=== PATIENT | female | born 1960 | race African-American/Black ===

== ENCOUNTER 2020-04-22 21:52 | Inpatient (IN) | payer MEDICARE, OTHER, MEDICAID ==
[~2020-04-22] VITALS: Ht 170.2 cm; Wt 88.5 kg
[~2020-04-22 21:52] MED LIST: ALBUTEROL; ASCORBIC ACID500 M4 GT; ATROVENT; CRANBERRY JUICE; DILANTIN-1125 MG/5 M GT; DULCOLAX10 MG RC; FLEET ENEMA133 ML RC; LIQUITEARS15 ML OP; MIRALAX17 GM PO; MOM30 ML GT; MVI WITH MINERAL GT; PERIDEX 0.12% O15 ML ORO; POTASSIUM20 MEQ/15 GT; PRILOSEC20 MG GT; REGLAN5 MG GT; VITAMIN C500 MG/51 GT; ZINC SULFATE220 M1 GT; tylenol GT
[2020-04-22 21:55] VITALS: BP 116/52
--- NOTE | 2020-04-22 21:55 | NUR ---
ED Nurse Note: Patient brought in by ambulance rigoberto ra [facility] from [facility] c/o fever. Patient placed in isolation room 7. Patient obtunded, responds to painful stimuli, opens eyes spontaneously, unable to track movements, unable to make purposeful movements. Contracture noted on right upper extremity; flaccidity noted on other extremities. Changed gown and attached to monitor. patient sinus tach 130's; febrile 105F rectal; otherwise vitals stable. Tracheostomy noted; portex 7. RT at bedside for vent attachment. AC 18 TV450 PEEP5 FIO2 40%. GT noted; flushed and patent. Ding and bilateral ileal conduits intact and patent. Sacral wound noted; wound pictures taken and uploaded. PUI airborne precautions observed. All safety measures met; bed locked at lowest position; side rails raised.
--- NOTE | 2020-04-22 22:00 | NUR ---
ED Nurse Note: IV access present on right ankle 22g; flushed and patent. IV access established left forearm 20 g. Blood, urine, inital lactic, blood cultures, flu mrsa vre cre covid swab collected sent down to lab.
--- NOTE | 2020-04-22 22:03 | NUR ---
RESPIRATORY NOTE: Pt BIBA in ED c/o fever. Pt placed on ventilator w/ previous settings from facility. Pt on AC 18, 450VT, 40%, PEEP +5. Pt is trach-dependent w/ a cuffed, Portex 7 tube. Pt obtunded/flat effect. B/S ryne. rhonchi, sxn small to moderate amounts of thick, pale-yellow secretions. Vent plugged into red outlet, ambubag at bedside. Pt in no apparent distress at this time. RN at bedside. Will continue to monitor pt.
--- NOTE | 2020-04-22 22:12 | Emergency Room Report ---
History of Present Illness General Chief Complaint: Fever Source: Medical Record, EMS Present Illness HPI This is a 59-year-old female with detention patient. She is trach dependent and also has a feeding tube. She presents with chief complaint of fever. Onset today. Also increasing heart rate and shortness of breath. Unable to get any history from this patient because of her condition and she is nonverbal. History is from detention note and EMS. No reported productive cough. Allergies: Coded Allergies: No Known Allergies (Unverified , 02/08/13) COVID-19 Screening Contact w/high risk pt: Yes Recent Travel to affected area: No Experienced COVID-19 symptoms?: Yes COVID-19 symptoms experienced: Fever (T>100.4F or >38C) COVID-19 Testing performed COIL TAPER: No Patient History Past Medical History: see triage record, old chart reviewed Past Surgical History: other Pertinent Family History: none Social History: Denies: smoking Last Menstrual Period: na Now: No Immunizations: UTD Reviewed Nursing Documentation: PMH: Agreed; PSxH: Agreed Nursing Documentation-PMH Hx COPD: Yes - resp failure,trache vent, CHRONIC AIRWAY OBSTRUCTION Hx Gastrointestinal Problems: Yes - gerd, G-TUBE, INTESTINAL OBSTRUCTION, PARALYTIC ILEUS, OBESITY Hx Seizures: Yes Review of Systems Constitutional: Reports: weakness Respiratory: Reports: shortness of breath All Other Systems: limited - Secondary to condition Physical Exam Vital Signs Date Time Temp Pulse Resp B/P (MAP) Pulse Ox O2 Delivery O2 Flow Rate FiO2 04/22/20 21:51 100.8 120 12 116/52 (73) 100 Trach Collar 15.0 04/22/20 22:00 40 Vitals with fever. Rectal temp 105.4 Sp02 EP Interpretation: reviewed, normal General Appearance: alert, moderate distress, cachetic, Chronically Ill Head: normocephalic, atraumatic Eyes: bilateral eye PERRL, bilateral eye EOMI ENT: hearing grossly normal, dry mucus membranes Neck: full range of motion, supple, no meningismus, tracheotomy Respiratory: chest non-tender, decreased breath sounds, accessory muscle use, rhonchi Cardiovascular #1: regular rate, rhythm, no murmur Gastrointestinal: normal bowel sounds, non tender, no mass, no organomegaly, no bruit, non-distended Musculoskeletal: back normal, other - Muscle wasting; sacral decubitus. No drainage. Bilateral urostomy tubes Skin: no rash Procedures Critical Care Time Critical Care Time Critical care is mandated in this patient who presented with sepsis. Patient require my urgent intervention to attenuate the risks of metabolic collapse which may lead to cardiovascular collapse and . Critical care time is 35 minutes excluding any reportable procedure. Critical care time included evaluation, multiple reevaluation, looking at old charts, interpreting laboratory and diagnostic data, discussing case with patient and family and consultants, and charting. 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 She grew out multidrug- resistant bacteria in the past. I gave her a dose of ertapenem here. Blood pressure improved with IV fluids. Heart rate improved with IV fluids and Tylenol. Rapid COVID testing is negative. Chest x-ray no infiltrates. I discussed the case with [facility]. Case #[id number]. There is no stepdown or ICU bed at [facility] so she will be admitted here under service of Dr. Yanez. I discussed the case with him and he accepted patient for admission. EKG Diagnostic Results Rate: tachycardiac Rhythm: NSR ST Segments: other - NSST changes Rhythm Strip Diag. Results EP Interpretation: yes Rate: 105 Rhythm: NSR, no PVC's, no ectopy Chest X-Ray Diagnostic Results Chest X-Ray Diagnostic Results : Chest X-Ray Ordered: Yes # of Views/Limited/Complete: 1 View Indication: Shortness of Breath EP Interpretation: Yes Interpretation: no consolidation, no effusion, no pneumothorax, no acute cardiopulmonary disease Impression: No acute disease Electronically Signed by: Gilmar Santoyo MD Last Vital Signs Date Time Temp Pulse Resp B/P (MAP) Pulse Ox O2 Delivery O2 Flow Rate FiO2 04/22/20 22:00 127 26 40 04/22/20 21:51 100.8 116/52 (73) 100 Trach Collar 15.0 Status: improved Disposition: ADMITTED INPATIENT Condition: Serious Gilmar Santoyo MD Apr 22, 2020 22:12
[2020-04-22] MEDS ORDERED: Acetaminophen 650 MG SUPP RECTAL ONE (22:15)
--- NOTE | 2020-04-22 22:17 | NUR ---
patient's brother, Reggie TAMAYO [phone]
--- NOTE | 2020-04-22 22:50 | NUR ---
ED Nurse Note: Radiology at bedside for CXR.
[2020-04-22 23:13] LABS: BASOPHILS % (AUTO) 1.2 % (0.0-2.0); HEMATOCRIT 41.1 % (37.0-47.0); HEMOGLOBIN 12.5 G/DL (12.0-16.0); LYMPHOCYTES % (AUTO) 24.4 % (20.0-45.0); MEAN CORPUSCULAR VOLUME 102 FL (80-99); MONOCYTES % (AUTO) 7.2 % (1.0-10.0); NEUTROPHILS % (AUTO) 67.2 % (45.0-75.0); PLATELET COUNT 109 K/UL (150-450); RED BLOOD COUNT 4.02 M/UL (4.20-5.40); RED CELL DISTRIBUTION WIDTH 16.4 % (11.6-14.8)
[2020-04-22 23:20] LABS: ANION GAP 10 mmol/L (5-15); BLOOD UREA NITROGEN 46 mg/dL (7-18); CALCIUM 7.7 MG/DL (8.5-10.1); CARBON DIOXIDE 28 MMOL/L (21-32); CHLORIDE 122 MMOL/L (98-107); CREATININE 1.3 MG/DL (0.55-1.30); SODIUM 160 MMOL/L (136-145)
[2020-04-22 23:30] VITALS: BP 124/68
--- NOTE | 2020-04-22 23:30 | NUR ---
ED Nurse Note: Rapid covid resulted negative; droplet precaution retracted and placed on contact precaution. Patient remains tachycardic 122 otherwise vitals remain stable to baseline.
[2020-04-22 23:37] LABS: ALANINE AMINOTRANSFERASE 127 U/L (12-78); ALBUMIN 2.4 G/DL (3.4-5.0); ALBUMIN/GLOBULIN RATIO 0.3 (1.0-2.7); ALKALINE PHOSPHATASE 150 U/L (46-116); ASPARTATE AMINO TRANSFERASE 103 U/L (15-37); BILIRUBIN,TOTAL 0.4 MG/DL (0.2-1.0); CKMB < 0.5 NG/ML (0.0-3.6); CREATINE KINASE 165 U/L (26-308); FERRITIN 340 NG/ML (8-388)
[2020-04-23] VITALS (7 sets, daily range): BP systolic 124–144; BP diastolic 38–83
[2020-04-23] MEDS ORDERED: Ertapenem 1 GM in NS 55 ML IV ONE ×2
--- NOTE | 2020-04-23 | NUR ---
ED Nurse Note: lactic reflex, repeat urine and flu swab collected; sent down to lab.
[2020-04-23 00:56] LABS: APPEARANCE,URINE SLIGHTLY CLOUDY; BILIRUBIN, URINE NEGATIVE (NEGATIVE); COLOR,URINE PALE YELLOW; GLUCOSE, URINE (UA) 4+ (NEGATIVE); KETONES,URINE NEGATIVE (NEGATIVE); LEUKOCYTE ESTERASE ,URINE 3+ (NEGATIVE); NITRITE,URINE NEGATIVE (NEGATIVE); PH,URINE 8 (4.5-8.0); PROTEIN,URINE 4+ (NEGATIVE); UROBILINOGEN,URINE NORMAL MG/DL (0.0-1.0)
--- NOTE | 2020-04-23 01:12 | NUR ---
ED Nurse Note: Accucheck 249; ermd notified.
--- NOTE | 2020-04-23 01:14 | Emergency Room Report ---
Sepsis Event Note Evaluation Current Stage of Sepsis: Severe Sepsis Possible Source: Genitourinary Focused Exam Allergies: Coded Allergies: No Known Allergies (Unverified , 02/08/13) Date Exam Occurred: Apr 23, 2020 Time Exam Occurred: 01:14 Laboratory Studies Laboratory Tests Test 04/22/20 22:06 04/22/20 22:15 04/23/20 00:00 Sodium Level 160 MMOL/L (136-145) H Potassium Level 4.0 MMOL/L (3.5-5.1) Chloride Level 122 MMOL/L (98-107) H Carbon Dioxide Level 28 MMOL/L (21-32) Anion Gap 10 mmol/L (5-15) Blood Urea Nitrogen 46 mg/dL (7-18) H Creatinine 1.3 MG/DL (0.55-1.30) Estimat Glomerular Filtration Rate 50.4 mL/min (>60) Glucose Level 499 MG/DL (74-106) H Calcium Level 7.7 MG/DL (8.5-10.1) L Ferritin 340 NG/ML (8-388) Total Bilirubin 0.4 MG/DL (0.2-1.0) Aspartate Amino Transf (AST/SGOT) 103 U/L (15-37) H Alanine Aminotransferase (ALT/SGPT) 127 U/L (12-78) H Alkaline Phosphatase 150 U/L (46-116) H Total Creatine Kinase 165 U/L (26-308) Creatine Kinase MB < 0.5 NG/ML (0.0-3.6) Creatine Kinase MB Relative Index 0.3 Total Protein 10.2 G/DL (6.4-8.2) H Albumin 2.4 G/DL (3.4-5.0) L Globulin 7.8 g/dL Albumin/Globulin Ratio 0.3 (1.0-2.7) L White Blood Count 14.0 K/UL (4.8-10.8) H Red Blood Count 4.02 M/UL (4.20-5.40) L Hemoglobin 12.5 G/DL (12.0-16.0) Hematocrit 41.1 % (37.0-47.0) Mean Corpuscular Volume 102 FL (80-99) H Mean Corpuscular Hemoglobin 31.1 PG (27.0-31.0) H Mean Corpuscular Hemoglobin Concent 30.3 G/DL (32.0-36.0) L Red Cell Distribution Width 16.4 % (11.6-14.8) H Platelet Count 109 K/UL (150-450) L Mean Platelet Volume 12.2 FL (6.5-10.1) H Neutrophils (%) (Auto) 67.2 % (45.0-75.0) Lymphocytes (%) (Auto) 24.4 % (20.0-45.0) Monocytes (%) (Auto) 7.2 % (1.0-10.0) Eosinophils (%) (Auto) 0.0 % (0.0-3.0) Basophils (%) (Auto) 1.2 % (0.0-2.0) D-Dimer 1.68 mg/L FEU (0.00-0.49) H Lactic Acid Level 3.30 mmol/L (0.4-2.0) H Pending Troponin I 0.097 ng/mL (0.000-0.056) C-Reactive Protein, Quantitative 2.8 mg/dL (0.00-0.90) H Urine Color Pale yellow Urine Appearance Slightly cloudy Urine pH 8 (4.5-8.0) Urine Specific [place] 1.010 (1.005-1.035) Urine Protein 4+ (NEGATIVE) H Urine Glucose (UA) 4+ (NEGATIVE) H Urine Ketones Negative (NEGATIVE) Urine Blood 5+ (NEGATIVE) H Urine Nitrite Negative (NEGATIVE) Urine Bilirubin Negative (NEGATIVE) Urine Urobilinogen Normal MG/DL (0.0-1.0) Urine Leukocyte Esterase 3+ (NEGATIVE) H Urine RBC Tntc /HPF (0 - 2) H Urine WBC 20-30 /HPF (0 - 2) H Urine Squamous Epithelial Cells Few /LPF (NONE/OCC) Urine Bacteria Many /HPF (NONE) H Vital Signs Last 24 Hour Vital Signs Date Time Temp Pulse Resp B/P (MAP) Pulse Ox O2 Delivery O2 Flow Rate FiO2 04/23/20 00:30 103.0 118 18 144/60 100 Mechanical Ventilator 40 04/22/20 23:30 103.9 122 23 124/68 100 Mechanical Ventilator 40 04/22/20 23:25 121 20 40 04/22/20 22:46 103.9 6/22/20 22:00 127 26 40 04/22/20 22:00 40 04/22/20 21:55 105.0 130 12 116/52 100 Mechanical Ventilator 15.0 04/22/20 21:55 120 12 Mechanical Ventilator 15.0 04/22/20 21:51 100.8 120 12 116/52 (73) 100 Trach Collar 15.0 Respiratory Exam: Clear Cardiovascular Exam: RRR Capillary Refill: Less Than 2 Seconds Peripheral Pulse: Strong Pulse Location: Radial Skin Exam: Normal Turgor Gilmar Santoyo MD Apr 23, 2020 01:14
[2020-04-23] MEDS ORDERED: Acetaminophen 650 MG SUPP RECTAL PRN (01:15)
--- NOTE | 2020-04-23 01:20 | NUR ---
NURSE NOTES: Harry hooper RN called, gave report. awaiting pt arrival.
--- NOTE | 2020-04-23 01:25 | NUR ---
TRANSFER TO FLOOR: Patient transferred to [facility]du 239 as ordered, per monica valencia. Report given to paige pena. patient stable for transfer. patient transferred to unit via gurney with RN Fortunato and RT. Belongings and admission packet sent with patient
--- NOTE | 2020-04-23 01:29 | NUR ---
NURSE NOTES: pt received form Ela BARKER, pt remains stable. pt arrived with no belongings. pt is obtunded neuro porras, however no change in mentation. pt is on personnel monitor showing NSR, no acute abnormalities. pt is vented, sating at 99% O2 no abnormalities to resp. bed is low, locked, armed, call light within reach, bed rails up times 3. will follow plan of care.
[2020-04-23] MEDS ORDERED: GLYCOLAX225 GM GT (01:36)
[2020-04-23] MEDS ORDERED: CRANBERRY425 MG GT (01:36)
[2020-04-23] MEDS ORDERED: POTASSIUM20 MEQ/100 IV (01:36)
[2020-04-23] MEDS ORDERED: CLOPIDOGREL75 MG GT (01:36)
[2020-04-23] MEDS ORDERED: LIPITOR80 MG ORAL (01:36)
[2020-04-23] MEDS ORDERED: VITAMIN A & D454 GM TP (01:36)
[2020-04-23] MEDS ORDERED: ACETAMINOPHEN500 M5 GT (01:36)
[2020-04-23] MEDS ORDERED: ZOSYN 3.373.375 GM/1 IVPB (01:36)
[2020-04-23] MEDS ORDERED: LEVETIRACETAM500 MG GT (01:36)
[2020-04-23] MEDS ORDERED: ACETAMINOP160 MG/5 M GT (01:36)
[2020-04-23] MEDS ORDERED: SENNO8.6 MG GT (01:36)
[2020-04-23] MEDS ORDERED: SORBITOL 70%30 ML GT (01:36)
[2020-04-23] MEDS ORDERED: HUMULIN R100 UNIT/1 SUBQ (01:36)
[2020-04-23] MEDS ORDERED: DULCOLAX10 MG RC (01:36)
[2020-04-23] MEDS ORDERED: DOCUSATE SODIU100 M2 GT (01:36)
[2020-04-23] MEDS ORDERED: IPRATROPIU0.2 MG/1 M HHN (01:36)
[2020-04-23] MEDS ORDERED: Miralax 17gm pkt GT SCH (02:00)
[2020-04-23] MEDS ORDERED: Milk of Magnesia 30ml Ud GT PRN (02:00)
[2020-04-23] MEDS ORDERED: Fleet's Enema 133ml RECTAL PRN (02:00)
[2020-04-23] MEDS ORDERED: KCL IVPB SCH (02:00)
[2020-04-23] MEDS ORDERED: Sorbitol Solution UD 30ml GT SCH (02:00)
[2020-04-23] MEDS ORDERED: Ipratropium 0.02% Inh Soln 2.5ml UD HHN PRN (02:00)
[2020-04-23] MEDS: Acetaminophen 500mg (ES) tab ORAL SCH ×2 (02:00→06:00)
[2020-04-23] MEDS ORDERED: Vancomycin 1gm in D5W 275ml IVPB SCH ×2 (04:15→05:00)
[2020-04-23 05:49] LABS: ANION GAP 10 mmol/L (5-15); BLOOD UREA NITROGEN 34 mg/dL (7-18); CALCIUM 6.7 MG/DL (8.5-10.1); CARBON DIOXIDE 25 MMOL/L (21-32); CHLORIDE 130 MMOL/L (98-107); PHOSPHORUS 1.7 MG/DL (2.5-4.9); POTASSIUM 3.2 MMOL/L (3.5-5.1)
[2020-04-23 05:51] LABS: HEMATOCRIT 34.3 % (37.0-47.0); HEMOGLOBIN 10.4 G/DL (12.0-16.0); MEAN CORPUSCULAR VOLUME 104 FL (80-99); PLATELET COUNT 86 K/UL (150-450); RED CELL DISTRIBUTION WIDTH 15.5 % (11.6-14.8); WHITE BLOOD COUNT 13.4 K/UL (4.8-10.8)
[2020-04-23] MEDS ORDERED: Insulin Human Regular 100units/ml 3ml SUBQ SCH (06:30)
[2020-04-23 06:39] LABS: SODIUM 165 MMOL/L (136-145)
[2020-04-23] MEDS ORDERED: Cefepime 2gm in D5W 55ml IVPB SCH (07:00)
--- NOTE | 2020-04-23 07:10 | NUR ---
HAND-OFF: Report given to Sue BARKER pt remains stable. .
--- NOTE | 2020-04-23 07:20 | NUR ---
NURSE NOTES: Received report from LUCERO Suarez. Pt appears to be obtunded, not tracking with her eyes, not following commands. Trach to vent, Portex 7- AC 18, TV 450, PEEP 5. O2sat 99-100%. Rt foot #22g, saline locked and Lt FA #20g running 1/2 NS @ 75mL/hr. Pt noted to have BL nephrostomy tubes, draining to collection bags. Pt also has a Ding catheter draining minimal urine to urometer. Will report labs to MD and clarify a few medication orders. Bed locked and in lowest position. Seizure precautions maintained. Will continue to monitor.
--- NOTE | 2020-04-23 08:14 | NUR ---
RD ASSESSMENT & RECOMMENDATIONS SEE CARE ACTIVITY FOR COMPLETE ASSESSMENT DAILY ESTIMATED NEEDS: Needs based on Critical care, DM, sepsis 66.7kg abw 22-30 kcals/kg 5946-4126 total kcals 1.25-2 g protein/kg 83-133 g total protein 25-30 mL/kg 6696-6312 total fluid mLs NUTRITION DIAGNOSIS: Swallowing difficulty r/t resp status as evidenced by pt is trach and PEG dep. CURRENT TF: Glucerna 1.5 @60ml/hr x20 hrs ENTERAL NUTRITION RECOMMENDATIONS: Glucerna 1.2 @75ml/hr x20 hrs (on Dilantin BID) to provide 1500ml, 1800 kcal, 90g pro, 1208ml free h2o Glucerna 1.5 OOS-> Rec Glucerna 1.2 for carb control + increased free H2O - Start @low rate, 15ml/hr for 6 hrs. Advance as tolerated 10ml/hr q4-6 hrs to goal. - Flush per MD/ HOB over 30 degrees. ---- ADDITIONAL RECOMMENDATIONS: 1) Obtain an accurate Height as able: 5'7" per EMR vs 6'1" per SNF. April 01, 2020 wt per SNF: 182 lbs/82.73kg 2) F/up w/ WC eval 3) Increase water flushes as Na is trending up 4) Replete lytes-> Mg, Phos, and K all low
[2020-04-23] MEDS ORDERED: Sorbitol Solution UD 30ml GT PRN (08:15)
[2020-04-23] MEDS ORDERED: Acetaminophen 650mg/20.3ml GT SCH (08:30)
[2020-04-23] MEDS ORDERED: Acetaminophen 650mg/20.3ml GT PRN (08:45)
[2020-04-23] MEDS ORDERED: levETIRAcetam 500mg/5ml Liquid NG SCH (09:00)
[2020-04-23] MEDS ORDERED: Ascorbic Acid 500mg tab GT SCH (09:00)
[2020-04-23] MEDS ORDERED: Cefepime HCl 1 GM in D5W 55 ML IVPB SCH (09:00)
[2020-04-23] MEDS ORDERED: Phenytoin Susp 100mg/4ml GT SCH (09:00)
[2020-04-23] MEDS ORDERED: Pantoprazole Inj IVP SCH (09:00)
[2020-04-23] MEDS ORDERED: Vitamin A&D Oint Tube TOPIC SCH (09:00)
[2020-04-23] MEDS: Phenytoin Susp 100mg/4ml NG SCH ×2 (09:11→13:13)
[2020-04-23] MEDS: Cefepime 2gm in D5W 55ml IVPB SCH ×2 (09:12→20:59)
[2020-04-23] MEDS: Sennosides 8.6mg tab GT SCH (09:12)
[2020-04-23] MEDS: Zinc Sulfate 220mg GT SCH (09:15)
[2020-04-23] MEDS: Miralax 17gm pkt GT SCH (09:15)
--- NOTE | 2020-04-23 10:49 | Diagnostic Imaging Report ---
Procedure: XRAY Chest 1v Reason for study: Reason For Exam: SOB Comparison films: 01/08/2015. FINDINGS: A single one view chest is obtained. Vascularity is normal. The lung edgar are clear bilaterally. Cardiac and mediastinal silhouette are within normal limits. CP angles are sharp. The bony thorax appear unremarkable. IMPRESSION: NO ACUTE CARDIOPULMONARY DISEASE.
--- NOTE | 2020-04-23 11:45 | NUR ---
NURSE NOTES: Jackelin, wound care nurse, at bedside assessing pt's wound- sacral stage 4. 3.6 x 1.3 x 1.9. Wound cleaned, Betadine applied, therhoney applied. Triad applied to surrounding areas. Covered with optifoam. Heels and BL hip bones also covered with optifoam for protection.
[2020-04-23] MEDS: NovoLOG Insulin Flexpen SUBQ SCH ×2 (12:00→17:50)
--- NOTE | 2020-04-23 12:12 | Consultation ---
History of Present Illness General Chief Complaint: Fever Present Illness HPI 59 year old female with hx of Schizophrenia, depression with paranoia, suicide attempt in 2004 progressing to coma, requiring manager terminal ventilator support, bed bound with spastic quadriplegia, seizure disorder, tracheostomy, Gtube, bilateral nephrostomy tubes since 2018, brought in by paramedics with CC of fever and tachycardia. Allergies: Coded Allergies: No Known Allergies (Unverified , 02/08/13) Medication History Scheduled Acetaminophen (Acetaminophen), 500 MG GT Q4H, (Reported) Ascorbic Acid (Vitamin C), 500 MG GT BID, (Reported) Atorvastatin (Lipitor), 10 MG ORAL BEDTIME, (Reported) Clopidogrel* (Clopidogrel*), 75 MG GT DAILY, (Reported) Docusate Sodium (Docusate Sodium), 250 MG GT DAILY, (Reported) Levetiracetam* (Levetiracetam*), 100 MG GT TWICE A DAY, (Reported) Omeprazole (Prilosec), 20 MG GT DAILY, (Reported) Phenytoin (Dilantin-125), 125 MG GT BID, (Reported) Etmzaqwfkzqk-Qzyk-Cuqysrex,Iso (Zosyn 3.375 Gm Pre Mix-Bag), 3.375 GM IVPB EVERY 6 HOURS, (Reported) Polyethylene Glycol* (Miralax*), 17 GM PO DAILY, (Reported) Polyvinyl Alcohol (Liquitears), 15 ML OP BID, (Reported) Sennosides* (Senno*), 8.6 MG ORAL DAILY, (Reported) Zinc Sulfate (Zinc Sulfate*), 220 MG GT DAILY, (Reported) [Mvi With Mineral], 30 ML GT DAILY, (Reported) Scheduled PRN Acetaminophen 160MG/5ML* (Acetaminophen*), 20.3 ML GT THREE TIMES A DAY PRN for Fever/Headache/Mild Pain, (Reported) Ipratropium [place] 0.5MG/2.5ML (Ipratropium [place] 0.5MG/2.5ML), 0.5 MG HHN Q6H PRN for Shortness of Breath, (Reported) Magnesium Hydroxide (Milk of Magnesia), 30 ML GT DAILY PRN, (Reported) Metoclopramide Hcl* (Reglan*), 5 MG GT EVERY 6 HOURS PRN, (Reported) Na Phos,M-B/Na Phos,Di-Ba* (Fleet Enema*), 133 ML RC DAILY PRN, (Reported) [tylenol], 650 MG GT EVERY 6 HOURS PRN, (Reported) Miscellaneous Medications Bisacodyl (Dulcolax), 10 MG RC, (Reported) Bisacodyl (Dulcolax), 10 MG RC, (Reported) Chlorhexidine Gluconate (Chlorhexidine Gluconate), 15 ML CHASE, (Reported) Cranberry Extract (Cranberry), 425 MG GT, (Reported) Insulin Regular, Human (Humulin R), 0 SUBQ, (Reported) Polyethylene Glycol 3350 (Glycolax), 225 GM GT, (Reported) Potassium Chloride (Potassium Chloride), 20 MEQ IV, (Reported) Sorbitol (Sorbitol), 30 ML GT, (Reported) Vitamin A & D (Vitamin A & D Ointment), 454 GM TOP, (Reported) [Atrovent], (Reported) [Cranberry Juice], (Reported) [albuterolsulfate], (Reported) Patient History Healthcare decision maker Resuscitation status Advanced Directive on File Past Medical/Surgical History Past Medical/Surgical History: (1) Sacral decubitus ulcer (2) Diabetes mellitus (3) Feeding by G-tube (4) Chronic respiratory failure (5) Chronic seizure disorder (6) Spastic quadriplegic cerebral palsy (7) Schizophrenia Review of Systems All Other Systems: negative except mentioned in HPI Physical Exam General Appearance: thin Lines, tubes and drains: peripheral, trach, gtube, other - nephrostomy tube HEENT: normocephalic, atraumatic, status post trach Neck: non-tender, normal alignment Respiratory/Chest: rhonchi - right, stridor Cardiovascular/Chest: normal peripheral pulses, tachycardia Abdomen: normal bowel sounds, feeding tube Extremities: other - multiple contractures Last 24 Hour Vital Signs Date Time Temp Pulse Resp B/P (MAP) Pulse Ox O2 Delivery O2 Flow Rate FiO2 04/23/20 11:04 111 20 40 04/23/20 08:00 40 04/23/20 08:00 99.5 113 20 130/58 (82) 98 04/23/20 07:20 114 04/23/20 06:55 109 19 40 04/23/20 04:00 111 04/23/20 04:00 40 04/23/20 04:00 Mechanical Ventilator 04/23/20 04:00 98.2 110 20 124/81 (95) 99 04/23/20 03:21 112 19 40 04/23/20 03:19 112 19 100 Mechanical Ventilator 40 04/23/20 02:31 Mechanical Ventilator 04/23/20 02:21 112 04/23/20 02:00 98.0 78 20 130/83 (99) 99 04/23/20 01:24 103.0 118 18 144/60 100 Mechanical Ventilator 15.0 40 04/23/20 00:30 103.0 118 18 144/60 100 Mechanical Ventilator 40 04/22/20 23:30 103.9 122 23 124/68 100 Mechanical Ventilator 40 04/22/20 23:25 121 20 40 04/22/20 22:46 103.9 04/22/20 22:00 127 26 40 04/22/20 22:00 40 04/22/20 21:55 105.0 130 12 116/52 100 Mechanical Ventilator 15.0 04/22/20 21:55 120 12 Mechanical Ventilator 15.0 04/22/20 21:51 100.8 120 12 116/52 (73) 100 Trach Collar 15.0 Intake and Output 04/22/20 04/23/20 19:00 07:00 Intake Total 500.000 ml Balance 500.000 ml Intake IV Total 500.000 ml Laboratory Tests Test 04/22/20 22:06 04/22/20 22:15 04/23/20 00:00 04/23/20 04:30 Sodium Level 160 MMOL/L (136-145) H 165 MMOL/L (136-145) *H Potassium Level 4.0 MMOL/L (3.5-5.1) 3.2 MMOL/L (3.5-5.1) L Chloride Level 122 MMOL/L (98-107) H 130 MMOL/L (98-107) H Carbon Dioxide Level 28 MMOL/L (21-32) 25 MMOL/L (21-32) Anion Gap 10 mmol/L (5-15) 10 mmol/L (5-15) Blood Urea Nitrogen 46 mg/dL (7-18) H 34 mg/dL (7-18) H Creatinine 1.3 MG/DL (0.55-1.30) 1.0 MG/DL (0.55-1.30) Estimat Glomerular Filtration Rate 50.4 mL/min (>60) > 60 mL/min (>60) Glucose Level 499 MG/DL (74-106) H 251 MG/DL (74-106) #H Calcium Level 7.7 MG/DL (8.5-10.1) L 6.7 MG/DL (8.5-10.1) L Ferritin 340 NG/ML (8-388) Total Bilirubin 0.4 MG/DL (0.2-1.0) Aspartate Amino Transf (AST/SGOT) 103 U/L (15-37) H Alanine Aminotransferase (ALT/SGPT) 127 U/L (12-78) H Alkaline Phosphatase 150 U/L (46-116) H Total Creatine Kinase 165 U/L (26-308) Creatine Kinase MB < 0.5 NG/ML (0.0-3.6) Creatine Kinase MB Relative Index 0.3 Total Protein 10.2 G/DL (6.4-8.2) H Albumin 2.4 G/DL (3.4-5.0) L Globulin 7.8 g/dL Albumin/Globulin Ratio 0.3 (1.0-2.7) L White Blood Count 14.0 K/UL (4.8-10.8) H 13.4 K/UL (4.8-10.8) H Red Blood Count 4.02 M/UL (4.20-5.40) L 3.30 M/UL (4.20-5.40) L Hemoglobin 12.5 G/DL (12.0-16.0) 10.4 G/DL (12.0-16.0) L Hematocrit 41.1 % (37.0-47.0) 34.3 % (37.0-47.0) L Mean Corpuscular Volume 102 FL (80-99) H 104 FL (80-99) H Mean Corpuscular Hemoglobin 31.1 PG (27.0-31.0) H 31.4 PG (27.0-31.0) H Mean Corpuscular Hemoglobin Concent 30.3 G/DL (32.0-36.0) L 30.2 G/DL (32.0-36.0) L Red Cell Distribution Width 16.4 % (11.6-14.8) H 15.5 % (11.6-14.8) H Platelet Count 109 K/UL (150-450) L 86 K/UL (150-450) L Mean Platelet Volume 12.2 FL (6.5-10.1) H 12.5 FL (6.5-10.1) H Neutrophils (%) (Auto) 67.2 % (45.0-75.0) % (45.0-75.0) Lymphocytes (%) (Auto) 24.4 % (20.0-45.0) % (20.0-45.0) Monocytes (%) (Auto) 7.2 % (1.0-10.0) % (1.0-10.0) Eosinophils (%) (Auto) 0.0 % (0.0-3.0) % (0.0-3.0) Basophils (%) (Auto) 1.2 % (0.0-2.0) % (0.0-2.0) D-Dimer 1.68 mg/L FEU (0.00-0.49) H Lactic Acid Level 3.30 mmol/L (0.4-2.0) H 2.80 mmol/L (0.66-2.22) H Troponin I 0.097 ng/mL (0.000-0.056) C-Reactive Protein, Quantitative 2.8 mg/dL (0.00-0.90) H Urine Color Pale yellow Urine Appearance Slightly cloudy Urine pH 8 (4.5-8.0) Urine Specific [place] 1.010 (1.005-1.035) Urine Protein 4+ (NEGATIVE) H Urine Glucose (UA) 4+ (NEGATIVE) H Urine Ketones Negative (NEGATIVE) Urine Blood 5+ (NEGATIVE) H Urine Nitrite Negative (NEGATIVE) Urine Bilirubin Negative (NEGATIVE) Urine Urobilinogen Normal MG/DL (0.0-1.0) Urine Leukocyte Esterase 3+ (NEGATIVE) H Urine RBC Tntc /HPF (0 - 2) H Urine WBC 20-30 /HPF (0 - 2) H Urine Squamous Epithelial Cells Few /LPF (NONE/OCC) Urine Bacteria Many /HPF (NONE) H Phosphorus Level 1.7 MG/DL (2.5-4.9) L Magnesium Level 2.8 MG/DL (1.8-2.4) H Test 04/23/20 06:50 04/23/20 08:50 04/23/20 10:40 Arterial Blood pH 7.353 (7.350-7.450) Arterial Blood Partial Pressure CO2 44.1 mmHg (35.0-45.0) Arterial Blood Partial Pressure O2 99.5 mmHg (75.0-100.0) Arterial Blood HCO3 24.0 mmol/L (22.0-26.0) Arterial Blood Oxygen Saturation 97.3 % (95-100) Arterial Blood Base Excess -1.6 (-2-2) Adrian Test Positive Lactic Acid Level 2.90 mmol/L (0.4-2.0) H 2.40 mmol/L (0.66-2.22) H Microbiology Date/Time Source Procedure Growth Status 04/22/20 22:00 Nasopharynx SARS-CoV-2 RdRp Gene Assay - Final Complete 04/22/20 22:00 Nasal Nares - Final Complete 04/22/20 22:00 Nasal Nares - Final Complete Height (Feet): 5 Height (Inches): 7.00 Weight (Pounds): 130 Medications Current Medications Medications (Trade) Dose Ordered Sig/Emanuel Route PRN Reason Start Time Stop Time Status Last Admin Dose Admin Acetaminophen (Tylenol) 500 mg Q4H PRN GT Pain Scale (3-5) 04/23/20 08:45 05/23/20 01:59 Acetaminophen (Tylenol) 650 mg THREE TIMES A DAY PRN GT FHMP 04/23/20 02:00 05/23/20 01:59 Artificial Tears (Akwa-Tears) 1 drop BID BOTH EYES 04/23/20 09:00 05/23/20 08:59 04/23/20 09:11 Bisacodyl (Dulcolax) 10 mg DAILY PRN RECTAL Constipation 04/23/20 02:00 07/22/20 01:59 Cefepime HCl 2 gm/ Dextrose 55 ml @ 110 mls/hr Q12H IVPB 04/23/20 08:00 04/30/20 07:59 04/23/20 09:12 Clopidogrel Bisulfate (Plavix) 75 mg DAILY GT 04/23/20 09:00 05/23/20 08:59 04/23/20 09:12 Dextrose (Dextrose 50%) 25 ml Q30M PRN IV Hypoglycemia 04/23/20 08:15 07/22/20 08:14 Dextrose (Dextrose 50%) 50 ml Q30M PRN IV Hypoglycemia 04/23/20 08:15 07/22/20 08:14 Docusate Sodium (Colace) 250 mg NEEDED ORAL 04/23/20 02:00 05/23/20 01:59 UNV Insulin Aspart (NovoLOG) EVERY 6 HOURS SUBQ 04/23/20 12:00 07/22/20 11:59 Ipratropium [place] (Atrovent) 500 mcg Q6H PRN HHN Shortness of Breath 04/23/20 02:00 04/28/20 01:59 Levetiracetam (Keppra) 1,000 mg Q12HR NG 04/23/20 09:00 05/23/20 08:59 04/23/20 09:11 Metoclopramide HCl (Reglan) 5 mg Q6H PRN GT VOMITING 04/23/20 02:00 05/23/20 01:59 Pantoprazole (Protonix) 40 mg DAILY IVP 04/23/20 09:00 05/23/20 08:59 04/23/20 09:11 Phenytoin (Dilantin) 150 mg Q8HR NG 04/23/20 08:30 05/23/20 08:29 04/23/20 09:11 Polyethylene Glycol (Miralax) 17 gm DAILY GT 04/23/20 09:00 05/23/20 08:59 04/23/20 09:15 Polyethylene Glycol (Miralax) 225 gm NEEDED GT 04/23/20 02:00 05/23/20 01:59 UNV Potassium Chloride (KCl 20mEq/100ml Premix) 20 meq NEEDED IVPB 04/23/20 02:00 07/22/20 01:59 UNV Sennosides (Senokot) 8.6 mg DAILY GT 04/23/20 09:00 05/23/20 08:59 04/23/20 09:12 Sodium Phosphate (Fleet's Sodium Phosl Enema) 133 ml DAILY PRN RECTAL CONSTIPATION 04/23/20 02:00 05/23/20 01:59 Sorbitol (sorbitoL) 30 ml NEEDED PRN GT Constipation 04/23/20 08:15 05/23/20 01:59 UNV Vancomycin HCl (Vanco pharmacy to dose) 1 ea DAILY PRN MISC Per rx protocol 04/23/20 03:00 05/23/20 02:59 Vancomycin HCl 750 mg/Sodium Chloride 275 ml @ 183.333 mls/hr Q12H IVPB 04/23/20 17:00 04/28/20 16:59 Vitamin A/Vitamin D (A & D Oint) 1 applic NEEDED TOPIC 04/23/20 09:00 05/23/20 08:59 UNV Zinc Sulfate (Zinc Sulfate) 220 mg DAILY GT 04/23/20 09:00 07/22/20 08:59 04/23/20 09:15 Assessment/Plan Problem List: (1) Sepsis ICD Codes: A41.9 - Sepsis, unspecified organism SNOMED: 63897969 Qualifiers: Qualified Codes: A41.9 - Sepsis, unspecified organism (2) UTI (urinary tract infection) ICD Codes: N39.0 - Urinary tract infection, site not specified SNOMED: 03908798 Qualifiers: Qualified Codes: N30.00 - Acute cystitis without hematuria (3) Chronic respiratory failure ICD Codes: J96.10 - Chronic respiratory failure, unspecified whether with hypoxia or hypercapnia SNOMED: 11853556 (4) Acute prerenal azotemia ICD Codes: R79.89 - Other specified abnormal findings of blood chemistry SNOMED: 058168939 (5) Sacral decubitus ulcer ICD Codes: L89.159 - Pressure ulcer of sacral region, unspecified stage SNOMED: 547970799 Qualifiers: Qualified Codes: L89.159 - Pressure ulcer of sacral region, unspecified stage (6) Chronic seizure disorder (7) Schizophrenia ICD Codes: F20.9 - Schizophrenia, unspecified SNOMED: 19662002 (8) Spastic quadriplegic cerebral palsy ICD Codes: G80.0 - Spastic quadriplegic cerebral palsy SNOMED: 83680648 (9) Feeding by G-tube ICD Codes: Z93.1 - Gastrostomy status SNOMED: 185598768, 240154833, 216992774 (10) Diabetes mellitus ICD Codes: E11.9 - Type 2 diabetes mellitus without complications SNOMED: 53884728 Assessment/Plan: pereira culture IV fluids sliding scale broad spectrum abx ID consult check electrolytes insulin coverage social service consult to find family members. Luis Garcia MD Apr 23, 2020 12:11
[2020-04-23] MEDS ORDERED: Docusate 100mg/10ml Liq GT PRN (12:50)
--- NOTE | 2020-04-23 13:40 | Consultation ---
Consult Note Consult Note I am asked to evaluate the patient at her request of Dr. Yanez for renal failure and electrolyte imbalances. This is a 59-year-old female with custodial patient. She is trach dependent and also has a feeding tube. She presents with chief complaint of fever. Onset today. Also increasing heart rate and shortness of breath. Unable to get any history from this patient because of her condition and she is nonverbal. History is from custodial note and EMS. No reported productive cough. No Known Allergies (Unverified , 02/08/13) COVID-19 Screening Contact w/high risk pt: Yes Recent Travel to affected area: No Experienced COVID-19 symptoms?: Yes COVID-19 symptoms experienced: Fever (T>100.4F or >38C) Hx COPD: Yes - resp failure,trache vent, CHRONIC AIRWAY OBSTRUCTION Hx Gastrointestinal Problems: Yes - gerd, G-TUBE, INTESTINAL OBSTRUCTION, PARALYTIC ILEUS, OBESITY Hx Seizures: Yes Data reviewed Patient examined PHYSICAL EXAMINATION: VITAL SIGNS: Temperature 103.9, respirations 23, pulse 122, blood pressure 124/60. GENERAL: Patient is a thin-appearing female, who is intubated and sedated. HEENT: Eyes, pupils are equal and responsive to light and accommodation. Extraocular movements are intact. NECK: Supple without lymphadenopathy. Tracheostomy is in place. CHEST: Coarse breath sounds bilateral bases otherwise without wheezes or rales. CARDIOVASCULAR: Tachycardic, regular rhythm. S1, S2 normal without murmurs, rubs, or gallops. ABDOMEN: Soft, nontender, nondistended. Positive bowel sounds. No evidence of hepatosplenomegaly. Currently, no rebound or guarding noted. EXTREMITIES: Negative for clubbing, cyanosis, or edema. RECTAL/GENITAL: Not performed. NEUROLOGIC: Cranial nerves II through XII are grossly intact without focal deficits. LABORATORY STUDIES: WBC 14.3, hemoglobin 12.5, hematocrit 41.1, platelets 109,000. Sodium 165, potassium 3.2, chloride 130, CO2 25, BUN 34, creatinine 1.0, glucose 251. Lactic acid 2.80. Urinalysis showed 4+ protein, 4+ glucose, 5+ blood, nitrite negative with rbc's too numerous to count, and wbc's 20 to 30. A chest x-ray was reported as no acute cardiopulmonary disease. Assessment/Plan Dehydration, prerenal azotemia, free water deficit, hypernatremia Sepsis, UTI Chronic respiratory failure, status post tracheostomy Sacral decubitus ulcer Chronic seizure disorder PEG Diabetes mellitus Spastic quadriplegic cerebral palsy Plan: D5W 100 cc hour Monitor electrolytes and renal parameters Increase Protonix to every 12 hours Keep the blood sugar in check Per orders Patient is full code Caleb Reese MD Apr 23, 2020 13:40
--- NOTE | 2020-04-23 13:46 | NUR ---
NURSE NOTES:WOUND CARE NOTES:Pt presented on admission with Tracheostomy, Gastrostomy, Bilat nephrostomies, Pressure injury.Skin assessed under tracheal collar and no evidence of skin breakdown noted. L nephrostomy migrating -suture noted to be loose. No peristomal erythema or skin erosion noted. R nephrostomy is intact without evidence of peristomal skin erosion noted.Scaly dark brown plaques noted to back and both upper thighs Full thickness Pressure Injury sacrococcygeal area(L)3.6cm x (W)1.3cm x (D)1.9cm,Undermining clockwise at 6o'clock by 0.3cm,12-1 by 0.2cm.@1o'clock. Base of wound is pale pink and moist. Bone is palpable at the base of wound. Epibole along edges along with maceration to borders and periwound.Small amt serous exudate noted. No odor noted. Hyperpigmentation with historical scar noted to sacrum, R and L gluteal cheeks. R and L heels are both boggy with non-Blanching erythema. Bilat foot drop noted. Tx.Plan: Cleanse Sacral wound with Saline. Apply Therahoney. Apply Moisture Barrier paste periwound. Cover with Optifoam drsg Daily and prn Apply Cavilon Skin Barrier to malleoli and each heel. Cover each site with Optifoam drsg.Change every 7 days and PRN. Reposition at least every 2hours or as tolerated. Off-load heels with pillow. APM/ADELIA Mattress overlay.
--- NOTE | 2020-04-23 14:37 | NUR ---
CASE MANAGEMENT: REVIEW 59 YEAR OLD FEMALE BIBA FROM [facility] CC: FEVER TEMP . SPASTIC QUADRIPLEGIC CEREBRAL PALSY SI: COVID-19 R/O . INTESTINAL OBSTRUCTION T 105.0 HR 130 RR 12 BP 116/52 SAT 100% MECH VENT FIO2 40 NA 14.0 NA 160 BUN 46 GLUCOSE 499 LACTIC 3.30 TROP I 0.097 IS: TYLENOL RECTAL X1 CEFEPIME IV X1 NS IVF BOLUS X1 PATIENT ADMITTED TO STEP DOWN UNIT 04/23/2020 DCP: PATIENT IS FROM [facility]
[2020-04-23] MEDS ORDERED: Levemir Flexpen SUBQ SCH (15:00)
[2020-04-23] MEDS: Vancomycin 750mg/NS 275ml IVPB SCH ×2 (16:14)
--- NOTE | 2020-04-23 17:16 | History & Physical ---
History and Physical History & Physicial Dictated for Int Med-Dr Yanez no. [id number]. Step down unit Kalin Eubanks MD Apr 23, 2020 17:16
--- NOTE | 2020-04-23 18:12 | Consultation ---
History of Present Illness General Date patient seen: Apr 23, 2020 Reason for Hospitalization: Fever Present Illness HPI 59-year-old female multi medical committees presents [facility] for evaluation of fevers. On admission identified to have abnormal labs, imaging as below, malnutrition BMI of 20 low albumin and skin concerns requiring prevention intervention and care. Surgery called to evaluate assist with care. Patient seen, patient evaluated, chart reviewed Allergies: Coded Allergies: No Known Allergies (Unverified , 02/08/13) COVID-19 Screening Contact w/high risk pt: Yes Recent Travel to affected area: No Experienced COVID-19 symptoms?: Yes COVID-19 symptoms experienced: Fever (T>100.4F or >38C) Medication History Scheduled Acetaminophen (Acetaminophen), 500 MG GT Q4H, (Reported) Ascorbic Acid (Vitamin C), 500 MG GT BID, (Reported) Atorvastatin (Lipitor), 10 MG ORAL BEDTIME, (Reported) Clopidogrel* (Clopidogrel*), 75 MG GT DAILY, (Reported) Docusate Sodium (Docusate Sodium), 250 MG GT DAILY, (Reported) Levetiracetam* (Levetiracetam*), 100 MG GT TWICE A DAY, (Reported) Omeprazole (Prilosec), 20 MG GT DAILY, (Reported) Phenytoin (Dilantin-125), 125 MG GT BID, (Reported) Usinxeoictcu-Hetb-Amkqwqxr,Iso (Zosyn 3.375 Gm Pre Mix-Bag), 3.375 GM IVPB EVERY 6 HOURS, (Reported) Polyethylene Glycol* (Miralax*), 17 GM PO DAILY, (Reported) Polyvinyl Alcohol (Liquitears), 15 ML OP BID, (Reported) Sennosides* (Senno*), 8.6 MG ORAL DAILY, (Reported) Zinc Sulfate (Zinc Sulfate*), 220 MG GT DAILY, (Reported) [Mvi With Mineral], 30 ML GT DAILY, (Reported) Scheduled PRN Acetaminophen 160MG/5ML* (Acetaminophen*), 20.3 ML GT THREE TIMES A DAY PRN for Fever/Headache/Mild Pain, (Reported) Ipratropium Louin 0.5MG/2.5ML (Ipratropium Louin 0.5MG/2.5ML), 0.5 MG HHN Q6H PRN for Shortness of Breath, (Reported) Magnesium Hydroxide (Milk of Magnesia), 30 ML GT DAILY PRN, (Reported) Metoclopramide Hcl* (Reglan*), 5 MG GT EVERY 6 HOURS PRN, (Reported) Na Phos,M-B/Na Phos,Di-Ba* (Fleet Enema*), 133 ML RC DAILY PRN, (Reported) [tylenol], 650 MG GT EVERY 6 HOURS PRN, (Reported) Miscellaneous Medications Bisacodyl (Dulcolax), 10 MG RC, (Reported) Bisacodyl (Dulcolax), 10 MG RC, (Reported) Chlorhexidine Gluconate (Chlorhexidine Gluconate), 15 ML CHASE, (Reported) Cranberry Extract (Cranberry), 425 MG GT, (Reported) Insulin Regular, Human (Humulin R), 0 SUBQ, (Reported) Polyethylene Glycol 3350 (Glycolax), 225 GM GT, (Reported) Potassium Chloride (Potassium Chloride), 20 MEQ IV, (Reported) Sorbitol (Sorbitol), 30 ML GT, (Reported) Vitamin A & D (Vitamin A & D Ointment), 454 GM TOP, (Reported) [Atrovent], (Reported) [Cranberry Juice], (Reported) [albuterolsulfate], (Reported) Patient History Limited by: medical condition History Provided By: Medical Record, PMD Healthcare decision maker Resuscitation status Advanced Directive on File Past Medical/Surgical History Past Medical/Surgical History: (1) Dehydration (2) Sacral decubitus ulcer (3) Acute prerenal azotemia (4) Acute metabolic encephalopathy (5) Sepsis (6) UTI (urinary tract infection) (7) Diabetes mellitus (8) Feeding by G-tube (9) Chronic respiratory failure (10) Chronic seizure disorder (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 (12) Schizophrenia Review of Systems Review of Symptoms General ROS: no weight loss or fever Psychological ROS: no depression or mood changes, no memory loss Ophthalmic ROS: no visual changes or eye irritation ENT ROS: no nasal congestion, hearing loss, dizziness Allergy and Immunology ROS: no allergic symptoms or urticaria Hematological and Lymphatic ROS: no swollen glands, unusual bleeding or bruising Endocrine ROS: no polyuria, polydipsia, weight changes, temperature intolerance Respiratory ROS: no cough, shortness of breath, or wheezing Cardiovascular ROS: no chest pain or dyspnea on exertion Gastrointestinal ROS: denies abdominal pain, bright red blood in stool. Musculoskeletal ROS: no myalgias or arthralgias Neurological ROS: no TIA or stroke symptoms Dermatological ROS: no new or changing skin lesions, rashes or pruritis Unable to obtain given baseline medical condition Physical Exam Physical Exam General appearance: no distress, appears stated age Head: Normocephalic, without obvious abnormality, atraumatic Eyes: conjunctivae/corneas clear. PERRL, EOM's intact. Fundi benign Throat: Lips, mucosa, and tongue normal. Teeth and gums normal Neck: supple, symmetrical, trachea midline, no adenopathy, thyroid: not enlarged, symmetric, no tenderness/mass/nodules, no carotid bruit and no JVD Lungs: clear to auscultation bilaterally Heart: regular rate and rhythm, S1, S2 normal, no murmur, click, rub or gallop Abdomen: soft, non-tender. Bowel sounds normal. No masses, no organomegaly + PEG Extremities: extremities normal, atraumatic, no cyanosis or edema Pulses: 2+ and symmetric Skin: Skin color, texture, turgor normal. No rashes or lesions Neurologic: Grossly normal Last 24 Hour Vital Signs Date Time Temp Pulse Resp B/P (MAP) Pulse Ox O2 Delivery O2 Flow Rate FiO2 04/23/20 16:00 40 04/23/20 16:00 97.9 111 20 126/38 (67) 98 04/23/20 16:00 112 04/23/20 16:00 Mechanical Ventilator 04/23/20 15:19 108 22 40 04/23/20 12:00 Mechanical Ventilator 04/23/20 12:00 97.0 113 18 127/63 (84) 98 04/23/20 12:00 40 04/23/20 11:17 109 04/23/20 11:04 111 20 40 04/23/20 08:00 40 04/23/20 08:00 99.5 113 20 130/58 (82) 98 04/23/20 08:00 Mechanical Ventilator 04/23/20 07:20 114 04/23/20 06:55 109 19 40 04/23/20 04:00 111 04/23/20 04:00 40 04/23/20 04:00 Mechanical Ventilator 04/23/20 04:00 98.2 110 20 124/81 (95) 99 6/23/20 03:21 112 19 40 04/23/20 03:19 112 19 100 Mechanical Ventilator 40 04/23/20 02:31 Mechanical Ventilator 04/23/20 02:21 112 04/23/20 02:00 98.0 78 20 130/83 (99) 99 04/23/20 01:24 103.0 118 18 144/60 100 Mechanical Ventilator 15.0 40 04/23/20 00:30 103.0 118 18 144/60 100 Mechanical Ventilator 40 04/22/20 23:30 103.9 122 23 124/68 100 Mechanical Ventilator 40 04/22/20 23:25 121 20 40 04/22/20 22:46 103.9 04/22/20 22:00 127 26 40 04/22/20 22:00 40 04/22/20 21:55 105.0 130 12 116/52 100 Mechanical Ventilator 15.0 04/22/20 21:55 120 12 Mechanical Ventilator 15.0 04/22/20 21:51 100.8 120 12 116/52 (73) 100 Trach Collar 15.0 Intake and Output 04/22/20 04/23/20 19:00 07:00 Intake Total 500.000 ml Balance 500.000 ml IV Total 500.000 ml Laboratory Tests Test 04/22/20 22:06 04/22/20 22:15 04/23/20 00:00 04/23/20 04:30 Sodium Level 160 MMOL/L (136-145) H 165 MMOL/L (136-145) *H Potassium Level 4.0 MMOL/L (3.5-5.1) 3.2 MMOL/L (3.5-5.1) L Chloride Level 122 MMOL/L (98-107) H 130 MMOL/L (98-107) H Carbon Dioxide Level 28 MMOL/L (21-32) 25 MMOL/L (21-32) Anion Gap 10 mmol/L (5-15) 10 mmol/L (5-15) Blood Urea Nitrogen 46 mg/dL (7-18) H 34 mg/dL (7-18) H Creatinine 1.3 MG/DL (0.55-1.30) 1.0 MG/DL (0.55-1.30) Estimat Glomerular Filtration Rate 50.4 mL/min (>60) > 60 mL/min (>60) Glucose Level 499 MG/DL (74-106) H 251 MG/DL (74-106) #H Calcium Level 7.7 MG/DL (8.5-10.1) L 6.7 MG/DL (8.5-10.1) L Ferritin 340 NG/ML (8-388) Total Bilirubin 0.4 MG/DL (0.2-1.0) Aspartate Amino Transf (AST/SGOT) 103 U/L (15-37) H Alanine Aminotransferase (ALT/SGPT) 127 U/L (12-78) H Alkaline Phosphatase 150 U/L (46-116) H Total Creatine Kinase 165 U/L (26-308) Creatine Kinase MB < 0.5 NG/ML (0.0-3.6) Creatine Kinase MB Relative Index 0.3 Total Protein 10.2 G/DL (6.4-8.2) H Albumin 2.4 G/DL (3.4-5.0) L Globulin 7.8 g/dL Albumin/Globulin Ratio 0.3 (1.0-2.7) L White Blood Count 14.0 K/UL (4.8-10.8) H 13.4 K/UL (4.8-10.8) H Red Blood Count 4.02 M/UL (4.20-5.40) L 3.30 M/UL (4.20-5.40) L Hemoglobin 12.5 G/DL (12.0-16.0) 10.4 G/DL (12.0-16.0) L Hematocrit 41.1 % (37.0-47.0) 34.3 % (37.0-47.0) L Mean Corpuscular Volume 102 FL (80-99) H 104 FL (80-99) H Mean Corpuscular Hemoglobin 31.1 PG (27.0-31.0) H 31.4 PG (27.0-31.0) H Mean Corpuscular Hemoglobin Concent 30.3 G/DL (32.0-36.0) L 30.2 G/DL (32.0-36.0) L Red Cell Distribution Width 16.4 % (11.6-14.8) H 15.5 % (11.6-14.8) H Platelet Count 109 K/UL (150-450) L 86 K/UL (150-450) L Mean Platelet Volume 12.2 FL (6.5-10.1) H 12.5 FL (6.5-10.1) H Neutrophils (%) (Auto) 67.2 % (45.0-75.0) % (45.0-75.0) Lymphocytes (%) (Auto) 24.4 % (20.0-45.0) % (20.0-45.0) Monocytes (%) (Auto) 7.2 % (1.0-10.0) % (1.0-10.0) Eosinophils (%) (Auto) 0.0 % (0.0-3.0) % (0.0-3.0) Basophils (%) (Auto) 1.2 % (0.0-2.0) % (0.0-2.0) D-Dimer 1.68 mg/L FEU (0.00-0.49) H Lactic Acid Level 3.30 mmol/L (0.4-2.0) H 2.80 mmol/L (0.66-2.22) H Troponin I 0.097 ng/mL (0.000-0.056) C-Reactive Protein, Quantitative 2.8 mg/dL (0.00-0.90) H Urine Color Pale yellow Urine Appearance Slightly cloudy Urine pH 8 (4.5-8.0) Urine Specific [place] 1.010 (1.005-1.035) Urine Protein 4+ (NEGATIVE) H Urine Glucose (UA) 4+ (NEGATIVE) H Urine Ketones Negative (NEGATIVE) Urine Blood 5+ (NEGATIVE) H Urine Nitrite Negative (NEGATIVE) Urine Bilirubin Negative (NEGATIVE) Urine Urobilinogen Normal MG/DL (0.0-1.0) Urine Leukocyte Esterase 3+ (NEGATIVE) H Urine RBC Tntc /HPF (0 - 2) H Urine WBC 20-30 /HPF (0 - 2) H Urine Squamous Epithelial Cells Few /LPF (NONE/OCC) Urine Bacteria Many /HPF (NONE) H Phosphorus Level 1.7 MG/DL (2.5-4.9) L Magnesium Level 2.8 MG/DL (1.8-2.4) H Test 04/23/20 06:50 04/23/20 08:50 04/23/20 10:40 04/23/20 16:45 Arterial Blood pH 7.353 (7.350-7.450) Arterial Blood Partial Pressure CO2 44.1 mmHg (35.0-45.0) Arterial Blood Partial Pressure O2 99.5 mmHg (75.0-100.0) Arterial Blood HCO3 24.0 mmol/L (22.0-26.0) Arterial Blood Oxygen Saturation 97.3 % (95-100) Arterial Blood Base Excess -1.6 (-2-2) Adrian Test Positive Lactic Acid Level 2.90 mmol/L (0.4-2.0) H 2.40 mmol/L (0.66-2.22) H 2.10 mmol/L (0.4-2.0) H Microbiology Date/Time Source Procedure Growth Status 04/22/20 22:00 Nasopharynx SARS-CoV-2 RdRp Gene Assay - Final Complete 04/22/20 22:00 Nasal Nares - Final Complete 04/22/20 22:00 Nasal Nares - Final Complete Height (Feet): 5 Height (Inches): 7.00 Weight (Pounds): 130 Medications Current Medications Medications (Trade) Dose Ordered Sig/Emanuel Route PRN Reason Start Time Stop Time Status Last Admin Dose Admin Acetaminophen (Tylenol) 500 mg Q4H PRN GT Pain Scale (3-5) 04/23/20 08:45 05/23/20 01:59 Acetaminophen (Tylenol) 650 mg THREE TIMES A DAY PRN GT FHMP 04/23/20 02:00 05/23/20 01:59 Artificial Tears (Akwa-Tears) 1 drop BID BOTH EYES 04/23/20 09:00 05/23/20 08:59 04/23/20 17:44 Bisacodyl (Dulcolax) 10 mg DAILY PRN RECTAL Constipation 04/23/20 02:00 07/22/20 01:59 Cefepime HCl 2 gm/ Dextrose 55 ml @ 110 mls/hr Q12H IVPB 04/23/20 08:00 04/30/20 07:59 04/23/20 09:12 Clopidogrel Bisulfate (Plavix) 75 mg DAILY GT 04/23/20 09:00 05/23/20 08:59 04/23/20 09:12 Dextrose 1,000 ml @ 100 mls/hr Q10H IV 04/23/20 13:45 05/23/20 13:44 04/23/20 15:00 Dextrose (Dextrose 50%) 25 ml Q30M PRN IV Hypoglycemia 04/23/20 08:15 07/22/20 08:14 Dextrose (Dextrose 50%) 50 ml Q30M PRN IV Hypoglycemia 04/23/20 08:15 07/22/20 08:14 Docusate Sodium (Colace) 250 mg DAILYPRN PRN GT CONSTIPATION 04/23/20 12:50 05/23/20 12:49 Insulin Aspart (NovoLOG) EVERY 6 HOURS SUBQ 04/23/20 12:00 07/22/20 11:59 04/23/20 17:50 Ipratropium Louin (Atrovent) 500 mcg Q6H PRN HHN Shortness of Breath 04/23/20 02:00 04/28/20 01:59 Levetiracetam (Keppra) 1,000 mg Q12HR GT 04/23/20 21:00 05/23/20 08:59 Metoclopramide HCl (Reglan) 5 mg Q6HR GT 04/23/20 13:53 05/23/20 13:52 04/23/20 17:44 Pantoprazole (Protonix) 40 mg Q12HR IVP 04/23/20 21:00 05/23/20 08:59 Phenytoin (Dilantin) 150 mg Q8HR GT 04/23/20 22:00 05/23/20 08:29 Polyethylene Glycol (Miralax) 17 gm DAILY GT 04/23/20 09:00 05/23/20 08:59 04/23/20 09:15 Potassium Chloride 100 ml @ 100 mls/hr Q1H IVPB 04/23/20 18:00 04/23/20 19:59 04/23/20 17:47 Potassium Chloride 100 ml @ 100 mls/hr Q1H IVPB 04/23/20 22:00 04/23/20 23:59 Sennosides (Senokot) 8.6 mg DAILY GT 04/23/20 09:00 05/23/20 08:59 04/23/20 09:12 Sodium Phosphate (Fleet's Sodium Phosl Enema) 133 ml DAILY PRN RECTAL CONSTIPATION 04/23/20 02:00 05/23/20 01:59 Sorbitol (sorbitoL) 30 ml DAILYPRN PRN GT constipation 04/23/20 08:15 05/23/20 08:14 Vancomycin HCl (Vanco pharmacy to dose) 1 ea DAILY PRN MISC Per rx protocol 04/23/20 03:00 05/23/20 02:59 Vancomycin HCl 750 mg/Sodium Chloride 275 ml @ 183.333 mls/hr Q12H IVPB 04/23/20 17:00 04/28/20 16:59 04/23/20 16:14 Zinc Sulfate (Zinc Sulfate) 220 mg DAILY GT 04/23/20 09:00 07/22/20 08:59 04/23/20 09:15 Assessment/Plan Problem List: (1) Feeding by G-tube Assessment & Plan: DAILY ESTIMATED NEEDS: Needs based on Critical care, DM, sepsis 66.7kg abw 22-30 kcals/kg 9182-2813 total kcals 1.25-2 g protein/kg 83-133 g total protein 25-30 mL/kg 5623-4375 total fluid mLs NUTRITION DIAGNOSIS: Swallowing difficulty r/t resp status as evidenced by pt is trach and PEG dep. CURRENT TF: Glucerna 1.5 @60ml/hr x20 hrs ENTERAL NUTRITION RECOMMENDATIONS: Glucerna 1.2 @75ml/hr x20 hrs (on Dilantin BID) to provide 1500ml, 1800 kcal, 90g pro, 1208ml free h2o Glucerna 1.5 OOS-> Rec Glucerna 1.2 for carb control + increased free H2O - Start @low rate, 15ml/hr for 6 hrs. Advance as tolerated 10ml/hr q4-6 hrs to goal. - Flush per MD/ HOB over 30 degrees. ---- ADDITIONAL RECOMMENDATIONS: 1) Obtain an accurate Height as able: 5'7" per EMR vs 6'1" per SNF. April 01, 2020 wt per SNF: 182 lbs/82.73kg 2) F/up w/ WC eval 3) Increase water flushes as Na is trending up 4) Replete lytes-> Mg, Phos, and K all low ICD Codes: Z93.1 - Gastrostomy status SNOMED: 177304643, 388829880, [id number] (2) Sepsis Assessment & Plan: Patient with leukocytosis, anemia, lactic acidosis. COVID rapid exam negative Urine noted On antibiotics Care plan as below We will follow with recommendations Nutritional optimization Thank you for let me participate in patient's care ICD Codes: A41.9 - Sepsis, unspecified organism SNOMED: 91972780 Qualifiers: Qualified Codes: A41.9 - Sepsis, unspecified organism (3) Sacral decubitus ulcer Assessment & Plan: Pt presented on admission with Tracheostomy, Gastrostomy, Bilat nephrostomies, Pressure injury.Skin assessed under tracheal collar and no evidence of skin breakdown noted. L nephrostomy migrating -suture noted to be loose. No peristomal erythema or skin erosion noted. R nephrostomy is intact without evidence of peristomal skin erosion noted.Scaly dark brown plaques noted to back and both upper thighs Full thickness Pressure Injury sacrococcygeal area(L)3.6cm x (W)1.3cm x (D)1.9cm ,Undermining clockwise at 6o'clock by 0.3cm,12-1 by 0.2cm.@1o'clock. Base of wound is pale pink and moist. Bone is palpable at the base of wound. Epibole along edges along with maceration to borders and periwound.Small amt serous exudate noted. No odor noted. Hyperpigmentation with historical scar noted to sacrum, R and L gluteal cheeks. R and L heels are both boggy with non-Blanching erythema. Bilat foot drop noted. Tx.Plan: Cleanse Sacral wound with Saline. Apply Therahoney. Apply Moisture Barrier paste periwound. Cover with Optifoam drsg Daily and prn Apply Cavilon Skin Barrier to malleoli and each heel. Cover each site with Optifoam drsg.Change every 7 days and PRN. Reposition at least every 2hours or as tolerated. Off-load heels with pillow. APM/ADELIA Mattress overlay. ICD Codes: L89.159 - Pressure ulcer of sacral region, unspecified stage SNOMED: 505526522 Qualifiers: Qualified Codes: L89.159 - Pressure ulcer of sacral region, unspecified stage Delon Murray Apr 23, 2020 18:12
--- NOTE | 2020-04-23 19:27 | NUR ---
RESPIRATORY NOTE: Received pt on AC 18, 450VT, 40%, PEEP +5. Pt is trach-dependent w/ a cuffed, Portex 7 tube. Pt obtunded/flat effect. B/S ryne. rhonchi, sxn small to moderate amounts of thick/thin, pale-yellow secretions. Vent plugged into red outlet, ambubag at bedside. Pt in no apparent distress at this time. Will continue plan of care.
--- NOTE | 2020-04-23 19:29 | History and Physical Report ---
DATE OF ADMISSION: 04/23/2020 CHIEF COMPLAINT: Patient is a 59-year-old female female who presents with a chief complaint of fever. HISTORY OF PRESENT ILLNESS: Patient is a resident of [facility]. Patient is chronic vent dependent. Much of the history and physical is obtained from the patient's chart. Patient presented to [place] emergency room with a one-day history of fever. Patient also had tachycardia. Patient also was noted to have shortness of breath. Patient presented to the emergency room with temperature of 103.9 degrees Fahrenheit. Patient was admitted with fever to rule out pneumonia versus sepsis. REVIEW OF SYSTEMS: Unable to assess secondary to patient's mental status. PAST MEDICAL HISTORY: Significant for: 1. Chronic respiratory failure. 2. Chronic vent dependence. 3. Chronic obstructive pulmonary disease. 4. Seizure disorder. 5. Diabetes type 2. 6. Quadriplegia. 7. Dysphagia. 8. History of gastrointestinal hemorrhage. 9. Erosive gastritis. 10. Schizophrenia, not otherwise specified. 11. Gastroesophageal reflux disease. 12. Neurogenic bladder. 13. History of stage IV sacral decubitus ulcer. PAST SURGICAL HISTORY: Significant for: 1. G-tube placement. 2. Tracheostomy. CURRENT MEDICATIONS: 1. Tylenol 650 mg per G-tube q.4h. p.r.n. 2. Albuterol 2.5 mg nebulized q.4h. p.r.n. 3. Ascorbic acid 500 mg per G-tube daily. 4. Clopidogrel 75 mg per G-tube daily. 5. Cranberry 425 mg per G-tube daily. 6. Regular insulin sliding scale. 7. Atrovent 0.5 mg nebulized q.6h. p.r.n. 8. Keppra 1000 mg per G-tube twice daily. 9. Lipitor 10 mg per G-tube daily. 10. Dilantin 200 mg per G-tube q.8h. 11. Potassium chloride 20 mEq per G-tube daily. ALLERGIES: No known drug allergies. SOCIAL HISTORY: Patient is single and is a resident of [facility]. Patient denies tobacco or alcohol use. PHYSICAL EXAMINATION: VITAL SIGNS: Temperature 103.9, respirations 23, pulse 122, blood pressure 124/60. GENERAL: Patient is a thin-appearing female, who is intubated and sedated. HEENT: Eyes, pupils are equal and responsive to light and accommodation. Extraocular movements are intact. NECK: Supple without lymphadenopathy. Tracheostomy is in place. CHEST: Coarse breath sounds bilateral bases otherwise without wheezes or rales. CARDIOVASCULAR: Tachycardic, regular rhythm. S1, S2 normal without murmurs, rubs, or gallops. ABDOMEN: Soft, nontender, nondistended. Positive bowel sounds. No evidence of hepatosplenomegaly. Currently, no rebound or guarding noted. EXTREMITIES: Negative for clubbing, cyanosis, or edema. RECTAL/GENITAL: Not performed. NEUROLOGIC: Cranial nerves II through XII are grossly intact without focal deficits. LABORATORY STUDIES: WBC 14.3, hemoglobin 12.5, hematocrit 41.1, platelets 109,000. Sodium 165, potassium 3.2, chloride 130, CO2 25, BUN 34, creatinine 1.0, glucose 251. Lactic acid 2.80. Urinalysis showed 4+ protein, 4+ glucose, 5+ blood, nitrite negative with rbc's too numerous to count, and wbc's 20 to 30. A chest x-ray was reported as no acute cardiopulmonary disease. ASSESSMENT: This is a 59-year-old female. 1. Fever. 2. Probable sepsis. 3. Chronic respiratory failure. 4. Chronic obstructive pulmonary disease. 5. Quadriplegia. 6. History of dysphagia. 7. Diabetes type 2. 8. Seizure disorder. 9. History of gastrointestinal hemorrhage. 10. Erosive gastritis. 11. Schizophrenia. 12. Gastroesophageal reflux disease. 13. Neurogenic bladder. 14. Stage IV sacral decubitus ulcer. 15. History of deep venous thrombosis. TREATMENT: 1. Fever/sepsis. A Pulmonary Critical Care consultation has been obtained with Dr. Luis Garcia. Urine, blood, and sputum cultures are pending. Patient has been started empirically on vancomycin and cefepime. We will follow recommendations of Pulmonary. 2. Chronic vent dependence/chronic respiratory failure. As above, a Pulmonary consultation has been obtained with Dr. Luis Garcia. We will follow recommendations of Pulmonary. 3. Seizure disorder. Continue Keppra and Dilantin as above. 4. Diabetes type 2. NovoLog sliding scale has been instituted. 5. Chronic obstructive pulmonary disease. As above, a Pulmonary consultation has been obtained with Dr. Luis Garcia. We will follow recommendations of Pulmonary. 6. History of gastrointestinal hemorrhage/erosive gastritis. Patient has been placed on Protonix. 7. Schizophrenia, not otherwise specified. 8. Gastroesophageal reflux disease. 9. Neurogenic bladder. 10. Stage IV sacral decubitus ulcer. 11. History of deep venous thrombosis. Kalin Eubanks M.D. DR: ROBERT JOB#: [id number] CC:
--- NOTE | 2020-04-23 19:30 | NUR ---
NURSE NOTES: Received report from LUCERO Lund. Pt. obtunded, not tracking with her eyes, not following commands. Trach to vent, Portex 7- AC 18, TV 450, PEEP 5. O2sat 99-100%. Rt foot #22g, saline locked and Lt FA #20g running D5W @ 100mL/hr. Pt noted to have BL nephrostomy tubes, draining to collection bags. Pt also has a Ding catheter draining minimal urine to urometer. Will continue to monitor.
--- NOTE | 2020-04-23 19:58 | NUR ---
HAND-OFF: Report given to LUCERO Blair.
[2020-04-23] MEDS: Pantoprazole Inj IVP SCH (21:00)
[2020-04-23] MEDS: levETIRAcetam 500mg/5ml Liquid GT SCH (21:00)
[2020-04-23] MEDS: Acetaminophen 650mg/20.3ml GT PRN (21:00)
[2020-04-23] MEDS: Phenytoin Susp 100mg/4ml GT SCH (22:30)
[2020-04-24] VITALS: BP 128/66
[2020-04-24] MEDS: NovoLOG Insulin Flexpen SUBQ SCH ×5 (00:38→23:04)
[2020-04-24 04:00] VITALS: BP 116/64
[2020-04-24 04:44] LABS: HEMATOCRIT 30.2 % (37.0-47.0); HEMOGLOBIN 9.4 G/DL (12.0-16.0); MEAN CORPUSCULAR VOLUME 102 FL (80-99); PLATELET COUNT 57 K/UL (150-450); RED BLOOD COUNT 2.95 M/UL (4.20-5.40); RED CELL DISTRIBUTION WIDTH 15.2 % (11.6-14.8); WHITE BLOOD COUNT 10.9 K/UL (4.8-10.8)
[2020-04-24] MEDS: Vancomycin 750mg/NS 275ml IVPB SCH ×2 (05:21)
[2020-04-24] MEDS: Phenytoin Susp 100mg/4ml GT SCH ×2 (05:21→20:16)
[2020-04-24 05:25] LABS: ALANINE AMINOTRANSFERASE 84 U/L (12-78); ALBUMIN/GLOBULIN RATIO 0.3 (1.0-2.7); ALKALINE PHOSPHATASE 96 U/L (46-116); ANION GAP 8 mmol/L (5-15); ASPARTATE AMINO TRANSFERASE 68 U/L (15-37); BILIRUBIN,TOTAL 0.5 MG/DL (0.2-1.0); BLOOD UREA NITROGEN 24 mg/dL (7-18); CALCIUM 7.5 MG/DL (8.5-10.1); CARBON DIOXIDE 25 MMOL/L (21-32); CHLORIDE 125 MMOL/L (98-107); CREATININE 0.8 MG/DL (0.55-1.30); POTASSIUM 3.9 MMOL/L (3.5-5.1); SODIUM 158 MMOL/L (136-145)
[2020-04-24 05:37] LABS: % IRON SATURATION 40 % (15-50); IRON 74 ug/dL (50-175); TOTAL IRON BINDING CAPACITY 186 ug/dL (250-450)
[2020-04-24 05:49] LABS: CHOLESTEROL 154 MG/DL (< 200); FERRITIN 432 NG/ML (8-388); HDL CHOLESTEROL 17 MG/DL (40-60); PHOSPHORUS 1.4 MG/DL (2.5-4.9); TRIGLYCERIDES 448 MG/DL (30-150)
[2020-04-24 06:23] LABS: CREATINE KINASE 317 U/L (26-308); GAMMA GLUTAMYL TRANSPEPTIDASE 379 U/L (5-85); LACTATE DEHYDROGENASE 265 U/L (81-234)
--- NOTE | 2020-04-24 07:31 | NUR ---
HAND-OFF: Report given to LUCERO Llanos. Patient stable at Hand-off.
--- NOTE | 2020-04-24 07:35 | NUR ---
NURSE NOTES: Report received from Rossy Okeefe RN.Pt resting in bed asleep noted no resp distress,with trach tube to vent,ordered vent settings tolerated,no signs of pain or discomfort S-Tach on the monitor,Ding cath draining yellow urine,pt with Nephrostomy tube x2 draining yellow urine also,GTF Glucerna 1.2 hold,running is Tap Water at 50 ml/hr x 24 hrs,skin warm and dry with PIV to LFA , RT wrist and LT foot, x3 intact,IVF D5 w at 100 ml/hr infusing to Rt wrist, SR up x2 HOB elevated,bedlock in lowest position,will continue with plans of care.
[2020-04-24 08:00] VITALS: BP 116/61
--- NOTE | 2020-04-24 09:16 | NUR ---
*-* INSURANCE *-* ALL CLINICALS AND REVIEWS HAVE BEEN FAXED TO: [facility] [phone] Work [phone] FAX [phone] FAX Addendum: 04/24/20 at 1221 by JAKE GONG CM [facility] [phone] [facility]# [id number] Fax clinicals: [phone]
[2020-04-24] MEDS: Miralax 17gm pkt GT SCH (09:30)
[2020-04-24] MEDS: Cefepime 2gm in D5W 55ml IVPB SCH ×2 (09:30→20:15)
[2020-04-24] MEDS: levETIRAcetam 500mg/5ml Liquid GT SCH ×2 (09:31→20:18)
[2020-04-24] MEDS: Pantoprazole Inj IVP SCH ×2 (09:33→20:15)
[2020-04-24] MEDS: Sennosides 8.6mg tab GT SCH (09:33)
[2020-04-24] MEDS: Zinc Sulfate 220mg GT SCH (09:33)
[2020-04-24] MEDS: Potassium Phosphate 15mm/250ml 250 ML IVPB SCH ×2 (10:48→15:20)
--- NOTE | 2020-04-24 10:56 | Nephrology Progress Note ---
Assessment/Plan Problem List: (1) Dehydration Assessment: Hypernatremia (2) Diabetes mellitus (3) Spastic quadriplegic cerebral palsy (4) Chronic respiratory failure (5) Sepsis Assessment: UTI (6) Sacral decubitus ulcer (7) Seizure disorder Assessment Dehydration, prerenal azotemia, free water deficit, hypernatremia Sepsis, UTI Chronic respiratory failure, status post tracheostomy Sacral decubitus ulcer Chronic seizure disorder PEG Diabetes mellitus Spastic quadriplegic cerebral palsy Plan D5W 100 cc hour Monitor Dilantin level, adjust the dose corrected for low albumin Monitor electrolytes and renal parameters Increase Protonix to every 12 hours Keep the blood sugar in check Per orders Patient is full code Subjective ROS Limited/Unobtainable: Yes Objective Objective Last 24 Hour Vital Signs Date Time Temp Pulse Resp B/P (MAP) Pulse Ox O2 Delivery O2 Flow Rate FiO2 04/24/20 08:00 95 04/24/20 08:00 98.4 99 21 116/61 (79) 100 04/24/20 07:05 101 24 40 04/24/20 04:00 99 04/24/20 04:00 40 04/24/20 04:00 Mechanical Ventilator 04/24/20 04:00 101.2 101 24 116/64 (81) 100 04/24/20 03:09 99 18 40 04/24/20 00:00 40 04/24/20 00:00 101.6 101 19 128/66 (86) 99 04/24/20 00:00 103 04/24/20 00:00 Mechanical Ventilator 04/23/20 23:06 105 22 40 04/23/20 22:00 100.0 04/23/20 20:00 Mechanical Ventilator 04/23/20 20:00 40 04/23/20 20:00 105 04/23/20 20:00 102.0 111 25 132/68 (89) 100 04/23/20 19:24 111 22 40 04/23/20 16:00 40 04/23/20 16:00 97.9 111 20 126/38 (67) 98 04/23/20 16:00 112 04/23/20 16:00 Mechanical Ventilator 04/23/20 15:19 108 22 40 04/23/20 12:00 Mechanical Ventilator 04/23/20 12:00 97.0 113 18 127/63 (84) 98 04/23/20 12:00 40 04/23/20 11:17 109 04/23/20 11:04 111 20 40 Intake and Output 04/23/20 04/24/20 19:00 07:00 Intake Total 1555 ml 1851 ml Output Total 400 ml 550 ml Balance 1155 ml 1301 ml Intake Free Water 350 ml 550 ml IV Total 1205 ml 1301 ml Tube Feeding 0 ml 0 ml Output Urine Total 400 ml 50 ml Other 500 ml Laboratory Tests 04/23/20 16:45: Lactic Acid Level 2.10H 04/23/20 23:15: Lactic Acid Level 2.00 04/24/20 03:00: Phenytoin (Dilantin) Level 12.5 04/24/20 03:50: Lactic Acid Level 1.60, Sodium Level 158H, Potassium Level 3.9, Chloride Level 125H, Carbon Dioxide Level 25, Anion Gap 8, Blood Urea Nitrogen 24H, Creatinine 0.8, Estimat Glomerular Filtration Rate > 60, Glucose Level 162H, Hemoglobin A1c 6.2H, Uric Acid 5.6, Calcium Level 7.5L, Phosphorus Level 1.4L, Magnesium Level 2.9H, Iron Level 74, Total Iron Binding Capacity 186L, Percent Iron Saturation 40, Unsaturated Iron Binding 112, Ferritin 432H, Total Bilirubin 0.5 , Gamma Glutamyl Transpeptidase 379H, Aspartate Amino Transf (AST/SGOT) 68H, Alanine Aminotransferase (ALT/SGPT) 84H, Alkaline Phosphatase 96, Lactate Dehydrogenase 265H, Total Creatine Kinase 317H, Troponin I 0.050, C-Reactive Protein, Quantitative 4.7H, Pro-B-Type Natriuretic Peptide 39, Total Protein 8.2 , Albumin 2.0L, Globulin 6.2, Albumin/Globulin Ratio 0.3L, Triglycerides Level 448H, Cholesterol Level 154, LDL Cholesterol 65, HDL Cholesterol 17L, Cholesterol/HDL Ratio 9.1H, Vitamin B12 Level 1263H, Folate 85.5H, Thyroid Stimulating Hormone (TSH) 1.175 04/24/20 04:00: White Blood Count 10.9H, Red Blood Count 2.95L, Hemoglobin 9.4L, Hematocrit 30.2L, Mean Corpuscular Volume 102H, Mean Corpuscular Hemoglobin 31.9H, Mean Corpuscular Hemoglobin Concent 31.1L, Red Cell Distribution Width 15.2H, Platelet Count 57L, Mean Platelet Volume 13.5H, Neutrophils (%) (Auto) , Lymphocytes (%) (Auto) , Monocytes (%) (Auto) , Eosinophils (%) (Auto) , Basophils (%) (Auto) , Differential Total Cells Counted 100, Neutrophils % ( Manual) 85H, Lymphocytes % (Manual) 9L, Monocytes % (Manual) 5, Eosinophils % ( Manual) 1, Basophils % (Manual) 0, Band Neutrophils 0, Nucleated Red Blood Cells 1, Platelet Estimate DecreasedL, Platelet Morphology Normal, Hypochromasia 2+, Anisocytosis 1+, Macrocytosis 1+, Erythrocyte Sedimentation Rate 125H Height (Feet): 5 Height (Inches): 7.00 Weight (Pounds): 198 General Appearance: no apparent distress EENT: other - Trach and vent Cardiovascular: tachycardia Respiratory/Chest: decreased breath sounds Abdomen: distended Caleb Reese MD Apr 24, 2020 10:56
[2020-04-24 12:00] VITALS: BP 120/64
--- NOTE | 2020-04-24 12:00 | NUR ---
NURSE NOTES: Oral care done,pt with large amount of oral secretion,tracheal secretions suctioned PRN.Pt pulled up ,turned and repositioned.Abdomen noted firm and distended.
--- NOTE | 2020-04-24 12:33 | Internal Med Progress Note ---
Subjective Physician Name Kalin Eubanks Attending Physician Jeyson Yanez MD Current Medications Medications (Trade) Dose Ordered Sig/Emanuel Route PRN Reason Start Time Stop Time Status Last Admin Dose Admin Acetaminophen (Tylenol) 500 mg Q4H PRN GT Pain Scale (3-5) 04/23/20 08:45 05/23/20 01:59 Acetaminophen (Tylenol) 650 mg THREE TIMES A DAY PRN GT FHMP 04/23/20 02:00 05/23/20 01:59 04/23/20 21:00 Artificial Tears (Akwa-Tears) 1 drop BID BOTH EYES 04/23/20 09:00 05/23/20 08:59 04/24/20 09:31 Bisacodyl (Dulcolax) 10 mg DAILY PRN RECTAL Constipation 04/23/20 02:00 07/22/20 01:59 Cefepime HCl 2 gm/ Dextrose 55 ml @ 110 mls/hr Q12H IVPB 04/23/20 08:00 04/30/20 07:59 04/24/20 09:30 Clopidogrel Bisulfate (Plavix) 75 mg DAILY GT 04/23/20 09:00 05/23/20 08:59 04/23/20 09:12 Dextrose 1,000 ml @ 100 mls/hr Q10H IV 04/23/20 13:45 05/23/20 13:44 04/24/20 09:34 Dextrose (Dextrose 50%) 25 ml Q30M PRN IV Hypoglycemia 04/23/20 08:15 07/22/20 08:14 Dextrose (Dextrose 50%) 50 ml Q30M PRN IV Hypoglycemia 04/23/20 08:15 07/22/20 08:14 Docusate Sodium (Colace) 250 mg DAILYPRN PRN GT CONSTIPATION 04/23/20 12:50 05/23/20 12:49 Insulin Aspart (NovoLOG) EVERY 6 HOURS SUBQ 04/23/20 12:00 07/22/20 11:59 04/24/20 11:29 Ipratropium [place] (Atrovent) 500 mcg Q6H PRN HHN Shortness of Breath 04/23/20 02:00 04/28/20 01:59 Levetiracetam (Keppra) 1,000 mg Q12HR GT 04/23/20 21:00 05/23/20 08:59 04/24/20 09:31 Metoclopramide HCl (Reglan) 5 mg Q6HR GT 04/23/20 13:53 05/23/20 13:52 04/24/20 11:34 Pantoprazole (Protonix) 40 mg Q12HR IVP 04/23/20 21:00 05/23/20 08:59 04/24/20 09:33 Phenytoin (Dilantin) 150 mg Q12HR GT 04/24/20 21:00 05/23/20 08:29 Polyethylene Glycol (Miralax) 17 gm DAILY GT 04/23/20 09:00 05/23/20 08:59 04/24/20 09:30 Potassium Phosphate 250 ml @ 62.5 mls/hr Q4H IVPB 04/24/20 09:00 04/24/20 16:59 04/24/20 10:48 Sennosides (Senokot) 8.6 mg DAILY GT 04/23/20 09:00 05/23/20 08:59 04/24/20 09:33 Sodium Phosphate (Fleet's Sodium Phosl Enema) 133 ml DAILY PRN RECTAL CONSTIPATION 04/23/20 02:00 05/23/20 01:59 Sorbitol (sorbitoL) 30 ml DAILYPRN PRN GT constipation 04/23/20 08:15 05/23/20 08:14 Vancomycin HCl (Vanco pharmacy to dose) 1 ea DAILY PRN MISC Per rx protocol 04/23/20 03:00 05/23/20 02:59 Vancomycin HCl 750 mg/Sodium Chloride 275 ml @ 183.333 mls/hr Q12H IVPB 04/23/20 17:00 04/28/20 16:59 04/24/20 05:21 Zinc Sulfate (Zinc Sulfate) 220 mg DAILY GT 04/23/20 09:00 07/22/20 08:59 04/24/20 09:33 Allergies: Coded Allergies: No Known Allergies (Unverified , 02/08/13) Objective Last Vital Signs Date Time Temp Pulse Resp B/P (MAP) Pulse Ox O2 Delivery O2 Flow Rate FiO2 04/24/20 08:00 95 04/24/20 08:00 98.4 21 116/61 (79) 100 04/24/20 07:05 40 04/24/20 04:00 Mechanical Ventilator 04/23/20 01:24 15.0 Laboratory Tests Test 04/23/20 16:45 04/23/20 23:15 04/24/20 03:00 04/24/20 03:50 Lactic Acid Level 2.10 mmol/L (0.4-2.0) H 2.00 mmol/L (0.4-2.0) 1.60 mmol/L (0.4-2.0) Phenytoin (Dilantin) Level 12.5 ug/mL (10-20) Sodium Level 158 MMOL/L (136-145) H Potassium Level 3.9 MMOL/L (3.5-5.1) Chloride Level 125 MMOL/L (98-107) H Carbon Dioxide Level 25 MMOL/L (21-32) Anion Gap 8 mmol/L (5-15) Blood Urea Nitrogen 24 mg/dL (7-18) H Creatinine 0.8 MG/DL (0.55-1.30) Estimat Glomerular Filtration Rate > 60 mL/min (>60) Glucose Level 162 MG/DL (74-106) H Hemoglobin A1c 6.2 % (4.3-6.0) H Uric Acid 5.6 MG/DL (2.6-7.2) Calcium Level 7.5 MG/DL (8.5-10.1) L Phosphorus Level 1.4 MG/DL (2.5-4.9) L Magnesium Level 2.9 MG/DL (1.8-2.4) H Iron Level 74 ug/dL (50-175) Total Iron Binding Capacity 186 ug/dL (250-450) L Percent Iron Saturation 40 % (15-50) Unsaturated Iron Binding 112 ug/dL (112-346) Ferritin 432 NG/ML (8-388) H Total Bilirubin 0.5 MG/DL (0.2-1.0) Gamma Glutamyl Transpeptidase 379 U/L (5-85) H Aspartate Amino Transf (AST/SGOT) 68 U/L (15-37) H Alanine Aminotransferase (ALT/SGPT) 84 U/L (12-78) H Alkaline Phosphatase 96 U/L (46-116) Lactate Dehydrogenase 265 U/L (81-234) H Total Creatine Kinase 317 U/L (26-308) H Troponin I 0.050 ng/mL (0.000-0.056) C-Reactive Protein, Quantitative 4.7 mg/dL (0.00-0.90) H Pro-B-Type Natriuretic Peptide 39 pg/mL (0-125) Total Protein 8.2 G/DL (6.4-8.2) Albumin 2.0 G/DL (3.4-5.0) L Globulin 6.2 g/dL Albumin/Globulin Ratio 0.3 (1.0-2.7) L Triglycerides Level 448 MG/DL (30-150) H Cholesterol Level 154 MG/DL (< 200) LDL Cholesterol 65 mg/dL (<100) HDL Cholesterol 17 MG/DL (40-60) L Cholesterol/HDL Ratio 9.1 (3.3-4.4) H Vitamin B12 Level 1263 PG/ML (193-986) H Folate 85.5 NG/ML (8.6-58.9) H Thyroid Stimulating Hormone (TSH) 1.175 uiU/mL (0.358-3.740) Test 04/24/20 04:00 White Blood Count 10.9 K/UL (4.8-10.8) H Red Blood Count 2.95 M/UL (4.20-5.40) L Hemoglobin 9.4 G/DL (12.0-16.0) L Hematocrit 30.2 % (37.0-47.0) L Mean Corpuscular Volume 102 FL (80-99) H Mean Corpuscular Hemoglobin 31.9 PG (27.0-31.0) H Mean Corpuscular Hemoglobin Concent 31.1 G/DL (32.0-36.0) L Red Cell Distribution Width 15.2 % (11.6-14.8) H Platelet Count 57 K/UL (150-450) L Mean Platelet Volume 13.5 FL (6.5-10.1) H Neutrophils (%) (Auto) % (45.0-75.0) Lymphocytes (%) (Auto) % (20.0-45.0) Monocytes (%) (Auto) % (1.0-10.0) Eosinophils (%) (Auto) % (0.0-3.0) Basophils (%) (Auto) % (0.0-2.0) Differential Total Cells Counted 100 Neutrophils % (Manual) 85 % (45-75) H Lymphocytes % (Manual) 9 % (20-45) L Monocytes % (Manual) 5 % (1-10) Eosinophils % (Manual) 1 % (0-3) Basophils % (Manual) 0 % (0-2) Band Neutrophils 0 % (0-8) Nucleated Red Blood Cells 1 /100 WBC Platelet Estimate Decreased L Platelet Morphology Normal Hypochromasia 2+ Anisocytosis 1+ Macrocytosis 1+ Erythrocyte Sedimentation Rate 125 MM/HR (0-30) H Microbiology Date/Time Source Procedure Growth Status 04/22/20 22:15 Blood Blood Culture - Preliminary NO GROWTH AFTER 24 HOURS Resulted 04/22/20 22:00 Blood Blood Culture - Preliminary Resulted 04/22/20 22:00 Nasal Nares MRSA Culture - Final NO METHICILLIN RESISTANT STAPH AUREUS... Complete 04/22/20 22:00 Nasopharynx SARS-CoV-2 RdRp Gene Assay - Final Complete 04/22/20 22:00 Nasal Nares - Final Complete 04/22/20 22:00 Nasal Nares - Final Complete 04/23/20 00:00 Urine,Clean Catch Urine Culture - Preliminary Mixed Gram Positive Organism Resulted Intake and Output 04/23/20 04/24/20 19:00 07:00 Intake Total 1555 ml 1851 ml Output Total 400 ml 550 ml Balance 1155 ml 1301 ml Intake Free Water 350 ml 550 ml IV Total 1205 ml 1301 ml Tube Feeding 0 ml 0 ml Output Urine Total 400 ml 50 ml Other 500 ml Objective PHYSICAL EXAMINATION: GENERAL: Patient is a thin-appearing female, who is intubated and sedated. HEENT: Eyes, pupils are equal and responsive to light and accommodation. Extraocular movements are intact. NECK: Supple without lymphadenopathy. Tracheostomy is in place. CHEST: Coarse breath sounds bilateral bases otherwise without wheezes or rales. CARDIOVASCULAR: Tachycardic, regular rhythm. S1, S2 normal without murmurs, rubs, or gallops. ABDOMEN: Soft, nontender, nondistended. Positive bowel sounds. No evidence of hepatosplenomegaly. Currently, no rebound or guarding noted. EXTREMITIES: Negative for clubbing, cyanosis, or edema. RECTAL/GENITAL: Not performed. NEUROLOGIC: Cranial nerves II through XII are grossly intact without focal deficits. Assessment/Plan Assessment/Plan ASSESSMENT: This is a 59-year-old female. 1. Fever. 2. Probable sepsis. 3. Chronic respiratory failure. 4. Chronic obstructive pulmonary disease. 5. Quadriplegia. 6. History of dysphagia. 7. Diabetes type 2. 8. Seizure disorder. 9. History of gastrointestinal hemorrhage. 10. Erosive gastritis. 11. Schizophrenia. 12. Gastroesophageal reflux disease. 13. Neurogenic bladder. 14. Stage IV sacral decubitus ulcer. 15. History of deep venous thrombosis. TREATMENT: 1. Fever/sepsis. A Pulmonary Critical Care consultation has been obtained with Dr. Luis Garcia. Urine, blood, and sputum cultures are pending. Patient has been started empirically on vancomycin and cefepime. We will follow recommendations of Pulmonary. Infectious disease=Dr Shah 2. Chronic vent dependence/chronic respiratory failure. As above, a Pulmonary consultation has been obtained with Dr. Luis Garcia. We will follow recommendations of Pulmonary. 3. Seizure disorder. Continue Keppra and Dilantin as above. 4. Diabetes type 2. NovoLog sliding scale has been instituted. 5. Chronic obstructive pulmonary disease. As above, a Pulmonary consultation has been obtained with Dr. Luis Garcia. We will follow recommendations of Pulmonary. 6. History of gastrointestinal hemorrhage/erosive gastritis. Patient has been placed on Protonix. 7. Schizophrenia, not otherwise specified. 8. Gastroesophageal reflux disease. 9. Neurogenic bladder. 10. Stage IV sacral decubitus ulcer. 11. History of deep venous thrombosis. Kalin Eubanks MD Apr 24, 2020 12:33
--- NOTE | 2020-04-24 12:58 | Pulmonolgy Critical Care Note ---
Critical Care - Asmt/Plan Problems: (1) Sepsis (2) Chronic respiratory failure (3) Acute metabolic encephalopathy (4) Acute prerenal azotemia (5) Sacral decubitus ulcer (6) Feeding by G-tube (7) Diabetes mellitus (8) Chronic seizure disorder (9) Spastic quadriplegic cerebral palsy (10) Schizophrenia Respiratory: monitor respiratory rate, adjust FIO2, CXR Cardiac: continue to monitor HR/BP Renal: F/U I&O, keep IV fluid, check electrolytes Infectious Disease: check cultures, continue antibiotics Endocrine: monitor blood sugar Hematologic: monitor H/H Neurologic: PRN Ativan, PRN Morphine Prophylaxis: Protonix, Heparin Notes Reviewed: cell support operator, renal Discussed with: nurses, consultants, behavioral health case managerbusiness banking relationship manager - Objective Last 24 Hour Vital Signs Date Time Temp Pulse Resp B/P (MAP) Pulse Ox O2 Delivery O2 Flow Rate FiO2 04/24/20 12:00 98 04/24/20 12:00 40 04/24/20 12:00 Mechanical Ventilator 04/24/20 12:00 98.2 100 24 120/64 (82) 100 04/24/20 08:00 Mechanical Ventilator 04/24/20 08:00 95 04/24/20 08:00 40 04/24/20 08:00 98.4 99 21 116/61 (79) 100 04/24/20 07:05 101 24 40 04/24/20 04:00 99 04/24/20 04:00 40 04/24/20 04:00 Mechanical Ventilator 04/24/20 04:00 101.2 101 24 116/64 (81) 100 04/24/20 03:09 99 18 40 04/24/20 00:00 40 04/24/20 00:00 101.6 101 19 128/66 (86) 99 04/24/20 00:00 103 04/24/20 00:00 Mechanical Ventilator 04/23/20 23:06 105 22 40 04/23/20 22:00 100.0 04/23/20 20:00 Mechanical Ventilator 04/23/20 20:00 40 04/23/20 20:00 105 04/23/20 20:00 102.0 111 25 132/68 (89) 100 04/23/20 19:24 111 22 40 04/23/20 16:00 40 04/23/20 16:00 97.9 111 20 126/38 (67) 98 04/23/20 16:00 112 04/23/20 16:00 Mechanical Ventilator 04/23/20 15:19 108 22 40 Status: obtunded Condition: critical HEENT: atraumatic Lungs: rales, rhonchi Heart: HR/BP stable Abdomen: soft Extremities: no C/C/E Micro: Microbiology Date/Time Source Procedure Growth Status 04/22/20 22:15 Blood Blood Culture - Preliminary NO GROWTH AFTER 24 HOURS Resulted 04/22/20 22:00 Blood Blood Culture - Preliminary Resulted 04/22/20 22:00 Nasal Nares MRSA Culture - Final NO METHICILLIN RESISTANT STAPH AUREUS... Complete 04/22/20 22:00 Nasopharynx SARS-CoV-2 RdRp Gene Assay - Final Complete 04/22/20 22:00 Nasal Nares - Final Complete 04/22/20 22:00 Nasal Nares - Final Complete 04/23/20 00:00 Urine,Clean Catch Urine Culture - Preliminary Mixed Gram Positive Organism Resulted Accucheck: 164 Critical Care - Subjective ROS Limited/Unobtainable: Yes Condition: critical, improving FI02: 40 Vent Support Breath Rate: 18 Vent Support Mode: AC Vent Tidal Volume: 450 Sputum Amount: Small PEEP: 5.0 PIP: 28 I&O: Intake and Output 04/23/20 04/24/20 19:00 07:00 Intake Total 1555 ml 1851 ml Output Total 400 ml 550 ml Balance 1155 ml 1301 ml Intake Free Water 350 ml 550 ml IV Total 1205 ml 1301 ml Tube Feeding 0 ml 0 ml Output Urine Total 400 ml 50 ml Other 500 ml CXR: YOSEPH Labs: Laboratory Tests Test 04/23/20 16:45 04/23/20 23:15 04/24/20 03:00 04/24/20 03:50 Lactic Acid Level 2.10 mmol/L (0.4-2.0) H 2.00 mmol/L (0.4-2.0) 1.60 mmol/L (0.4-2.0) Phenytoin (Dilantin) Level 12.5 ug/mL (10-20) Sodium Level 158 MMOL/L (136-145) H Potassium Level 3.9 MMOL/L (3.5-5.1) Chloride Level 125 MMOL/L (98-107) H Carbon Dioxide Level 25 MMOL/L (21-32) Anion Gap 8 mmol/L (5-15) Blood Urea Nitrogen 24 mg/dL (7-18) H Creatinine 0.8 MG/DL (0.55-1.30) Estimat Glomerular Filtration Rate > 60 mL/min (>60) Glucose Level 162 MG/DL (74-106) H Hemoglobin A1c 6.2 % (4.3-6.0) H Uric Acid 5.6 MG/DL (2.6-7.2) Calcium Level 7.5 MG/DL (8.5-10.1) L Phosphorus Level 1.4 MG/DL (2.5-4.9) L Magnesium Level 2.9 MG/DL (1.8-2.4) H Iron Level 74 ug/dL (50-175) Total Iron Binding Capacity 186 ug/dL (250-450) L Percent Iron Saturation 40 % (15-50) Unsaturated Iron Binding 112 ug/dL (112-346) Ferritin 432 NG/ML (8-388) H Total Bilirubin 0.5 MG/DL (0.2-1.0) Gamma Glutamyl Transpeptidase 379 U/L (5-85) H Aspartate Amino Transf (AST/SGOT) 68 U/L (15-37) H Alanine Aminotransferase (ALT/SGPT) 84 U/L (12-78) H Alkaline Phosphatase 96 U/L (46-116) Lactate Dehydrogenase 265 U/L (81-234) H Total Creatine Kinase 317 U/L (26-308) H Troponin I 0.050 ng/mL (0.000-0.056) C-Reactive Protein, Quantitative 4.7 mg/dL (0.00-0.90) H Pro-B-Type Natriuretic Peptide 39 pg/mL (0-125) Total Protein 8.2 G/DL (6.4-8.2) Albumin 2.0 G/DL (3.4-5.0) L Globulin 6.2 g/dL Albumin/Globulin Ratio 0.3 (1.0-2.7) L Triglycerides Level 448 MG/DL (30-150) H Cholesterol Level 154 MG/DL (< 200) LDL Cholesterol 65 mg/dL (<100) HDL Cholesterol 17 MG/DL (40-60) L Cholesterol/HDL Ratio 9.1 (3.3-4.4) H Vitamin B12 Level 1263 PG/ML (193-986) H Folate 85.5 NG/ML (8.6-58.9) H Thyroid Stimulating Hormone (TSH) 1.175 uiU/mL (0.358-3.740) Test 04/24/20 04:00 White Blood Count 10.9 K/UL (4.8-10.8) H Red Blood Count 2.95 M/UL (4.20-5.40) L Hemoglobin 9.4 G/DL (12.0-16.0) L Hematocrit 30.2 % (37.0-47.0) L Mean Corpuscular Volume 102 FL (80-99) H Mean Corpuscular Hemoglobin 31.9 PG (27.0-31.0) H Mean Corpuscular Hemoglobin Concent 31.1 G/DL (32.0-36.0) L Red Cell Distribution Width 15.2 % (11.6-14.8) H Platelet Count 57 K/UL (150-450) L Mean Platelet Volume 13.5 FL (6.5-10.1) H Neutrophils (%) (Auto) % (45.0-75.0) Lymphocytes (%) (Auto) % (20.0-45.0) Monocytes (%) (Auto) % (1.0-10.0) Eosinophils (%) (Auto) % (0.0-3.0) Basophils (%) (Auto) % (0.0-2.0) Differential Total Cells Counted 100 Neutrophils % (Manual) 85 % (45-75) H Lymphocytes % (Manual) 9 % (20-45) L Monocytes % (Manual) 5 % (1-10) Eosinophils % (Manual) 1 % (0-3) Basophils % (Manual) 0 % (0-2) Band Neutrophils 0 % (0-8) Nucleated Red Blood Cells 1 /100 WBC Platelet Estimate Decreased L Platelet Morphology Normal Hypochromasia 2+ Anisocytosis 1+ Macrocytosis 1+ Erythrocyte Sedimentation Rate 125 MM/HR (0-30) H Luis Garcia MD Apr 24, 2020 12:58
--- NOTE | 2020-04-24 14:00 | NUR ---
NURSE NOTES: Ding cath noted leaking ,pt with large amount of urine on the pad,bed abth given kept dry and clean.
--- NOTE | 2020-04-24 14:51 | Surgery Progress Note ---
Surgery Progress Note Subjective Additional Comments no acute events comfortable stable labs reviewed exam unchanged Objective Last 24 Hour Vital Signs Date Time Temp Pulse Resp B/P (MAP) Pulse Ox O2 Delivery O2 Flow Rate FiO2 04/24/20 12:00 98 04/24/20 12:00 40 04/24/20 12:00 Mechanical Ventilator 04/24/20 12:00 98.2 100 24 120/64 (82) 100 04/24/20 08:00 Mechanical Ventilator 04/24/20 08:00 95 04/24/20 08:00 40 04/24/20 08:00 98.4 99 21 116/61 (79) 100 04/24/20 07:05 101 24 40 04/24/20 04:00 99 04/24/20 04:00 40 04/24/20 04:00 Mechanical Ventilator 04/24/20 04:00 101.2 101 24 116/64 (81) 100 04/24/20 03:09 99 18 40 04/24/20 00:00 40 04/24/20 00:00 101.6 101 19 128/66 (86) 99 04/24/20 00:00 103 04/24/20 00:00 Mechanical Ventilator 04/23/20 23:06 105 22 40 04/23/20 22:00 100.0 04/23/20 20:00 Mechanical Ventilator 04/23/20 20:00 40 04/23/20 20:00 105 04/23/20 20:00 102.0 111 25 132/68 (89) 100 04/23/20 19:24 111 22 40 04/23/20 16:00 40 04/23/20 16:00 97.9 111 20 126/38 (67) 98 04/23/20 16:00 112 04/23/20 16:00 Mechanical Ventilator 04/23/20 15:19 108 22 40 I&O Intake and Output 04/23/20 04/24/20 19:00 07:00 Intake Total 1555 ml 1851 ml Output Total 400 ml 550 ml Balance 1155 ml 1301 ml Intake Free Water 350 ml 550 ml IV Total 1205 ml 1301 ml Tube Feeding 0 ml 0 ml Output Urine Total 400 ml 50 ml Other 500 ml Dressing: saturated Cardiovascular: RSR Respiratory: decreased breath sounds Abdomen: soft, present bowel sounds Extremities: no cyanosis Laboratory Tests Test 6/23/20 16:45 04/23/20 23:15 04/24/20 03:00 04/24/20 03:50 Lactic Acid Level 2.10 mmol/L (0.4-2.0) H 2.00 mmol/L (0.4-2.0) 1.60 mmol/L (0.4-2.0) Phenytoin (Dilantin) Level 12.5 ug/mL (10-20) Sodium Level 158 MMOL/L (136-145) H Potassium Level 3.9 MMOL/L (3.5-5.1) Chloride Level 125 MMOL/L (98-107) H Carbon Dioxide Level 25 MMOL/L (21-32) Anion Gap 8 mmol/L (5-15) Blood Urea Nitrogen 24 mg/dL (7-18) H Creatinine 0.8 MG/DL (0.55-1.30) Estimat Glomerular Filtration Rate > 60 mL/min (>60) Glucose Level 162 MG/DL (74-106) H Hemoglobin A1c 6.2 % (4.3-6.0) H Uric Acid 5.6 MG/DL (2.6-7.2) Calcium Level 7.5 MG/DL (8.5-10.1) L Phosphorus Level 1.4 MG/DL (2.5-4.9) L Magnesium Level 2.9 MG/DL (1.8-2.4) H Iron Level 74 ug/dL (50-175) Total Iron Binding Capacity 186 ug/dL (250-450) L Percent Iron Saturation 40 % (15-50) Unsaturated Iron Binding 112 ug/dL (112-346) Ferritin 432 NG/ML (8-388) H Total Bilirubin 0.5 MG/DL (0.2-1.0) Gamma Glutamyl Transpeptidase 379 U/L (5-85) H Aspartate Amino Transf (AST/SGOT) 68 U/L (15-37) H Alanine Aminotransferase (ALT/SGPT) 84 U/L (12-78) H Alkaline Phosphatase 96 U/L (46-116) Lactate Dehydrogenase 265 U/L (81-234) H Total Creatine Kinase 317 U/L (26-308) H Troponin I 0.050 ng/mL (0.000-0.056) C-Reactive Protein, Quantitative 4.7 mg/dL (0.00-0.90) H Pro-B-Type Natriuretic Peptide 39 pg/mL (0-125) Total Protein 8.2 G/DL (6.4-8.2) Albumin 2.0 G/DL (3.4-5.0) L Globulin 6.2 g/dL Albumin/Globulin Ratio 0.3 (1.0-2.7) L Triglycerides Level 448 MG/DL (30-150) H Cholesterol Level 154 MG/DL (< 200) LDL Cholesterol 65 mg/dL (<100) HDL Cholesterol 17 MG/DL (40-60) L Cholesterol/HDL Ratio 9.1 (3.3-4.4) H Vitamin B12 Level 1263 PG/ML (193-986) H Folate 85.5 NG/ML (8.6-58.9) H Thyroid Stimulating Hormone (TSH) 1.175 uiU/mL (0.358-3.740) Test 04/24/20 04:00 White Blood Count 10.9 K/UL (4.8-10.8) H Red Blood Count 2.95 M/UL (4.20-5.40) L Hemoglobin 9.4 G/DL (12.0-16.0) L Hematocrit 30.2 % (37.0-47.0) L Mean Corpuscular Volume 102 FL (80-99) H Mean Corpuscular Hemoglobin 31.9 PG (27.0-31.0) H Mean Corpuscular Hemoglobin Concent 31.1 G/DL (32.0-36.0) L Red Cell Distribution Width 15.2 % (11.6-14.8) H Platelet Count 57 K/UL (150-450) L Mean Platelet Volume 13.5 FL (6.5-10.1) H Neutrophils (%) (Auto) % (45.0-75.0) Lymphocytes (%) (Auto) % (20.0-45.0) Monocytes (%) (Auto) % (1.0-10.0) Eosinophils (%) (Auto) % (0.0-3.0) Basophils (%) (Auto) % (0.0-2.0) Differential Total Cells Counted 100 Neutrophils % (Manual) 85 % (45-75) H Lymphocytes % (Manual) 9 % (20-45) L Monocytes % (Manual) 5 % (1-10) Eosinophils % (Manual) 1 % (0-3) Basophils % (Manual) 0 % (0-2) Band Neutrophils 0 % (0-8) Nucleated Red Blood Cells 1 /100 WBC Platelet Estimate Decreased L Platelet Morphology Normal Hypochromasia 2+ Anisocytosis 1+ Macrocytosis 1+ Erythrocyte Sedimentation Rate 125 MM/HR (0-30) H Plan Problems: (1) Feeding by G-tube Assessment & Plan: DAILY ESTIMATED NEEDS: Needs based on Critical care, DM, sepsis 66.7kg abw 22-30 kcals/kg 4624-4798 total kcals 1.25-2 g protein/kg 83-133 g total protein 25-30 mL/kg 5017-6180 total fluid mLs NUTRITION DIAGNOSIS: Swallowing difficulty r/t resp status as evidenced by pt is trach and PEG dep. CURRENT TF: Glucerna 1.5 @60ml/hr x20 hrs ENTERAL NUTRITION RECOMMENDATIONS: Glucerna 1.2 @75ml/hr x20 hrs (on Dilantin BID) to provide 1500ml, 1800 kcal, 90g pro, 1208ml free h2o Glucerna 1.5 OOS-> Rec Glucerna 1.2 for carb control + increased free H2O - Start @low rate, 15ml/hr for 6 hrs. Advance as tolerated 10ml/hr q4-6 hrs to goal. - Flush per MD/ HOB over 30 degrees. ---- ADDITIONAL RECOMMENDATIONS: 1) Obtain an accurate Height as able: 5'7" per EMR vs 6'1" per SNF. April 01, 2020 wt per SNF: 182 lbs/82.73kg 2) F/up w/ WC eval 3) Increase water flushes as Na is trending up 4) Replete lytes-> Mg, Phos, and K all low (2) Sepsis Assessment & Plan: Patient with leukocytosis, anemia, lactic acidosis. COVID rapid exam negative Urine noted On antibiotics Care plan as below We will follow with recommendations Nutritional optimization Thank you for let me participate in patient's care (3) Sacral decubitus ulcer Assessment & Plan: Pt presented on admission with Tracheostomy, Gastrostomy, Bilat nephrostomies, Pressure injury.Skin assessed under tracheal collar and no evidence of skin breakdown noted. L nephrostomy migrating -suture noted to be loose. No peristomal erythema or skin erosion noted. R nephrostomy is intact without evidence of peristomal skin erosion noted.Scaly dark brown plaques noted to back and both upper thighs Full thickness Pressure Injury sacrococcygeal area(L)3.6cm x (W)1.3cm x (D)1.9cm ,Undermining clockwise at 6o'clock by 0.3cm,12-1 by 0.2cm.@1o'clock. Base of wound is pale pink and moist. Bone is palpable at the base of wound. Epibole along edges along with maceration to borders and periwound.Small amt serous exudate noted. No odor noted. Hyperpigmentation with historical scar noted to sacrum, R and L gluteal cheeks. R and L heels are both boggy with non-Blanching erythema. Bilat foot drop noted. Tx.Plan: Cleanse Sacral wound with Saline. Apply Therahoney. Apply Moisture Barrier paste periwound. Cover with Optifoam drsg Daily and prn Apply Cavilon Skin Barrier to malleoli and each heel. Cover each site with Optifoam drsg.Change every 7 days and PRN. Reposition at least every 2hours or as tolerated. Off-load heels with pillow. APM/ADELIA Mattress overlay. Delon Murray Apr 24, 2020 14:51
--- NOTE | 2020-04-24 15:32 | NUR ---
CASE MANAGEMENT: REVIEW SI: COVID-19 R/O . INTESTINAL OBSTRUCTION T 101.6 HR 103 RR 24 BP 116/61 SAT 99% MECH VENT FIO2 40 WBC 10.9 H/H 9.4/30.2 NA 158 GLUCOSE 162 CALCIUM 7.5 URINE CX PENDING BLOOD CX PENDING IS: VANCOMYCIN IV Q12HR CEFEPIME IV Q12HR K PHOS 15MM IV @62.5ML/HR PLAVIX GT QD PROTONIX IV Q12HR DILANTIN GT Q12HR KEPPRA GT Q12HR TYLENOL GT THREE TIMES PER DAY PRN STEP DOWN UNIT DCP: PATIENT IS FROM [facility]
[2020-04-24 16:00] VITALS: BP 108/63
--- NOTE | 2020-04-24 16:07 | NUR ---
CASE MANAGEMENT: DCP PATIENT IDENTIFIED A [facility] MEMBER CM SPOKE WITH [facility] REGARDING PATIENT TRANSFERRING TO AN IN-NETWORK FACILITY. PER [facility] [facility] PATIENT WILL TRANSFER PENDING BED AVAILABILITY [facility] [phone] NOTIFIED AND IN AGREEMENT WITH THE PATIENT BEING TRANSFERRED TO [facility] MD MADE AWARE
--- NOTE | 2020-04-24 16:48 | Consultation ---
History of Present Illness General Date patient seen: Apr 24, 2020 Chief Complaint: Fever Present Illness HPI 59 y/o F with hx of GERD, DM2, COPD, GIB, neurogenic bladder, stage IV sacral decubitus ulcer, paranoid schizoaffective disorder, suicide attempt in 2003 progressing to coma and requiring exterminator ventilator support, spatic quadriplegia, obesity, b/l nephrostomy tubes 2017, seizure disorder, chronic resp failure s/p trach dependent, dysphagia s/p GT, [place] resident ([facility]) presented to ED on 04/22/20 with fever, SOB and tachycardia Allergies: Coded Allergies: No Known Allergies (Unverified , 02/08/13) Medication History Scheduled Acetaminophen (Acetaminophen), 500 MG GT Q4H, (Reported) Ascorbic Acid (Vitamin C), 500 MG GT BID, (Reported) Atorvastatin (Lipitor), 10 MG ORAL BEDTIME, (Reported) Clopidogrel* (Clopidogrel*), 75 MG GT DAILY, (Reported) Docusate Sodium (Docusate Sodium), 250 MG GT DAILY, (Reported) Levetiracetam* (Levetiracetam*), 100 MG GT TWICE A DAY, (Reported) Omeprazole (Prilosec), 20 MG GT DAILY, (Reported) Phenytoin (Dilantin-125), 125 MG GT BID, (Reported) Jekddjabpyip-Dqgn-Woeaykkv,Iso (Zosyn 3.375 Gm Pre Mix-Bag), 3.375 GM IVPB EVERY 6 HOURS, (Reported) Polyethylene Glycol* (Miralax*), 17 GM PO DAILY, (Reported) Polyvinyl Alcohol (Liquitears), 15 ML OP BID, (Reported) Sennosides* (Senno*), 8.6 MG ORAL DAILY, (Reported) Zinc Sulfate (Zinc Sulfate*), 220 MG GT DAILY, (Reported) [Mvi With Mineral], 30 ML GT DAILY, (Reported) Scheduled PRN Acetaminophen 160MG/5ML* (Acetaminophen*), 20.3 ML GT THREE TIMES A DAY PRN for Fever/Headache/Mild Pain, (Reported) Ipratropium [place] 0.5MG/2.5ML (Ipratropium [place] 0.5MG/2.5ML), 0.5 MG HHN Q6H PRN for Shortness of Breath, (Reported) Magnesium Hydroxide (Milk of Magnesia), 30 ML GT DAILY PRN, (Reported) Metoclopramide Hcl* (Reglan*), 5 MG GT EVERY 6 HOURS PRN, (Reported) Na Phos,M-B/Na Phos,Di-Ba* (Fleet Enema*), 133 ML RC DAILY PRN, (Reported) [tylenol], 650 MG GT EVERY 6 HOURS PRN, (Reported) Miscellaneous Medications Bisacodyl (Dulcolax), 10 MG RC, (Reported) Bisacodyl (Dulcolax), 10 MG RC, (Reported) Chlorhexidine Gluconate (Chlorhexidine Gluconate), 15 ML CHASE, (Reported) Cranberry Extract (Cranberry), 425 MG GT, (Reported) Insulin Regular, Human (Humulin R), 0 SUBQ, (Reported) Polyethylene Glycol 3350 (Glycolax), 225 GM GT, (Reported) Potassium Chloride (Potassium Chloride), 20 MEQ IV, (Reported) Sorbitol (Sorbitol), 30 ML GT, (Reported) Vitamin A & D (Vitamin A & D Ointment), 454 GM TOP, (Reported) [Atrovent], (Reported) [Cranberry Juice], (Reported) [albuterolsulfate], (Reported) Patient History Healthcare decision maker Resuscitation status Advanced Directive on File Patient History Narrative PMhx: as above Shx: Patient is single and is a resident of [facility]. Patient denies tobacco or alcohol use. Fhx: non contributory Review of Systems All Other Systems: negative except mentioned in HPI Physical Exam Physical Exam Narrative GENERAL: Patient is a thin-appearing female, who is intubated and sedated. HEENT: Eyes, pupils are equal and responsive to light and accommodation. Extraocular movements are intact. NECK: Supple without lymphadenopathy. Tracheostomy is in place. CHEST: Coarse breath sounds bilateral bases otherwise without wheezes or rales. CARDIOVASCULAR: Tachycardic, regular rhythm. S1, S2 normal without murmurs, rubs, or gallops. ABDOMEN: Soft, nontender, nondistended. Positive bowel sounds. No evidence of hepatosplenomegaly. Currently, no rebound or guarding noted. EXTREMITIES: Negative for clubbing, cyanosis, or edema. Last 24 Hour Vital Signs Date Time Temp Pulse Resp B/P (MAP) Pulse Ox O2 Delivery O2 Flow Rate FiO2 04/24/20 16:05 40 04/24/20 16:00 Mechanical Ventilator 04/24/20 12:00 98 04/24/20 12:00 40 04/24/20 12:00 Mechanical Ventilator 04/24/20 12:00 98.2 100 24 120/64 (82) 100 04/24/20 08:00 Mechanical Ventilator 04/24/20 08:00 95 04/24/20 08:00 40 04/24/20 08:00 98.4 99 21 116/61 (79) 100 04/24/20 07:05 101 24 40 04/24/20 04:00 99 04/24/20 04:00 40 04/24/20 04:00 Mechanical Ventilator 04/24/20 04:00 101.2 101 24 116/64 (81) 100 04/24/20 03:09 99 18 40 04/24/20 00:00 40 04/24/20 00:00 101.6 101 19 128/66 (86) 99 04/24/20 00:00 103 04/24/20 00:00 Mechanical Ventilator 04/23/20 23:06 105 22 40 04/23/20 22:00 100.0 04/23/20 20:00 Mechanical Ventilator 04/23/20 20:00 40 04/23/20 20:00 105 04/23/20 20:00 102.0 111 25 132/68 (89) 100 04/23/20 19:24 111 22 40 Intake and Output 04/23/20 04/24/20 19:00 07:00 Intake Total 1555 ml 1851 ml Output Total 400 ml 550 ml Balance 1155 ml 1301 ml Intake Free Water 350 ml 550 ml IV Total 1205 ml 1301 ml Tube Feeding 0 ml 0 ml Output Urine Total 400 ml 50 ml Other 500 ml Laboratory Tests Test 04/23/20 16:45 04/23/20 23:15 04/24/20 03:00 04/24/20 03:50 Lactic Acid Level 2.10 mmol/L (0.4-2.0) H 2.00 mmol/L (0.4-2.0) 1.60 mmol/L (0.4-2.0) Phenytoin (Dilantin) Level 12.5 ug/mL (10-20) Sodium Level 158 MMOL/L (136-145) H Potassium Level 3.9 MMOL/L (3.5-5.1) Chloride Level 125 MMOL/L (98-107) H Carbon Dioxide Level 25 MMOL/L (21-32) Anion Gap 8 mmol/L (5-15) Blood Urea Nitrogen 24 mg/dL (7-18) H Creatinine 0.8 MG/DL (0.55-1.30) Estimat Glomerular Filtration Rate > 60 mL/min (>60) Glucose Level 162 MG/DL (74-106) H Hemoglobin A1c 6.2 % (4.3-6.0) H Uric Acid 5.6 MG/DL (2.6-7.2) Calcium Level 7.5 MG/DL (8.5-10.1) L Phosphorus Level 1.4 MG/DL (2.5-4.9) L Magnesium Level 2.9 MG/DL (1.8-2.4) H Iron Level 74 ug/dL (50-175) Total Iron Binding Capacity 186 ug/dL (250-450) L Percent Iron Saturation 40 % (15-50) Unsaturated Iron Binding 112 ug/dL (112-346) Ferritin 432 NG/ML (8-388) H Total Bilirubin 0.5 MG/DL (0.2-1.0) Gamma Glutamyl Transpeptidase 379 U/L (5-85) H Aspartate Amino Transf (AST/SGOT) 68 U/L (15-37) H Alanine Aminotransferase (ALT/SGPT) 84 U/L (12-78) H Alkaline Phosphatase 96 U/L (46-116) Lactate Dehydrogenase 265 U/L (81-234) H Total Creatine Kinase 317 U/L (26-308) H Troponin I 0.050 ng/mL (0.000-0.056) C-Reactive Protein, Quantitative 4.7 mg/dL (0.00-0.90) H Pro-B-Type Natriuretic Peptide 39 pg/mL (0-125) Total Protein 8.2 G/DL (6.4-8.2) Albumin 2.0 G/DL (3.4-5.0) L Globulin 6.2 g/dL Albumin/Globulin Ratio 0.3 (1.0-2.7) L Triglycerides Level 448 MG/DL (30-150) H Cholesterol Level 154 MG/DL (< 200) LDL Cholesterol 65 mg/dL (<100) HDL Cholesterol 17 MG/DL (40-60) L Cholesterol/HDL Ratio 9.1 (3.3-4.4) H Vitamin B12 Level 1263 PG/ML (193-986) H Folate 85.5 NG/ML (8.6-58.9) H Thyroid Stimulating Hormone (TSH) 1.175 uiU/mL (0.358-3.740) Test 04/24/20 04:00 White Blood Count 10.9 K/UL (4.8-10.8) H Red Blood Count 2.95 M/UL (4.20-5.40) L Hemoglobin 9.4 G/DL (12.0-16.0) L Hematocrit 30.2 % (37.0-47.0) L Mean Corpuscular Volume 102 FL (80-99) H Mean Corpuscular Hemoglobin 31.9 PG (27.0-31.0) H Mean Corpuscular Hemoglobin Concent 31.1 G/DL (32.0-36.0) L Red Cell Distribution Width 15.2 % (11.6-14.8) H Platelet Count 57 K/UL (150-450) L Mean Platelet Volume 13.5 FL (6.5-10.1) H Neutrophils (%) (Auto) % (45.0-75.0) Lymphocytes (%) (Auto) % (20.0-45.0) Monocytes (%) (Auto) % (1.0-10.0) Eosinophils (%) (Auto) % (0.0-3.0) Basophils (%) (Auto) % (0.0-2.0) Differential Total Cells Counted 100 Neutrophils % (Manual) 85 % (45-75) H Lymphocytes % (Manual) 9 % (20-45) L Monocytes % (Manual) 5 % (1-10) Eosinophils % (Manual) 1 % (0-3) Basophils % (Manual) 0 % (0-2) Band Neutrophils 0 % (0-8) Nucleated Red Blood Cells 1 /100 WBC Platelet Estimate Decreased L Platelet Morphology Normal Hypochromasia 2+ Anisocytosis 1+ Macrocytosis 1+ Erythrocyte Sedimentation Rate 125 MM/HR (0-30) H Height (Feet): 5 Height (Inches): 7.00 Weight (Pounds): 198 Medications Current Medications Medications (Trade) Dose Ordered Sig/Emanuel Route PRN Reason Start Time Stop Time Status Last Admin Dose Admin Acetaminophen (Tylenol) 500 mg Q4H PRN GT Pain Scale (3-5) 04/23/20 08:45 05/23/20 01:59 Acetaminophen (Tylenol) 650 mg THREE TIMES A DAY PRN GT FHMP 04/23/20 02:00 05/23/20 01:59 04/23/20 21:00 Artificial Tears (Akwa-Tears) 1 drop BID BOTH EYES 04/23/20 09:00 05/23/20 08:59 04/24/20 09:31 Bisacodyl (Dulcolax) 10 mg DAILY PRN RECTAL Constipation 04/23/20 02:00 07/22/20 01:59 Cefepime HCl 2 gm/ Dextrose 55 ml @ 110 mls/hr Q12H IVPB 04/23/20 08:00 04/30/20 07:59 04/24/20 09:30 Clopidogrel Bisulfate (Plavix) 75 mg DAILY GT 04/23/20 09:00 05/23/20 08:59 04/23/20 09:12 Dextrose 1,000 ml @ 100 mls/hr Q10H IV 04/23/20 13:45 05/23/20 13:44 04/24/20 09:34 Dextrose (Dextrose 50%) 25 ml Q30M PRN IV Hypoglycemia 04/23/20 08:15 07/22/20 08:14 Dextrose (Dextrose 50%) 50 ml Q30M PRN IV Hypoglycemia 04/23/20 08:15 07/22/20 08:14 Docusate Sodium (Colace) 250 mg DAILYPRN PRN GT CONSTIPATION 04/23/20 12:50 05/23/20 12:49 Insulin Aspart (NovoLOG) EVERY 6 HOURS SUBQ 04/23/20 12:00 07/22/20 11:59 04/24/20 11:29 Ipratropium [place] (Atrovent) 500 mcg Q6H PRN HHN Shortness of Breath 04/23/20 02:00 04/28/20 01:59 Levetiracetam (Keppra) 1,000 mg Q12HR GT 04/23/20 21:00 05/23/20 08:59 04/24/20 09:31 Metoclopramide HCl (Reglan) 5 mg Q6HR GT 04/23/20 13:53 05/23/20 13:52 04/24/20 11:34 Pantoprazole (Protonix) 40 mg Q12HR IVP 04/23/20 21:00 05/23/20 08:59 04/24/20 09:33 Phenytoin (Dilantin) 150 mg Q12HR GT 04/24/20 21:00 05/23/20 08:29 Polyethylene Glycol (Miralax) 17 gm DAILY GT 04/23/20 09:00 05/23/20 08:59 04/24/20 09:30 Potassium Phosphate 250 ml @ 62.5 mls/hr Q4H IVPB 04/24/20 09:00 04/24/20 16:59 04/24/20 15:20 Sennosides (Senokot) 8.6 mg DAILY GT 04/23/20 09:00 05/23/20 08:59 04/24/20 09:33 Sodium Phosphate (Fleet's Sodium Phosl Enema) 133 ml DAILY PRN RECTAL CONSTIPATION 04/23/20 02:00 05/23/20 01:59 Sorbitol (sorbitoL) 30 ml DAILYPRN PRN GT constipation 04/23/20 08:15 05/23/20 08:14 Vancomycin HCl (Vanco pharmacy to dose) 1 ea DAILY PRN MISC Per rx protocol 04/23/20 03:00 05/23/20 02:59 Vancomycin HCl 750 mg/Sodium Chloride 275 ml @ 183.333 mls/hr Q12H IVPB 04/23/20 17:00 04/28/20 16:59 04/24/20 05:21 Zinc Sulfate (Zinc Sulfate) 220 mg DAILY GT 04/23/20 09:00 07/22/20 08:59 04/24/20 09:33 Assessment/Plan Assessment/Plan: Abx: IV Vancomycin 04/23- Cefepime 04/23- Ertapenem x1 04/23 Assessment: Severe sepsis Gram positive bacteremia -04/22 Bcx 1/4 GPC clusters Hyperthermia (up to 105 upon admission); improving - r/o COVID19 Leukocytosis, improving -04/22 CXR: no acute disease -u/a wbc 20-30, nit neg, leuk +3; ucx 30-40k mixed gram positive organisms -rapid COVID test neg Lactic acidosis, SP GABRIELLE, improving Elevated LFTs GERD DM2 COPD GIB neurogenic bladder stage IV sacral decubitus ulcer paranoid schizoaffective disorder suicide attempt in 2003 progressing to coma and requiring mcfp ventilator support spatic quadriplegia obesity b/l nephrostomy tubes 2018 seizure disorder chronic resp failure s/p trach dependent dysphagia s/p GT [place] resident ([facility]) Plan: -Continue empiric IV Vancomycin and Cefepime #2 pending cultures -f/u cx -Monitor CBC/CMP, temperatures -BCx x2, sp cx -CXR, Abd US -COVID19 isolation and testing; NAAT test pending -PEG/trach care -aspiration precautions -wound care per hospital protocol Thank you for consulting [facility]. Will continue to follow along with you. Discussed maxwell BARKER. Jayne Peoples M.D. Apr 24, 2020 16:48
[2020-04-24] MEDS: Vancomycin 1 GM in NS 275 ML IVPB SCH (17:32)
--- NOTE | 2020-04-24 19:05 | NUR ---
HAND-OFF: Report given to BRANDON Peterson RN..
--- NOTE | 2020-04-24 19:15 | NUR ---
NURSE NOTES: Received report from LUCERO Llanos. Patient A x 0, obtunded, afebrile; and has no respiratory distress. On [facility] vent P7, AC 18, TV 450, FiO2 40% and peep of 5. With left wrist 22g and right foot 22g iv line intact, free of sediments , patent and asymptomatic.On Glucerna 1.2 at 75cc/hr via GT patent and infusing well. With bilateral Nephrostomy to drainage bag intact, patent and draining well. Nephrostomy site is free of breakdown and infection. With Ding catheter to urine bag intact and draining well. HOB elevated. Bed rails are up and wheels are locked. Call light within reach. Continue plan of care.
[2020-04-24 20:00] VITALS: BP 139/63
[2020-04-25] VITALS: BP 159/68
--- NOTE | 2020-04-25 01:21 | NUR ---
NURSE NOTES: Patient was given partial bath. Gown changed and linen change. Pt tolerated the activity. No respiratory distress noted to patient. Continue plan of care
--- NOTE | 2020-04-25 03:37 | NUR ---
NURSE NOTES: Received a call from Reggie Garcia. LN gave an update regarding his sister. Also encourage to speak with CM in AM regarding patient transfer updates to [facility]. Reggie understood and agreed
[2020-04-25 04:00] VITALS: BP 125/72
[2020-04-25 04:55] LABS: HEMOGLOBIN 8.3 G/DL (12.0-16.0); MEAN CORPUSCULAR VOLUME 102 FL (80-99); PLATELET COUNT 52 K/UL (150-450); RED BLOOD COUNT 2.66 M/UL (4.20-5.40); RED CELL DISTRIBUTION WIDTH 14.7 % (11.6-14.8); WHITE BLOOD COUNT 7.9 K/UL (4.8-10.8)
[2020-04-25] MEDS: Vancomycin 1 GM in NS 275 ML IVPB SCH ×2 (05:12→17:33)
[2020-04-25] MEDS: NovoLOG Insulin Flexpen SUBQ SCH ×4 (05:12→23:29)
[2020-04-25 05:35] LABS: ALANINE AMINOTRANSFERASE 61 U/L (12-78); ALBUMIN 1.9 G/DL (3.4-5.0); ALBUMIN/GLOBULIN RATIO 0.3 (1.0-2.7); ALKALINE PHOSPHATASE 105 U/L (46-116); ANION GAP 8 mmol/L (5-15); ASPARTATE AMINO TRANSFERASE 51 U/L (15-37); BILIRUBIN,TOTAL 0.4 MG/DL (0.2-1.0); BLOOD UREA NITROGEN 16 mg/dL (7-18); CALCIUM 7.4 MG/DL (8.5-10.1); CARBON DIOXIDE 25 MMOL/L (21-32); CHLORIDE 119 MMOL/L (98-107); CREATININE 0.7 MG/DL (0.55-1.30); PHOSPHORUS 4.3 MG/DL (2.5-4.9); POTASSIUM 3.6 MMOL/L (3.5-5.1); SODIUM 151 MMOL/L (136-145)
[2020-04-25 05:37] LABS: CREATINE KINASE 257 U/L (26-308); GAMMA GLUTAMYL TRANSPEPTIDASE 305 U/L (5-85)
--- NOTE | 2020-04-25 06:24 | NUR ---
NURSE NOTES: Left a message to Dr Yanez regarding Covid x 2 results Negative. Awaiting for results. Will endorse to next shift to ff up if no response.
--- NOTE | 2020-04-25 07:10 | NUR ---
HAND-OFF: Report given to Erick Avila RN.
--- NOTE | 2020-04-25 07:15 | NUR ---
NURSE NOTES: Report received from BRANDON Peterson RN.Pt resting in bed asleep noted no resp distress,with trach tube to vent,ordered vent settings tolerated,no signs of pain or discomfort,S-R on the monitor,GTF Glucerna 1.2 at 75 ml/hr on hold,pt NPO post MN for US of Abdomen,Ding cath ,and Nephrostomy tube x2 both draining yellow urine, skin warm and dry,PIV to LT Wrist and RT Foot intact with IVF D5W at 100 ml/hr, SR up x2 HOB elevated ,bed lock in lowest position,will continue with plans of care.
[2020-04-25 08:00] VITALS: BP 135/57
[2020-04-25] MEDS: Cefepime 2gm in D5W 55ml IVPB SCH ×2 (08:43→19:34)
[2020-04-25] MEDS: Pantoprazole Inj IVP SCH ×2 (08:43→20:22)
--- NOTE | 2020-04-25 08:43 | NUR ---
RADIOLOGY DEPT., CHEST X-RAY DONE.-P.DYE
[2020-04-25] MEDS: Phenytoin Susp 100mg/4ml GT SCH ×2 (08:46→20:22)
[2020-04-25] MEDS: levETIRAcetam 500mg/5ml Liquid GT SCH ×2 (08:46→20:22)
[2020-04-25] MEDS: Miralax 17gm pkt GT SCH (08:47)
[2020-04-25] MEDS: Sennosides 8.6mg tab GT SCH (08:47)
[2020-04-25] MEDS: Zinc Sulfate 220mg GT SCH (08:47)
--- NOTE | 2020-04-25 09:30 | NUR ---
NURSE NOTES: US Tech Noeme at bedside, with on going US abdomen ,procedure tolerated,no distress noted.
--- NOTE | 2020-04-25 09:53 | Nephrology Progress Note ---
Assessment/Plan Problem List: (1) Electrolyte imbalance Assessment: Hypernatremia (2) Dehydration (3) Diabetes mellitus (4) Spastic quadriplegic cerebral palsy (5) Chronic respiratory failure (6) Sepsis Assessment: UTI (7) Sacral decubitus ulcer Assessment Dehydration, prerenal azotemia, free water deficit, hypernatremia Sepsis, UTI Chronic respiratory failure, status post tracheostomy Sacral decubitus ulcer Chronic seizure disorder PEG Diabetes mellitus Spastic quadriplegic cerebral palsy Plan Decrease D5W to 60 cc an hour Monitor Dilantin level, adjust the dose corrected for low albumin Monitor electrolytes and renal parameters Increase Protonix to every 12 hours Keep the blood sugar in check Per orders Patient is full code Subjective ROS Limited/Unobtainable: Yes Objective Objective Last 24 Hour Vital Signs Date Time Temp Pulse Resp B/P (MAP) Pulse Ox O2 Delivery O2 Flow Rate FiO2 04/25/20 08:00 40 04/25/20 08:00 Mechanical Ventilator 04/25/20 08:00 98.4 97 23 135/57 (83) 100 04/25/20 07:15 94 19 40 04/25/20 04:00 40 04/25/20 04:00 99.3 97 24 125/72 (89) 100 04/25/20 04:00 Mechanical Ventilator 04/25/20 03:37 97 04/25/20 02:57 98 26 40 04/25/20 00:00 98.1 88 24 159/68 (98) 100 04/25/20 00:00 Mechanical Ventilator 04/25/20 00:00 97 04/25/20 00:00 40 04/24/20 22:46 100 26 40 04/24/20 20:00 40 04/24/20 20:00 98.8 96 24 139/63 (88) 100 04/24/20 20:00 Mechanical Ventilator 04/24/20 19:41 94 22 40 04/24/20 19:26 93 04/24/20 16:05 40 04/24/20 16:00 Mechanical Ventilator 04/24/20 16:00 92 04/24/20 16:00 99.0 95 24 108/63 (78) 100 04/24/20 15:07 87 24 40 04/24/20 12:00 98 04/24/20 12:00 40 04/24/20 12:00 Mechanical Ventilator 04/24/20 12:00 98.2 100 24 120/64 (82) 100 04/24/20 11:09 99 22 40 Intake and Output 04/24/20 04/25/20 19:00 07:00 Intake Total 2680 ml 1927.000 ml Output Total 475 ml 420 ml Balance 2205 ml 1507.000 ml Intake Free Water 100 ml IV Total 1375 ml 1552.000 ml Tube Feeding 725 ml 375 ml Other 480 ml Output Urine Total 0 ml 0 ml Drainage Total 475 ml 420 ml Laboratory Tests 04/24/20 16:00: Vancomycin Level Trough 12.5H 04/25/20 03:50: White Blood Count 7.9, Red Blood Count 2.66L, Hemoglobin 8.3L, Hematocrit 27.0L , Mean Corpuscular Volume 102H, Mean Corpuscular Hemoglobin 31.5H, Mean Corpuscular Hemoglobin Concent 31.0L, Red Cell Distribution Width 14.7, Platelet Count 52L, Mean Platelet Volume 14.0H, Neutrophils (%) (Auto) , Lymphocytes (%) (Auto) , Monocytes (%) (Auto) , Eosinophils (%) (Auto) , Basophils (%) (Auto) , Differential Total Cells Counted 100, Neutrophils % ( Manual) 70, Lymphocytes % (Manual) 19L, Monocytes % (Manual) 6, Eosinophils % ( Manual) 5H, Basophils % (Manual) 0, Band Neutrophils 0, Platelet Estimate DecreasedL, Platelet Morphology Normal, Hypochromasia 2+, Anisocytosis 1+, Macrocytosis 1+, Erythrocyte Sedimentation Rate 133H, Sodium Level 151H, Potassium Level 3.6, Chloride Level 119H, Carbon Dioxide Level 25, Anion Gap 8, Blood Urea Nitrogen 16, Creatinine 0.7, Estimat Glomerular Filtration Rate > 60 , Glucose Level 150H, Calcium Level 7.4L, Phosphorus Level 4.3, Magnesium Level 2.6H, Total Bilirubin 0.4, Gamma Glutamyl Transpeptidase 305H, Aspartate Amino Transf (AST/SGOT) 51H, Alanine Aminotransferase (ALT/SGPT) 61, Alkaline Phosphatase 105, Total Creatine Kinase 257, C-Reactive Protein, Quantitative 8.6H, Pro-B-Type Natriuretic Peptide 76, Total Protein 7.7, Albumin 1.9L, Globulin 5.8, Albumin/Globulin Ratio 0.3L, Lipase 359 Height (Feet): 5 Height (Inches): 7.00 Weight (Pounds): 198 General Appearance: no apparent distress EENT: other - Trach and vent Cardiovascular: tachycardia Respiratory/Chest: decreased breath sounds Abdomen: soft Caleb Reese MD Apr 25, 2020 09:53
--- NOTE | 2020-04-25 10:15 | Diagnostic Imaging Report ---
Procedure: XRAY Chest 1v Reason for study: Reason For Exam: COUGH Comparison films: 04/22/2020. FINDINGS: Tracheostomy remains in place. Vascularity is normal. The lung edgar are clear bilaterally. Cardiac and mediastinal silhouette are within normal limits. Right CP angle partially obscured by the patient's hand. No effusion seen. The bony thorax appear unremarkable. IMPRESSION: NO ACUTE CARDIOPULMONARY DISEASE.
--- NOTE | 2020-04-25 11:09 | Pulmonolgy Critical Care Note ---
Critical Care - Asmt/Plan Problems: (1) Sepsis (2) Chronic respiratory failure (3) Acute metabolic encephalopathy (4) Acute prerenal azotemia (5) Sacral decubitus ulcer (6) Feeding by G-tube (7) Diabetes mellitus (8) Chronic seizure disorder (9) Spastic quadriplegic cerebral palsy (10) Schizophrenia Respiratory: monitor respiratory rate, adjust FIO2, CXR Cardiac: continue pressors, continue to monitor HR/BP Renal: F/U I&O, keep IV fluid, check electrolytes Infectious Disease: check cultures, continue antibiotics, other - afebrile, WBC coming down Gastrointestinal: continue feedings/current rate Endocrine: monitor blood sugar Hematologic: monitor H/H, transfuse if hgb<8.5 Neurologic: PRN Ativan, keep patient comfortable Affect: PRN ativan Prophylaxis: Protonix Time Spent (Minutes): 40 Notes Reviewed: beater out, renal Discussed with: nurses, consultants, telephonic nurse case managerassociate marketing manager - Objective Last 24 Hour Vital Signs Date Time Temp Pulse Resp B/P (MAP) Pulse Ox O2 Delivery O2 Flow Rate FiO2 04/25/20 08:00 40 04/25/20 08:00 Mechanical Ventilator 04/25/20 08:00 98.4 97 23 135/57 (83) 100 04/25/20 08:00 95 04/25/20 07:15 94 19 40 04/25/20 04:00 40 04/25/20 04:00 99.3 97 24 125/72 (89) 100 04/25/20 04:00 Mechanical Ventilator 04/25/20 03:37 97 04/25/20 02:57 98 26 40 04/25/20 00:00 98.1 88 24 159/68 (98) 100 04/25/20 00:00 Mechanical Ventilator 04/25/20 00:00 97 04/25/20 00:00 40 04/24/20 22:46 100 26 40 04/24/20 20:00 40 04/24/20 20:00 98.8 96 24 139/63 (88) 100 04/24/20 20:00 Mechanical Ventilator 04/24/20 19:41 94 22 40 04/24/20 19:26 93 04/24/20 16:05 40 04/24/20 16:00 Mechanical Ventilator 04/24/20 16:00 92 04/24/20 16:00 99.0 95 24 108/63 (78) 100 04/24/20 15:07 87 24 40 04/24/20 12:00 98 04/24/20 12:00 40 04/24/20 12:00 Mechanical Ventilator 04/24/20 12:00 98.2 100 24 120/64 (82) 100 04/24/20 11:09 99 22 40 Status: sedated Condition: critical HEENT: atraumatic Lungs: rales, rhonchi Heart: HR/BP stable Abdomen: soft, non-tender Extremities: no C/C/E Micro: Microbiology Date/Time Source Procedure Growth Status 04/22/20 22:15 Blood Blood Culture - Preliminary NO GROWTH AFTER 48 HOURS Resulted 04/22/20 22:00 Blood Blood Culture - Preliminary Staphylococcus Sp Coag Neg Resulted 04/23/20 15:00 Nasopharynx Coronavirus COVID-19 PCR ([facility]) - Final Complete 04/22/20 22:00 Nasal Nares MRSA Culture - Final NO METHICILLIN RESISTANT STAPH AUREUS... Complete 04/22/20 22:00 Nasopharynx SARS-CoV-2 RdRp Gene Assay - Final Complete 04/22/20 22:00 Nasal Nares - Final Complete 04/22/20 22:00 Nasal Nares - Final Complete 04/23/20 00:00 Urine,Clean Catch Urine Culture - Final Mixed Urogenital Contaminants Complete 04/22/20 22:00 Rectum - Final NO CARBAPENEM-RESISTANT ENTEROBACTERI... Complete 04/22/20 22:00 Rectum VRE Culture - Final Enterococcus Faecalis - Vre Complete Accucheck: 133 Critical Care - Subjective ROS Limited/Unobtainable: Yes Condition: critical EKG Rhythm: Sinus Rhythm FI02: 40 Vent Support Breath Rate: 18 Vent Support Mode: AC Vent Tidal Volume: 450 Sputum Amount: Small PEEP: 5.0 PIP: 35 Tube Feeding Amount: 75 I&O: Intake and Output 04/24/20 04/25/20 19:00 07:00 Intake Total 2680 ml 1927.000 ml Output Total 475 ml 420 ml Balance 2205 ml 1507.000 ml Intake Free Water 100 ml IV Total 1375 ml 1552.000 ml Tube Feeding 725 ml 375 ml Other 480 ml Output Urine Total 0 ml 0 ml Drainage Total 475 ml 420 ml Labs: Laboratory Tests Test 04/24/20 16:00 04/25/20 03:50 Vancomycin Level Trough 12.5 ug/mL (5.0-12.0) H White Blood Count 7.9 K/UL (4.8-10.8) Red Blood Count 2.66 M/UL (4.20-5.40) L Hemoglobin 8.3 G/DL (12.0-16.0) L Hematocrit 27.0 % (37.0-47.0) L Mean Corpuscular Volume 102 FL (80-99) H Mean Corpuscular Hemoglobin 31.5 PG (27.0-31.0) H Mean Corpuscular Hemoglobin Concent 31.0 G/DL (32.0-36.0) L Red Cell Distribution Width 14.7 % (11.6-14.8) Platelet Count 52 K/UL (150-450) L Mean Platelet Volume 14.0 FL (6.5-10.1) H Neutrophils (%) (Auto) % (45.0-75.0) Lymphocytes (%) (Auto) % (20.0-45.0) Monocytes (%) (Auto) % (1.0-10.0) Eosinophils (%) (Auto) % (0.0-3.0) Basophils (%) (Auto) % (0.0-2.0) Differential Total Cells Counted 100 Neutrophils % (Manual) 70 % (45-75) Lymphocytes % (Manual) 19 % (20-45) L Monocytes % (Manual) 6 % (1-10) Eosinophils % (Manual) 5 % (0-3) H Basophils % (Manual) 0 % (0-2) Band Neutrophils 0 % (0-8) Platelet Estimate Decreased L Platelet Morphology Normal Hypochromasia 2+ Anisocytosis 1+ Macrocytosis 1+ Erythrocyte Sedimentation Rate 133 MM/HR (0-30) H Sodium Level 151 MMOL/L (136-145) H Potassium Level 3.6 MMOL/L (3.5-5.1) Chloride Level 119 MMOL/L (98-107) H Carbon Dioxide Level 25 MMOL/L (21-32) Anion Gap 8 mmol/L (5-15) Blood Urea Nitrogen 16 mg/dL (7-18) Creatinine 0.7 MG/DL (0.55-1.30) Estimat Glomerular Filtration Rate > 60 mL/min (>60) Glucose Level 150 MG/DL (74-106) H Calcium Level 7.4 MG/DL (8.5-10.1) L Phosphorus Level 4.3 MG/DL (2.5-4.9) Magnesium Level 2.6 MG/DL (1.8-2.4) H Total Bilirubin 0.4 MG/DL (0.2-1.0) Gamma Glutamyl Transpeptidase 305 U/L (5-85) H Aspartate Amino Transf (AST/SGOT) 51 U/L (15-37) H Alanine Aminotransferase (ALT/SGPT) 61 U/L (12-78) Alkaline Phosphatase 105 U/L (46-116) Total Creatine Kinase 257 U/L (26-308) C-Reactive Protein, Quantitative 8.6 mg/dL (0.00-0.90) H Pro-B-Type Natriuretic Peptide 76 pg/mL (0-125) Total Protein 7.7 G/DL (6.4-8.2) Albumin 1.9 G/DL (3.4-5.0) L Globulin 5.8 g/dL Albumin/Globulin Ratio 0.3 (1.0-2.7) L Lipase 359 U/L (73-393) Luis Garcia MD Apr 25, 2020 11:09
--- NOTE | 2020-04-25 11:45 | Diagnostic Imaging Report ---
EXAM: ULTRASOUND US ABD Complete CLINICAL HISTORY: Reason For Exam: ABD PAIN. COMPARISON: None TECHNIQUE: Ultrasound examination of the abdomen includes grayscale images, and color and spectral doppler analysis. FINDINGS: Study technically limited due to abundance of bowel gas. Patient is also contracted. The liver and spleen are grossly homogeneous. Shadowing gallstone noted at the gallbladder neck. No wall thickening or pericholecystic fluid noted. Common bile duct measures 7 mm. Pancreas as well as aorta and cava are only marginally visualized. There are bilateral ureteral stents in place. No hydronephrosis. There are possible bilateral small stones. Ding catheter noted in bladder. IMPRESSION: GALLSTONE. MILDLY PROMINENT CBD BUT MAY BE NORMAL FOR AGE. BILATERAL URETERAL STENTS. NO HYDRONEPHROSIS. POSSIBLE SMALL BILATERAL RENAL STONES. MIDLINE STRUCTURES INCLUDING PANCREAS, AORTA AND CAVA NOT OPTIMALLY VISUALIZED DUE TO BOWEL GAS.
[2020-04-25 12:00] VITALS: BP 102/61
--- NOTE | 2020-04-25 12:00 | NUR ---
NURSE NOTES: Pt passing diarrhea like stools in large amount ,kept dry and clean.
--- NOTE | 2020-04-25 14:40 | Surgery Progress Note ---
Surgery Progress Note Subjective Symptoms: pain same, tolerating diet, voiding well, passing flatus Objective Last 24 Hour Vital Signs Date Time Temp Pulse Resp B/P (MAP) Pulse Ox O2 Delivery O2 Flow Rate FiO2 04/25/20 12:00 98.8 96 26 102/61 (75) 100 04/25/20 12:00 40 04/25/20 12:00 Mechanical Ventilator 04/25/20 11:14 97 19 40 04/25/20 08:00 40 04/25/20 08:00 Mechanical Ventilator 04/25/20 08:00 98.4 97 23 135/57 (83) 100 04/25/20 08:00 95 04/25/20 07:15 94 19 40 04/25/20 04:00 40 04/25/20 04:00 99.3 97 24 125/72 (89) 100 04/25/20 04:00 Mechanical Ventilator 04/25/20 03:37 97 04/25/20 02:57 98 26 40 04/25/20 00:00 98.1 88 24 159/68 (98) 100 04/25/20 00:00 Mechanical Ventilator 04/25/20 00:00 97 04/25/20 00:00 40 04/24/20 22:46 100 26 40 04/24/20 20:00 40 04/24/20 20:00 98.8 96 24 139/63 (88) 100 04/24/20 20:00 Mechanical Ventilator 04/24/20 19:41 94 22 40 04/24/20 19:26 93 04/24/20 16:05 40 04/24/20 16:00 Mechanical Ventilator 04/24/20 16:00 92 04/24/20 16:00 99.0 95 24 108/63 (78) 100 04/24/20 15:07 87 24 40 I&O Intake and Output 04/24/20 04/25/20 19:00 07:00 Intake Total 2680 ml 1927.000 ml Output Total 475 ml 420 ml Balance 2205 ml 1507.000 ml Intake Free Water 100 ml IV Total 1375 ml 1552.000 ml Tube Feeding 725 ml 375 ml Other 480 ml Output Urine Total 0 ml 0 ml Drainage Total 475 ml 420 ml Dressing: other Wound: other Drains: other Cardiovascular: RSR Respiratory: decreased breath sounds Abdomen: soft, non-tender, present bowel sounds Extremities: no cyanosis, other Laboratory Tests Test 04/24/20 16:00 04/25/20 03:50 04/25/20 12:07 Vancomycin Level Trough 12.5 ug/mL (5.0-12.0) H White Blood Count 7.9 K/UL (4.8-10.8) Red Blood Count 2.66 M/UL (4.20-5.40) L Hemoglobin 8.3 G/DL (12.0-16.0) L Hematocrit 27.0 % (37.0-47.0) L Mean Corpuscular Volume 102 FL (80-99) H Mean Corpuscular Hemoglobin 31.5 PG (27.0-31.0) H Mean Corpuscular Hemoglobin Concent 31.0 G/DL (32.0-36.0) L Red Cell Distribution Width 14.7 % (11.6-14.8) Platelet Count 52 K/UL (150-450) L Mean Platelet Volume 14.0 FL (6.5-10.1) H Neutrophils (%) (Auto) % (45.0-75.0) Lymphocytes (%) (Auto) % (20.0-45.0) Monocytes (%) (Auto) % (1.0-10.0) Eosinophils (%) (Auto) % (0.0-3.0) Basophils (%) (Auto) % (0.0-2.0) Differential Total Cells Counted 100 Neutrophils % (Manual) 70 % (45-75) Lymphocytes % (Manual) 19 % (20-45) L Monocytes % (Manual) 6 % (1-10) Eosinophils % (Manual) 5 % (0-3) H Basophils % (Manual) 0 % (0-2) Band Neutrophils 0 % (0-8) Platelet Estimate Decreased L Platelet Morphology Normal Hypochromasia 2+ Anisocytosis 1+ Macrocytosis 1+ Erythrocyte Sedimentation Rate 133 MM/HR (0-30) H Sodium Level 151 MMOL/L (136-145) H Potassium Level 3.6 MMOL/L (3.5-5.1) Chloride Level 119 MMOL/L (98-107) H Carbon Dioxide Level 25 MMOL/L (21-32) Anion Gap 8 mmol/L (5-15) Blood Urea Nitrogen 16 mg/dL (7-18) Creatinine 0.7 MG/DL (0.55-1.30) Estimat Glomerular Filtration Rate > 60 mL/min (>60) Glucose Level 150 MG/DL (74-106) H Calcium Level 7.4 MG/DL (8.5-10.1) L Phosphorus Level 4.3 MG/DL (2.5-4.9) Magnesium Level 2.6 MG/DL (1.8-2.4) H Total Bilirubin 0.4 MG/DL (0.2-1.0) Gamma Glutamyl Transpeptidase 305 U/L (5-85) H Aspartate Amino Transf (AST/SGOT) 51 U/L (15-37) H Alanine Aminotransferase (ALT/SGPT) 61 U/L (12-78) Alkaline Phosphatase 105 U/L (46-116) Total Creatine Kinase 257 U/L (26-308) C-Reactive Protein, Quantitative 8.6 mg/dL (0.00-0.90) H Pro-B-Type Natriuretic Peptide 76 pg/mL (0-125) Total Protein 7.7 G/DL (6.4-8.2) Albumin 1.9 G/DL (3.4-5.0) L Globulin 5.8 g/dL Albumin/Globulin Ratio 0.3 (1.0-2.7) L Lipase 359 U/L (73-393) POC Whole Blood Glucose Pending Plan Problems: (1) Feeding by G-tube Assessment & Plan: DAILY ESTIMATED NEEDS: Needs based on Critical care, DM, sepsis 66.7kg abw 22-30 kcals/kg 5222-4780 total kcals 1.25-2 g protein/kg 83-133 g total protein 25-30 mL/kg 0957-7040 total fluid mLs NUTRITION DIAGNOSIS: Swallowing difficulty r/t resp status as evidenced by pt is trach and PEG dep. CURRENT TF: Glucerna 1.5 @60ml/hr x20 hrs ENTERAL NUTRITION RECOMMENDATIONS: Glucerna 1.2 @75ml/hr x20 hrs (on Dilantin BID) to provide 1500ml, 1800 kcal, 90g pro, 1208ml free h2o Glucerna 1.5 OOS-> Rec Glucerna 1.2 for carb control + increased free H2O - Start @low rate, 15ml/hr for 6 hrs. Advance as tolerated 10ml/hr q4-6 hrs to goal. - Flush per MD/ HOB over 30 degrees. ---- ADDITIONAL RECOMMENDATIONS: 1) Obtain an accurate Height as able: 5'7" per EMR vs 6'1" per SNF. April 01, 2020 wt per SNF: 182 lbs/82.73kg 2) F/up w/ WC eval 3) Increase water flushes as Na is trending up 4) Replete lytes-> Mg, Phos, and K all low (2) Sepsis Assessment & Plan: Patient with leukocytosis, anemia, lactic acidosis. COVID rapid exam negative Urine noted On antibiotics Care plan as below We will follow with recommendations Nutritional optimization Thank you for let me participate in patient's care (3) Sacral decubitus ulcer Assessment & Plan: Pt presented on admission with Tracheostomy, Gastrostomy, Bilat nephrostomies, Pressure injury.Skin assessed under tracheal collar and no evidence of skin breakdown noted. L nephrostomy migrating -suture noted to be loose. No peristomal erythema or skin erosion noted. R nephrostomy is intact without evidence of peristomal skin erosion noted.Scaly dark brown plaques noted to back and both upper thighs Full thickness Pressure Injury sacrococcygeal area(L)3.6cm x (W)1.3cm x (D)1.9cm ,Undermining clockwise at 6o'clock by 0.3cm,12-1 by 0.2cm.@1o'clock. Base of wound is pale pink and moist. Bone is palpable at the base of wound. Epibole along edges along with maceration to borders and periwound.Small amt serous exudate noted. No odor noted. Hyperpigmentation with historical scar noted to sacrum, R and L gluteal cheeks. R and L heels are both boggy with non-Blanching erythema. Bilat foot drop noted. Tx.Plan: Cleanse Sacral wound with Saline. Apply Therahoney. Apply Moisture Barrier paste periwound. Cover with Optifoam drsg Daily and prn Apply Cavilon Skin Barrier to malleoli and each heel. Cover each site with Optifoam drsg.Change every 7 days and PRN. Reposition at least every 2hours or as tolerated. Off-load heels with pillow. APM/ADELIA Mattress overlay. Delon Murray Apr 25, 2020 14:40
--- NOTE | 2020-04-25 15:00 | NUR ---
NURSE NOTES: oral care done,pt with large amount of oral secretions ,tracheal secretions suctioned PRN.
[2020-04-25 16:00] VITALS: BP 102/54
--- NOTE | 2020-04-25 16:21 | Infectious Diseases Prog Note ---
Assessment/Plan Assessment/Plan Assessment: Severe sepsis- ?source Cons bacteremia- suspect contaminant -04/22 Bcx 1/ CONS Hyperthermia (up to 105 upon admission); SP - COVID19 neg x2 (one rapid test, one NAAT) Leukocytosis, SP -04/25 CXR: no acute diseae -04/23 SARS-COV2 PCR neg -04/22 CXR: no acute disease -u/a wbc 20-30, nit neg, leuk +3; ucx 30-40k mixed gram positive organisms -rapid COVID test neg Lactic acidosis, SP GABRIELLE, SP Elevated LFTs; improving -Abd US: GALLSTONE. MILDLY PROMINENT CBD BUT MAY BE NORMAL FOR AGE. BILATERAL URETERAL STENTS. NO HYDRONEPHROSIS. POSSIBLE SMALL BILATERAL RENAL STONES. MIDLINE STRUCTURES INCLUDING PANCREAS, AORTA AND CAVA NOT OPTIMALLY VISUALIZED DUE TO BOWEL GAS. GERD DM2 COPD GIB neurogenic bladder stage IV sacral decubitus ulcer paranoid schizoaffective disorder suicide attempt in 2003 progressing to coma and requiring meterman ventilator support spatic quadriplegia obesity b/l nephrostomy tubes 2018 seizure disorder chronic resp failure s/p trach dependent dysphagia s/p GT NH resident ([facility]) Plan: -Continue empiric IV Vancomycin and Cefepime #3 pending cultures -04/23 SP Ertapenem x1 -f/u cx -Monitor CBC/CMP, temperatures -f/u BCx x2, sp cx -COVID19 neg; will keep isolation for now -PEG/trach care -aspiration precautions -wound care per hospital protocol Thank you for consulting [facility]. Will continue to follow along with you. Discussed maxwell RN. Subjective Allergies: Coded Allergies: No Known Allergies (Unverified , 02/08/13) Subjective afebrile >24hrs leukocytosis resolved CONS bacteremia COVID NAAT neg Objective Vital Signs Last 24 Hour Vital Signs Date Time Temp Pulse Resp B/P (MAP) Pulse Ox O2 Delivery O2 Flow Rate FiO2 04/25/20 14:46 96 19 40 04/25/20 12:00 95 04/25/20 12:00 98.8 96 26 102/61 (75) 100 04/25/20 12:00 40 04/25/20 12:00 Mechanical Ventilator 04/25/20 11:14 97 19 40 04/25/20 08:00 40 04/25/20 08:00 Mechanical Ventilator 04/25/20 08:00 98.4 97 23 135/57 (83) 100 04/25/20 08:00 95 04/25/20 07:15 94 19 40 04/25/20 04:00 40 04/25/20 04:00 99.3 97 24 125/72 (89) 100 04/25/20 04:00 Mechanical Ventilator 04/25/20 03:37 97 04/25/20 02:57 98 26 40 04/25/20 00:00 98.1 88 24 159/68 (98) 100 04/25/20 00:00 Mechanical Ventilator 04/25/20 00:00 97 04/25/20 00:00 40 04/24/20 22:46 100 26 40 04/24/20 20:00 40 04/24/20 20:00 98.8 96 24 139/63 (88) 100 04/24/20 20:00 Mechanical Ventilator 04/24/20 19:41 94 22 40 04/24/20 19:26 93 Height (Feet): 5 Height (Inches): 7.00 Weight (Pounds): 198 Objective GENERAL: Patient is a thin-appearing female, who is intubated and sedated. HEENT: Eyes, pupils are equal and responsive to light and accommodation. Extraocular movements are intact. NECK: Supple without lymphadenopathy. Tracheostomy is in place. CHEST: Coarse breath sounds bilateral bases otherwise without wheezes or rales. CARDIOVASCULAR: Tachycardic, regular rhythm. S1, S2 normal without murmurs, rubs, or gallops. ABDOMEN: Soft, nontender, nondistended. Positive bowel sounds. No evidence of hepatosplenomegaly. Currently, no rebound or guarding noted. EXTREMITIES: Negative for clubbing, cyanosis, or edema. Microbiology Date/Time Source Procedure Growth Status 04/22/20 22:15 Blood Blood Culture - Preliminary NO GROWTH AFTER 48 HOURS Resulted 04/22/20 22:00 Blood Blood Culture - Preliminary Staphylococcus Sp Coag Neg Resulted 04/23/20 15:00 Nasopharynx Coronavirus COVID-19 PCR (TATA) - Final Complete 04/22/20 22:00 Nasal Nares MRSA Culture - Final NO METHICILLIN RESISTANT STAPH AUREUS... Complete 04/22/20 22:00 Nasopharynx SARS-CoV-2 RdRp Gene Assay - Final Complete 04/22/20 22:00 Nasal Nares - Final Complete 04/22/20 22:00 Nasal Nares - Final Complete 04/23/20 00:00 Urine,Clean Catch Urine Culture - Final Mixed Urogenital Contaminants Complete 04/22/20 22:00 Rectum - Final NO CARBAPENEM-RESISTANT ENTEROBACTERI... Complete 04/22/20 22:00 Rectum VRE Culture - Final Enterococcus Faecalis - Vre Complete Laboratory Tests Test 04/25/20 03:50 04/25/20 12:07 White Blood Count 7.9 K/UL (4.8-10.8) Red Blood Count 2.66 M/UL (4.20-5.40) L Hemoglobin 8.3 G/DL (12.0-16.0) L Hematocrit 27.0 % (37.0-47.0) L Mean Corpuscular Volume 102 FL (80-99) H Mean Corpuscular Hemoglobin 31.5 PG (27.0-31.0) H Mean Corpuscular Hemoglobin Concent 31.0 G/DL (32.0-36.0) L Red Cell Distribution Width 14.7 % (11.6-14.8) Platelet Count 52 K/UL (150-450) L Mean Platelet Volume 14.0 FL (6.5-10.1) H Neutrophils (%) (Auto) % (45.0-75.0) Lymphocytes (%) (Auto) % (20.0-45.0) Monocytes (%) (Auto) % (1.0-10.0) Eosinophils (%) (Auto) % (0.0-3.0) Basophils (%) (Auto) % (0.0-2.0) Differential Total Cells Counted 100 Neutrophils % (Manual) 70 % (45-75) Lymphocytes % (Manual) 19 % (20-45) L Monocytes % (Manual) 6 % (1-10) Eosinophils % (Manual) 5 % (0-3) H Basophils % (Manual) 0 % (0-2) Band Neutrophils 0 % (0-8) Platelet Estimate Decreased L Platelet Morphology Normal Hypochromasia 2+ Anisocytosis 1+ Macrocytosis 1+ Erythrocyte Sedimentation Rate 133 MM/HR (0-30) H Sodium Level 151 MMOL/L (136-145) H Potassium Level 3.6 MMOL/L (3.5-5.1) Chloride Level 119 MMOL/L (98-107) H Carbon Dioxide Level 25 MMOL/L (21-32) Anion Gap 8 mmol/L (5-15) Blood Urea Nitrogen 16 mg/dL (7-18) Creatinine 0.7 MG/DL (0.55-1.30) Estimat Glomerular Filtration Rate > 60 mL/min (>60) Glucose Level 150 MG/DL (74-106) H Calcium Level 7.4 MG/DL (8.5-10.1) L Phosphorus Level 4.3 MG/DL (2.5-4.9) Magnesium Level 2.6 MG/DL (1.8-2.4) H Total Bilirubin 0.4 MG/DL (0.2-1.0) Gamma Glutamyl Transpeptidase 305 U/L (5-85) H Aspartate Amino Transf (AST/SGOT) 51 U/L (15-37) H Alanine Aminotransferase (ALT/SGPT) 61 U/L (12-78) Alkaline Phosphatase 105 U/L (46-116) Total Creatine Kinase 257 U/L (26-308) C-Reactive Protein, Quantitative 8.6 mg/dL (0.00-0.90) H Pro-B-Type Natriuretic Peptide 76 pg/mL (0-125) Total Protein 7.7 G/DL (6.4-8.2) Albumin 1.9 G/DL (3.4-5.0) L Globulin 5.8 g/dL Albumin/Globulin Ratio 0.3 (1.0-2.7) L Lipase 359 U/L (73-393) POC Whole Blood Glucose Pending Current Medications Medications (Trade) Dose Ordered Sig/Emanuel Route PRN Reason Start Time Stop Time Status Last Admin Dose Admin Acetaminophen (Tylenol) 500 mg Q4H PRN GT Pain Scale (3-5) 04/23/20 08:45 05/23/20 01:59 Acetaminophen (Tylenol) 650 mg THREE TIMES A DAY PRN GT FHMP 04/23/20 02:00 05/23/20 01:59 04/23/20 21:00 Artificial Tears (Akwa-Tears) 1 drop BID BOTH EYES 04/23/20 09:00 05/23/20 08:59 04/25/20 08:46 Bisacodyl (Dulcolax) 10 mg DAILY PRN RECTAL Constipation 04/23/20 02:00 07/22/20 01:59 Cefepime HCl 2 gm/ Dextrose 55 ml @ 110 mls/hr Q12H IVPB 04/23/20 08:00 04/30/20 07:59 04/25/20 08:43 Clopidogrel Bisulfate (Plavix) 75 mg DAILY GT 04/23/20 09:00 05/23/20 08:59 04/23/20 09:12 Dextrose 1,000 ml @ 60 mls/hr [id number] IV 04/25/20 08:14 05/23/20 08:13 04/25/20 08:44 Dextrose (Dextrose 50%) 25 ml Q30M PRN IV Hypoglycemia 04/23/20 08:15 07/22/20 08:14 Dextrose (Dextrose 50%) 50 ml Q30M PRN IV Hypoglycemia 04/23/20 08:15 07/22/20 08:14 Docusate Sodium (Colace) 250 mg DAILYPRN PRN GT CONSTIPATION 04/23/20 12:50 05/23/20 12:49 Insulin Aspart (NovoLOG) Q6HR SUBQ 04/25/20 12:00 07/24/20 11:59 Ipratropium Widen (Atrovent) 500 mcg Q6H PRN HHN Shortness of Breath 04/23/20 02:00 04/28/20 01:59 Levetiracetam (Keppra) 1,000 mg Q12HR GT 04/23/20 21:00 05/23/20 08:59 04/24/20 20:18 Metoclopramide HCl (Reglan) 5 mg Q6HR GT 04/23/20 13:53 05/23/20 13:52 04/25/20 12:35 Pantoprazole (Protonix) 40 mg Q12HR IVP 04/23/20 21:00 05/23/20 08:59 04/25/20 08:43 Phenytoin (Dilantin) 150 mg Q12HR GT 04/24/20 21:00 05/23/20 08:29 04/24/20 20:16 Polyethylene Glycol (Miralax) 17 gm DAILY GT 04/23/20 09:00 05/23/20 08:59 04/24/20 09:30 Sennosides (Senokot) 8.6 mg DAILY GT 04/23/20 09:00 05/23/20 08:59 04/24/20 09:33 Sodium Phosphate (Fleet's Sodium Phosl Enema) 133 ml DAILY PRN RECTAL CONSTIPATION 04/23/20 02:00 05/23/20 01:59 Sorbitol (sorbitoL) 30 ml DAILYPRN PRN GT constipation 04/23/20 08:15 05/23/20 08:14 Vancomycin HCl (Vanco pharmacy to dose) 1 ea DAILY PRN MISC Per rx protocol 04/23/20 03:00 05/23/20 02:59 Vancomycin HCl 1 gm/Sodium Chloride 275 ml @ 183.708 mls/hr Q12HR@0600,1800 IVPB 04/24/20 18:00 04/29/20 17:59 04/25/20 05:12 Zinc Sulfate (Zinc Sulfate) 220 mg DAILY GT 04/23/20 09:00 07/22/20 08:59 04/24/20 09:33 Jayne Peoples M.D. Apr 25, 2020 16:21
--- NOTE | 2020-04-25 16:57 | Internal Med Progress Note ---
Subjective Date of Service: Apr 25, 2020 Physician Name ChaKalin Attending Physician Jeyson Yanez MD Current Medications Medications (Trade) Dose Ordered Sig/Emanuel Route PRN Reason Start Time Stop Time Status Last Admin Dose Admin Acetaminophen (Tylenol) 500 mg Q4H PRN GT Pain Scale (3-5) 04/23/20 08:45 05/23/20 01:59 Acetaminophen (Tylenol) 650 mg THREE TIMES A DAY PRN GT FHMP 04/23/20 02:00 05/23/20 01:59 04/23/20 21:00 Artificial Tears (Akwa-Tears) 1 drop BID BOTH EYES 04/23/20 09:00 05/23/20 08:59 04/25/20 08:46 Bisacodyl (Dulcolax) 10 mg DAILY PRN RECTAL Constipation 04/23/20 02:00 07/22/20 01:59 Cefepime HCl 2 gm/ Dextrose 55 ml @ 110 mls/hr Q12H IVPB 04/23/20 08:00 04/30/20 07:59 04/25/20 08:43 Clopidogrel Bisulfate (Plavix) 75 mg DAILY GT 04/23/20 09:00 05/23/20 08:59 04/23/20 09:12 Dextrose 1,000 ml @ 60 mls/hr [id number] IV 04/25/20 08:14 05/23/20 08:13 04/25/20 08:44 Dextrose (Dextrose 50%) 25 ml Q30M PRN IV Hypoglycemia 04/23/20 08:15 07/22/20 08:14 Dextrose (Dextrose 50%) 50 ml Q30M PRN IV Hypoglycemia 04/23/20 08:15 07/22/20 08:14 Docusate Sodium (Colace) 250 mg DAILYPRN PRN GT CONSTIPATION 04/23/20 12:50 05/23/20 12:49 Insulin Aspart (NovoLOG) Q6HR SUBQ 04/25/20 12:00 07/24/20 11:59 Ipratropium Ellabell (Atrovent) 500 mcg Q6H PRN HHN Shortness of Breath 04/23/20 02:00 04/28/20 01:59 Levetiracetam (Keppra) 1,000 mg Q12HR GT 04/23/20 21:00 05/23/20 08:59 04/24/20 20:18 Metoclopramide HCl (Reglan) 5 mg Q6HR GT 04/23/20 13:53 05/23/20 13:52 04/25/20 12:35 Pantoprazole (Protonix) 40 mg Q12HR IVP 04/23/20 21:00 05/23/20 08:59 04/25/20 08:43 Phenytoin (Dilantin) 150 mg Q12HR GT 04/24/20 21:00 05/23/20 08:29 04/24/20 20:16 Polyethylene Glycol (Miralax) 17 gm DAILY GT 04/23/20 09:00 05/23/20 08:59 04/24/20 09:30 Sennosides (Senokot) 8.6 mg DAILY GT 04/23/20 09:00 05/23/20 08:59 04/24/20 09:33 Sodium Phosphate (Fleet's Sodium Phosl Enema) 133 ml DAILY PRN RECTAL CONSTIPATION 04/23/20 02:00 05/23/20 01:59 Sorbitol (sorbitoL) 30 ml DAILYPRN PRN GT constipation 04/23/20 08:15 05/23/20 08:14 Vancomycin HCl (Vanco pharmacy to dose) 1 ea DAILY PRN MISC Per rx protocol 04/23/20 03:00 05/23/20 02:59 Vancomycin HCl 1 gm/Sodium Chloride 275 ml @ 183.708 mls/hr Q12HR@0600,1800 IVPB 04/24/20 18:00 04/29/20 17:59 04/25/20 05:12 Zinc Sulfate (Zinc Sulfate) 220 mg DAILY GT 04/23/20 09:00 07/22/20 08:59 04/24/20 09:33 Allergies: Coded Allergies: No Known Allergies (Unverified , 02/08/13) ROS Limited/Unobtainable: Yes Subjective 59 YO F admitted with fever, now Sepsis. Cover for Int Med-Dr Yanez. Step down unit Objective Last Vital Signs Date Time Temp Pulse Resp B/P (MAP) Pulse Ox O2 Delivery O2 Flow Rate FiO2 04/25/20 16:00 99.1 96 18 102/54 (70) 99 04/25/20 16:00 40 04/25/20 16:00 Mechanical Ventilator 04/23/20 01:24 15.0 Laboratory Tests Test 04/25/20 03:50 04/25/20 12:07 White Blood Count 7.9 K/UL (4.8-10.8) Red Blood Count 2.66 M/UL (4.20-5.40) L Hemoglobin 8.3 G/DL (12.0-16.0) L Hematocrit 27.0 % (37.0-47.0) L Mean Corpuscular Volume 102 FL (80-99) H Mean Corpuscular Hemoglobin 31.5 PG (27.0-31.0) H Mean Corpuscular Hemoglobin Concent 31.0 G/DL (32.0-36.0) L Red Cell Distribution Width 14.7 % (11.6-14.8) Platelet Count 52 K/UL (150-450) L Mean Platelet Volume 14.0 FL (6.5-10.1) H Neutrophils (%) (Auto) % (45.0-75.0) Lymphocytes (%) (Auto) % (20.0-45.0) Monocytes (%) (Auto) % (1.0-10.0) Eosinophils (%) (Auto) % (0.0-3.0) Basophils (%) (Auto) % (0.0-2.0) Differential Total Cells Counted 100 Neutrophils % (Manual) 70 % (45-75) Lymphocytes % (Manual) 19 % (20-45) L Monocytes % (Manual) 6 % (1-10) Eosinophils % (Manual) 5 % (0-3) H Basophils % (Manual) 0 % (0-2) Band Neutrophils 0 % (0-8) Platelet Estimate Decreased L Platelet Morphology Normal Hypochromasia 2+ Anisocytosis 1+ Macrocytosis 1+ Erythrocyte Sedimentation Rate 133 MM/HR (0-30) H Sodium Level 151 MMOL/L (136-145) H Potassium Level 3.6 MMOL/L (3.5-5.1) Chloride Level 119 MMOL/L (98-107) H Carbon Dioxide Level 25 MMOL/L (21-32) Anion Gap 8 mmol/L (5-15) Blood Urea Nitrogen 16 mg/dL (7-18) Creatinine 0.7 MG/DL (0.55-1.30) Estimat Glomerular Filtration Rate > 60 mL/min (>60) Glucose Level 150 MG/DL (74-106) H Calcium Level 7.4 MG/DL (8.5-10.1) L Phosphorus Level 4.3 MG/DL (2.5-4.9) Magnesium Level 2.6 MG/DL (1.8-2.4) H Total Bilirubin 0.4 MG/DL (0.2-1.0) Gamma Glutamyl Transpeptidase 305 U/L (5-85) H Aspartate Amino Transf (AST/SGOT) 51 U/L (15-37) H Alanine Aminotransferase (ALT/SGPT) 61 U/L (12-78) Alkaline Phosphatase 105 U/L (46-116) Total Creatine Kinase 257 U/L (26-308) C-Reactive Protein, Quantitative 8.6 mg/dL (0.00-0.90) H Pro-B-Type Natriuretic Peptide 76 pg/mL (0-125) Total Protein 7.7 G/DL (6.4-8.2) Albumin 1.9 G/DL (3.4-5.0) L Globulin 5.8 g/dL Albumin/Globulin Ratio 0.3 (1.0-2.7) L Lipase 359 U/L (73-393) POC Whole Blood Glucose Pending Microbiology Date/Time Source Procedure Growth Status 04/22/20 22:15 Blood Blood Culture - Preliminary NO GROWTH AFTER 48 HOURS Resulted 04/22/20 22:00 Blood Blood Culture - Preliminary Staphylococcus Sp Coag Neg Resulted 04/23/20 15:00 Nasopharynx Coronavirus COVID-19 PCR (TATA) - Final Complete 04/22/20 22:00 Nasal Nares MRSA Culture - Final NO METHICILLIN RESISTANT STAPH AUREUS... Complete 04/22/20 22:00 Nasopharynx SARS-CoV-2 RdRp Gene Assay - Final Complete 04/22/20 22:00 Nasal Nares - Final Complete 04/22/20 22:00 Nasal Nares - Final Complete 04/23/20 00:00 Urine,Clean Catch Urine Culture - Final Mixed Urogenital Contaminants Complete 04/22/20 22:00 Rectum - Final NO CARBAPENEM-RESISTANT ENTEROBACTERI... Complete 04/22/20 22:00 Rectum VRE Culture - Final Enterococcus Faecalis - Vre Complete Intake and Output 6/24/20 6/25/20 19:00 07:00 Intake Total 2680 ml 1927.000 ml Output Total 475 ml 420 ml Balance 2205 ml 1507.000 ml Intake Free Water 100 ml IV Total 1375 ml 1552.000 ml Tube Feeding 725 ml 375 ml Other 480 ml Output Urine Total 0 ml 0 ml Drainage Total 475 ml 420 ml Objective PHYSICAL EXAMINATION: GENERAL: Patient is a thin-appearing female, who is intubated and sedated. HEENT: Eyes, pupils are equal and responsive to light and accommodation. Extraocular movements are intact. NECK: Supple without lymphadenopathy. Tracheostomy is in place. CHEST: Coarse breath sounds bilateral bases otherwise without wheezes or rales. CARDIOVASCULAR: Tachycardic, regular rhythm. S1, S2 normal without murmurs, rubs, or gallops. ABDOMEN: Soft, nontender, nondistended. Positive bowel sounds. No evidence of hepatosplenomegaly. Currently, no rebound or guarding noted. EXTREMITIES: Negative for clubbing, cyanosis, or edema. RECTAL/GENITAL: Not performed. NEUROLOGIC: Cranial nerves II through XII are grossly intact without focal deficits. Assessment/Plan Assessment/Plan ASSESSMENT: This is a 59-year-old female. 1. Fever. 2. Probable sepsis-?source? 3. Chronic respiratory failure. 4. Chronic obstructive pulmonary disease. 5. Quadriplegia. 6. History of dysphagia. 7. Diabetes type 2. 8. Seizure disorder. 9. History of gastrointestinal hemorrhage. 10. Erosive gastritis. 11. Schizophrenia. 12. Gastroesophageal reflux disease. 13. Neurogenic bladder. 14. Stage IV sacral decubitus ulcer. 15. History of deep venous thrombosis. TREATMENT: 1. Fever/sepsis. A Pulmonary Critical Care consultation has been obtained with Dr. Luis Garcia. Urine, blood, and sputum cultures are pending. Patient has been started empirically on vancomycin and cefepime. We will follow recommendations of Pulmonary. Infectious disease=Dr Peoples 2. Chronic vent dependence/chronic respiratory failure. As above, a Pulmonary consultation has been obtained with Dr. Luis Garcia. We will follow recommendations of Pulmonary. 3. Seizure disorder. Continue Keppra and Dilantin as above. 4. Diabetes type 2. NovoLog sliding scale has been instituted. 5. Chronic obstructive pulmonary disease. As above, a Pulmonary consultation has been obtained with Dr. Mirali Zarrabi. We will follow recommendations of Pulmonary. 6. History of gastrointestinal hemorrhage/erosive gastritis. Patient has been placed on Protonix. 7. Schizophrenia, not otherwise specified. 8. Gastroesophageal reflux disease. 9. Neurogenic bladder. 10. Stage IV sacral decubitus ulcer. 11. History of deep venous thrombosis. Kalin Eubanks MD Apr 25, 2020 16:57
--- NOTE | 2020-04-25 17:00 | NUR ---
NURSE NOTES: Dr Peoples informed re pt negative COVID X2,ordered to continue observing Covid Isolation.
--- NOTE | 2020-04-25 18:52 | NUR ---
NURSE NOTES: Large amount of diarrhea like stools noted,bed bath given,pulled up ,turned and repositioned.
--- NOTE | 2020-04-25 19:10 | NUR ---
NURSE NOTES: Received patient and report from LUCERO Love. Patient is observed resting in bed and remains obtunded. No pain noted upon assessment. Pt is currently trach to vent; vent settings as follows: AC 18 TV 450 FiO2 40 PEEP 5 with an O2 saturation of 99% noted. Pt appears to be tolerating settings well with no s/sx of acute distress noted. Bilateral lower lobe breath sounds noted to be diminished upon auscultation. Pt noted to be ST on tele monitor with a current HR of 103 and no s/sx of acute distress noted. Ding catheter noted which remains intact, patent and draining urine to gravity. Bilateral nephrostomy tubes noted which remain intact and patent. R Foot 22g IV catheter noted which remains asymptomatic, intact and patent with D5W infusing at 60mL/hr. GT remains intact and patent with no residual noted. GT Feeding running as prescribed. Bowel sounds noted in all four quadrants, abdomen remains soft, round and non-tender upon assessment. Diagnostics reviewed at bedside. Skin alterations noted. Pt repositioned for comfort and safety. Fall, Aspiration, Seizure and Skin precautions observed. Pt remains resting in bed; Bed remains in the lowest position with the safety wheels engaged, call light within reach, side rails up x3 and bed alarm activated. Will continue plan of care. Will continue to monitor.
--- NOTE | 2020-04-25 19:19 | NUR ---
HAND-OFF: Report given to Anaya Lopez RN.
[2020-04-25 20:00] VITALS: BP 120/84
[2020-04-25] MEDS ORDERED: ARTIFICIAL TEAR15 M4 BOTH EYES (20:51)
[2020-04-25] MEDS ORDERED: IPRATROPIU0.2 MG/1 M INH (20:51)
[2020-04-25] MEDS ORDERED: ALBUTEROL2.5 MG/3 M INH ×2 (20:51)
[2020-04-25] MEDS ORDERED: POLYETHYLENE GL17 GM GT (20:51)
[2020-04-25] MEDS ORDERED: SKIN PROTECTAN113 GM TP (20:51)
[2020-04-25] MEDS ORDERED: POTASSIUM40 MEQ/11 GT (20:51)
[2020-04-25] MEDS ORDERED: MINERAL OIL EN133 ML RC (20:51)
[2020-04-25] MEDS ORDERED: LEVETIRACE500 MG/51 GT (20:51)
[2020-04-25] MEDS ORDERED: ATORVASTATIN CA10 MG GT (20:51)
--- NOTE | 2020-04-25 22:00 | NUR ---
NURSE NOTES: Bedside assessment performed. Pt was assessed for pain using FLACC scale with a score of 0 noted. Pt provided with oral care and suctioning for excess secretions. ROM exercises provided per patient tolerance. Pt tolerated care well. Left side nephrostomy tube noted to have minimal drainage in collection bag, Right sided nephrostomy tube noted to have prominent amount of drainage in collection bag at this time. Will continue to monitor and report accordingly. Pt repositioned for comfort and safety. Fall, Aspiration, Seizure and Skin precautions observed. Pt remains resting in bed; Bed remains in the lowest position with the safety wheels engaged, call light within reach, side rails up x3 and bed alarm activated. Will continue plan of care. Will continue to monitor.
[2020-04-25] MEDS: Acetaminophen 650mg/20.3ml GT PRN (23:30)
[2020-04-26] VITALS: BP 113/64
--- NOTE | 2020-04-26 01:00 | NUR ---
NURSE NOTES: Bedside assessment performed. Pt was assessed for pain using FLACC scale with a score of 0 noted. Pt provided with oral care and suctioning for excess secretions. ROM exercises provided per patient tolerance. Pt tolerated care well.Pt noted to have a temperature of 101.5F, PRN Tylenol administered as ordered without incident. No adverse effects noted from administration. Reassessed temperature and noted to be 99.6F, cooling measures continued. Attempted to place new IV catheter, attempt was unsuccessful at this time. Pt repositioned for comfort and safety. Fall, Aspiration, Seizure and Skin precautions observed. Pt remains resting in bed; Bed remains in the lowest position with the safety wheels engaged, call light within reach, side rails up x3 and bed alarm activated. Will continue plan of care. Will continue to monitor.
[2020-04-26 04:00] VITALS: BP 134/87
--- NOTE | 2020-04-26 05:00 | NUR ---
NURSE NOTES: Bedside assessment performed. Pt was assessed for pain using FLACC scale with a score of 0 noted. Pt provided with a partial bed bath, oral care and suctioning for excess secretions. ROM exercises provided per patient tolerance. Pt tolerated care well. Sputum sample collected for culture and sent to lab for processing, AM lab samples collected without incident. Pt repositioned for comfort and safety. Fall, Aspiration, Seizure and Skin precautions observed. Pt remains resting in bed; Bed remains in the lowest position with the safety wheels engaged, call light within reach, side rails up x3 and bed alarm activated. Will continue plan of care. Will continue to monitor.
[2020-04-26] MEDS: NovoLOG Insulin Flexpen SUBQ SCH ×4 (05:01→23:41)
[2020-04-26 05:12] LABS: HEMATOCRIT 26.5 % (37.0-47.0); HEMOGLOBIN 8.2 G/DL (12.0-16.0); MEAN CORPUSCULAR VOLUME 101 FL (80-99); PLATELET COUNT 58 K/UL (150-450); RED BLOOD COUNT 2.62 M/UL (4.20-5.40); RED CELL DISTRIBUTION WIDTH 14.5 % (11.6-14.8); WHITE BLOOD COUNT 5.7 K/UL (4.8-10.8)
[2020-04-26] MEDS: Vancomycin 1 GM in NS 275 ML IVPB SCH ×2 (05:21→17:42)
[2020-04-26 05:42] LABS: ALANINE AMINOTRANSFERASE 47 U/L (12-78); ALBUMIN 1.8 G/DL (3.4-5.0); ALBUMIN/GLOBULIN RATIO 0.3 (1.0-2.7); ALKALINE PHOSPHATASE 122 U/L (46-116); ANION GAP 8 mmol/L (5-15); ASPARTATE AMINO TRANSFERASE 40 U/L (15-37); BILIRUBIN,TOTAL 0.2 MG/DL (0.2-1.0); BLOOD UREA NITROGEN 12 mg/dL (7-18); CALCIUM 7.2 MG/DL (8.5-10.1); CARBON DIOXIDE 25 MMOL/L (21-32); CHLORIDE 118 MMOL/L (98-107); CREATININE 0.5 MG/DL (0.55-1.30); SODIUM 151 MMOL/L (136-145)
--- NOTE | 2020-04-26 06:36 | NUR ---
NURSE NOTES: Left a message for Dr Reese in regards to abnormal K level, 3.0 Will await a call back. Will continue to monitor.
--- NOTE | 2020-04-26 07:02 | NUR ---
HAND-OFF: Report given to LUCERO Myers. Pt remains stable at this time. Endorsed plan of care.
--- NOTE | 2020-04-26 07:20 | NUR ---
NURSE NOTES: Received report from LUCERO Julien. Patient in bed resting, no active s/s cardiac, respiratory distress noticed at this time. Patient Obtundent, SR with HR 86. Patient on Ding catheter, no drainage at this time, on right nephrostomy and left nephrostomy. Right nephrostomy draining well to gravity at this time. IV on right foot 22G, asymptomatic, patent, intact. IVF D5W running as prescribed rate 60ml/h. GT patent, intact, running Glucerna 1.2 at rate of 30ml/h. Bed in lowest position, side rails upx3 and padded, call light within reach, bed alarm on, airborne, droplet and contact isolation observed. Will continue to monitor.
[2020-04-26 08:00] VITALS: BP 124/66
[2020-04-26] MEDS: Sennosides 8.6mg tab GT SCH (08:31)
[2020-04-26] MEDS: Cefepime 2gm in D5W 55ml IVPB SCH ×2 (08:31→20:33)
[2020-04-26] MEDS: Zinc Sulfate 220mg GT SCH (08:31)
[2020-04-26] MEDS: levETIRAcetam 500mg/5ml Liquid GT SCH ×2 (08:31→20:26)
[2020-04-26] MEDS: Phenytoin Susp 100mg/4ml GT SCH ×2 (08:31→20:28)
[2020-04-26] MEDS: Pantoprazole Inj IVP SCH ×2 (08:32→20:27)
--- NOTE | 2020-04-26 08:33 | NUR ---
NURSE NOTES: Plavix held due to platelet level
[2020-04-26] MEDS: Miralax 17gm pkt GT SCH (08:41)
--- NOTE | 2020-04-26 09:32 | NUR ---
RD ASSESSMENT & RECOMMENDATIONS SEE CARE ACTIVITY FOR COMPLETE ASSESSMENT DAILY ESTIMATED NEEDS: Needs based on Critical care, DM, sepsis, wound 66.7kg abw 25-30 kcals/kg 6916-9431 total kcals 1.25-2 g protein/kg 83-133 g total protein 25-30 mL/kg 0804-4017 total fluid mLs NUTRITION DIAGNOSIS: Swallowing difficulty r/t resp status as evidenced by pt is trach and PEG dep. CURRENT TF: Glucerna 1.2 @30ml/hr x20 hrs ENTERAL NUTRITION RECOMMENDATIONS: Glucerna 1.2 @75ml/hr x20 hrs (on Dilantin BID) to provide 1500ml, 1800 kcal, 90g pro, 1208ml free h2o - As able, advance as tolerated 10ml/hr q4-6 hrs to goal. - Flush per MD/ HOB over 30 degrees. - TF at goal meets DRI's, no need for added MVI. ADDITIONAL RECOMMENDATIONS: 1) Obtain an accurate Height as able: 5'7" per EMR, 6'1" per SNF. April 01, 2020 wt per SNF: 182 lbs/82.73kg 2) F/up w/ WC eval-> stage 4 sacral Add CEM BID via GT, Vit C 250mg BID, con't Zn SO4 3) Increase water flushes as Na is trending up 4) Replete lytes-> Mg, Phos, and K all low
[2020-04-26] MEDS ORDERED: Lidocaine 1% Plain 30 ml INJ PRN (09:57)
[2020-04-26] MEDS ORDERED: Heparin1,000 units/500ml Premix(Conc:2 units/ml) IV PRN (09:57)
--- NOTE | 2020-04-26 10:05 | NUR ---
*-* INSURANCE *-* UPDATED CLINICALS AND REVIEWS HAVE BEEN FAXED TO: [facility] Auth# [id number] Work [phone] FAX [phone] FAX [facility] [phone]
--- NOTE | 2020-04-26 11:22 | Pulmonolgy Critical Care Note ---
Critical Care - Asmt/Plan Problems: (1) Sepsis (2) Chronic respiratory failure (3) Acute metabolic encephalopathy (4) Acute prerenal azotemia (5) Sacral decubitus ulcer (6) Feeding by G-tube (7) Diabetes mellitus (8) Chronic seizure disorder (9) Spastic quadriplegic cerebral palsy (10) Schizophrenia Respiratory: monitor respiratory rate, adjust FIO2, CXR Cardiac: continue to monitor HR/BP Renal: F/U I&O, keep IV fluid, check electrolytes Infectious Disease: check cultures Gastrointestinal: continue feedings/current rate Endocrine: monitor blood sugar, continue sliding scale insulin Hematologic: monitor H/H, transfuse if hgb<8.5 Neurologic: PRN Ativan, PRN Morphine Affect: PRN ativan Prophylaxis: Protonix Time Spent (Minutes): 40 Notes Reviewed: manager quality, cardio, renal Discussed with: nurses, consultants, welfare case workerrespiratory services manager - Objective Last 24 Hour Vital Signs Date Time Temp Pulse Resp B/P (MAP) Pulse Ox O2 Delivery O2 Flow Rate FiO2 04/26/20 08:00 Mechanical Ventilator Mechanical Ventilator 04/26/20 08:00 40 04/26/20 08:00 99.1 91 22 124/66 (85) 100 04/26/20 07:44 89 04/26/20 07:03 91 21 40 04/26/20 04:00 40 04/26/20 04:00 Mechanical Ventilator Mechanical Ventilator 04/26/20 04:00 99.4 95 26 134/87 (103) 100 04/26/20 04:00 86 04/26/20 03:12 102 24 40 04/26/20 00:00 98 04/26/20 00:00 101.5 97 24 113/64 (80) 100 04/26/20 00:00 Mechanical Ventilator Mechanical Ventilator 04/26/20 00:00 99.6 04/26/20 00:00 40 04/25/20 22:44 98 22 40 04/25/20 20:00 Mechanical Ventilator Mechanical Ventilator 04/25/20 20:00 40 04/25/20 20:00 98.6 96 20 120/84 (96) 100 04/25/20 19:47 102 21 40 04/25/20 19:29 94 04/25/20 16:00 99.1 96 18 102/54 (70) 99 04/25/20 16:00 40 04/25/20 16:00 101 04/25/20 16:00 Mechanical Ventilator 04/25/20 14:46 96 19 40 04/25/20 12:00 95 04/25/20 12:00 98.8 96 26 102/61 (75) 100 04/25/20 12:00 40 04/25/20 12:00 Mechanical Ventilator Status: sedated Condition: improving HEENT: atraumatic Neck: full ROM Heart: HR/BP stable Abdomen: soft, active bowel sounds Extremities: no C/C/E Micro: Microbiology Date/Time Source Procedure Growth Status 04/24/20 17:50 Blood Blood Culture - Preliminary NO GROWTH AFTER 24 HOURS Resulted 04/24/20 17:40 Blood Blood Culture - Preliminary NO GROWTH AFTER 24 HOURS Resulted 04/23/20 15:00 Nasopharynx Coronavirus COVID-19 PCR ([facility]) - Final Complete Accucheck: 105 Critical Care - Subjective ROS Limited/Unobtainable: Yes EKG Rhythm: Sinus Rhythm FI02: 40 Vent Support Breath Rate: 18 Vent Support Mode: AC Vent Tidal Volume: 450 Sputum Amount: Moderate PEEP: 5.0 PIP: 30 Tube Feeding Amount: 30 I&O: Intake and Output 04/25/20 04/26/20 19:00 07:00 Intake Total 1490 ml 1216.708 ml Output Total 652 ml 510 ml Balance 838 ml 706.708 ml Intake Free Water 200 ml 60 ml IV Total 660 ml 826.708 ml Tube Feeding 390 ml 330 ml Other 240 ml Output Urine Total 50 ml 10 ml Stool Total 2 ml Drainage Total 600 ml Other 500 ml # Bowel Movements 2 2 Labs: Laboratory Tests Test 04/25/20 12:07 04/25/20 17:28 04/25/20 23:29 04/26/20 04:00 POC Whole Blood Glucose Pending 128 MG/DL (74-106) H 110 MG/DL (74-106) H White Blood Count 5.7 K/UL (4.8-10.8) Red Blood Count 2.62 M/UL (4.20-5.40) L Hemoglobin 8.2 G/DL (12.0-16.0) L Hematocrit 26.5 % (37.0-47.0) L Mean Corpuscular Volume 101 FL (80-99) H Mean Corpuscular Hemoglobin 31.3 PG (27.0-31.0) H Mean Corpuscular Hemoglobin Concent 30.9 G/DL (32.0-36.0) L Red Cell Distribution Width 14.5 % (11.6-14.8) Platelet Count 58 K/UL (150-450) L Mean Platelet Volume 13.4 FL (6.5-10.1) H Neutrophils (%) (Auto) % (45.0-75.0) Lymphocytes (%) (Auto) % (20.0-45.0) Monocytes (%) (Auto) % (1.0-10.0) Eosinophils (%) (Auto) % (0.0-3.0) Basophils (%) (Auto) % (0.0-2.0) Differential Total Cells Counted 100 Neutrophils % (Manual) 80 % (45-75) H Lymphocytes % (Manual) 17 % (20-45) L Monocytes % (Manual) 3 % (1-10) Eosinophils % (Manual) 0 % (0-3) Basophils % (Manual) 0 % (0-2) Band Neutrophils 0 % (0-8) Platelet Estimate Decreased L Platelet Morphology Normal Sodium Level 151 MMOL/L (136-145) H Potassium Level 3.0 MMOL/L (3.5-5.1) L Chloride Level 118 MMOL/L (98-107) H Carbon Dioxide Level 25 MMOL/L (21-32) Anion Gap 8 mmol/L (5-15) Blood Urea Nitrogen 12 mg/dL (7-18) Creatinine 0.5 MG/DL (0.55-1.30) L Estimat Glomerular Filtration Rate > 60 mL/min (>60) Glucose Level 121 MG/DL (74-106) H Uric Acid 5.9 MG/DL (2.6-7.2) Calcium Level 7.2 MG/DL (8.5-10.1) L Phosphorus Level 3.0 MG/DL (2.5-4.9) Magnesium Level 2.2 MG/DL (1.8-2.4) Total Bilirubin 0.2 MG/DL (0.2-1.0) Aspartate Amino Transf (AST/SGOT) 40 U/L (15-37) H Alanine Aminotransferase (ALT/SGPT) 47 U/L (12-78) Alkaline Phosphatase 122 U/L (46-116) H Total Protein 7.7 G/DL (6.4-8.2) Albumin 1.8 G/DL (3.4-5.0) L Globulin 5.9 g/dL Albumin/Globulin Ratio 0.3 (1.0-2.7) L Vancomycin Level Trough 14.6 ug/mL (5.0-12.0) H Phenytoin (Dilantin) Level 7.1 ug/mL (10-20) L Test 04/26/20 04:51 POC Whole Blood Glucose Pending Luis Garcia MD Apr 26, 2020 11:22
--- NOTE | 2020-04-26 11:23 | NUR ---
CASE MANAGEMENT: REVIEW 04/26/2020 SI:SEPSIS. VS: T 99.1 HR 91 RR 22 B/P 124/66 SATS 100% ON MECH VENT FIO2 40 LABS: NA 151 K 3 CL 118 CR 0.5 GLU 121 CA 7.2 AST 40 ALP 122 IS:DEXTROSE IV @ 85 ML/HR PLAVIX GT QD CEFEPIME IV Q12H KEPPRA GT Q12H DILANTIN GT Q12H VANCO IV Q12H INSULIN ASPART SUBQ Q6H SDU PLAN OF CARE: PICC LINE PLACEMENT SPUTUM AND BLOOD CX
--- NOTE | 2020-04-26 11:34 | NUR ---
NURSE NOTES: Per Dr. Garcia discontinue plavix due to low platelet level, order noted, entered, carried out.
--- NOTE | 2020-04-26 11:35 | NUR ---
CASE MANAGEMENT: NOTE PT APPEARS TO BE MCR PRIMARY. CALL PLACED TO [place] [phone] S/W KEISHA (AUTOMOTIVE ENGINEERING TECHNICIAN) REGARDING TRANSFER UPDATE. KEISHA STATED THAT PT HAS A COMMERCIAL POLICY AND SHE DOES SEE PT HAS MCR BUT IS NOT ASSIGNED TO [place]. CALL PLACED TO [facility] [employer] REFEREE FOR CLARIFICATION AND A WAS MESSAGE LEFT. AWAITING CALL BACK
[2020-04-26 12:00] VITALS: BP 137/61
[2020-04-26] MEDS: Acetaminophen 650mg/20.3ml GT PRN (12:54)
--- NOTE | 2020-04-26 13:22 | Nephrology Progress Note ---
Assessment/Plan Problem List: (1) Electrolyte imbalance Assessment: Hypernatremia (2) Dehydration (3) Diabetes mellitus (4) Spastic quadriplegic cerebral palsy (5) Chronic respiratory failure (6) Sepsis Assessment: UTI (7) Sacral decubitus ulcer Assessment Dehydration, prerenal azotemia, free water deficit, hypernatremia Sepsis, UTI Chronic respiratory failure, status post tracheostomy Sacral decubitus ulcer Chronic seizure disorder PEG Diabetes mellitus Spastic quadriplegic cerebral palsy Plan Increase D5W to 75 cc an hour. Potassium supplement IV . Continue to monitor renal parameters and electrolytes Monitor Dilantin level, adjust the dose corrected for low albumin Monitor electrolytes and renal parameters Increase Protonix to every 12 hours Keep the blood sugar in check Per orders Patient is full code Subjective ROS Limited/Unobtainable: Yes Objective Objective Last 24 Hour Vital Signs Date Time Temp Pulse Resp B/P (MAP) Pulse Ox O2 Delivery O2 Flow Rate FiO2 04/26/20 11:01 94 21 40 04/26/20 08:00 Mechanical Ventilator Mechanical Ventilator 04/26/20 08:00 40 04/26/20 08:00 99.1 91 22 124/66 (85) 100 04/26/20 07:44 89 04/26/20 07:03 91 21 40 04/26/20 04:00 40 04/26/20 04:00 Mechanical Ventilator Mechanical Ventilator 04/26/20 04:00 99.4 95 26 134/87 (103) 100 04/26/20 04:00 86 04/26/20 03:12 102 24 40 04/26/20 00:00 98 04/26/20 00:00 101.5 97 24 113/64 (80) 100 04/26/20 00:00 Mechanical Ventilator Mechanical Ventilator 04/26/20 00:00 99.6 04/26/20 00:00 40 04/25/20 22:44 98 22 40 04/25/20 20:00 Mechanical Ventilator Mechanical Ventilator 04/25/20 20:00 40 04/25/20 20:00 98.6 96 20 120/84 (96) 100 04/25/20 19:47 102 21 40 04/25/20 19:29 94 04/25/20 16:00 99.1 96 18 102/54 (70) 99 04/25/20 16:00 40 04/25/20 16:00 101 04/25/20 16:00 Mechanical Ventilator 04/25/20 14:46 96 19 40 Intake and Output 04/25/20 04/26/20 19:00 07:00 Intake Total 1490 ml 1216.708 ml Output Total 652 ml 510 ml Balance 838 ml 706.708 ml Intake Free Water 200 ml 60 ml IV Total 660 ml 826.708 ml Tube Feeding 390 ml 330 ml Other 240 ml Output Urine Total 50 ml 10 ml Stool Total 2 ml Drainage Total 600 ml Other 500 ml # Bowel Movements 2 2 Laboratory Tests 04/25/20 17:28: POC Whole Blood Glucose 128H 04/25/20 23:29: POC Whole Blood Glucose 110H 04/26/20 04:00: White Blood Count 5.7, Red Blood Count 2.62L, Hemoglobin 8.2L, Hematocrit 26.5L , Mean Corpuscular Volume 101H, Mean Corpuscular Hemoglobin 31.3H, Mean Corpuscular Hemoglobin Concent 30.9L, Red Cell Distribution Width 14.5, Platelet Count 58L, Mean Platelet Volume 13.4H, Neutrophils (%) (Auto) , Lymphocytes (%) (Auto) , Monocytes (%) (Auto) , Eosinophils (%) (Auto) , Basophils (%) (Auto) , Differential Total Cells Counted 100, Neutrophils % ( Manual) 80H, Lymphocytes % (Manual) 17L, Monocytes % (Manual) 3, Eosinophils % ( Manual) 0, Basophils % (Manual) 0, Band Neutrophils 0, Platelet Estimate DecreasedL, Platelet Morphology Normal, Sodium Level 151H, Potassium Level 3.0L , Chloride Level 118H, Carbon Dioxide Level 25, Anion Gap 8, Blood Urea Nitrogen 12, Creatinine 0.5L, Estimat Glomerular Filtration Rate > 60, Glucose Level 121H, Uric Acid 5.9, Calcium Level 7.2L, Phosphorus Level 3.0, Magnesium Level 2.2, Total Bilirubin 0.2, Aspartate Amino Transf (AST/SGOT) 40H, Alanine Aminotransferase (ALT/SGPT) 47, Alkaline Phosphatase 122H, Total Protein 7.7, Albumin 1.8L, Globulin 5.9, Albumin/Globulin Ratio 0.3L, Vancomycin Level Trough 14.6H, Phenytoin (Dilantin) Level 7.1L 04/26/20 04:51: POC Whole Blood Glucose [Pending] 04/26/20 11:42: POC Whole Blood Glucose 124H Height (Feet): 5 Height (Inches): 7.00 Weight (Pounds): 198 General Appearance: no apparent distress EENT: other Cardiovascular: tachycardia Respiratory/Chest: decreased breath sounds - Trach and vent Abdomen: distended Caleb Reese MD Apr 26, 2020 13:22
--- NOTE | 2020-04-26 15:51 | NUR ---
NURSE NOTES:WOUND CARE FOLLOW-UP NOTES:Silver Nitrate sticks application for epibole of Sacral Pressure injury .Pt tolerated procedure without any evidence of distress noted.Wound Tx done as ordered post Silver Nitrate application.
[2020-04-26 16:00] VITALS: BP 118/58
--- NOTE | 2020-04-26 16:00 | NUR ---
NURSE NOTES: When patient cleaned up, new formation of blister accessed on right lower extremity. Wound care nurse at the bedside, applied dressing. Dr. Murray made aware of blisters.
--- NOTE | 2020-04-26 16:43 | Diagnostic Imaging Report ---
Indications: Needs long-term IV access Technique: Ultrasound confirms patent compressible basilic vein. Total sterile technique, including sterile probe cover and sterile gel, hat, mask,, sterile gown, large sterile drape, and preparation with 2% chlorhexidine utilized. Local anesthesia with 1% lidocaine. Under real-time ultrasound guidance, puncture of the basilic vein using 21-gauge needle, passage 0.018 guidewire, exchange for 5 Gambian peel-away sheath. 5 Gambian Bard dual-lumen power PICC cut to 40 cm. It was inserted through the peel-away sheath. Peel-away sheath and guidewire removed. Catheter fixed to the skin. Both catheter ports aspirated and flushed. Patient tolerated procedure well, without immediate complication. Digital radiograph documents catheter tip in the brachiocephalic vein. Impression: Successful placement of left PICC under sonographic guidance. Tip is in the brachiocephalic vein.
--- NOTE | 2020-04-26 17:35 | NUR ---
NURSE NOTES: Paged Dr. Dawson for clarification CT with contrast with creatinine 1.9. awaiting for callback. Addendum: 04/26/20 at 2004 by LARS HANSEN RN Incorrect documentation on other patient.
--- NOTE | 2020-04-26 19:19 | Surgery Progress Note ---
Surgery Progress Note Subjective Additional Comments wbc resolved picc line placed otherwise stable Objective Last 24 Hour Vital Signs Date Time Temp Pulse Resp B/P (MAP) Pulse Ox O2 Delivery O2 Flow Rate FiO2 04/26/20 16:00 100 04/26/20 16:00 Mechanical Ventilator Mechanical Ventilator 04/26/20 16:00 40 04/26/20 15:19 96 20 40 04/26/20 13:24 99.0 04/26/20 12:29 86 04/26/20 12:00 99.0 90 22 137/61 (86) 100 04/26/20 12:00 40 04/26/20 12:00 Mechanical Ventilator Mechanical Ventilator 04/26/20 11:01 94 21 40 04/26/20 08:00 Mechanical Ventilator Mechanical Ventilator 04/26/20 08:00 40 04/26/20 08:00 99.1 91 22 124/66 (85) 100 04/26/20 07:44 89 04/26/20 07:03 91 21 40 04/26/20 04:00 40 04/26/20 04:00 Mechanical Ventilator Mechanical Ventilator 04/26/20 04:00 99.4 95 26 134/87 (103) 100 04/26/20 04:00 86 04/26/20 03:12 102 24 40 04/26/20 00:00 98 04/26/20 00:00 101.5 97 24 113/64 (80) 100 04/26/20 00:00 Mechanical Ventilator Mechanical Ventilator 04/26/20 00:00 40 04/25/20 22:44 98 22 40 04/25/20 20:00 Mechanical Ventilator Mechanical Ventilator 04/25/20 20:00 40 04/25/20 20:00 98.6 96 20 120/84 (96) 100 04/25/20 19:47 102 21 40 04/25/20 19:29 94 I&O Intake and Output 04/25/20 04/26/20 19:00 07:00 Intake Total 1490 ml 1216.708 ml Output Total 652 ml 510 ml Balance 838 ml 706.708 ml Intake Free Water 200 ml 60 ml IV Total 660 ml 826.708 ml Tube Feeding 390 ml 330 ml Other 240 ml Output Urine Total 50 ml 10 ml Stool Total 2 ml Drainage Total 600 ml Other 500 ml # Bowel Movements 2 2 Dressing: other Wound: other Drains: other Cardiovascular: RSR Respiratory: decreased breath sounds Abdomen: soft, present bowel sounds Extremities: no cyanosis Laboratory Tests Test 04/25/20 23:29 04/26/20 04:00 04/26/20 04:51 04/26/20 11:42 POC Whole Blood Glucose 110 MG/DL (74-106) H Pending 124 MG/DL (74-106) H White Blood Count 5.7 K/UL (4.8-10.8) Red Blood Count 2.62 M/UL (4.20-5.40) L Hemoglobin 8.2 G/DL (12.0-16.0) L Hematocrit 26.5 % (37.0-47.0) L Mean Corpuscular Volume 101 FL (80-99) H Mean Corpuscular Hemoglobin 31.3 PG (27.0-31.0) H Mean Corpuscular Hemoglobin Concent 30.9 G/DL (32.0-36.0) L Red Cell Distribution Width 14.5 % (11.6-14.8) Platelet Count 58 K/UL (150-450) L Mean Platelet Volume 13.4 FL (6.5-10.1) H Neutrophils (%) (Auto) % (45.0-75.0) Lymphocytes (%) (Auto) % (20.0-45.0) Monocytes (%) (Auto) % (1.0-10.0) Eosinophils (%) (Auto) % (0.0-3.0) Basophils (%) (Auto) % (0.0-2.0) Differential Total Cells Counted 100 Neutrophils % (Manual) 80 % (45-75) H Lymphocytes % (Manual) 17 % (20-45) L Monocytes % (Manual) 3 % (1-10) Eosinophils % (Manual) 0 % (0-3) Basophils % (Manual) 0 % (0-2) Band Neutrophils 0 % (0-8) Platelet Estimate Decreased L Platelet Morphology Normal Sodium Level 151 MMOL/L (136-145) H Potassium Level 3.0 MMOL/L (3.5-5.1) L Chloride Level 118 MMOL/L (98-107) H Carbon Dioxide Level 25 MMOL/L (21-32) Anion Gap 8 mmol/L (5-15) Blood Urea Nitrogen 12 mg/dL (7-18) Creatinine 0.5 MG/DL (0.55-1.30) L Estimat Glomerular Filtration Rate > 60 mL/min (>60) Glucose Level 121 MG/DL (74-106) H Uric Acid 5.9 MG/DL (2.6-7.2) Calcium Level 7.2 MG/DL (8.5-10.1) L Phosphorus Level 3.0 MG/DL (2.5-4.9) Magnesium Level 2.2 MG/DL (1.8-2.4) Total Bilirubin 0.2 MG/DL (0.2-1.0) Aspartate Amino Transf (AST/SGOT) 40 U/L (15-37) H Alanine Aminotransferase (ALT/SGPT) 47 U/L (12-78) Alkaline Phosphatase 122 U/L (46-116) H Total Protein 7.7 G/DL (6.4-8.2) Albumin 1.8 G/DL (3.4-5.0) L Globulin 5.9 g/dL Albumin/Globulin Ratio 0.3 (1.0-2.7) L Vancomycin Level Trough 14.6 ug/mL (5.0-12.0) H Phenytoin (Dilantin) Level 7.1 ug/mL (10-20) L Test 04/26/20 16:44 POC Whole Blood Glucose Pending Plan Problems: (1) Feeding by G-tube Assessment & Plan: DAILY ESTIMATED NEEDS: Needs based on Critical care, DM, sepsis 66.7kg abw 22-30 kcals/kg 9371-8865 total kcals 1.25-2 g protein/kg 83-133 g total protein 25-30 mL/kg 3752-7198 total fluid mLs NUTRITION DIAGNOSIS: Swallowing difficulty r/t resp status as evidenced by pt is trach and PEG dep. CURRENT TF: Glucerna 1.5 @60ml/hr x20 hrs ENTERAL NUTRITION RECOMMENDATIONS: Glucerna 1.2 @75ml/hr x20 hrs (on Dilantin BID) to provide 1500ml, 1800 kcal, 90g pro, 1208ml free h2o Glucerna 1.5 OOS-> Rec Glucerna 1.2 for carb control + increased free H2O - Start @low rate, 15ml/hr for 6 hrs. Advance as tolerated 10ml/hr q4-6 hrs to goal. - Flush per MD/ HOB over 30 degrees. ---- ADDITIONAL RECOMMENDATIONS: 1) Obtain an accurate Height as able: 5'7" per EMR vs 6'1" per SNF. April 01, 2020 wt per SNF: 182 lbs/82.73kg 2) F/up w/ WC eval 3) Increase water flushes as Na is trending up 4) Replete lytes-> Mg, Phos, and K all low (2) Sepsis Assessment & Plan: Patient with leukocytosis, anemia, lactic acidosis. COVID rapid exam negative Urine noted On antibiotics Care plan as below We will follow with recommendations Nutritional optimization Thank you for let me participate in patient's care (3) Sacral decubitus ulcer Assessment & Plan: Pt presented on admission with Tracheostomy, Gastrostomy, Bilat nephrostomies, Pressure injury.Skin assessed under tracheal collar and no evidence of skin breakdown noted. L nephrostomy migrating -suture noted to be loose. No peristomal erythema or skin erosion noted. R nephrostomy is intact without evidence of peristomal skin erosion noted.Scaly dark brown plaques noted to back and both upper thighs Full thickness Pressure Injury sacrococcygeal area(L)3.6cm x (W)1.3cm x (D)1.9cm ,Undermining clockwise at 6o'clock by 0.3cm,12-1 by 0.2cm.@1o'clock. Base of wound is pale pink and moist. Bone is palpable at the base of wound. Epibole along edges along with maceration to borders and periwound.Small amt serous exudate noted. No odor noted. Hyperpigmentation with historical scar noted to sacrum, R and L gluteal cheeks. R and L heels are both boggy with non-Blanching erythema. Bilat foot drop noted. Tx.Plan: Cleanse Sacral wound with Saline. Apply Therahoney. Apply Moisture Barrier paste periwound. Cover with Optifoam drsg Daily and prn Apply Cavilon Skin Barrier to malleoli and each heel. Cover each site with Optifoam drsg.Change every 7 days and PRN. Reposition at least every 2hours or as tolerated. Off-load heels with pillow. APM/ADELIA Mattress overlay. Delon Murray Apr 26, 2020 19:19
--- NOTE | 2020-04-26 19:20 | NUR ---
HAND-OFF: Report given to LUCERO Julien. Endorsed plan of care.
--- NOTE | 2020-04-26 19:25 | NUR ---
NURSE NOTES: Received patient and report from LUCERO Salvador. Patient is observed resting in bed and remains obtunded. No pain noted upon assessment. Pt is currently trach to vent; vent settings as follows: AC 18 TV 450 FiO2 40 PEEP 5 with an O2 saturation of 99% noted. Pt appears to be tolerating settings well with no s/sx of acute distress noted. Bilateral lower lobe breath sounds noted to be diminished upon auscultation. Pt noted to be ST on tele monitor with a current HR of 101 and no s/sx of acute distress noted. Ding catheter noted which remains intact, patent and draining urine to gravity. Bilateral nephrostomy tubes noted which remain intact and patent. Left upper arm PICC line noted which remains asymptomatic, intact and patent with D5W infusing at 85mL/hr. Central line dressing remains clean, dry and intact. GT remains intact and patent with 10mL residual noted. GT Feeding running as prescribed. Bowel sounds noted in all four quadrants, abdomen remains soft, round and non-tender upon assessment. Diagnostics reviewed at bedside. Skin alterations noted. Pt repositioned for comfort and safety. Fall, Aspiration, Seizure and Skin precautions observed. Pt remains resting in bed; Bed remains in the lowest position with the safety wheels engaged, call light within reach, side rails up x3 and bed alarm activated. Will continue plan of care. Will continue to monitor. Addendum: 04/27/20 at 0026 by TREE CAREY RN abdomen remains firm, round and non-tender upon assessment
--- NOTE | 2020-04-26 19:28 | Internal Med Progress Note ---
Subjective Physician Name Jeyson Yanez Attending Physician Jeyson Yanez MD Current Medications Medications (Trade) Dose Ordered Sig/Emanuel Route PRN Reason Start Time Stop Time Status Last Admin Dose Admin Acetaminophen (Tylenol) 500 mg Q4H PRN GT Pain Scale (3-5) 04/23/20 08:45 05/23/20 01:59 Acetaminophen (Tylenol) 650 mg THREE TIMES A DAY PRN GT FHMP 04/23/20 02:00 05/23/20 01:59 04/26/20 12:54 Artificial Tears (Akwa-Tears) 1 drop BID BOTH EYES 04/23/20 09:00 05/23/20 08:59 04/26/20 17:42 Bisacodyl (Dulcolax) 10 mg DAILY PRN RECTAL Constipation 04/23/20 02:00 07/22/20 01:59 Cefepime HCl 2 gm/ Dextrose 55 ml @ 110 mls/hr Q12H IVPB 04/23/20 08:00 04/30/20 07:59 04/26/20 08:31 Chlorhexidine Gluconate (Mimi-Hex 2%) 1 applic DAILY@2000 TOPIC 04/26/20 20:00 07/25/20 19:59 Dextrose 1,000 ml @ 85 mls/hr [id number] IV 04/26/20 08:06 05/26/20 08:05 04/26/20 09:01 Dextrose (Dextrose 50%) 25 ml Q30M PRN IV Hypoglycemia 04/23/20 08:15 07/22/20 08:14 Dextrose (Dextrose 50%) 50 ml Q30M PRN IV Hypoglycemia 04/23/20 08:15 07/22/20 08:14 Docusate Sodium (Colace) 250 mg DAILYPRN PRN GT CONSTIPATION 04/23/20 12:50 05/23/20 12:49 Heparin Sodium/ Sodium Chloride (Heparin 1000 units/500ml Premix) 1,000 unit ONCE PRN IV PICC 04/26/20 09:57 04/26/20 23:59 Insulin Aspart (NovoLOG) Q6HR SUBQ 04/25/20 12:00 07/24/20 11:59 04/25/20 17:35 Ipratropium [place] (Atrovent) 500 mcg Q6H PRN HHN Shortness of Breath 04/23/20 02:00 04/28/20 01:59 Levetiracetam (Keppra) 1,000 mg Q12HR GT 04/23/20 21:00 05/23/20 08:59 04/26/20 08:31 Lidocaine HCl (Xylocaine 1% 30ml) 30 ml ONCE PRN INJ PICC 04/26/20 09:57 04/26/20 23:59 Metoclopramide HCl (Reglan) 5 mg Q6HR GT 04/23/20 13:53 05/23/20 13:52 04/26/20 17:42 Pantoprazole (Protonix) 40 mg Q12HR IVP 04/23/20 21:00 05/23/20 08:59 04/26/20 08:32 Phenytoin (Dilantin) 150 mg Q12HR GT 04/24/20 21:00 05/23/20 08:29 04/26/20 08:31 Polyethylene Glycol (Miralax) 17 gm DAILY GT 04/23/20 09:00 05/23/20 08:59 04/24/20 09:30 Sennosides (Senokot) 8.6 mg DAILY GT 04/23/20 09:00 05/23/20 08:59 04/26/20 08:31 Sodium Phosphate (Fleet's Sodium Phosl Enema) 133 ml DAILY PRN RECTAL CONSTIPATION 04/23/20 02:00 05/23/20 01:59 Sorbitol (sorbitoL) 30 ml DAILYPRN PRN GT constipation 04/23/20 08:15 05/23/20 08:14 Vancomycin HCl (Vanco pharmacy to dose) 1 ea DAILY PRN MISC Per rx protocol 04/23/20 03:00 05/23/20 02:59 Vancomycin HCl 1 gm/Sodium Chloride 275 ml @ 183.708 mls/hr Q12HR@0600,1800 IVPB 04/24/20 18:00 04/29/20 17:59 04/26/20 17:42 Zinc Sulfate (Zinc Sulfate) 220 mg DAILY GT 04/23/20 09:00 07/22/20 08:59 04/26/20 08:31 Allergies: Coded Allergies: No Known Allergies (Unverified , 02/08/13) Subjective open eyes, not verbal , on Vent, unable F/U with Commands. Objective Last Vital Signs Date Time Temp Pulse Resp B/P (MAP) Pulse Ox O2 Delivery O2 Flow Rate FiO2 04/26/20 16:00 100 04/26/20 16:00 Mechanical Ventilator Mechanical Ventilator 04/26/20 16:00 40 04/26/20 15:19 20 04/26/20 13:24 99.0 04/26/20 12:00 137/61 (86) 100 04/23/20 01:24 15.0 Laboratory Tests Test 04/25/20 23:29 04/26/20 04:00 04/26/20 04:51 04/26/20 11:42 POC Whole Blood Glucose 110 MG/DL (74-106) H Pending 124 MG/DL (74-106) H White Blood Count 5.7 K/UL (4.8-10.8) Red Blood Count 2.62 M/UL (4.20-5.40) L Hemoglobin 8.2 G/DL (12.0-16.0) L Hematocrit 26.5 % (37.0-47.0) L Mean Corpuscular Volume 101 FL (80-99) H Mean Corpuscular Hemoglobin 31.3 PG (27.0-31.0) H Mean Corpuscular Hemoglobin Concent 30.9 G/DL (32.0-36.0) L Red Cell Distribution Width 14.5 % (11.6-14.8) Platelet Count 58 K/UL (150-450) L Mean Platelet Volume 13.4 FL (6.5-10.1) H Neutrophils (%) (Auto) % (45.0-75.0) Lymphocytes (%) (Auto) % (20.0-45.0) Monocytes (%) (Auto) % (1.0-10.0) Eosinophils (%) (Auto) % (0.0-3.0) Basophils (%) (Auto) % (0.0-2.0) Differential Total Cells Counted 100 Neutrophils % (Manual) 80 % (45-75) H Lymphocytes % (Manual) 17 % (20-45) L Monocytes % (Manual) 3 % (1-10) Eosinophils % (Manual) 0 % (0-3) Basophils % (Manual) 0 % (0-2) Band Neutrophils 0 % (0-8) Platelet Estimate Decreased L Platelet Morphology Normal Sodium Level 151 MMOL/L (136-145) H Potassium Level 3.0 MMOL/L (3.5-5.1) L Chloride Level 118 MMOL/L (98-107) H Carbon Dioxide Level 25 MMOL/L (21-32) Anion Gap 8 mmol/L (5-15) Blood Urea Nitrogen 12 mg/dL (7-18) Creatinine 0.5 MG/DL (0.55-1.30) L Estimat Glomerular Filtration Rate > 60 mL/min (>60) Glucose Level 121 MG/DL (74-106) H Uric Acid 5.9 MG/DL (2.6-7.2) Calcium Level 7.2 MG/DL (8.5-10.1) L Phosphorus Level 3.0 MG/DL (2.5-4.9) Magnesium Level 2.2 MG/DL (1.8-2.4) Total Bilirubin 0.2 MG/DL (0.2-1.0) Aspartate Amino Transf (AST/SGOT) 40 U/L (15-37) H Alanine Aminotransferase (ALT/SGPT) 47 U/L (12-78) Alkaline Phosphatase 122 U/L (46-116) H Total Protein 7.7 G/DL (6.4-8.2) Albumin 1.8 G/DL (3.4-5.0) L Globulin 5.9 g/dL Albumin/Globulin Ratio 0.3 (1.0-2.7) L Vancomycin Level Trough 14.6 ug/mL (5.0-12.0) H Phenytoin (Dilantin) Level 7.1 ug/mL (10-20) L Test 04/26/20 16:44 POC Whole Blood Glucose Pending Microbiology Date/Time Source Procedure Growth Status 04/24/20 17:50 Blood Blood Culture - Preliminary NO GROWTH AFTER 24 HOURS Resulted 04/24/20 17:40 Blood Blood Culture - Preliminary NO GROWTH AFTER 24 HOURS Resulted Intake and Output 04/25/20 04/26/20 19:00 07:00 Intake Total 1490 ml 1216.708 ml Output Total 652 ml 510 ml Balance 838 ml 706.708 ml Intake Free Water 200 ml 60 ml IV Total 660 ml 826.708 ml Tube Feeding 390 ml 330 ml Other 240 ml Output Urine Total 50 ml 10 ml Stool Total 2 ml Drainage Total 600 ml Other 500 ml # Bowel Movements 2 2 Objective General: No acute distress, On Vent, open eyes. HEENT: NCAT, sclera anicteric, PERRL, Neck: Supple, Trach site intact. Lungs: Mechanical breath sound, no Wheeze or Rales. Heart: Regular rate and rhythm, normal S1/S2, no murmurs Abdomen: soft, nontender, nondistended. + BS, Obesity, PEG site intact. Extremities: No Cyanosis , clubbing or edema. Neuro: Limited, Contacted extremities. Skin: warm, no rash, Sacral ulcer.Right LE blister. Assessment/Plan Assessment/Plan ASSESSMENT: This is a 59-year-old female. 1. Sepsis. 2. Hypokalemia 3. Chronic respiratory failure. 4. Chronic obstructive pulmonary disease. 5. Chronic Spastic Quadriplegia. 6. History of dysphagia s/p PEG. 7. Diabetes type 2. 8. Seizure disorder. 9. History of gastrointestinal hemorrhage. 10. Erosive gastritis. 11. paranoid schizoaffective disorder 12. Gastroesophageal reflux disease. 13. Neurogenic bladder. 14. Stage IV sacral decubitus ulcer. 15. History of deep venous thrombosis. TREATMENT: 1. Fever/sepsis. A Pulmonary Critical Care consultation has been obtained with Dr. Luis Garcia. Urine, blood, and sputum cultures are pending. Patient has been started empirically on vancomycin and cefepime. We will follow recommendations of Pulmonary. 2. Chronic vent dependence/chronic respiratory failure. As above, a Pulmonary consultation has been obtained with Dr. Luis Garcia. We will follow recommendations of Pulmonary. 3. Seizure disorder. Continue Keppra and Dilantin as above. 4. Diabetes type 2. NovoLog sliding scale has been instituted. 5. Chronic obstructive pulmonary disease. As above, a Pulmonary consultation has been obtained with Dr. Luis Garcia. We will follow recommendations of Pulmonary. 6. History of gastrointestinal hemorrhage/erosive gastritis. Patient has been placed on Protonix. 7. Schizophrenia, not otherwise specified. 8. Gastroesophageal reflux disease. 9. Neurogenic bladder. 10. Stage IV sacral decubitus ulcer. 11. History of deep venous thrombosis. Wound care. Piccline placement today. Tolerated tube feeding. Jeyson Yanez MD Apr 26, 2020 19:28
--- NOTE | 2020-04-26 19:37 | Infectious Diseases Prog Note ---
Assessment/Plan Assessment: Severe sepsis- ?source Cons bacteremia- suspect contaminant -04/22 Bcx 1/4 CONS; 04/24 Bcx NTD Hyperthermia (up to 105 upon admission); SP - COVID19 neg x2 (one rapid test, one NAAT)- recurrent fever Leukocytosis, SP -04/25 CXR: no acute diseae -04/23 SARS-COV2 PCR neg -04/22 CXR: no acute disease -u/a wbc 20-30, nit neg, leuk +3; ucx 30-40k mixed gram positive organisms -rapid COVID test neg Lactic acidosis, SP GABRIELLE, SP Elevated LFTs; improving -Abd US: GALLSTONE. MILDLY PROMINENT CBD BUT MAY BE NORMAL FOR AGE. BILATERAL URETERAL STENTS. NO HYDRONEPHROSIS. POSSIBLE SMALL BILATERAL RENAL STONES. MIDLINE STRUCTURES INCLUDING PANCREAS, AORTA AND CAVA NOT OPTIMALLY VISUALIZED DUE TO BOWEL GAS. GERD DM2 COPD GIB neurogenic bladder stage IV sacral decubitus ulcer paranoid schizoaffective disorder suicide attempt in 2003 progressing to coma and requiring intermediate ventilator support spatic quadriplegia obesity b/l nephrostomy tubes 2018 seizure disorder chronic resp failure s/p trach dependent dysphagia s/p GT NH resident ([facility]) Plan: -Continue empiric IV Vancomycin and Cefepime #4 pending cultures -04/23 SP Ertapenem x1 -f/u cx -Monitor CBC/CMP, temperatures -f/u BCx x2, sp cx -COVID19 neg x2 (1 rapid, 1 NAAT); will repeat NAAT given ongoing fever and no clear source of infection -PEG/trach care -aspiration precautions -wound care per hospital protocol -2d echo, v. duplex -HIV ab sc, acute hep panel Thank you for consulting [facility]. Will continue to follow along with you. Aylin arreola RN. Subjective Allergies: Coded Allergies: No Known Allergies (Unverified , 02/08/13) Tm 101.5 repeat Bcx NTD no leukocytosis Objective Last 24 Hour Vital Signs Date Time Temp Pulse Resp B/P (MAP) Pulse Ox O2 Delivery O2 Flow Rate FiO2 04/26/20 16:00 100 04/26/20 16:00 Mechanical Ventilator Mechanical Ventilator 04/26/20 16:00 40 04/26/20 15:19 96 20 40 04/26/20 13:24 99.0 04/26/20 12:29 86 04/26/20 12:00 99.0 90 22 137/61 (86) 100 04/26/20 12:00 40 04/26/20 12:00 Mechanical Ventilator Mechanical Ventilator 04/26/20 11:01 94 21 40 04/26/20 08:00 Mechanical Ventilator Mechanical Ventilator 04/26/20 08:00 40 04/26/20 08:00 99.1 91 22 124/66 (85) 100 04/26/20 07:44 89 04/26/20 07:03 91 21 40 04/26/20 04:00 40 04/26/20 04:00 Mechanical Ventilator Mechanical Ventilator 04/26/20 04:00 99.4 95 26 134/87 (103) 100 04/26/20 04:00 86 04/26/20 03:12 102 24 40 04/26/20 00:00 98 04/26/20 00:00 101.5 97 24 113/64 (80) 100 04/26/20 00:00 Mechanical Ventilator Mechanical Ventilator 04/26/20 00:00 40 04/25/20 22:44 98 22 40 04/25/20 20:00 Mechanical Ventilator Mechanical Ventilator 04/25/20 20:00 40 04/25/20 20:00 98.6 96 20 120/84 (96) 100 04/25/20 19:47 102 21 40 Height (Feet): 5 Height (Inches): 7.00 Weight (Pounds): 198 GENERAL: Patient is a thin-appearing female, who is intubated and sedated. HEENT: Eyes, pupils are equal and responsive to light and accommodation. Extraocular movements are intact. NECK: Supple without lymphadenopathy. Tracheostomy is in place. CHEST: Coarse breath sounds bilateral bases otherwise without wheezes or rales. CARDIOVASCULAR: Tachycardic, regular rhythm. S1, S2 normal without murmurs, rubs, or gallops. ABDOMEN: Soft, nontender, nondistended. Positive bowel sounds. No evidence of hepatosplenomegaly. Currently, no rebound or guarding noted. EXTREMITIES: Negative for clubbing, cyanosis, or edema. Microbiology Date/Time Source Procedure Growth Status 04/24/20 17:50 Blood Blood Culture - Preliminary NO GROWTH AFTER 24 HOURS Resulted 04/24/20 17:40 Blood Blood Culture - Preliminary NO GROWTH AFTER 24 HOURS Resulted Laboratory Tests Test 04/25/20 23:29 04/26/20 04:00 04/26/20 04:51 04/26/20 11:42 POC Whole Blood Glucose 110 MG/DL (74-106) H Pending 124 MG/DL (74-106) H White Blood Count 5.7 K/UL (4.8-10.8) Red Blood Count 2.62 M/UL (4.20-5.40) L Hemoglobin 8.2 G/DL (12.0-16.0) L Hematocrit 26.5 % (37.0-47.0) L Mean Corpuscular Volume 101 FL (80-99) H Mean Corpuscular Hemoglobin 31.3 PG (27.0-31.0) H Mean Corpuscular Hemoglobin Concent 30.9 G/DL (32.0-36.0) L Red Cell Distribution Width 14.5 % (11.6-14.8) Platelet Count 58 K/UL (150-450) L Mean Platelet Volume 13.4 FL (6.5-10.1) H Neutrophils (%) (Auto) % (45.0-75.0) Lymphocytes (%) (Auto) % (20.0-45.0) Monocytes (%) (Auto) % (1.0-10.0) Eosinophils (%) (Auto) % (0.0-3.0) Basophils (%) (Auto) % (0.0-2.0) Differential Total Cells Counted 100 Neutrophils % (Manual) 80 % (45-75) H Lymphocytes % (Manual) 17 % (20-45) L Monocytes % (Manual) 3 % (1-10) Eosinophils % (Manual) 0 % (0-3) Basophils % (Manual) 0 % (0-2) Band Neutrophils 0 % (0-8) Platelet Estimate Decreased L Platelet Morphology Normal Sodium Level 151 MMOL/L (136-145) H Potassium Level 3.0 MMOL/L (3.5-5.1) L Chloride Level 118 MMOL/L (98-107) H Carbon Dioxide Level 25 MMOL/L (21-32) Anion Gap 8 mmol/L (5-15) Blood Urea Nitrogen 12 mg/dL (7-18) Creatinine 0.5 MG/DL (0.55-1.30) L Estimat Glomerular Filtration Rate > 60 mL/min (>60) Glucose Level 121 MG/DL (74-106) H Uric Acid 5.9 MG/DL (2.6-7.2) Calcium Level 7.2 MG/DL (8.5-10.1) L Phosphorus Level 3.0 MG/DL (2.5-4.9) Magnesium Level 2.2 MG/DL (1.8-2.4) Total Bilirubin 0.2 MG/DL (0.2-1.0) Aspartate Amino Transf (AST/SGOT) 40 U/L (15-37) H Alanine Aminotransferase (ALT/SGPT) 47 U/L (12-78) Alkaline Phosphatase 122 U/L (46-116) H Total Protein 7.7 G/DL (6.4-8.2) Albumin 1.8 G/DL (3.4-5.0) L Globulin 5.9 g/dL Albumin/Globulin Ratio 0.3 (1.0-2.7) L Vancomycin Level Trough 14.6 ug/mL (5.0-12.0) H Phenytoin (Dilantin) Level 7.1 ug/mL (10-20) L Test 04/26/20 16:44 POC Whole Blood Glucose Pending Current Medications Medications (Trade) Dose Ordered Sig/Emanuel Route PRN Reason Start Time Stop Time Status Last Admin Dose Admin Acetaminophen (Tylenol) 500 mg Q4H PRN GT Pain Scale (3-5) 04/23/20 08:45 05/23/20 01:59 Acetaminophen (Tylenol) 650 mg THREE TIMES A DAY PRN GT FHMP 04/23/20 02:00 05/23/20 01:59 04/26/20 12:54 Artificial Tears (Akwa-Tears) 1 drop BID BOTH EYES 04/23/20 09:00 05/23/20 08:59 04/26/20 17:42 Bisacodyl (Dulcolax) 10 mg DAILY PRN RECTAL Constipation 04/23/20 02:00 07/22/20 01:59 Cefepime HCl 2 gm/ Dextrose 55 ml @ 110 mls/hr Q12H IVPB 04/23/20 08:00 04/30/20 07:59 04/26/20 08:31 Chlorhexidine Gluconate (Mimi-Hex 2%) 1 applic DAILY@2000 TOPIC 04/26/20 20:00 07/25/20 19:59 Dextrose 1,000 ml @ 85 mls/hr [id number] IV 04/26/20 08:06 05/26/20 08:05 04/26/20 09:01 Dextrose (Dextrose 50%) 25 ml Q30M PRN IV Hypoglycemia 04/23/20 08:15 07/22/20 08:14 Dextrose (Dextrose 50%) 50 ml Q30M PRN IV Hypoglycemia 04/23/20 08:15 07/22/20 08:14 Docusate Sodium (Colace) 250 mg DAILYPRN PRN GT CONSTIPATION 04/23/20 12:50 05/23/20 12:49 Heparin Sodium/ Sodium Chloride (Heparin 1000 units/500ml Premix) 1,000 unit ONCE PRN IV PICC 04/26/20 09:57 04/26/20 23:59 Insulin Aspart (NovoLOG) Q6HR SUBQ 04/25/20 12:00 07/24/20 11:59 04/25/20 17:35 Ipratropium [place] (Atrovent) 500 mcg Q6H PRN HHN Shortness of Breath 04/23/20 02:00 04/28/20 01:59 Levetiracetam (Keppra) 1,000 mg Q12HR GT 04/23/20 21:00 05/23/20 08:59 04/26/20 08:31 Lidocaine HCl (Xylocaine 1% 30ml) 30 ml ONCE PRN INJ PICC 04/26/20 09:57 04/26/20 23:59 Metoclopramide HCl (Reglan) 5 mg Q6HR GT 04/23/20 13:53 05/23/20 13:52 04/26/20 17:42 Pantoprazole (Protonix) 40 mg Q12HR IVP 04/23/20 21:00 05/23/20 08:59 04/26/20 08:32 Phenytoin (Dilantin) 150 mg Q12HR GT 04/24/20 21:00 05/23/20 08:29 04/26/20 08:31 Polyethylene Glycol (Miralax) 17 gm DAILY GT 04/23/20 09:00 05/23/20 08:59 04/24/20 09:30 Sennosides (Senokot) 8.6 mg DAILY GT 04/23/20 09:00 05/23/20 08:59 04/26/20 08:31 Sodium Phosphate (Fleet's Sodium Phosl Enema) 133 ml DAILY PRN RECTAL CONSTIPATION 04/23/20 02:00 05/23/20 01:59 Sorbitol (sorbitoL) 30 ml DAILYPRN PRN GT constipation 04/23/20 08:15 05/23/20 08:14 Vancomycin HCl (Vanco pharmacy to dose) 1 ea DAILY PRN MISC Per rx protocol 04/23/20 03:00 05/23/20 02:59 Vancomycin HCl 1 gm/Sodium Chloride 275 ml @ 183.708 mls/hr Q12HR@0600,1800 IVPB 04/24/20 18:00 04/29/20 17:59 04/26/20 17:42 Zinc Sulfate (Zinc Sulfate) 220 mg DAILY GT 04/23/20 09:00 07/22/20 08:59 04/26/20 08:31 Jayne Peoples M.D. Apr 26, 2020 19:37
[2020-04-26 20:00] VITALS: BP 108/64
[2020-04-26] MEDS: Dyna-Hex 2% Top Sol 2oz TOPIC SCH (20:33)
--- NOTE | 2020-04-26 22:10 | NUR ---
NURSE NOTES: Bedside assessment performed. Pt was assessed for pain using FLACC scale with a score of 0 noted. Pt provided with oral care and suctioning for excess secretions. ROM exercises provided per patient tolerance. Pt tolerated care well. Left side nephrostomy tube noted to have minimal drainage in collection bag, Right sided nephrostomy tube noted to 500mL of drainage in collection bag at this time. Will continue to monitor and report accordingly. Pt repositioned for comfort and safety. Fall, Aspiration, Seizure and Skin precautions observed. Pt remains resting in bed; Bed remains in the lowest position with the safety wheels engaged, call light within reach, side rails up x3 and bed alarm activated. Will continue plan of care. Will continue to monitor.
[2020-04-27] VITALS: BP 104/54
--- NOTE | 2020-04-27 01:00 | NUR ---
NURSE NOTES: Pt provided with bed bath, oral care, linen change and suctioning for excess secretions. Large green-brown liquid bowel movement noted. Central line dressing noted to be soiled and changed per protocol. Central line dressing now remains clean, dry and intact. ROM exercises provided per patient tolerance. Pt tolerated care well. RT present at bedside performing trach care. VS obtained and remain stable at this time. Pt repositioned for comfort and safety. Bedside assessment performed. Pt was assessed for pain using FLACC scale with a score of 0 noted. Fall, Aspiration, Seizure and Skin precautions observed. Pt remains resting in bed; Bed remains in the lowest position with the safety wheels engaged, call light within reach, side rails up x3 and bed alarm activated. Will continue plan of care. Will continue to monitor.
[2020-04-27 04:00] VITALS: BP 102/59
[2020-04-27] MEDS: NovoLOG Insulin Flexpen SUBQ SCH ×4 (06:00→23:48)
--- NOTE | 2020-04-27 06:00 | NUR ---
NURSE NOTES: Bedside assessment performed. Pt was assessed for pain using FLACC scale with a score of 0 noted. Pt provided with a partial bed bath, linen change, oral care and suctioning for excess secretions. ROM exercises provided per patient tolerance. Pt tolerated care well. COVID swab collected and witnessed by second RN. Forms signs and sample delivered to lab for processing. Will continue to monitor and report accordingly. Pt repositioned for comfort and safety. Fall, Aspiration, Seizure and Skin precautions observed. Pt remains resting in bed; Bed remains in the lowest position with the safety wheels engaged, call light within reach, side rails up x3 and bed alarm activated. Will continue plan of care. Will continue to monitor.
[2020-04-27] MEDS: Vancomycin 1 GM in NS 275 ML IVPB SCH ×2 (06:11→17:59)
[2020-04-27 06:30] LABS: HEMATOCRIT 23.9 % (37.0-47.0); HEMOGLOBIN 7.6 G/DL (12.0-16.0); MEAN CORPUSCULAR VOLUME 100 FL (80-99); PLATELET COUNT 59 K/UL (150-450); RED BLOOD COUNT 2.39 M/UL (4.20-5.40); RED CELL DISTRIBUTION WIDTH 14.1 % (11.6-14.8)
[2020-04-27 07:01] LABS: ALANINE AMINOTRANSFERASE 39 U/L (12-78); ALBUMIN 1.7 G/DL (3.4-5.0); ALBUMIN/GLOBULIN RATIO 0.3 (1.0-2.7); ALKALINE PHOSPHATASE 115 U/L (46-116); ANION GAP 8 mmol/L (5-15); ASPARTATE AMINO TRANSFERASE 35 U/L (15-37); BILIRUBIN,TOTAL 0.2 MG/DL (0.2-1.0); BLOOD UREA NITROGEN 22 mg/dL (7-18); CALCIUM 7.1 MG/DL (8.5-10.1); CARBON DIOXIDE 25 MMOL/L (21-32); CHLORIDE 108 MMOL/L (98-107); CREATININE 0.7 MG/DL (0.55-1.30); POTASSIUM 2.8 MMOL/L (3.5-5.1); SODIUM 141 MMOL/L (136-145)
--- NOTE | 2020-04-27 07:10 | NUR ---
HAND-OFF: Report given to LUCERO Santos. Endorsed plan of care. Pt remains stable at this time.
--- NOTE | 2020-04-27 07:30 | NUR ---
NURSE NOTES: Received report from Markus Lopez RN. Patient asleep in bed, obtunded, unable to follow commands and make needs known. SR 90 on quality assurance monitor final. Trach to vent with settings of AC 18, TV 450, FiO2 40%, PEEP 5, no s/s of respiratory distress noted. GT feeding on hold until 11:00, no residuals noted, HoB elevated. Bilateral nephrostomy tubes and schroeder catheter patent and draining to gravity. Left upper arm PICC infusing D5W @ 85 cc/hr and vancomycin 1g @ 183.708 cc/hr, asymptomatic. Bed locked in lowest position with padded side rails up x 3. All needs attended to. Will continue to monitor.
[2020-04-27] MEDS: Cefepime 2gm in D5W 55ml IVPB SCH ×2 (07:44→20:17)
--- NOTE | 2020-04-27 07:56 | Pulmonology Progress Note ---
Subjective ROS Limited/Unobtainable: Yes Allergies: Coded Allergies: No Known Allergies (Unverified , 02/08/13) Subjective no signs of resp distress on current settings low grade fever this am , no leukocytosis Hgb down to 7.6 K-2.8 Objective Last 24 Hour Vital Signs Date Time Temp Pulse Resp B/P (MAP) Pulse Ox O2 Delivery O2 Flow Rate FiO2 04/27/20 07:19 93 23 40 04/27/20 04:00 98.6 88 18 102/59 (73) 100 04/27/20 04:00 40 04/27/20 04:00 Mechanical Ventilator Mechanical Ventilator 04/27/20 03:57 91 23 40 04/27/20 03:49 86 04/27/20 00:00 98.4 104 16 104/54 (71) 100 04/27/20 00:00 Mechanical Ventilator Mechanical Ventilator 04/26/20 23:59 109 04/26/20 23:49 111 24 40 04/26/20 20:00 Mechanical Ventilator Mechanical Ventilator 04/26/20 20:00 40 04/26/20 20:00 98.2 94 18 108/64 (79) 100 04/26/20 19:48 95 04/26/20 19:37 95 21 40 04/26/20 16:00 100 04/26/20 16:00 98.2 95 22 118/58 (78) 100 04/26/20 16:00 Mechanical Ventilator Mechanical Ventilator 04/26/20 16:00 40 04/26/20 15:19 96 20 40 04/26/20 13:24 99.0 04/26/20 12:29 86 04/26/20 12:00 99.0 90 22 137/61 (86) 100 04/26/20 12:00 40 04/26/20 12:00 Mechanical Ventilator Mechanical Ventilator 04/26/20 11:01 94 21 40 04/26/20 08:00 Mechanical Ventilator Mechanical Ventilator 04/26/20 08:00 40 04/26/20 08:00 99.1 91 22 124/66 (85) 100 Intake and Output 04/26/20 04/27/20 19:00 07:00 Intake Total 645 ml 1427.50 ml Output Total 700 ml 1000 ml Balance -55 ml 427.50 ml Intake Free Water 320 ml 150 ml IV Total 85 ml 947.50 ml Tube Feeding 240 ml 330 ml Output Urine Total 700 ml Other 1000 ml # Bowel Movements 2 3 General Appearance: no acute distress, other - bedridden vent dependent femle Vent AC [id number]%-[id number] HEENT: normocephalic, atraumatic, status post trach - Portex#7, seceretions white color, thin consistency, small amount Respiratory: lungs clear, no respiratory distress Cardiovascular: normal rate, regular rhythm, other - LUE PICC intact Abdomen: soft, non tender, non distended Extremities: other - trace edema BLE Neurologic: abnormal gait - bedridden , other - quadriplegic Microbiology Date/Time Source Procedure Growth Status 04/24/20 17:50 Blood Blood Culture - Preliminary NO GROWTH AFTER 24 HOURS Resulted 04/24/20 17:40 Blood Blood Culture - Preliminary NO GROWTH AFTER 24 HOURS Resulted 04/26/20 04:00 Sputum Gram Stain - Final Resulted 04/26/20 04:00 Sputum Culture - Preliminary Gram Negative Benjamin Resulted Laboratory Tests 04/26/20 11:42: POC Whole Blood Glucose 124H 04/26/20 16:44: POC Whole Blood Glucose [Pending] 04/27/20 05:00: White Blood Count 6.0, Red Blood Count 2.39L, Hemoglobin 7.6L, Hematocrit 23.9L , Mean Corpuscular Volume 100H, Mean Corpuscular Hemoglobin 31.7H, Mean Corpuscular Hemoglobin Concent 31.7L, Red Cell Distribution Width 14.1, Platelet Count 59L, Mean Platelet Volume 10.0, Neutrophils (%) (Auto) , Lymphocytes (%) (Auto) , Monocytes (%) (Auto) , Eosinophils (%) (Auto) , Basophils (%) (Auto) , Neutrophils % (Manual) [Pending], Lymphocytes % (Manual) [Pending], Platelet Estimate [Pending], Platelet Morphology [Pending], Erythrocyte Sedimentation Rate [Pending], Sodium Level 141, Potassium Level 2.8L , Chloride Level 108H, Carbon Dioxide Level 25, Anion Gap 8, Blood Urea Nitrogen 22H, Creatinine 0.7, Estimat Glomerular Filtration Rate > 60, Glucose Level 328#H, Calcium Level 7.1L, Phosphorus Level 3.0, Magnesium Level 1.9, Total Bilirubin 0.2, Aspartate Amino Transf (AST/SGOT) 35, Alanine Aminotransferase (ALT/SGPT) 39, Alkaline Phosphatase 115, C-Reactive Protein, Quantitative 9.4H, Total Protein 7.1, Albumin 1.7L, Globulin 5.4, Albumin/ Globulin Ratio 0.3L, Hepatitis A IgM Antibody [Pending], Hepatitis B Surface Antigen [Pending], Hepatitis B Core IgM Antibody [Pending], Hepatitis C Antibody [Pending], HIV (1&2) Antibody Rapid Negative 04/27/20 06:07: POC Whole Blood Glucose 111H Current Medications Medications (Trade) Dose Ordered Sig/Emanuel Route PRN Reason Start Time Stop Time Status Last Admin Dose Admin Acetaminophen (Tylenol) 500 mg Q4H PRN GT Pain Scale (3-5) 04/23/20 08:45 05/23/20 01:59 Acetaminophen (Tylenol) 650 mg THREE TIMES A DAY PRN GT FHMP 04/23/20 02:00 05/23/20 01:59 04/26/20 12:54 Artificial Tears (Akwa-Tears) 1 drop BID BOTH EYES 04/23/20 09:00 05/23/20 08:59 04/26/20 17:42 Bisacodyl (Dulcolax) 10 mg DAILY PRN RECTAL Constipation 04/23/20 02:00 07/22/20 01:59 Cefepime HCl 2 gm/ Dextrose 55 ml @ 110 mls/hr Q12H IVPB 04/23/20 08:00 04/30/20 07:59 04/27/20 07:44 Chlorhexidine Gluconate (Mimi-Hex 2%) 1 applic DAILY@2000 TOPIC 04/26/20 20:00 07/25/20 19:59 04/26/20 20:33 Dextrose 1,000 ml @ 85 mls/hr [id number] IV 04/26/20 08:06 05/26/20 08:05 04/27/20 07:44 Dextrose (Dextrose 50%) 25 ml Q30M PRN IV Hypoglycemia 04/23/20 08:15 07/22/20 08:14 Dextrose (Dextrose 50%) 50 ml Q30M PRN IV Hypoglycemia 04/23/20 08:15 07/22/20 08:14 Docusate Sodium (Colace) 250 mg DAILYPRN PRN GT CONSTIPATION 04/23/20 12:50 05/23/20 12:49 Insulin Aspart (NovoLOG) Q6HR SUBQ 04/25/20 12:00 07/24/20 11:59 04/26/20 23:41 Ipratropium [place] (Atrovent) 500 mcg Q6H PRN HHN Shortness of Breath 04/23/20 02:00 04/28/20 01:59 Levetiracetam (Keppra) 1,000 mg Q12HR GT 04/23/20 21:00 05/23/20 08:59 04/26/20 20:26 Metoclopramide HCl (Reglan) 5 mg Q6HR GT 04/23/20 13:53 05/23/20 13:52 04/27/20 06:10 Pantoprazole (Protonix) 40 mg Q12HR IVP 04/23/20 21:00 05/23/20 08:59 04/26/20 20:27 Phenytoin (Dilantin) 150 mg Q12HR GT 04/24/20 21:00 05/23/20 08:29 04/26/20 20:28 Polyethylene Glycol (Miralax) 17 gm DAILY GT 04/23/20 09:00 05/23/20 08:59 04/24/20 09:30 Sennosides (Senokot) 8.6 mg DAILY GT 04/23/20 09:00 05/23/20 08:59 04/26/20 08:31 Sodium Phosphate (Fleet's Sodium Phosl Enema) 133 ml DAILY PRN RECTAL CONSTIPATION 04/23/20 02:00 05/23/20 01:59 Sorbitol (sorbitoL) 30 ml DAILYPRN PRN GT constipation 04/23/20 08:15 05/23/20 08:14 Vancomycin HCl (Vanco pharmacy to dose) 1 ea DAILY PRN MISC Per rx protocol 04/23/20 03:00 05/23/20 02:59 Vancomycin HCl 1 gm/Sodium Chloride 275 ml @ 183.708 mls/hr Q12HR@0600,1800 IVPB 04/24/20 18:00 04/29/20 17:59 04/27/20 06:11 Zinc Sulfate (Zinc Sulfate) 220 mg DAILY GT 04/23/20 09:00 07/22/20 08:59 04/26/20 08:31 Assessment/Plan Assessment/Plan ASSESSMENT Severe sepsis Chronic respiratory failure, ventilator dependent , with tracheostomy status COPD Lactic acidosis- resolved Suspected COVID-19 GABRIELLE - resolved Hypernatremia- resolved Dysphagia, feeding by G-tube Sacral decubitus ulcer stage IV-POA Transaminitis- improving Anemia of chronic disease History of GI bleeding History of DVT Seizure disorder Spastic quadriplegia Paranoid schizophrenia PLAN OF CARE FRANCK vent support, trach care, pulmonary toilet baseline ABG stable on current settings, keep as is and titrate as needed CXR initial and f/up no evidence of pneumonia abx as per ID -unclear source of infection SCX + GNR fup with CXR today leukocytosis resolved, lactic acidosis resolved initial bacteremia likely contaminant; repeated BCX 04/21 and 04/24 NGTD Venous Duplex BLE NGT , place SCD COVID rapid and by PCR NGT another sample pending, given intermittent fevers as per ID , cont with isolation for now IVF GABRIELLE resolved , likely due to dehydration hypernatremia resolved this am replace K with K phosphate and change IVF with 20 KCL f/up with further nephro recs LFT trending down hep panel pending, HIV nonreactive abd US noted seizure precautions, continue Keppra and Dilantin monitor H&H with goal to keep hemoglobin above 7 ; prior history of GI bleeding , hold Heparin SQ and use SCD for mechanical prophylaxis given NGT Venous Duplex GI prophylaxis BS management with SSI, stable supportive care case discussed and evaluated by supervising physician Liberty Mills NP Apr 27, 2020 07:56
[2020-04-27 08:00] VITALS: BP 108/50
[2020-04-27] MEDS ORDERED: Ipratropium 0.02% Inh Soln 2.5ml UD HHN PRN (08:00)
[2020-04-27] MEDS: Miralax 17gm pkt GT SCH (08:58)
[2020-04-27] MEDS: Sennosides 8.6mg tab GT SCH (08:59)
[2020-04-27] MEDS ORDERED: Potassium Phosphate 20 MM in NS 275 ML IV ONE (09:00)
[2020-04-27] MEDS ORDERED: D5W w/KCl 20mEq 1,000 ML IV SCH (09:00)
--- NOTE | 2020-04-27 09:02 | Diagnostic Imaging Report ---
EXAM: US Duplex Bilateral Lower Extremities Veins CLINICAL HISTORY: DYSPNEA TECHNIQUE: Real-time duplex ultrasound scan of the bilateral lower extremity veins integrating B-mode two-dimensional vascular structure, Doppler spectral analysis, color flow Doppler imaging and compression. COMPARISON: No relevant prior studies available. FINDINGS: Right deep veins: Unremarkable. No DVT in the right common femoral, femoral, proximal deep femoral or popliteal veins. The veins demonstrate normal color flow, are normally compressible, with normal phasic flow and/or augmentation response. Right superficial veins: Unremarkable. No thrombus in the visualized right great saphenous vein. Left deep veins: Unremarkable. No DVT in the left common femoral, femoral, proximal deep femoral or popliteal veins. The veins demonstrate normal color flow, are normally compressible, with normal phasic flow and/or augmentation response. Left superficial veins: Unremarkable. No thrombus in the visualized left great saphenous vein. Soft tissues: No acute findings. No popliteal cyst. IMPRESSION: No evidence of DVT in the lower extremities.
--- NOTE | 2020-04-27 09:07 | Surgery Progress Note ---
Surgery Progress Note Subjective Additional Comments no acute events labs noted micro reviewed imaging reviewed Objective Last 24 Hour Vital Signs Date Time Temp Pulse Resp B/P (MAP) Pulse Ox O2 Delivery O2 Flow Rate FiO2 04/27/20 08:00 99.5 93 18 108/50 (69) 100 04/27/20 08:00 40 04/27/20 08:00 Mechanical Ventilator Mechanical Ventilator 04/27/20 07:47 85 04/27/20 07:19 93 23 40 04/27/20 04:00 98.6 88 18 102/59 (73) 100 04/27/20 04:00 40 04/27/20 04:00 Mechanical Ventilator Mechanical Ventilator 04/27/20 03:57 91 23 40 04/27/20 03:49 86 04/27/20 00:00 98.4 104 16 104/54 (71) 100 04/27/20 00:00 Mechanical Ventilator Mechanical Ventilator 04/26/20 23:59 109 04/26/20 23:49 111 24 40 04/26/20 20:00 Mechanical Ventilator Mechanical Ventilator 04/26/20 20:00 40 04/26/20 20:00 98.2 94 18 108/64 (79) 100 04/26/20 19:48 95 04/26/20 19:37 95 21 40 04/26/20 16:00 100 04/26/20 16:00 98.2 95 22 118/58 (78) 100 04/26/20 16:00 Mechanical Ventilator Mechanical Ventilator 04/26/20 16:00 40 04/26/20 15:19 96 20 40 04/26/20 13:24 99.0 04/26/20 12:29 86 04/26/20 12:00 99.0 90 22 137/61 (86) 100 04/26/20 12:00 40 04/26/20 12:00 Mechanical Ventilator Mechanical Ventilator 04/26/20 11:01 94 21 40 I&O Intake and Output 04/26/20 04/27/20 19:00 07:00 Intake Total 645 ml 1427.50 ml Output Total 700 ml 1000 ml Balance -55 ml 427.50 ml Intake Free Water 320 ml 150 ml IV Total 85 ml 947.50 ml Tube Feeding 240 ml 330 ml Output Urine Total 700 ml Other 1000 ml # Bowel Movements 2 3 Dressing: other Wound: other Drains: other Cardiovascular: RSR Respiratory: decreased breath sounds Abdomen: soft, non-tender, present bowel sounds Extremities: no cyanosis Laboratory Tests Test 04/26/20 11:42 04/26/20 16:44 04/27/20 05:00 04/27/20 06:07 POC Whole Blood Glucose 124 MG/DL (74-106) H Pending 111 MG/DL (74-106) H White Blood Count 6.0 K/UL (4.8-10.8) Red Blood Count 2.39 M/UL (4.20-5.40) L Hemoglobin 7.6 G/DL (12.0-16.0) L Hematocrit 23.9 % (37.0-47.0) L Mean Corpuscular Volume 100 FL (80-99) H Mean Corpuscular Hemoglobin 31.7 PG (27.0-31.0) H Mean Corpuscular Hemoglobin Concent 31.7 G/DL (32.0-36.0) L Red Cell Distribution Width 14.1 % (11.6-14.8) Platelet Count 59 K/UL (150-450) L Mean Platelet Volume 10.0 FL (6.5-10.1) Neutrophils (%) (Auto) % (45.0-75.0) Lymphocytes (%) (Auto) % (20.0-45.0) Monocytes (%) (Auto) % (1.0-10.0) Eosinophils (%) (Auto) % (0.0-3.0) Basophils (%) (Auto) % (0.0-2.0) Neutrophils % (Manual) Pending Lymphocytes % (Manual) Pending Platelet Estimate Pending Platelet Morphology Pending Erythrocyte Sedimentation Rate 122 MM/HR (0-30) H Sodium Level 141 MMOL/L (136-145) Potassium Level 2.8 MMOL/L (3.5-5.1) L Chloride Level 108 MMOL/L (98-107) H Carbon Dioxide Level 25 MMOL/L (21-32) Anion Gap 8 mmol/L (5-15) Blood Urea Nitrogen 22 mg/dL (7-18) H Creatinine 0.7 MG/DL (0.55-1.30) Estimat Glomerular Filtration Rate > 60 mL/min (>60) Glucose Level 328 MG/DL (74-106) #H Calcium Level 7.1 MG/DL (8.5-10.1) L Phosphorus Level 3.0 MG/DL (2.5-4.9) Magnesium Level 1.9 MG/DL (1.8-2.4) Total Bilirubin 0.2 MG/DL (0.2-1.0) Aspartate Amino Transf (AST/SGOT) 35 U/L (15-37) Alanine Aminotransferase (ALT/SGPT) 39 U/L (12-78) Alkaline Phosphatase 115 U/L (46-116) C-Reactive Protein, Quantitative 9.4 mg/dL (0.00-0.90) H Total Protein 7.1 G/DL (6.4-8.2) Albumin 1.7 G/DL (3.4-5.0) L Globulin 5.4 g/dL Albumin/Globulin Ratio 0.3 (1.0-2.7) L Hepatitis A IgM Antibody Pending Hepatitis B Surface Antigen Pending Hepatitis B Core IgM Antibody Pending Hepatitis C Antibody Pending HIV (1&2) Antibody Rapid Negative (NEGATIVE) Plan Problems: (1) Feeding by G-tube Assessment & Plan: DAILY ESTIMATED NEEDS: Needs based on Critical care, DM, sepsis 66.7kg abw 22-30 kcals/kg 0279-1905 total kcals 1.25-2 g protein/kg 83-133 g total protein 25-30 mL/kg 5616-7362 total fluid mLs NUTRITION DIAGNOSIS: Swallowing difficulty r/t resp status as evidenced by pt is trach and PEG dep. CURRENT TF: Glucerna 1.5 @60ml/hr x20 hrs ENTERAL NUTRITION RECOMMENDATIONS: Glucerna 1.2 @75ml/hr x20 hrs (on Dilantin BID) to provide 1500ml, 1800 kcal, 90g pro, 1208ml free h2o Glucerna 1.5 OOS-> Rec Glucerna 1.2 for carb control + increased free H2O - Start @low rate, 15ml/hr for 6 hrs. Advance as tolerated 10ml/hr q4-6 hrs to goal. - Flush per MD/ HOB over 30 degrees. ---- ADDITIONAL RECOMMENDATIONS: 1) Obtain an accurate Height as able: 5'7" per EMR vs 6'1" per SNF. April 01, 2020 wt per SNF: 182 lbs/82.73kg 2) F/up w/ WC eval 3) Increase water flushes as Na is trending up 4) Replete lytes-> Mg, Phos, and K all low (2) Sepsis Assessment & Plan: Patient with leukocytosis, anemia, lactic acidosis. COVID rapid exam negative Urine noted On antibiotics Care plan as below We will follow with recommendations Nutritional optimization Thank you for let me participate in patient's care (3) Sacral decubitus ulcer Assessment & Plan: Pt presented on admission with Tracheostomy, Gastrostomy, Bilat nephrostomies, Pressure injury.Skin assessed under tracheal collar and no evidence of skin breakdown noted. L nephrostomy migrating -suture noted to be loose. No peristomal erythema or skin erosion noted. R nephrostomy is intact without evidence of peristomal skin erosion noted.Scaly dark brown plaques noted to back and both upper thighs Full thickness Pressure Injury sacrococcygeal area(L)3.6cm x (W)1.3cm x (D)1.9cm ,Undermining clockwise at 6o'clock by 0.3cm,12-1 by 0.2cm.@1o'clock. Base of wound is pale pink and moist. Bone is palpable at the base of wound. Epibole along edges along with maceration to borders and periwound.Small amt serous exudate noted. No odor noted. Hyperpigmentation with historical scar noted to sacrum, R and L gluteal cheeks. R and L heels are both boggy with non-Blanching erythema. Bilat foot drop noted. Tx.Plan: Cleanse Sacral wound with Saline. Apply Therahoney. Apply Moisture Barrier paste periwound. Cover with Optifoam drsg Daily and prn Apply Cavilon Skin Barrier to malleoli and each heel. Cover each site with Optifoam drsg.Change every 7 days and PRN. Reposition at least every 2hours or as tolerated. Off-load heels with pillow. APM/ADELIA Mattress overlay. Delon Murray Apr 27, 2020 09:06
[2020-04-27] MEDS: Pantoprazole Inj IVP SCH ×2 (09:22→20:17)
[2020-04-27] MEDS: Zinc Sulfate 220mg GT SCH (09:23)
[2020-04-27] MEDS: levETIRAcetam 500mg/5ml Liquid GT SCH ×2 (09:23→20:18)
[2020-04-27] MEDS: Phenytoin Susp 100mg/4ml GT SCH ×2 (09:23→20:18)
[2020-04-27] MEDS: D5W w/KCl 20mEq 1,000 ML IV SCH (09:30)
--- NOTE | 2020-04-27 09:36 | NUR ---
NURSE NOTES: Requested for pharmacy to reschedule potassium phosphate 20mm d/t patient already receiving KCl 20 meq IV q 2 hrs x 3 bags and D5W with 20 meq KCl @ 50 cc/hr.
--- NOTE | 2020-04-27 10:24 | Diagnostic Imaging Report ---
EXAM: XR Chest, 1 View CLINICAL HISTORY: COUGH TECHNIQUE: Frontal view of the chest. COMPARISON: April 25, 2020. FINDINGS: Lungs: Low lung volumes. No focal consolidative process. Pleural space: Unremarkable. No pneumothorax. Heart: Unremarkable. No cardiomegaly. Mediastinum: Unremarkable. Bones/joints: Degenerative changes in thoracic spine. Vasculature: Mild central vascular congestion. Tubes, lines and devices: . Stable tracheostomy tube. IMPRESSION: Mild central vascular congestion.
--- NOTE | 2020-04-27 11:22 | NUR ---
CASE MANAGEMENT: REVIEW 04/27/2020 SI:SEPSIS. VS: T 99.5 HR 93 RR 18 B/P 108/50 SATS 100% ON MECH VENT FIO2 40 LABS: HGB 7.6 HCT 23.9 PLT 59 K 2.8 CL 108 BUN 22 GLU 328 CA 7.1 IS:DEXTROSE IV @ 85 ML/HR PLAVIX GT QD CEFEPIME IV Q12H KEPPRA GT Q12H DILANTIN GT Q12H VANCO IV Q12H INSULIN ASPART SUBQ Q6H SDU PLAN OF CARE: PICC LINE PLACEMENT SPUTUM AND BLOOD CX 04/26 COVID SWAB PENDING
[2020-04-27 12:00] VITALS: BP 102/55
--- NOTE | 2020-04-27 13:34 | Internal Med Progress Note ---
Subjective Date of Service: Apr 27, 2020 Physician Name Kalin Eubanks Attending Physician Jeyson Yanez MD Current Medications Medications (Trade) Dose Ordered Sig/Emanuel Route PRN Reason Start Time Stop Time Status Last Admin Dose Admin Acetaminophen (Tylenol) 500 mg Q4H PRN GT Pain Scale (3-5) 04/23/20 08:45 05/23/20 01:59 Acetaminophen (Tylenol) 650 mg THREE TIMES A DAY PRN GT FHMP 04/23/20 02:00 05/23/20 01:59 04/26/20 12:54 Artificial Tears (Akwa-Tears) 1 drop BID BOTH EYES 04/23/20 09:00 05/23/20 08:59 04/27/20 09:24 Bisacodyl (Dulcolax) 10 mg DAILY PRN RECTAL Constipation 04/23/20 02:00 07/22/20 01:59 Cefepime HCl 2 gm/ Dextrose 55 ml @ 110 mls/hr Q12H IVPB 04/23/20 08:00 04/30/20 07:59 04/27/20 07:44 Chlorhexidine Gluconate (Mimi-Hex 2%) 1 applic DAILY@2000 TOPIC 04/26/20 20:00 07/25/20 19:59 04/26/20 20:33 Dextrose (Dextrose 50%) 25 ml Q30M PRN IV Hypoglycemia 04/23/20 08:15 07/22/20 08:14 Dextrose (Dextrose 50%) 50 ml Q30M PRN IV Hypoglycemia 04/23/20 08:15 07/22/20 08:14 Dextrose/ Electrolytes 1,000 ml @ 50 mls/hr Q20H IV 04/27/20 10:00 05/27/20 09:59 04/27/20 09:30 Docusate Sodium (Colace) 250 mg DAILYPRN PRN GT CONSTIPATION 04/23/20 12:50 05/23/20 12:49 Insulin Aspart (NovoLOG) Q6HR SUBQ 04/25/20 12:00 07/24/20 11:59 04/26/20 23:41 Ipratropium [place] (Atrovent) 500 mcg Q6H PRN HHN Shortness of Breath 04/27/20 08:00 05/02/20 07:59 Levetiracetam (Keppra) 1,000 mg Q12HR GT 04/23/20 21:00 05/23/20 08:59 04/27/20 09:23 Metoclopramide HCl (Reglan) 5 mg Q6HR GT 04/23/20 13:53 05/23/20 13:52 04/27/20 11:59 Pantoprazole (Protonix) 40 mg Q12HR IVP 04/23/20 21:00 05/23/20 08:59 04/27/20 09:22 Phenytoin (Dilantin) 150 mg Q12HR GT 04/24/20 21:00 05/23/20 08:29 04/27/20 09:23 Polyethylene Glycol (Miralax) 17 gm DAILY GT 04/23/20 09:00 05/23/20 08:59 04/24/20 09:30 Potassium Phosphate 20 mm/ Sodium Chloride 281.6667 ml @ 46.94 mls/hr ONCE IV 04/27/20 16:00 04/27/20 20:00 Potassium Chloride 100 ml @ 100 mls/hr Q2HR IVPB 04/27/20 12:00 04/27/20 14:59 04/27/20 12:00 Sennosides (Senokot) 8.6 mg DAILY GT 04/23/20 09:00 05/23/20 08:59 04/26/20 08:31 Sodium Phosphate (Fleet's Sodium Phosl Enema) 133 ml DAILY PRN RECTAL CONSTIPATION 04/23/20 02:00 05/23/20 01:59 Sorbitol (sorbitoL) 30 ml DAILYPRN PRN GT constipation 04/23/20 08:15 05/23/20 08:14 Vancomycin HCl (Vanco pharmacy to dose) 1 ea DAILY PRN MISC Per rx protocol 04/23/20 03:00 05/23/20 02:59 Vancomycin HCl 1 gm/Sodium Chloride 275 ml @ 183.708 mls/hr Q12HR@0600,1800 IVPB 04/24/20 18:00 04/29/20 17:59 04/27/20 06:11 Zinc Sulfate (Zinc Sulfate) 220 mg DAILY GT 04/23/20 09:00 07/22/20 08:59 04/27/20 09:23 Allergies: Coded Allergies: No Known Allergies (Unverified , 02/08/13) ROS Limited/Unobtainable: Yes Subjective 59 YO F admitted with fever, now Sepsis and pneumonia. Cover for Int Benny-Dr Yanez. Step down unit Objective Last Vital Signs Date Time Temp Pulse Resp B/P (MAP) Pulse Ox O2 Delivery O2 Flow Rate FiO2 04/27/20 12:00 Mechanical Ventilator Mechanical Ventilator 04/27/20 12:00 40 04/27/20 12:00 99.1 90 18 102/55 (71) 100 04/23/20 01:24 15.0 Laboratory Tests Test 04/26/20 16:44 04/27/20 05:00 04/27/20 06:07 POC Whole Blood Glucose Pending 111 MG/DL (74-106) H White Blood Count 6.0 K/UL (4.8-10.8) Red Blood Count 2.39 M/UL (4.20-5.40) L Hemoglobin 7.6 G/DL (12.0-16.0) L Hematocrit 23.9 % (37.0-47.0) L Mean Corpuscular Volume 100 FL (80-99) H Mean Corpuscular Hemoglobin 31.7 PG (27.0-31.0) H Mean Corpuscular Hemoglobin Concent 31.7 G/DL (32.0-36.0) L Red Cell Distribution Width 14.1 % (11.6-14.8) Platelet Count 59 K/UL (150-450) L Mean Platelet Volume 10.0 FL (6.5-10.1) Neutrophils (%) (Auto) % (45.0-75.0) Lymphocytes (%) (Auto) % (20.0-45.0) Monocytes (%) (Auto) % (1.0-10.0) Eosinophils (%) (Auto) % (0.0-3.0) Basophils (%) (Auto) % (0.0-2.0) Differential Total Cells Counted 100 Neutrophils % (Manual) 72 % (45-75) Lymphocytes % (Manual) 19 % (20-45) L Monocytes % (Manual) 6 % (1-10) Eosinophils % (Manual) 3 % (0-3) Basophils % (Manual) 0 % (0-2) Band Neutrophils 0 % (0-8) Platelet Estimate Decreased L Platelet Morphology Normal Hypochromasia 1+ Anisocytosis 1+ Macrocytosis 1+ Erythrocyte Sedimentation Rate 122 MM/HR (0-30) H Sodium Level 141 MMOL/L (136-145) Potassium Level 2.8 MMOL/L (3.5-5.1) L Chloride Level 108 MMOL/L (98-107) H Carbon Dioxide Level 25 MMOL/L (21-32) Anion Gap 8 mmol/L (5-15) Blood Urea Nitrogen 22 mg/dL (7-18) H Creatinine 0.7 MG/DL (0.55-1.30) Estimat Glomerular Filtration Rate > 60 mL/min (>60) Glucose Level 328 MG/DL (74-106) #H Calcium Level 7.1 MG/DL (8.5-10.1) L Phosphorus Level 3.0 MG/DL (2.5-4.9) Magnesium Level 1.9 MG/DL (1.8-2.4) Total Bilirubin 0.2 MG/DL (0.2-1.0) Aspartate Amino Transf (AST/SGOT) 35 U/L (15-37) Alanine Aminotransferase (ALT/SGPT) 39 U/L (12-78) Alkaline Phosphatase 115 U/L (46-116) C-Reactive Protein, Quantitative 9.4 mg/dL (0.00-0.90) H Total Protein 7.1 G/DL (6.4-8.2) Albumin 1.7 G/DL (3.4-5.0) L Globulin 5.4 g/dL Albumin/Globulin Ratio 0.3 (1.0-2.7) L Hepatitis A IgM Antibody Pending Hepatitis B Surface Antigen Pending Hepatitis B Core IgM Antibody Pending Hepatitis C Antibody Pending HIV (1&2) Antibody Rapid Negative (NEGATIVE) Microbiology Date/Time Source Procedure Growth Status 04/24/20 17:50 Blood Blood Culture - Preliminary NO GROWTH AFTER 24 HOURS Resulted 04/24/20 17:40 Blood Blood Culture - Preliminary NO GROWTH AFTER 24 HOURS Resulted 04/26/20 04:00 Sputum Gram Stain - Final Resulted 04/26/20 04:00 Sputum Culture - Preliminary Gram Negative Benjamin Resulted Intake and Output 04/26/20 04/27/20 19:00 07:00 Intake Total 645 ml 1692.528 ml Output Total 700 ml 1000 ml Balance -55 ml 692.528 ml Intake Free Water 320 ml 150 ml IV Total 85 ml 1182.528 ml Tube Feeding 240 ml 360 ml Output Urine Total 700 ml Other 1000 ml # Bowel Movements 2 3 Objective PHYSICAL EXAMINATION: GENERAL: Patient is a thin-appearing female, who is intubated and sedated. HEENT: Eyes, pupils are equal and responsive to light and accommodation. Extraocular movements are intact. NECK: Supple without lymphadenopathy. Tracheostomy is in place. CHEST: Coarse breath sounds bilateral bases otherwise without wheezes or rales. CARDIOVASCULAR: Tachycardic, regular rhythm. S1, S2 normal without murmurs, rubs, or gallops. ABDOMEN: Soft, nontender, nondistended. Positive bowel sounds. No evidence of hepatosplenomegaly. Currently, no rebound or guarding noted. EXTREMITIES: Negative for clubbing, cyanosis, or edema. RECTAL/GENITAL: Not performed. NEUROLOGIC: Cranial nerves II through XII are grossly intact without focal deficits. Assessment/Plan Assessment/Plan ASSESSMENT: This is a 59-year-old female. 1. pneumonia=gram neg benjamin 2. sepsis=coag neg staph 3. Chronic respiratory failure. 4. Chronic obstructive pulmonary disease. 5. Quadriplegia. 6. History of dysphagia. 7. Diabetes type 2. 8. Seizure disorder. 9. History of gastrointestinal hemorrhage. 10. Erosive gastritis. 11. Schizophrenia. 12. Gastroesophageal reflux disease. 13. Neurogenic bladder. 14. Stage IV sacral decubitus ulcer. 15. History of deep venous thrombosis. TREATMENT: 1. Fever/sepsis. A Pulmonary Critical Care consultation has been obtained with Dr. Luis Garcia. Urine, blood, and sputum cultures are pending. Patient has been started empirically on vancomycin and cefepime. We will follow recommendations of Pulmonary. Infectious disease=Dr Peoples 2. Chronic vent dependence/chronic respiratory failure. As above, a Pulmonary consultation has been obtained with Dr. Luis Garcia. We will follow recommendations of Pulmonary. 3. Seizure disorder. Continue Keppra and Dilantin as above. 4. Diabetes type 2. NovoLog sliding scale has been instituted. 5. Chronic obstructive pulmonary disease. As above, a Pulmonary consultation has been obtained with Dr. Luis Garcia. We will follow recommendations of Pulmonary. 6. History of gastrointestinal hemorrhage/erosive gastritis. Patient has been placed on Protonix. 7. Schizophrenia, not otherwise specified. 8. Gastroesophageal reflux disease. 9. Neurogenic bladder. 10. Stage IV sacral decubitus ulcer. 11. History of deep venous thrombosis. Kalin Eubanks MD Apr 27, 2020 13:34
--- NOTE | 2020-04-27 14:19 | Nephrology Progress Note ---
Assessment/Plan Problem List: (1) Electrolyte imbalance Assessment: Hypernatremia (2) Dehydration (3) Diabetes mellitus (4) Spastic quadriplegic cerebral palsy (5) Chronic respiratory failure (6) Sepsis Assessment: UTI (7) Sacral decubitus ulcer Assessment Dehydration, prerenal azotemia, free water deficit, hypernatremia Sepsis, UTI Chronic respiratory failure, status post tracheostomy Sacral decubitus ulcer Chronic seizure disorder PEG Diabetes mellitus Spastic quadriplegic cerebral palsy Plan April 27: IV potassium chloride ordered. IV fluid adjusted. Increase D5W to 75 cc an hour. Potassium supplement IV . Continue to monitor renal parameters and electrolytes Monitor Dilantin level, adjust the dose corrected for low albumin Monitor electrolytes and renal parameters Increase Protonix to every 12 hours Keep the blood sugar in check Per orders Patient is full code Subjective ROS Limited/Unobtainable: Yes Objective Objective Last 24 Hour Vital Signs Date Time Temp Pulse Resp B/P (MAP) Pulse Ox O2 Delivery O2 Flow Rate FiO2 04/27/20 12:00 Mechanical Ventilator Mechanical Ventilator 04/27/20 12:00 40 04/27/20 12:00 99.1 90 18 102/55 (71) 100 04/27/20 11:48 84 04/27/20 11:22 84 18 40 04/27/20 08:00 99.5 93 18 108/50 (69) 100 04/27/20 08:00 40 04/27/20 08:00 Mechanical Ventilator Mechanical Ventilator 04/27/20 07:47 85 04/27/20 07:19 93 23 40 04/27/20 04:00 98.6 88 18 102/59 (73) 100 04/27/20 04:00 40 04/27/20 04:00 Mechanical Ventilator Mechanical Ventilator 04/27/20 03:57 91 23 40 04/27/20 03:49 86 04/27/20 00:00 98.4 104 16 104/54 (71) 100 04/27/20 00:00 Mechanical Ventilator Mechanical Ventilator 04/26/20 23:59 109 04/26/20 23:49 111 24 40 04/26/20 20:00 Mechanical Ventilator Mechanical Ventilator 04/26/20 20:00 40 04/26/20 20:00 98.2 94 18 108/64 (79) 100 04/26/20 19:48 95 04/26/20 19:37 95 21 40 04/26/20 16:00 100 04/26/20 16:00 98.2 95 22 118/58 (78) 100 04/26/20 16:00 Mechanical Ventilator Mechanical Ventilator 04/26/20 16:00 40 04/26/20 15:19 96 20 40 Intake and Output 04/26/20 04/27/20 19:00 07:00 Intake Total 645 ml 1692.528 ml Output Total 700 ml 1000 ml Balance -55 ml 692.528 ml Intake Free Water 320 ml 150 ml IV Total 85 ml 1182.528 ml Tube Feeding 240 ml 360 ml Output Urine Total 700 ml Other 1000 ml # Bowel Movements 2 3 Laboratory Tests 04/26/20 16:44: POC Whole Blood Glucose [Pending] 04/27/20 05:00: White Blood Count 6.0, Red Blood Count 2.39L, Hemoglobin 7.6L, Hematocrit 23.9L , Mean Corpuscular Volume 100H, Mean Corpuscular Hemoglobin 31.7H, Mean Corpuscular Hemoglobin Concent 31.7L, Red Cell Distribution Width 14.1, Platelet Count 59L, Mean Platelet Volume 10.0, Neutrophils (%) (Auto) , Lymphocytes (%) (Auto) , Monocytes (%) (Auto) , Eosinophils (%) (Auto) , Basophils (%) (Auto) , Differential Total Cells Counted 100, Neutrophils % ( Manual) 72, Lymphocytes % (Manual) 19L, Monocytes % (Manual) 6, Eosinophils % ( Manual) 3, Basophils % (Manual) 0, Band Neutrophils 0, Platelet Estimate DecreasedL, Platelet Morphology Normal, Hypochromasia 1+, Anisocytosis 1+, Macrocytosis 1+, Erythrocyte Sedimentation Rate 122H, Sodium Level 141, Potassium Level 2.8L, Chloride Level 108H, Carbon Dioxide Level 25, Anion Gap 8 , Blood Urea Nitrogen 22H, Creatinine 0.7, Estimat Glomerular Filtration Rate > 60, Glucose Level 328#H, Calcium Level 7.1L, Phosphorus Level 3.0, Magnesium Level 1.9, Total Bilirubin 0.2, Aspartate Amino Transf (AST/SGOT) 35, Alanine Aminotransferase (ALT/SGPT) 39, Alkaline Phosphatase 115, C-Reactive Protein, Quantitative 9.4H, Total Protein 7.1, Albumin 1.7L, Globulin 5.4, Albumin/ Globulin Ratio 0.3L, Hepatitis A IgM Antibody [Pending], Hepatitis B Surface Antigen [Pending], Hepatitis B Core IgM Antibody [Pending], Hepatitis C Antibody [Pending], HIV (1&2) Antibody Rapid Negative 04/27/20 06:07: POC Whole Blood Glucose 111H Height (Feet): 5 Height (Inches): 7.00 Weight (Pounds): 198 General Appearance: no apparent distress EENT: other - Trach and vent Cardiovascular: tachycardia Respiratory/Chest: decreased breath sounds Abdomen: distended Caleb Reese MD Apr 27, 2020 14:19
[2020-04-27 16:00] VITALS: BP 95/50
[2020-04-27] MEDS ORDERED: Potassium Phosphate 20 MM in NS 275 ML IV SCH (16:00)
[2020-04-27] MEDS ORDERED: Tubing IV Secondary IV ONE ×2 (16:13→17:15)
[2020-04-27] MEDS ORDERED: NS 275ml ONE ×2 (16:13→17:15)
--- NOTE | 2020-04-27 19:04 | NUR ---
HAND-OFF: Report given to Markus Lopez RN.
--- NOTE | 2020-04-27 19:10 | NUR ---
NURSE NOTES: Received patient and report from LUCERO Santos. Patient is observed resting in bed and remains obtunded. No pain noted upon assessment. Pt is currently trach to vent; vent settings as follows: AC 18 TV 450 FiO2 40 PEEP 5 with an O2 saturation of 100% noted. Pt appears to be tolerating settings well with no s/sx of acute distress noted. Bilateral lower lobe breath sounds noted to be diminished upon auscultation. Pt noted to be SR on tele monitor with a current HR of 100 and no s/sx of acute distress noted. Ding catheter noted which remains intact, patent and draining urine to gravity. Bilateral nephrostomy tubes noted which remain intact and patent. Left upper arm PICC line noted which remains asymptomatic, intact and patent with D5W+20KCL infusing at 50mL/hr. Central line dressing remains clean, dry and intact. GT remains intact and patent with 5mL residual noted. GT Feeding running as prescribed. Bowel sounds noted in all four quadrants, abdomen remains large, round, firm, distended and non-tender upon assessment. Diagnostics reviewed at bedside. Skin alterations noted. Pt repositioned for comfort and safety. Fall, Aspiration, Seizure and Skin precautions observed. Pt remains resting in bed; Bed remains in the lowest position with the safety wheels engaged, call light within reach, side rails up x3 and bed alarm activated. Will continue plan of care. Will continue to monitor.
[2020-04-27 20:00] VITALS: BP 130/58
[2020-04-27] MEDS: Dyna-Hex 2% Top Sol 2oz TOPIC SCH (20:17)
--- NOTE | 2020-04-27 22:00 | NUR ---
NURSE NOTES: Pt provided with a bed bath, oral care, linen change and suctioning for excess secretions. Wound care performed per orders. ROM exercises provided per patient tolerance. Pt tolerated care well. Bedside assessment performed. Pt was assessed for pain using FLACC scale with a score of 0 noted. VS obtained and remain stable at this time. Pt repositioned for comfort and safety. Fall, Aspiration, Seizure and Skin precautions observed. Pt remains resting in bed; Bed remains in the lowest position with the safety wheels engaged, call light within reach, side rails up x3 and bed alarm activated. Will continue plan of care. Will continue to monitor.
[2020-04-28] VITALS: BP 125/62
--- NOTE | 2020-04-28 02:00 | NUR ---
NURSE NOTES: Bedside assessment performed. Pt was assessed for pain using FLACC scale with a score of 0 noted. Pt provided with oral care and ROM exercises provided per patient tolerance. Pt tolerated care well. VS obtained and remain stable. Pt repositioned for comfort and safety. Fall, Aspiration, Seizure and Skin precautions observed. Pt remains resting in bed; Bed remains in the lowest position with the safety wheels engaged, call light within reach, side rails up x3 and bed alarm activated. Will continue plan of care. Will continue to monitor.
[2020-04-28 04:00] VITALS: BP 122/56
[2020-04-28] MEDS: Vancomycin 1 GM in NS 275 ML IVPB SCH (05:54)
[2020-04-28] MEDS: D5W w/KCl 20mEq 1,000 ML IV SCH (05:54)
[2020-04-28] MEDS: NovoLOG Insulin Flexpen SUBQ SCH ×3 (05:57→17:44)
[2020-04-28 06:44] LABS: HEMATOCRIT 23.8 % (37.0-47.0); HEMOGLOBIN 7.5 G/DL (12.0-16.0); MEAN CORPUSCULAR VOLUME 100 FL (80-99); PLATELET COUNT 98 K/UL (150-450); RED BLOOD COUNT 2.38 M/UL (4.20-5.40); RED CELL DISTRIBUTION WIDTH 13.9 % (11.6-14.8); WHITE BLOOD COUNT 5.6 K/UL (4.8-10.8)
--- NOTE | 2020-04-28 07:10 | NUR ---
NURSE NOTES: Received report from Markus Lopez RN. Patient asleep in bed, obtunded, unable to follow commands and make needs known. SR 81 on classroom monitor. Trach to vent with settings of AC 18, TV 450, FiO2 40%, PEEP 5, respirations even and unlabored. GT clamped until 11:00, no residuals noted, HoB elevated. Bilateral nephrostomy tubes and schroeder catheter patent and draining to gravity. Left upper arm PICC infusing D5W with 20 meq KCl @ 50 cc/hr and vancomycin 1g @ 183.708 cc/hr, asymptomatic. Bed locked in lowest position with padded side rails up x 3. All needs attended to. Will continue to monitor.
--- NOTE | 2020-04-28 07:17 | NUR ---
HAND-OFF: Report given to LUCERO Santos. Endorsed plan of care.
[2020-04-28 07:22] LABS: ANION GAP 7 mmol/L (5-15); BLOOD UREA NITROGEN 12 mg/dL (7-18); CALCIUM 7.5 MG/DL (8.5-10.1); CARBON DIOXIDE 25 MMOL/L (21-32); CHLORIDE 114 MMOL/L (98-107); CREATININE 0.6 MG/DL (0.55-1.30); PHOSPHORUS 3.7 MG/DL (2.5-4.9); POTASSIUM 3.7 MMOL/L (3.5-5.1); SODIUM 146 MMOL/L (136-145)
[2020-04-28 08:00] VITALS: BP 114/59
[2020-04-28] MEDS: Phenytoin Susp 100mg/4ml GT SCH ×2 (08:34→20:38)
[2020-04-28] MEDS: Cefepime 2gm in D5W 55ml IVPB SCH (08:34)
[2020-04-28] MEDS: levETIRAcetam 500mg/5ml Liquid GT SCH ×2 (08:35→20:37)
[2020-04-28] MEDS: Pantoprazole Inj IVP SCH ×2 (08:35→20:38)
[2020-04-28] MEDS: Zinc Sulfate 220mg GT SCH (08:36)
--- NOTE | 2020-04-28 08:40 | Pulmonology Progress Note ---
Subjective ROS Limited/Unobtainable: Yes Allergies: Coded Allergies: No Known Allergies (Unverified , 02/08/13) Subjective no signs of resp distress on current settings no fevers , no leukocytosis Hgb down to 7.5 K- stable after replacement Objective Last 24 Hour Vital Signs Date Time Temp Pulse Resp B/P (MAP) Pulse Ox O2 Delivery O2 Flow Rate FiO2 04/28/20 07:11 86 19 40 04/28/20 04:00 40 04/28/20 04:00 Mechanical Ventilator Mechanical Ventilator 04/28/20 04:00 85 04/28/20 04:00 98.6 91 24 122/56 (78) 100 04/28/20 03:01 83 26 40 04/28/20 03:01 83 21 100 Mechanical Ventilator 40 04/28/20 00:00 40 04/28/20 00:00 99.1 92 22 125/62 (83) 100 04/28/20 00:00 Mechanical Ventilator Mechanical Ventilator 04/27/20 23:48 91 04/27/20 22:55 98 28 40 04/27/20 20:00 Mechanical Ventilator Mechanical Ventilator 04/27/20 20:00 40 04/27/20 20:00 98.6 77 18 130/58 (82) 100 04/27/20 19:56 90 27 40 04/27/20 19:29 80 04/27/20 16:00 Mechanical Ventilator Mechanical Ventilator 04/27/20 16:00 99.0 92 18 95/50 (65) 100 04/27/20 16:00 40 04/27/20 15:57 86 20 40 04/27/20 15:31 84 04/27/20 12:00 Mechanical Ventilator Mechanical Ventilator 04/27/20 12:00 40 04/27/20 12:00 99.1 90 18 102/55 (71) 100 04/27/20 11:48 84 04/27/20 11:22 84 18 40 Intake and Output 04/27/20 04/28/20 19:00 07:00 Intake Total 1787.536 ml 1057.397 ml Output Total 862 ml 1300 ml Balance 925.536 ml -242.603 ml Intake Free Water 90 ml IV Total 1327.536 ml 637.397 ml Tube Feeding 240 ml 330 ml Other 220 ml Output Urine Total 0 ml 400 ml Other 862 ml 900 ml # Bowel Movements 2 1 General Appearance: no acute distress, other - bedridden vent dependent femle Vent AC 450-40%-18-PEEP5 HEENT: normocephalic, atraumatic, status post trach - Portex#7, seceretions white color, thin consistency, small amount Respiratory: lungs clear, no respiratory distress Cardiovascular: normal rate, regular rhythm, other - LUE PICC intact Abdomen: soft, non tender, non distended Extremities: other - trace edema BLE Neurologic: abnormal gait - bedridden , other - quadriplegic Microbiology Date/Time Source Procedure Growth Status 04/25/20 17:20 Blood Blood Culture - Preliminary NO GROWTH AFTER 48 HOURS Resulted 04/25/20 17:05 Blood Blood Culture - Preliminary NO GROWTH AFTER 48 HOURS Resulted 04/26/20 04:00 Sputum Gram Stain - Final Resulted 04/26/20 04:00 Sputum Culture - Preliminary Acinetobacter Baumannii Complx Resulted Laboratory Tests 04/28/20 05:53: POC Whole Blood Glucose [Pending] 04/28/20 06:00: White Blood Count 5.6, Red Blood Count 2.38L, Hemoglobin 7.5L, Hematocrit 23.8L , Mean Corpuscular Volume 100H, Mean Corpuscular Hemoglobin 31.6H, Mean Corpuscular Hemoglobin Concent 31.7L, Red Cell Distribution Width 13.9, Platelet Count 98#L, Mean Platelet Volume 9.1, Neutrophils (%) (Auto) , Lymphocytes (%) (Auto) , Monocytes (%) (Auto) , Eosinophils (%) (Auto) , Basophils (%) (Auto) , Neutrophils % (Manual) [Pending], Lymphocytes % (Manual) [Pending], Platelet Estimate [Pending], Platelet Morphology [Pending], Sodium Level 146H, Potassium Level 3.7, Chloride Level 114H, Carbon Dioxide Level 25, Anion Gap 7, Blood Urea Nitrogen 12, Creatinine 0.6, Estimat Glomerular Filtration Rate > 60, Glucose Level 228#H, Calcium Level 7.5L, Phosphorus Level 3.7 Current Medications Medications (Trade) Dose Ordered Sig/Emanuel Route PRN Reason Start Time Stop Time Status Last Admin Dose Admin Acetaminophen (Tylenol) 500 mg Q4H PRN GT Pain Scale (3-5) 04/23/20 08:45 05/23/20 01:59 Acetaminophen (Tylenol) 650 mg THREE TIMES A DAY PRN GT FHMP 04/23/20 02:00 05/23/20 01:59 04/26/20 12:54 Artificial Tears (Akwa-Tears) 1 drop BID BOTH EYES 04/23/20 09:00 05/23/20 08:59 04/27/20 17:59 Bisacodyl (Dulcolax) 10 mg DAILY PRN RECTAL Constipation 04/23/20 02:00 07/22/20 01:59 Cefepime HCl 2 gm/ Dextrose 55 ml @ 110 mls/hr Q12H IVPB 04/23/20 08:00 04/30/20 07:59 04/27/20 20:17 Chlorhexidine Gluconate (Mimi-Hex 2%) 1 applic DAILY@2000 TOPIC 04/26/20 20:00 07/25/20 19:59 04/27/20 20:17 Dextrose (Dextrose 50%) 25 ml Q30M PRN IV Hypoglycemia 04/23/20 08:15 07/22/20 08:14 Dextrose (Dextrose 50%) 50 ml Q30M PRN IV Hypoglycemia 04/23/20 08:15 07/22/20 08:14 Dextrose/ Electrolytes 1,000 ml @ 50 mls/hr Q20H IV 04/27/20 10:00 05/27/20 09:59 04/28/20 05:54 Docusate Sodium (Colace) 250 mg DAILYPRN PRN GT CONSTIPATION 04/23/20 12:50 05/23/20 12:49 Insulin Aspart (NovoLOG) Q6HR SUBQ 04/25/20 12:00 07/24/20 11:59 04/28/20 05:57 Ipratropium [place] (Atrovent) 500 mcg Q6H PRN HHN Shortness of Breath 04/27/20 08:00 05/02/20 07:59 Levetiracetam (Keppra) 1,000 mg Q12HR GT 04/23/20 21:00 05/23/20 08:59 04/27/20 20:18 Metoclopramide HCl (Reglan) 5 mg Q6HR GT 04/23/20 13:53 05/23/20 13:52 04/28/20 05:54 Pantoprazole (Protonix) 40 mg Q12HR IVP 04/23/20 21:00 05/23/20 08:59 04/27/20 20:17 Phenytoin (Dilantin) 150 mg Q12HR GT 04/24/20 21:00 05/23/20 08:29 04/27/20 20:18 Polyethylene Glycol (Miralax) 17 gm DAILY GT 04/23/20 09:00 05/23/20 08:59 04/24/20 09:30 Sennosides (Senokot) 8.6 mg DAILY GT 04/23/20 09:00 05/23/20 08:59 04/26/20 08:31 Sodium Phosphate (Fleet's Sodium Phosl Enema) 133 ml DAILY PRN RECTAL CONSTIPATION 04/23/20 02:00 05/23/20 01:59 Sorbitol (sorbitoL) 30 ml DAILYPRN PRN GT constipation 04/23/20 08:15 05/23/20 08:14 Vancomycin HCl (Vanco pharmacy to dose) 1 ea DAILY PRN MISC Per rx protocol 04/23/20 03:00 05/23/20 02:59 Vancomycin HCl 1 gm/Sodium Chloride 275 ml @ 183.708 mls/hr Q12HR@0600,1800 IVPB 04/24/20 18:00 04/29/20 17:59 04/28/20 05:54 Zinc Sulfate (Zinc Sulfate) 220 mg DAILY GT 04/23/20 09:00 07/22/20 08:59 04/27/20 09:23 Assessment/Plan Assessment/Plan ASSESSMENT Severe sepsis Chronic respiratory failure, ventilator dependent , with tracheostomy status COPD Lactic acidosis- resolved Suspected COVID-19 GABRIELLE - resolved Hypernatremia- resolved Dysphagia, feeding by G-tube Sacral decubitus ulcer stage IV-POA Transaminitis- improving Anemia of chronic disease History of GI bleeding History of DVT Seizure disorder Spastic quadriplegia Paranoid schizophrenia PLAN OF CARE FRANCK vent support, trach care, pulmonary toilet baseline ABG stable on current settings, keep as is and titrate as needed CXR initial and f/up no evidence of pneumonia abx as per ID -unclear source of infection SCX + Acinetobacter CXR 04/27 Mild central vascular congestion fup with imaging leukocytosis resolved, lactic acidosis resolved initial bacteremia likely contaminant; repeated BCX 04/21 , 04/24, 04/25 NGTD Venous Duplex BLE NGT , place SCD COVID rapid and by PCR NGT another sample pending given intermittent fevers as per ID , cont with isolation for now IVF GABRIELLE resolved , likely due to dehydration mild hypernatremia this am K stable after replacement f/up with further nephro recs LFT trending down hep panel pending, HIV nonreactive abd US noted seizure precautions, continue Keppra and Dilantin monitor H&H with goal to keep hemoglobin above 7 ; prior history of GI bleeding , hold Heparin SQ and start SCD for mechanical prophylaxis given NGT Venous Duplex GI prophylaxis BS management with SSI, stable supportive care case discussed and evaluated by supervising physician Liberty Mills NP Apr 28, 2020 08:40
[2020-04-28] MEDS: Miralax 17gm pkt GT SCH (08:45)
[2020-04-28] MEDS: Sennosides 8.6mg tab GT SCH (08:45)
--- NOTE | 2020-04-28 09:01 | Nephrology Progress Note ---
Assessment/Plan Problem List: (1) Electrolyte imbalance Assessment: Hypernatremia (2) Dehydration (3) Diabetes mellitus (4) Spastic quadriplegic cerebral palsy (5) Chronic respiratory failure (6) Sepsis Assessment: UTI (7) Sacral decubitus ulcer Assessment Dehydration, prerenal azotemia, free water deficit, hypernatremia Sepsis, UTI Chronic respiratory failure, status post tracheostomy Sacral decubitus ulcer Chronic seizure disorder PEG Diabetes mellitus Spastic quadriplegic cerebral palsy Plan April 28: Stable from renal standpoint of view. Continue per consultants. April 27: IV potassium chloride ordered. IV fluid adjusted. Increase D5W to 75 cc an hour. Potassium supplement IV . Continue to monitor renal parameters and electrolytes Monitor Dilantin level, adjust the dose corrected for low albumin Monitor electrolytes and renal parameters Increase Protonix to every 12 hours Keep the blood sugar in check Per orders Patient is full code Subjective ROS Limited/Unobtainable: Yes Objective Objective Last 24 Hour Vital Signs Date Time Temp Pulse Resp B/P (MAP) Pulse Ox O2 Delivery O2 Flow Rate FiO2 04/28/20 08:00 98.1 80 19 114/59 (77) 100 04/28/20 07:11 86 19 40 04/28/20 04:00 40 04/28/20 04:00 Mechanical Ventilator Mechanical Ventilator 04/28/20 04:00 85 04/28/20 04:00 98.6 91 24 122/56 (78) 100 04/28/20 03:01 83 26 40 04/28/20 03:01 83 21 100 Mechanical Ventilator 40 04/28/20 00:00 40 04/28/20 00:00 99.1 92 22 125/62 (83) 100 04/28/20 00:00 Mechanical Ventilator Mechanical Ventilator 04/27/20 23:48 91 04/27/20 22:55 98 28 40 04/27/20 20:00 Mechanical Ventilator Mechanical Ventilator 04/27/20 20:00 40 04/27/20 20:00 98.6 77 18 130/58 (82) 100 04/27/20 19:56 90 27 40 04/27/20 19:29 80 04/27/20 16:00 Mechanical Ventilator Mechanical Ventilator 04/27/20 16:00 99.0 92 18 95/50 (65) 100 04/27/20 16:00 40 04/27/20 15:57 86 20 40 04/27/20 15:31 84 04/27/20 12:00 Mechanical Ventilator Mechanical Ventilator 04/27/20 12:00 40 04/27/20 12:00 99.1 90 18 102/55 (71) 100 04/27/20 11:48 84 04/27/20 11:22 84 18 40 Intake and Output 04/27/20 04/28/20 19:00 07:00 Intake Total 1787.536 ml 1057.397 ml Output Total 862 ml 1300 ml Balance 925.536 ml -242.603 ml Intake Free Water 90 ml IV Total 1327.536 ml 637.397 ml Tube Feeding 240 ml 330 ml Other 220 ml Output Urine Total 0 ml 400 ml Other 862 ml 900 ml # Bowel Movements 2 1 Laboratory Tests 04/28/20 05:53: POC Whole Blood Glucose [Pending] 04/28/20 06:00: White Blood Count 5.6, Red Blood Count 2.38L, Hemoglobin 7.5L, Hematocrit 23.8L , Mean Corpuscular Volume 100H, Mean Corpuscular Hemoglobin 31.6H, Mean Corpuscular Hemoglobin Concent 31.7L, Red Cell Distribution Width 13.9, Platelet Count 98#L, Mean Platelet Volume 9.1, Neutrophils (%) (Auto) , Lymphocytes (%) (Auto) , Monocytes (%) (Auto) , Eosinophils (%) (Auto) , Basophils (%) (Auto) , Neutrophils % (Manual) [Pending], Lymphocytes % (Manual) [Pending], Platelet Estimate [Pending], Platelet Morphology [Pending], Sodium Level 146H, Potassium Level 3.7, Chloride Level 114H, Carbon Dioxide Level 25, Anion Gap 7, Blood Urea Nitrogen 12, Creatinine 0.6, Estimat Glomerular Filtration Rate > 60, Glucose Level 228#H, Calcium Level 7.5L, Phosphorus Level 3.7 Height (Feet): 5 Height (Inches): 7.00 Weight (Pounds): 198 General Appearance: no apparent distress EENT: other Cardiovascular: tachycardia Respiratory/Chest: decreased breath sounds Abdomen: soft Caleb Reese MD Apr 28, 2020 09:01
[2020-04-28 12:00] VITALS: BP 119/61
[2020-04-28] MEDS: Levofloxacin 750mg tab ORAL SCH (12:18)
--- NOTE | 2020-04-28 12:57 | Infectious Diseases Prog Note ---
Assessment/Plan Assessment: Severe sepsis- ?source- ?early pNA vs tracheitis Cons bacteremia- suspect contaminant -04/22 Bcx 1/ CONS; 04/24, Bcx NTD Hyperthermia (up to 105 upon admission); SP - COVID19 neg x2 (one rapid test, one NAAT)- recurrent fever Leukocytosis, SP -04/27 CXR: Mild central vascular congestion. -04/25 CXR: no acute diseae -04/23 SARS-COV2 PCR neg -04/22 CXR: no acute disease -u/a wbc 20-30, nit neg, leuk +3; ucx 30-40k mixed gram positive organisms -rapid COVID test neg -V. duplex no DVT Lactic acidosis, SP GABRIELLE, SP Elevated LFTs; SP -HIV ab sc neg, Acute hep panel neg -Abd US: GALLSTONE. MILDLY PROMINENT CBD BUT MAY BE NORMAL FOR AGE. BILATERAL URETERAL STENTS. NO HYDRONEPHROSIS. POSSIBLE SMALL BILATERAL RENAL STONES. MIDLINE STRUCTURES INCLUDING PANCREAS, AORTA AND CAVA NOT OPTIMALLY VISUALIZED DUE TO BOWEL GAS. GERD DM2 COPD GIB neurogenic bladder stage IV sacral decubitus ulcer paranoid schizoaffective disorder suicide attempt in 2003 progressing to coma and requiring halfway ventilator support spatic quadriplegia obesity b/l nephrostomy tubes 2018 seizure disorder chronic resp failure s/p trach dependent dysphagia s/p GT NH resident ([facility]) Plan: -Dc empiric IV Vancomycin #6 -Switch empiric Cefepime #6 to PO Levaquin for MDR ABC in sputum based on sensitiities -04/23 SP Ertapenem x1 -f/u cx -Monitor CBC/CMP, temperatures -f/u BCx x2, sp cx -COVID19 neg x2 (1 rapid, 1 NAAT); will repeat NAAT given ongoing fever and no clear source of infection -PEG/trach care -aspiration precautions -wound care per hospital protocol Thank you for consulting [facility]. Will continue to follow along with you. Aylin arreola RN. Subjective Allergies: Coded Allergies: No Known Allergies (Unverified , 02/08/13) afebrile >48hrs repeat Bcx NTD no leukocytosis Objective Last 24 Hour Vital Signs Date Time Temp Pulse Resp B/P (MAP) Pulse Ox O2 Delivery O2 Flow Rate FiO2 04/28/20 11:45 84 6/28/20 11:14 79 18 40 04/28/20 08:00 40 04/28/20 08:00 Mechanical Ventilator Mechanical Ventilator 04/28/20 08:00 98.1 80 19 114/59 (77) 100 04/28/20 07:24 77 04/28/20 07:11 86 19 40 04/28/20 04:00 40 04/28/20 04:00 Mechanical Ventilator Mechanical Ventilator 04/28/20 04:00 85 04/28/20 04:00 98.6 91 24 122/56 (78) 100 04/28/20 03:01 83 26 40 04/28/20 03:01 83 21 100 Mechanical Ventilator 40 04/28/20 00:00 40 04/28/20 00:00 99.1 92 22 125/62 (83) 100 04/28/20 00:00 Mechanical Ventilator Mechanical Ventilator 04/27/20 23:48 91 04/27/20 22:55 98 28 40 04/27/20 20:00 Mechanical Ventilator Mechanical Ventilator 04/27/20 20:00 40 04/27/20 20:00 98.6 77 18 130/58 (82) 100 04/27/20 19:56 90 27 40 04/27/20 19:29 80 04/27/20 16:00 Mechanical Ventilator Mechanical Ventilator 04/27/20 16:00 99.0 92 18 95/50 (65) 100 04/27/20 16:00 40 04/27/20 15:57 86 20 40 04/27/20 15:31 84 Height (Feet): 5 Height (Inches): 7.00 Weight (Pounds): 198 GENERAL: Patient is a thin-appearing female, who is intubated and sedated. HEENT: Eyes, pupils are equal and responsive to light and accommodation. Extraocular movements are intact. NECK: Supple without lymphadenopathy. Tracheostomy is in place. CHEST: Coarse breath sounds bilateral bases otherwise without wheezes or rales. CARDIOVASCULAR: Tachycardic, regular rhythm. S1, S2 normal without murmurs, rubs, or gallops. ABDOMEN: Soft, nontender, nondistended. Positive bowel sounds. No evidence of hepatosplenomegaly. Currently, no rebound or guarding noted. EXTREMITIES: Negative for clubbing, cyanosis, or edema. Microbiology Date/Time Source Procedure Growth Status 04/25/20 17:20 Blood Blood Culture - Preliminary NO GROWTH AFTER 48 HOURS Resulted 04/25/20 17:05 Blood Blood Culture - Preliminary NO GROWTH AFTER 48 HOURS Resulted 04/26/20 04:00 Sputum Gram Stain - Final Resulted 04/26/20 04:00 Sputum Culture - Preliminary Acinetobacter Baumannii Complx Resulted Laboratory Tests Test 04/28/20 05:53 04/28/20 06:00 POC Whole Blood Glucose Pending White Blood Count 5.6 K/UL (4.8-10.8) Red Blood Count 2.38 M/UL (4.20-5.40) L Hemoglobin 7.5 G/DL (12.0-16.0) L Hematocrit 23.8 % (37.0-47.0) L Mean Corpuscular Volume 100 FL (80-99) H Mean Corpuscular Hemoglobin 31.6 PG (27.0-31.0) H Mean Corpuscular Hemoglobin Concent 31.7 G/DL (32.0-36.0) L Red Cell Distribution Width 13.9 % (11.6-14.8) Platelet Count 98 K/UL (150-450) #L Mean Platelet Volume 9.1 FL (6.5-10.1) Neutrophils (%) (Auto) % (45.0-75.0) Lymphocytes (%) (Auto) % (20.0-45.0) Monocytes (%) (Auto) % (1.0-10.0) Eosinophils (%) (Auto) % (0.0-3.0) Basophils (%) (Auto) % (0.0-2.0) Differential Total Cells Counted 100 Neutrophils % (Manual) 67 % (45-75) Lymphocytes % (Manual) 26 % (20-45) Monocytes % (Manual) 4 % (1-10) Eosinophils % (Manual) 3 % (0-3) Basophils % (Manual) 0 % (0-2) Band Neutrophils 0 % (0-8) Platelet Estimate Decreased L Platelet Morphology Normal Hypochromasia 1+ Macrocytosis 1+ Sodium Level 146 MMOL/L (136-145) H Potassium Level 3.7 MMOL/L (3.5-5.1) Chloride Level 114 MMOL/L (98-107) H Carbon Dioxide Level 25 MMOL/L (21-32) Anion Gap 7 mmol/L (5-15) Blood Urea Nitrogen 12 mg/dL (7-18) Creatinine 0.6 MG/DL (0.55-1.30) Estimat Glomerular Filtration Rate > 60 mL/min (>60) Glucose Level 228 MG/DL (74-106) #H Calcium Level 7.5 MG/DL (8.5-10.1) L Phosphorus Level 3.7 MG/DL (2.5-4.9) Current Medications Medications (Trade) Dose Ordered Sig/Emanuel Route PRN Reason Start Time Stop Time Status Last Admin Dose Admin Acetaminophen (Tylenol) 500 mg Q4H PRN GT Pain Scale (3-5) 04/23/20 08:45 05/23/20 01:59 Acetaminophen (Tylenol) 650 mg THREE TIMES A DAY PRN GT FHMP 04/23/20 02:00 05/23/20 01:59 04/26/20 12:54 Artificial Tears (Akwa-Tears) 1 drop BID BOTH EYES 04/23/20 09:00 05/23/20 08:59 04/28/20 08:35 Bisacodyl (Dulcolax) 10 mg DAILY PRN RECTAL Constipation 04/23/20 02:00 07/22/20 01:59 Cefepime HCl 2 gm/ Dextrose 55 ml @ 110 mls/hr Q12H IVPB 04/23/20 08:00 04/30/20 07:59 04/28/20 08:34 Chlorhexidine Gluconate (Mimi-Hex 2%) 1 applic DAILY@2000 TOPIC 04/26/20 20:00 07/25/20 19:59 04/27/20 20:17 Dextrose (Dextrose 50%) 25 ml Q30M PRN IV Hypoglycemia 04/23/20 08:15 07/22/20 08:14 Dextrose (Dextrose 50%) 50 ml Q30M PRN IV Hypoglycemia 04/23/20 08:15 07/22/20 08:14 Dextrose/ Electrolytes 1,000 ml @ 50 mls/hr Q20H IV 04/27/20 10:00 05/27/20 09:59 04/28/20 05:54 Docusate Sodium (Colace) 250 mg DAILYPRN PRN GT CONSTIPATION 04/23/20 12:50 05/23/20 12:49 Insulin Aspart (NovoLOG) Q6HR SUBQ 04/25/20 12:00 07/24/20 11:59 04/28/20 05:57 Ipratropium [place] (Atrovent) 500 mcg Q6H PRN HHN Shortness of Breath 04/27/20 08:00 05/02/20 07:59 Levetiracetam (Keppra) 1,000 mg Q12HR GT 04/23/20 21:00 05/23/20 08:59 04/28/20 08:35 Levofloxacin (Levaquin) 750 mg DAILY ORAL 04/28/20 12:00 05/05/20 11:59 04/28/20 12:18 Metoclopramide HCl (Reglan) 5 mg Q6HR GT 04/23/20 13:53 05/23/20 13:52 04/28/20 12:18 Pantoprazole (Protonix) 40 mg Q12HR IVP 04/23/20 21:00 05/23/20 08:59 04/28/20 08:35 Phenytoin (Dilantin) 150 mg Q12HR GT 04/24/20 21:00 05/23/20 08:29 04/28/20 08:34 Polyethylene Glycol (Miralax) 17 gm DAILY GT 04/23/20 09:00 05/23/20 08:59 04/24/20 09:30 Sennosides (Senokot) 8.6 mg DAILY GT 04/23/20 09:00 05/23/20 08:59 04/26/20 08:31 Sodium Phosphate (Fleet's Sodium Phosl Enema) 133 ml DAILY PRN RECTAL CONSTIPATION 04/23/20 02:00 05/23/20 01:59 Sorbitol (sorbitoL) 30 ml DAILYPRN PRN GT constipation 04/23/20 08:15 05/23/20 08:14 Vancomycin HCl (Vanco pharmacy to dose) 1 ea DAILY PRN MISC Per rx protocol 04/23/20 03:00 05/23/20 02:59 Vancomycin HCl 1 gm/Sodium Chloride 275 ml @ 183.708 mls/hr Q12HR@0600,1800 IVPB 04/24/20 18:00 04/30/20 17:59 04/28/20 05:54 Zinc Sulfate (Zinc Sulfate) 220 mg DAILY GT 04/23/20 09:00 07/22/20 08:59 04/28/20 08:36 Jayne Peoples M.D. Apr 28, 2020 12:57
--- NOTE | 2020-04-28 15:31 | Internal Med Progress Note ---
Subjective Date of Service: Apr 28, 2020 Physician Name Kalin Eubanks Attending Physician Jeyson Yanez MD Current Medications Medications (Trade) Dose Ordered Sig/Emanuel Route PRN Reason Start Time Stop Time Status Last Admin Dose Admin Acetaminophen (Tylenol) 500 mg Q4H PRN GT Pain Scale (3-5) 04/23/20 08:45 05/23/20 01:59 Acetaminophen (Tylenol) 650 mg THREE TIMES A DAY PRN GT FHMP 04/23/20 02:00 05/23/20 01:59 04/26/20 12:54 Artificial Tears (Akwa-Tears) 1 drop BID BOTH EYES 04/23/20 09:00 05/23/20 08:59 04/28/20 08:35 Bisacodyl (Dulcolax) 10 mg DAILY PRN RECTAL Constipation 04/23/20 02:00 07/22/20 01:59 Chlorhexidine Gluconate (Mimi-Hex 2%) 1 applic DAILY@2000 TOPIC 04/26/20 20:00 07/25/20 19:59 04/27/20 20:17 Dextrose (Dextrose 50%) 25 ml Q30M PRN IV Hypoglycemia 04/23/20 08:15 07/22/20 08:14 Dextrose (Dextrose 50%) 50 ml Q30M PRN IV Hypoglycemia 04/23/20 08:15 07/22/20 08:14 Dextrose/ Electrolytes 1,000 ml @ 50 mls/hr Q20H IV 04/27/20 10:00 05/27/20 09:59 04/28/20 05:54 Docusate Sodium (Colace) 250 mg DAILYPRN PRN GT CONSTIPATION 04/23/20 12:50 05/23/20 12:49 Insulin Aspart (NovoLOG) Q6HR SUBQ 04/25/20 12:00 07/24/20 11:59 04/28/20 05:57 Ipratropium [place] (Atrovent) 500 mcg Q6H PRN HHN Shortness of Breath 04/27/20 08:00 05/02/20 07:59 Levetiracetam (Keppra) 1,000 mg Q12HR GT 04/23/20 21:00 05/23/20 08:59 04/28/20 08:35 Levofloxacin (Levaquin) 750 mg DAILY ORAL 04/28/20 12:00 05/05/20 11:59 04/28/20 12:18 Metoclopramide HCl (Reglan) 5 mg Q6HR GT 04/23/20 13:53 05/23/20 13:52 04/28/20 12:18 Pantoprazole (Protonix) 40 mg Q12HR IVP 04/23/20 21:00 05/23/20 08:59 04/28/20 08:35 Phenytoin (Dilantin) 150 mg Q12HR GT 04/24/20 21:00 05/23/20 08:29 04/28/20 08:34 Polyethylene Glycol (Miralax) 17 gm DAILY GT 04/23/20 09:00 05/23/20 08:59 04/24/20 09:30 Sennosides (Senokot) 8.6 mg DAILY GT 04/23/20 09:00 05/23/20 08:59 04/26/20 08:31 Sodium Phosphate (Fleet's Sodium Phosl Enema) 133 ml DAILY PRN RECTAL CONSTIPATION 04/23/20 02:00 05/23/20 01:59 Sorbitol (sorbitoL) 30 ml DAILYPRN PRN GT constipation 04/23/20 08:15 05/23/20 08:14 Zinc Sulfate (Zinc Sulfate) 220 mg DAILY GT 04/23/20 09:00 07/22/20 08:59 04/28/20 08:36 Allergies: Coded Allergies: No Known Allergies (Unverified , 02/08/13) ROS Limited/Unobtainable: Yes Subjective 59 YO F admitted with fever, now Sepsis and pneumonia. Cover for Int Med-Dr Yanez. Step down unit Objective Last Vital Signs Date Time Temp Pulse Resp B/P (MAP) Pulse Ox O2 Delivery O2 Flow Rate FiO2 04/28/20 14:55 98 19 40 04/28/20 12:00 Mechanical Ventilator Mechanical Ventilator 04/28/20 12:00 98.8 119/61 (80) 100 04/23/20 01:24 15.0 Laboratory Tests Test 04/28/20 05:53 04/28/20 06:00 POC Whole Blood Glucose Pending White Blood Count 5.6 K/UL (4.8-10.8) Red Blood Count 2.38 M/UL (4.20-5.40) L Hemoglobin 7.5 G/DL (12.0-16.0) L Hematocrit 23.8 % (37.0-47.0) L Mean Corpuscular Volume 100 FL (80-99) H Mean Corpuscular Hemoglobin 31.6 PG (27.0-31.0) H Mean Corpuscular Hemoglobin Concent 31.7 G/DL (32.0-36.0) L Red Cell Distribution Width 13.9 % (11.6-14.8) Platelet Count 98 K/UL (150-450) #L Mean Platelet Volume 9.1 FL (6.5-10.1) Neutrophils (%) (Auto) % (45.0-75.0) Lymphocytes (%) (Auto) % (20.0-45.0) Monocytes (%) (Auto) % (1.0-10.0) Eosinophils (%) (Auto) % (0.0-3.0) Basophils (%) (Auto) % (0.0-2.0) Differential Total Cells Counted 100 Neutrophils % (Manual) 67 % (45-75) Lymphocytes % (Manual) 26 % (20-45) Monocytes % (Manual) 4 % (1-10) Eosinophils % (Manual) 3 % (0-3) Basophils % (Manual) 0 % (0-2) Band Neutrophils 0 % (0-8) Platelet Estimate Decreased L Platelet Morphology Normal Hypochromasia 1+ Macrocytosis 1+ Sodium Level 146 MMOL/L (136-145) H Potassium Level 3.7 MMOL/L (3.5-5.1) Chloride Level 114 MMOL/L (98-107) H Carbon Dioxide Level 25 MMOL/L (21-32) Anion Gap 7 mmol/L (5-15) Blood Urea Nitrogen 12 mg/dL (7-18) Creatinine 0.6 MG/DL (0.55-1.30) Estimat Glomerular Filtration Rate > 60 mL/min (>60) Glucose Level 228 MG/DL (74-106) #H Calcium Level 7.5 MG/DL (8.5-10.1) L Phosphorus Level 3.7 MG/DL (2.5-4.9) Microbiology Date/Time Source Procedure Growth Status 04/25/20 17:20 Blood Blood Culture - Preliminary NO GROWTH AFTER 48 HOURS Resulted 04/25/20 17:05 Blood Blood Culture - Preliminary NO GROWTH AFTER 48 HOURS Resulted 04/26/20 04:00 Sputum Gram Stain - Final Resulted 04/26/20 04:00 Sputum Culture - Preliminary Acinetobacter Baumannii Complx Resulted Intake and Output 04/27/20 04/28/20 19:00 07:00 Intake Total 1787.536 ml 1344.476 ml Output Total 862 ml 1300 ml Balance 925.536 ml 44.476 ml Intake Free Water 90 ml IV Total 1327.536 ml 894.476 ml Tube Feeding 240 ml 360 ml Other 220 ml Output Urine Total 0 ml 400 ml Other 862 ml 900 ml # Bowel Movements 2 1 Objective PHYSICAL EXAMINATION: GENERAL: Patient is a thin-appearing female, who is intubated and sedated. HEENT: Eyes, pupils are equal and responsive to light and accommodation. Extraocular movements are intact. NECK: Supple without lymphadenopathy. Tracheostomy is in place. CHEST: Mech vent; Coarse breath sounds bilateral bases otherwise without wheezes or rales. CARDIOVASCULAR: Tachycardic, regular rhythm. S1, S2 normal without murmurs, rubs, or gallops. ABDOMEN: Soft, nontender, nondistended. Positive bowel sounds. No evidence of hepatosplenomegaly. Currently, no rebound or guarding noted. EXTREMITIES: Negative for clubbing, cyanosis, or edema. RECTAL/GENITAL: Not performed. NEUROLOGIC: Cranial nerves II through XII are grossly intact without focal deficits. Assessment/Plan Assessment/Plan ASSESSMENT: This is a 59-year-old female. 1. pneumonia=acenitobacter 2. sepsis=coag neg staph 3. Chronic respiratory failure. 4. Chronic obstructive pulmonary disease. 5. Quadriplegia. 6. History of dysphagia. 7. Diabetes type 2. 8. Seizure disorder. 9. History of gastrointestinal hemorrhage. 10. Erosive gastritis. 11. Schizophrenia. 12. Gastroesophageal reflux disease. 13. Neurogenic bladder. 14. Stage IV sacral decubitus ulcer. 15. History of deep venous thrombosis. TREATMENT: 1. Fever/sepsis. A Pulmonary Critical Care consultation has been obtained with Dr. Luis Garcia. ABX= vancomycin, levaquin and cefepime. We will follow recommendations of Pulmonary. Infectious disease=Dr Peoples 2. Chronic vent dependence/chronic respiratory failure. As above, a Pulmonary consultation has been obtained with Dr. Luis Garcia. We will follow recommendations of Pulmonary. 3. Seizure disorder. Continue Keppra and Dilantin as above. 4. Diabetes type 2. NovoLog sliding scale has been instituted. 5. Chronic obstructive pulmonary disease. As above, a Pulmonary consultation has been obtained with Dr. Luis Garcia. We will follow recommendations of Pulmonary. 6. History of gastrointestinal hemorrhage/erosive gastritis. Patient has been placed on Protonix. 7. Schizophrenia, not otherwise specified. 8. Gastroesophageal reflux disease. 9. Neurogenic bladder. 10. Stage IV sacral decubitus ulcer. 11. History of deep venous thrombosis. Kalin Eubanks MD Apr 28, 2020 15:31
--- NOTE | 2020-04-28 15:40 | NUR ---
NURSE NOTES: Informed consent obtained from brother Reggie Garcia for blood transfusion.
[2020-04-28 16:00] VITALS: BP 100/53
[2020-04-28] MEDS ORDERED: NS 275ml ONE (17:13)
--- NOTE | 2020-04-28 19:13 | NUR ---
HAND-OFF: Report given to Tami Pat RN. Awaiting blood bank for 2 units PRBC.
--- NOTE | 2020-04-28 19:30 | NUR ---
NURSE NOTES: Report received from LUCERO Santos. Observed pt lying in the bed, obtunded. SR on microwave engineer. Trach to vent, Portex 7, AC 18/450/40%/5 noted. GT intact running Glucerna 1.2 at 30cc/hr. F/C intact. Bilateral nephrostomy tubes noted, draining noted. PICC L UA noted, running D5W w/ 20meq KCL at 50cc/hr. Bed in the lowest position. Side rails up x3. Will continue to monitor.
[2020-04-28 20:00] VITALS: BP 111/54
--- NOTE | 2020-04-28 20:23 | Surgery Progress Note ---
Surgery Progress Note Subjective Additional Comments labs reviewed exam stable dressings going well Objective Last 24 Hour Vital Signs Date Time Temp Pulse Resp B/P (MAP) Pulse Ox O2 Delivery O2 Flow Rate FiO2 04/28/20 19:30 79 18 40 04/28/20 16:00 98.7 72 19 100/53 (69) 100 04/28/20 16:00 Mechanical Ventilator Mechanical Ventilator 04/28/20 16:00 40 04/28/20 15:36 86 04/28/20 14:55 98 19 40 04/28/20 12:00 Mechanical Ventilator Mechanical Ventilator 04/28/20 12:00 98.8 83 19 119/61 (80) 100 04/28/20 12:00 40 04/28/20 11:45 84 04/28/20 11:14 79 18 40 04/28/20 08:00 40 04/28/20 08:00 Mechanical Ventilator Mechanical Ventilator 04/28/20 08:00 98.1 80 19 114/59 (77) 100 04/28/20 07:24 77 04/28/20 07:11 86 19 40 04/28/20 04:00 40 04/28/20 04:00 Mechanical Ventilator Mechanical Ventilator 04/28/20 04:00 85 04/28/20 04:00 98.6 91 24 122/56 (78) 100 04/28/20 03:01 83 26 40 04/28/20 03:01 83 21 100 Mechanical Ventilator 40 04/28/20 00:00 40 04/28/20 00:00 99.1 92 22 125/62 (83) 100 04/28/20 00:00 Mechanical Ventilator Mechanical Ventilator 04/27/20 23:48 91 04/27/20 22:55 98 28 40 I&O Intake and Output 04/27/20 04/28/20 19:00 07:00 Intake Total 1787.536 ml 1344.476 ml Output Total 862 ml 1300 ml Balance 925.536 ml 44.476 ml Intake Free Water 90 ml IV Total 1327.536 ml 894.476 ml Tube Feeding 240 ml 360 ml Other 220 ml Output Urine Total 0 ml 400 ml Other 862 ml 900 ml # Bowel Movements 2 1 Dressing: other Wound: other Drains: other Cardiovascular: RSR Respiratory: decreased breath sounds Abdomen: soft, non-tender, present bowel sounds Extremities: no cyanosis Laboratory Tests Test 04/28/20 05:53 04/28/20 06:00 POC Whole Blood Glucose Pending White Blood Count 5.6 K/UL (4.8-10.8) Red Blood Count 2.38 M/UL (4.20-5.40) L Hemoglobin 7.5 G/DL (12.0-16.0) L Hematocrit 23.8 % (37.0-47.0) L Mean Corpuscular Volume 100 FL (80-99) H Mean Corpuscular Hemoglobin 31.6 PG (27.0-31.0) H Mean Corpuscular Hemoglobin Concent 31.7 G/DL (32.0-36.0) L Red Cell Distribution Width 13.9 % (11.6-14.8) Platelet Count 98 K/UL (150-450) #L Mean Platelet Volume 9.1 FL (6.5-10.1) Neutrophils (%) (Auto) % (45.0-75.0) Lymphocytes (%) (Auto) % (20.0-45.0) Monocytes (%) (Auto) % (1.0-10.0) Eosinophils (%) (Auto) % (0.0-3.0) Basophils (%) (Auto) % (0.0-2.0) Differential Total Cells Counted 100 Neutrophils % (Manual) 67 % (45-75) Lymphocytes % (Manual) 26 % (20-45) Monocytes % (Manual) 4 % (1-10) Eosinophils % (Manual) 3 % (0-3) Basophils % (Manual) 0 % (0-2) Band Neutrophils 0 % (0-8) Platelet Estimate Decreased L Platelet Morphology Normal Hypochromasia 1+ Macrocytosis 1+ Sodium Level 146 MMOL/L (136-145) H Potassium Level 3.7 MMOL/L (3.5-5.1) Chloride Level 114 MMOL/L (98-107) H Carbon Dioxide Level 25 MMOL/L (21-32) Anion Gap 7 mmol/L (5-15) Blood Urea Nitrogen 12 mg/dL (7-18) Creatinine 0.6 MG/DL (0.55-1.30) Estimat Glomerular Filtration Rate > 60 mL/min (>60) Glucose Level 228 MG/DL (74-106) #H Calcium Level 7.5 MG/DL (8.5-10.1) L Phosphorus Level 3.7 MG/DL (2.5-4.9) Plan Problems: (1) Feeding by G-tube Assessment & Plan: DAILY ESTIMATED NEEDS: Needs based on Critical care, DM, sepsis 66.7kg abw 22-30 kcals/kg 6777-6926 total kcals 1.25-2 g protein/kg 83-133 g total protein 25-30 mL/kg 1225-7033 total fluid mLs NUTRITION DIAGNOSIS: Swallowing difficulty r/t resp status as evidenced by pt is trach and PEG dep. CURRENT TF: Glucerna 1.5 @60ml/hr x20 hrs ENTERAL NUTRITION RECOMMENDATIONS: Glucerna 1.2 @75ml/hr x20 hrs (on Dilantin BID) to provide 1500ml, 1800 kcal, 90g pro, 1208ml free h2o Glucerna 1.5 OOS-> Rec Glucerna 1.2 for carb control + increased free H2O - Start @low rate, 15ml/hr for 6 hrs. Advance as tolerated 10ml/hr q4-6 hrs to goal. - Flush per MD/ HOB over 30 degrees. ---- ADDITIONAL RECOMMENDATIONS: 1) Obtain an accurate Height as able: 5'7" per EMR vs 6'1" per SNF. April 01, 2020 wt per SNF: 182 lbs/82.73kg 2) F/up w/ WC eval 3) Increase water flushes as Na is trending up 4) Replete lytes-> Mg, Phos, and K all low (2) Sepsis Assessment & Plan: Patient with leukocytosis, anemia, lactic acidosis. COVID rapid exam negative Urine noted On antibiotics Care plan as below We will follow with recommendations Nutritional optimization Thank you for let me participate in patient's care (3) Sacral decubitus ulcer Assessment & Plan: Pt presented on admission with Tracheostomy, Gastrostomy, Bilat nephrostomies, Pressure injury.Skin assessed under tracheal collar and no evidence of skin breakdown noted. L nephrostomy migrating -suture noted to be loose. No peristomal erythema or skin erosion noted. R nephrostomy is intact without evidence of peristomal skin erosion noted.Scaly dark brown plaques noted to back and both upper thighs Full thickness Pressure Injury sacrococcygeal area(L)3.6cm x (W)1.3cm x (D)1.9cm ,Undermining clockwise at 6o'clock by 0.3cm,12-1 by 0.2cm.@1o'clock. Base of wound is pale pink and moist. Bone is palpable at the base of wound. Epibole along edges along with maceration to borders and periwound.Small amt serous exudate noted. No odor noted. Hyperpigmentation with historical scar noted to sacrum, R and L gluteal cheeks. R and L heels are both boggy with non-Blanching erythema. Bilat foot drop noted. Tx.Plan: Cleanse Sacral wound with Saline. Apply Therahoney. Apply Moisture Barrier paste periwound. Cover with Optifoam drsg Daily and prn Apply Cavilon Skin Barrier to malleoli and each heel. Cover each site with Optifoam drsg.Change every 7 days and PRN. Reposition at least every 2hours or as tolerated. Off-load heels with pillow. APM/ADELIA Mattress overlay. Delon Murray Apr 28, 2020 20:23
[2020-04-28] MEDS: Dyna-Hex 2% Top Sol 2oz TOPIC SCH (20:37)
--- NOTE | 2020-04-28 22:30 | NUR ---
NURSE NOTES: Blood transfusion started. No reaction noted. Will continue to monitor.
[2020-04-29] VITALS (7 sets, daily range): BP systolic 107–132; BP diastolic 53–73
[2020-04-29] MEDS: D5W w/KCl 20mEq 1,000 ML IV SCH ×2 (01:33→18:28)
--- NOTE | 2020-04-29 03:30 | NUR ---
NURSE NOTES: Transfusion done, VS WNL, no reaction noted. Lab will be drawn around 0530. Bed bath given. Will continue to monitor.
[2020-04-29] MEDS: NovoLOG Insulin Flexpen SUBQ SCH ×5 (05:34→23:37)
[2020-04-29 06:43] LABS: BASOPHILS % (AUTO) 0.7 % (0.0-2.0); EOSINOPHILS % (AUTO) 4.4 % (0.0-3.0); HEMATOCRIT 30.9 % (37.0-47.0); HEMOGLOBIN 9.7 G/DL (12.0-16.0); LYMPHOCYTES % (AUTO) 21.1 % (20.0-45.0); MEAN CORPUSCULAR VOLUME 97 FL (80-99); NEUTROPHILS % (AUTO) 64.9 % (45.0-75.0); PLATELET COUNT 145 K/UL (150-450); RED BLOOD COUNT 3.19 M/UL (4.20-5.40); RED CELL DISTRIBUTION WIDTH 14.5 % (11.6-14.8); WHITE BLOOD COUNT 6.3 K/UL (4.8-10.8)
--- NOTE | 2020-04-29 07:16 | NUR ---
HAND-OFF: Report given to LUCERO Myers.
--- NOTE | 2020-04-29 07:35 | NUR ---
NURSE NOTES: Received report from LUCERO Whitfield. Patient in bed resting, no active s/s cardiac, respiratory distress noticed at this time. Patient Obtundent, open eyes spontaneously, SR with HR 84, Trach to Marcos [place] 7 AC 18 TV 450 Fio2 40% PEEP 5. GT on hold per order [id number]. Ding catheter intact and patent, Bilateral nephrostomy intact and patent, draining well to gravity at this time. PICC line on left upper arm intact and patent, IVF running as prescribed rate D5W 20 mEq KCl @50ml/h. Airborne, contact, droplet isolation observed. Bed in lowest position and locked, side rails up x3, call light within reach, bed alarm on. Will continue to monitor.
[2020-04-29 07:36] LABS: ALANINE AMINOTRANSFERASE 35 U/L (12-78); ALBUMIN 1.8 G/DL (3.4-5.0); ALBUMIN/GLOBULIN RATIO 0.3 (1.0-2.7); ALKALINE PHOSPHATASE 139 U/L (46-116); ANION GAP 8 mmol/L (5-15); ASPARTATE AMINO TRANSFERASE 32 U/L (15-37); BILIRUBIN,TOTAL 0.1 MG/DL (0.2-1.0); BLOOD UREA NITROGEN 9 mg/dL (7-18); CALCIUM 7.7 MG/DL (8.5-10.1); CARBON DIOXIDE 26 MMOL/L (21-32); CHLORIDE 114 MMOL/L (98-107); CREATININE 0.6 MG/DL (0.55-1.30); PHOSPHORUS 2.9 MG/DL (2.5-4.9); POTASSIUM 2.9 MMOL/L (3.5-5.1); SODIUM 148 MMOL/L (136-145)
[2020-04-29] MEDS: Miralax 17gm pkt GT SCH (08:13)
[2020-04-29] MEDS: Phenytoin Susp 100mg/4ml GT SCH ×2 (08:48→21:10)
[2020-04-29] MEDS: levETIRAcetam 500mg/5ml Liquid GT SCH ×2 (08:48→21:08)
[2020-04-29] MEDS: Levofloxacin 750mg tab ORAL SCH (08:49)
[2020-04-29] MEDS: Zinc Sulfate 220mg GT SCH (08:51)
[2020-04-29] MEDS: Pantoprazole Inj IVP SCH ×2 (08:51→21:12)
[2020-04-29] MEDS: Sennosides 8.6mg tab GT SCH (08:52)
--- NOTE | 2020-04-29 10:03 | NUR ---
NURSE NOTES: Dr. Reese at the nursing station, clarified for KCl in a bag, per MD frederick to mix in a bag.
--- NOTE | 2020-04-29 11:02 | NUR ---
RADIOLOGY DEPT., CHEST X-RAY DONE.-P.DYE
--- NOTE | 2020-04-29 11:06 | Diagnostic Imaging Report ---
Indication: Shortness of breath Technique: One view of the chest Comparison: none Findings: Patient's left hand and arm overlie the left lung base. This may obscure pathology. Patient reportedly contracted. The lungs and pleural spaces are clear. There is a tracheostomy. There is a left arm PICC again demonstrated. Impression: No acute process
[2020-04-29] MEDS ORDERED: POTASSIUM CHLORIDE IV SCH (11:30)
[2020-04-29] MEDS ORDERED: D5W IV SCH (11:30)
--- NOTE | 2020-04-29 11:33 | NUR ---
NURSE NOTES: Dr. Garcia made aware patient having episode of diarrhea, per MD discontinue laxatives, Miralax and Senokot, and if diarrhea again, collect for C. Diff.
--- NOTE | 2020-04-29 11:35 | Nephrology Progress Note ---
Assessment/Plan Problem List: (1) Electrolyte imbalance Assessment: Hypernatremia (2) Dehydration (3) Diabetes mellitus (4) Spastic quadriplegic cerebral palsy (5) Chronic respiratory failure (6) Sepsis Assessment: UTI (7) Sacral decubitus ulcer Assessment Dehydration, prerenal azotemia, free water deficit, hypernatremia Sepsis, UTI Chronic respiratory failure, status post tracheostomy Sacral decubitus ulcer Chronic seizure disorder PEG Diabetes mellitus Spastic quadriplegic cerebral palsy Plan April 29: More potassium IV chloride given. Remains stable from renal standpoint of view April 28: Stable from renal standpoint of view. Continue per consultants. April 27: IV potassium chloride ordered. IV fluid adjusted. Increase D5W to 75 cc an hour. Potassium supplement IV . Continue to monitor renal parameters and electrolytes Monitor Dilantin level, adjust the dose corrected for low albumin Monitor electrolytes and renal parameters Increase Protonix to every 12 hours Keep the blood sugar in check Per orders Patient is full code Subjective ROS Limited/Unobtainable: Yes Objective Objective Last 24 Hour Vital Signs Date Time Temp Pulse Resp B/P (MAP) Pulse Ox O2 Delivery O2 Flow Rate FiO2 04/29/20 08:00 75 04/29/20 08:00 97.2 82 20 132/73 (92) 100 04/29/20 08:00 40 04/29/20 08:00 Mechanical Ventilator Mechanical Ventilator 04/29/20 07:29 79 18 40 04/29/20 04:00 84 04/29/20 04:00 40 04/29/20 04:00 Mechanical Ventilator Mechanical Ventilator 04/29/20 04:00 98.4 70 18 110/63 (79) 100 04/29/20 03:11 61 18 40 04/29/20 00:00 Mechanical Ventilator Mechanical Ventilator 04/29/20 00:00 83 18 40 04/29/20 00:00 71 04/29/20 00:00 40 04/29/20 00:00 98.8 84 18 109/58 (75) 100 04/28/20 20:00 40 04/28/20 20:00 83 04/28/20 20:00 98.4 79 18 111/54 (73) 100 04/28/20 20:00 Mechanical Ventilator Mechanical Ventilator 04/28/20 19:30 79 18 40 04/28/20 16:00 98.7 72 19 100/53 (69) 100 04/28/20 16:00 Mechanical Ventilator Mechanical Ventilator 04/28/20 16:00 40 04/28/20 15:36 86 04/28/20 14:55 98 19 40 04/28/20 12:00 Mechanical Ventilator Mechanical Ventilator 04/28/20 12:00 98.8 83 19 119/61 (80) 100 04/28/20 12:00 40 04/28/20 11:45 84 Intake and Output 04/28/20 04/29/20 19:00 07:00 Intake Total 1147.921 ml 1030 ml Output Total 750 ml 750 ml Balance 397.921 ml 280 ml Intake Free Water 200 ml IV Total 727.921 ml 500 ml Tube Feeding 240 ml 330 ml Other 180 ml Output Urine Total 0 ml 0 ml Other 750 ml 750 ml # Bowel Movements 2 Laboratory Tests 04/28/20 23:56: POC Whole Blood Glucose 96 04/29/20 05:33: POC Whole Blood Glucose 98 04/29/20 06:00: White Blood Count 6.3, Red Blood Count 3.19L, Hemoglobin 9.7L, Hematocrit 30.9L , Mean Corpuscular Volume 97, Mean Corpuscular Hemoglobin 30.4, Mean Corpuscular Hemoglobin Concent 31.4L, Red Cell Distribution Width 14.5, Platelet Count 145L, Mean Platelet Volume 7.2, Neutrophils (%) (Auto) 64.9, Lymphocytes (%) (Auto) 21.1, Monocytes (%) (Auto) 9.0, Eosinophils (%) (Auto) 4.4H, Basophils (%) (Auto) 0.7, Sodium Level 148H, Potassium Level 2.9L, Chloride Level 114H, Carbon Dioxide Level 26, Anion Gap 8, Blood Urea Nitrogen 9 , Creatinine 0.6, Estimat Glomerular Filtration Rate > 60, Glucose Level 112#H, Calcium Level 7.7L, Phosphorus Level 2.9, Magnesium Level 1.9, Total Bilirubin 0.1L, Aspartate Amino Transf (AST/SGOT) 32, Alanine Aminotransferase (ALT/SGPT) 35, Alkaline Phosphatase 139H, C-Reactive Protein, Quantitative 5.9H, Total Protein 7.4, Albumin 1.8L, Globulin 5.6, Albumin/Globulin Ratio 0.3L Height (Feet): 5 Height (Inches): 7.00 Weight (Pounds): 198 General Appearance: no apparent distress EENT: other - Trach and vent Neck: other Cardiovascular: tachycardia Respiratory/Chest: decreased breath sounds Abdomen: other - PEG Caleb Reese MD Apr 29, 2020 11:35
--- NOTE | 2020-04-29 11:41 | NUR ---
NURSE NOTES: Per Dr. Garcia, after 60mEq KCl, start administer IVF.
--- NOTE | 2020-04-29 11:43 | Pulmonolgy Critical Care Note ---
Critical Care - Asmt/Plan Problems: (1) Sepsis (2) Chronic respiratory failure (3) Acute metabolic encephalopathy (4) Acute prerenal azotemia (5) Sacral decubitus ulcer (6) Spastic quadriplegic cerebral palsy (7) Chronic vegetative state (8) Schizophrenia (9) Chronic seizure disorder (10) Diabetes mellitus (11) Feeding by G-tube Respiratory: monitor respiratory rate, adjust FIO2, CXR Cardiac: continue to monitor HR/BP Renal: F/U I&O, keep IV fluid, check electrolytes Infectious Disease: check cultures, continue antibiotics Gastrointestinal: continue feedings/current rate Endocrine: monitor blood sugar Neurologic: PRN Ativan Prophylaxis: Protonix 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, 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, ID Discussed with: nurses, consultants, case maker, family member Critical Care - Objective Last 24 Hour Vital Signs Date Time Temp Pulse Resp B/P (MAP) Pulse Ox O2 Delivery O2 Flow Rate FiO2 04/29/20 08:00 75 04/29/20 08:00 97.2 82 20 132/73 (92) 100 04/29/20 08:00 40 04/29/20 08:00 Mechanical Ventilator Mechanical Ventilator 04/29/20 07:29 79 18 40 04/29/20 04:00 84 04/29/20 04:00 40 04/29/20 04:00 Mechanical Ventilator Mechanical Ventilator 04/29/20 04:00 98.4 70 18 110/63 (79) 100 04/29/20 03:11 61 18 40 04/29/20 00:00 Mechanical Ventilator Mechanical Ventilator 04/29/20 00:00 83 18 40 04/29/20 00:00 71 04/29/20 00:00 40 04/29/20 00:00 98.8 84 18 109/58 (75) 100 04/28/20 20:00 40 04/28/20 20:00 83 04/28/20 20:00 98.4 79 18 111/54 (73) 100 04/28/20 20:00 Mechanical Ventilator Mechanical Ventilator 04/28/20 19:30 79 18 40 04/28/20 16:00 98.7 72 19 100/53 (69) 100 04/28/20 16:00 Mechanical Ventilator Mechanical Ventilator 04/28/20 16:00 40 04/28/20 15:36 86 04/28/20 14:55 98 19 40 04/28/20 12:00 Mechanical Ventilator Mechanical Ventilator 04/28/20 12:00 98.8 83 19 119/61 (80) 100 04/28/20 12:00 40 04/28/20 11:45 84 Status: obtunded HEENT: atraumatic Lungs: clear Heart: HR/BP unstable Abdomen: soft, active bowel sounds Extremities: no C/C/E Micro: Microbiology Date/Time Source Procedure Growth Status 04/27/20 06:20 Nasopharynx Coronavirus COVID-19 PCR ([facility]) - Final Complete Accucheck: 86 Critical Care - Subjective ROS Limited/Unobtainable: Yes Interval Events: afebrile, renal function getting better Condition: critical EKG Rhythm: Sinus Rhythm FI02: 40 Vent Support Breath Rate: 18 Vent Support Mode: AC Vent Tidal Volume: 450 Sputum Amount: Small PEEP: 5.0 PIP: 34 Tube Feeding Amount: 30 I&O: Intake and Output 04/28/20 04/29/20 19:00 07:00 Intake Total 1147.921 ml 1030 ml Output Total 750 ml 750 ml Balance 397.921 ml 280 ml Intake Free Water 200 ml IV Total 727.921 ml 500 ml Tube Feeding 240 ml 330 ml Other 180 ml Output Urine Total 0 ml 0 ml Other 750 ml 750 ml # Bowel Movements 2 CXR: no change, Labs: Laboratory Tests Test 04/28/20 23:56 04/29/20 05:33 04/29/20 06:00 POC Whole Blood Glucose 96 MG/DL (74-106) 98 MG/DL (74-106) White Blood Count 6.3 K/UL (4.8-10.8) Red Blood Count 3.19 M/UL (4.20-5.40) L Hemoglobin 9.7 G/DL (12.0-16.0) L Hematocrit 30.9 % (37.0-47.0) L Mean Corpuscular Volume 97 FL (80-99) Mean Corpuscular Hemoglobin 30.4 PG (27.0-31.0) Mean Corpuscular Hemoglobin Concent 31.4 G/DL (32.0-36.0) L Red Cell Distribution Width 14.5 % (11.6-14.8) Platelet Count 145 K/UL (150-450) L Mean Platelet Volume 7.2 FL (6.5-10.1) Neutrophils (%) (Auto) 64.9 % (45.0-75.0) Lymphocytes (%) (Auto) 21.1 % (20.0-45.0) Monocytes (%) (Auto) 9.0 % (1.0-10.0) Eosinophils (%) (Auto) 4.4 % (0.0-3.0) H Basophils (%) (Auto) 0.7 % (0.0-2.0) Sodium Level 148 MMOL/L (136-145) H Potassium Level 2.9 MMOL/L (3.5-5.1) L Chloride Level 114 MMOL/L (98-107) H Carbon Dioxide Level 26 MMOL/L (21-32) Anion Gap 8 mmol/L (5-15) Blood Urea Nitrogen 9 mg/dL (7-18) Creatinine 0.6 MG/DL (0.55-1.30) Estimat Glomerular Filtration Rate > 60 mL/min (>60) Glucose Level 112 MG/DL (74-106) #H Calcium Level 7.7 MG/DL (8.5-10.1) L Phosphorus Level 2.9 MG/DL (2.5-4.9) Magnesium Level 1.9 MG/DL (1.8-2.4) Total Bilirubin 0.1 MG/DL (0.2-1.0) L Aspartate Amino Transf (AST/SGOT) 32 U/L (15-37) Alanine Aminotransferase (ALT/SGPT) 35 U/L (12-78) Alkaline Phosphatase 139 U/L (46-116) H C-Reactive Protein, Quantitative 5.9 mg/dL (0.00-0.90) H Total Protein 7.4 G/DL (6.4-8.2) Albumin 1.8 G/DL (3.4-5.0) L Globulin 5.6 g/dL Albumin/Globulin Ratio 0.3 (1.0-2.7) L Luis Garcia MD Apr 29, 2020 11:43
[2020-04-29] MEDS ORDERED: D5W w/KCl 20mEq 1,000 ML IV SCH (12:30)
--- NOTE | 2020-04-29 13:24 | NUR ---
*-* INSURANCE *-* UPDATED CLINICALS AND REVIEWS HAVE BEEN FAXED TO: [facility] Auth# [id number] Work [phone] FAX [phone] FAX [facility] [phone]
--- NOTE | 2020-04-29 14:26 | NUR ---
CASE MANAGEMENT: REVIEW SI: COVID-19 R/O . INTESTINAL OBSTRUCTION T 97.2 HR 82 RR 20 BP 109/58 SAT 100% MECH VENT FIO2 40 H/H 9.7/30.9 NA 148 K 2.9 CALCIUM 7.7 IS: DILANTIN GT Q12HR KEPPRA GT Q12HR KCl 60MEQ IVF @ 165ML/HR D5W w/KCl 20MEQ IVF @ 50ML/HR LEVAQUIN GT QD NOVOLOG SUBQ Q6HR S/P PRBC STEP DOWN UNIT DCP: PATIENT IS FROM [facility]
--- NOTE | 2020-04-29 15:17 | NUR ---
NURSE NOTES: Per Dr. Peoples, okay to discontinue droplet/airborne isolation at this time, COVID negative x3. Order noted, entered, CN made aware.
--- NOTE | 2020-04-29 16:08 | Surgery Progress Note ---
Surgery Progress Note Subjective Additional Comments electrolytes being replaced k 2.9 exam unchanged dressings okay Objective Last 24 Hour Vital Signs Date Time Temp Pulse Resp B/P (MAP) Pulse Ox O2 Delivery O2 Flow Rate FiO2 04/29/20 12:00 40 04/29/20 12:00 Mechanical Ventilator Mechanical Ventilator 04/29/20 12:00 78 04/29/20 12:00 97.7 75 18 113/60 (77) 100 04/29/20 08:00 75 04/29/20 08:00 97.2 82 20 132/73 (92) 100 04/29/20 08:00 40 04/29/20 08:00 Mechanical Ventilator Mechanical Ventilator 04/29/20 07:29 79 18 40 04/29/20 04:00 84 04/29/20 04:00 40 04/29/20 04:00 Mechanical Ventilator Mechanical Ventilator 04/29/20 04:00 98.4 70 18 110/63 (79) 100 04/29/20 03:11 61 18 40 04/29/20 00:00 Mechanical Ventilator Mechanical Ventilator 04/29/20 00:00 83 18 40 04/29/20 00:00 71 04/29/20 00:00 40 04/29/20 00:00 98.8 84 18 109/58 (75) 100 04/28/20 20:00 40 04/28/20 20:00 83 04/28/20 20:00 98.4 79 18 111/54 (73) 100 04/28/20 20:00 Mechanical Ventilator Mechanical Ventilator 04/28/20 19:30 79 18 40 I&O Intake and Output 04/28/20 04/29/20 19:00 07:00 Intake Total 1147.921 ml 1030 ml Output Total 750 ml 750 ml Balance 397.921 ml 280 ml Intake Free Water 200 ml IV Total 727.921 ml 500 ml Tube Feeding 240 ml 330 ml Other 180 ml Output Urine Total 0 ml 0 ml Other 750 ml 750 ml # Bowel Movements 2 Dressing: other Wound: other Drains: other Cardiovascular: RSR Respiratory: decreased breath sounds Abdomen: soft, non-tender, present bowel sounds Extremities: edema, no cyanosis Laboratory Tests Test 04/28/20 23:56 04/29/20 05:33 04/29/20 06:00 POC Whole Blood Glucose 96 MG/DL (74-106) 98 MG/DL (74-106) White Blood Count 6.3 K/UL (4.8-10.8) Red Blood Count 3.19 M/UL (4.20-5.40) L Hemoglobin 9.7 G/DL (12.0-16.0) L Hematocrit 30.9 % (37.0-47.0) L Mean Corpuscular Volume 97 FL (80-99) Mean Corpuscular Hemoglobin 30.4 PG (27.0-31.0) Mean Corpuscular Hemoglobin Concent 31.4 G/DL (32.0-36.0) L Red Cell Distribution Width 14.5 % (11.6-14.8) Platelet Count 145 K/UL (150-450) L Mean Platelet Volume 7.2 FL (6.5-10.1) Neutrophils (%) (Auto) 64.9 % (45.0-75.0) Lymphocytes (%) (Auto) 21.1 % (20.0-45.0) Monocytes (%) (Auto) 9.0 % (1.0-10.0) Eosinophils (%) (Auto) 4.4 % (0.0-3.0) H Basophils (%) (Auto) 0.7 % (0.0-2.0) Sodium Level 148 MMOL/L (136-145) H Potassium Level 2.9 MMOL/L (3.5-5.1) L Chloride Level 114 MMOL/L (98-107) H Carbon Dioxide Level 26 MMOL/L (21-32) Anion Gap 8 mmol/L (5-15) Blood Urea Nitrogen 9 mg/dL (7-18) Creatinine 0.6 MG/DL (0.55-1.30) Estimat Glomerular Filtration Rate > 60 mL/min (>60) Glucose Level 112 MG/DL (74-106) #H Calcium Level 7.7 MG/DL (8.5-10.1) L Phosphorus Level 2.9 MG/DL (2.5-4.9) Magnesium Level 1.9 MG/DL (1.8-2.4) Total Bilirubin 0.1 MG/DL (0.2-1.0) L Aspartate Amino Transf (AST/SGOT) 32 U/L (15-37) Alanine Aminotransferase (ALT/SGPT) 35 U/L (12-78) Alkaline Phosphatase 139 U/L (46-116) H C-Reactive Protein, Quantitative 5.9 mg/dL (0.00-0.90) H Total Protein 7.4 G/DL (6.4-8.2) Albumin 1.8 G/DL (3.4-5.0) L Globulin 5.6 g/dL Albumin/Globulin Ratio 0.3 (1.0-2.7) L Plan Problems: (1) Feeding by G-tube Assessment & Plan: DAILY ESTIMATED NEEDS: Needs based on Critical care, DM, sepsis 66.7kg abw 22-30 kcals/kg 6247-4959 total kcals 1.25-2 g protein/kg 83-133 g total protein 25-30 mL/kg 8393-6834 total fluid mLs NUTRITION DIAGNOSIS: Swallowing difficulty r/t resp status as evidenced by pt is trach and PEG dep. CURRENT TF: Glucerna 1.5 @60ml/hr x20 hrs ENTERAL NUTRITION RECOMMENDATIONS: Glucerna 1.2 @75ml/hr x20 hrs (on Dilantin BID) to provide 1500ml, 1800 kcal, 90g pro, 1208ml free h2o Glucerna 1.5 OOS-> Rec Glucerna 1.2 for carb control + increased free H2O - Start @low rate, 15ml/hr for 6 hrs. Advance as tolerated 10ml/hr q4-6 hrs to goal. - Flush per MD/ HOB over 30 degrees. ---- ADDITIONAL RECOMMENDATIONS: 1) Obtain an accurate Height as able: 5'7" per EMR vs 6'1" per SNF. April 01, 2020 wt per SNF: 182 lbs/82.73kg 2) F/up w/ WC eval 3) Increase water flushes as Na is trending up 4) Replete lytes-> Mg, Phos, and K all low (2) Sepsis Assessment & Plan: Patient with leukocytosis, anemia, lactic acidosis. COVID rapid exam negative Urine noted On antibiotics Care plan as below We will follow with recommendations slowly improving Nutritional optimization Thank you for let me participate in patient's care (3) Sacral decubitus ulcer Assessment & Plan: Pt presented on admission with Tracheostomy, Gastrostomy, Bilat nephrostomies, Pressure injury.Skin assessed under tracheal collar and no evidence of skin breakdown noted. L nephrostomy migrating -suture noted to be loose. No peristomal erythema or skin erosion noted. R nephrostomy is intact without evidence of peristomal skin erosion noted.Scaly dark brown plaques noted to back and both upper thighs Full thickness Pressure Injury sacrococcygeal area(L)3.6cm x (W)1.3cm x (D)1.9cm ,Undermining clockwise at 6o'clock by 0.3cm,12-1 by 0.2cm.@1o'clock. Base of wound is pale pink and moist. Bone is palpable at the base of wound. Epibole along edges along with maceration to borders and periwound.Small amt serous exudate noted. No odor noted. Hyperpigmentation with historical scar noted to sacrum, R and L gluteal cheeks. R and L heels are both boggy with non-Blanching erythema. Bilat foot drop noted. Tx.Plan: Cleanse Sacral wound with Saline. Apply Therahoney. Apply Moisture Barrier paste periwound. Cover with Optifoam drsg Daily and prn Apply Cavilon Skin Barrier to malleoli and each heel. Cover each site with Optifoam drsg.Change every 7 days and PRN. Reposition at least every 2hours or as tolerated. Off-load heels with pillow. APM/ADELIA Mattress overlay. Delon Murray Apr 29, 2020 16:08
--- NOTE | 2020-04-29 17:20 | NUR ---
Received pt's report from Cristiano Myers. Pt is laying on bed. No s/s of respiratory distress noted. Pt is on vent per prescribed setting. Pt Left upper arm picc line is clean and intact noted. D5w w/KCL running. Pt is on schroeder, color yellow noted. Pt's nephrostomy bags are noted. Call-light within reach. Bed is in low and locked. Pt is on semi dailey position. Will continue to monitor and follow plan of care. Addendum: 04/30/20 at 0002 by Pierre Vicente RN To add header.
--- NOTE | 2020-04-29 18:21 | Infectious Diseases Prog Note ---
Assessment/Plan Assessment: Severe sepsis- ?source- ?early pNA vs tracheitis Cons bacteremia- suspect contaminant -04/22 Bcx 1/ CONS; 04/24, Bcx NTD Hyperthermia (up to 105 upon admission); SP - COVID19 neg x3 Leukocytosis, SP -04/29 CXR: no acute process -04/27 CXR: Mild central vascular congestion. SARS-COV2 PCR neg -04/26 sp cx MDR ABC (s levaquin), GNR #2, #3 -04/25 CXR: no acute diseae -04/23 SARS-COV2 PCR neg -04/22 CXR: no acute disease -u/a wbc 20-30, nit neg, leuk +3; ucx 30-40k mixed gram positive organisms -rapid COVID test neg -V. duplex no DVT Lactic acidosis, SP GABRIELLE, SP Elevated LFTs; SP -HIV ab sc neg, Acute hep panel neg -Abd US: GALLSTONE. MILDLY PROMINENT CBD BUT MAY BE NORMAL FOR AGE. BILATERAL URETERAL STENTS. NO HYDRONEPHROSIS. POSSIBLE SMALL BILATERAL RENAL STONES. MIDLINE STRUCTURES INCLUDING PANCREAS, AORTA AND CAVA NOT OPTIMALLY VISUALIZED DUE TO BOWEL GAS. GERD DM2 COPD GIB neurogenic bladder stage IV sacral decubitus ulcer paranoid schizoaffective disorder suicide attempt in 2003 progressing to coma and requiring correction ventilator support spatic quadriplegia obesity b/l nephrostomy tubes 2018 seizure disorder chronic resp failure s/p trach dependent dysphagia s/p GT NH resident ([facility]) Plan: -Cont PO Levaquin #2/7 for MDR ABC in sputum based on sensitiities -04/28 SP IV Vancomycin #6, Cefepime #6 -04/23 SP Ertapenem x1 -f/u cx -Monitor CBC/CMP, temperatures -f/u BCx x2, sp cx -COVID19 neg x3 (1 rapid, 2 NAAT);ok to dc isolation; afebrile >72hrs -PEG/trach care -aspiration precautions -wound care per hospital protocol Thank you for consulting [facility]. Will continue to follow along with you. Discussed maxwell BARKER. Subjective Allergies: Coded Allergies: No Known Allergies (Unverified , 02/08/13) afebrile repeat Bcx NTD no leukocytosis Objective Last 24 Hour Vital Signs Date Time Temp Pulse Resp B/P (MAP) Pulse Ox O2 Delivery O2 Flow Rate FiO2 04/29/20 16:00 84 04/29/20 16:00 40 04/29/20 16:00 Mechanical Ventilator Mechanical Ventilator 04/29/20 16:00 98.1 74 18 107/64 (78) 100 04/29/20 15:30 82 18 40 04/29/20 12:00 40 04/29/20 12:00 Mechanical Ventilator Mechanical Ventilator 04/29/20 12:00 78 04/29/20 12:00 97.7 75 18 113/60 (77) 100 04/29/20 10:55 74 18 40 04/29/20 08:00 75 04/29/20 08:00 97.2 82 20 132/73 (92) 100 04/29/20 08:00 40 04/29/20 08:00 Mechanical Ventilator Mechanical Ventilator 04/29/20 07:29 79 18 40 04/29/20 04:00 84 04/29/20 04:00 40 04/29/20 04:00 Mechanical Ventilator Mechanical Ventilator 04/29/20 04:00 98.4 70 18 110/63 (79) 100 04/29/20 03:11 61 18 40 04/29/20 00:00 Mechanical Ventilator Mechanical Ventilator 04/29/20 00:00 83 18 40 04/29/20 00:00 71 04/29/20 00:00 40 04/29/20 00:00 98.8 84 18 109/58 (75) 100 04/28/20 20:00 40 04/28/20 20:00 83 04/28/20 20:00 98.4 79 18 111/54 (73) 100 04/28/20 20:00 Mechanical Ventilator Mechanical Ventilator 04/28/20 19:30 79 18 40 Height (Feet): 5 Height (Inches): 7.00 Weight (Pounds): 198 GENERAL: Patient is a thin-appearing female, who is intubated and sedated. HEENT: Eyes, pupils are equal and responsive to light and accommodation. Extraocular movements are intact. NECK: Supple without lymphadenopathy. Tracheostomy is in place. CHEST: Coarse breath sounds bilateral bases otherwise without wheezes or rales. CARDIOVASCULAR: Tachycardic, regular rhythm. S1, S2 normal without murmurs, rubs, or gallops. ABDOMEN: Soft, nontender, nondistended. Positive bowel sounds. No evidence of hepatosplenomegaly. Currently, no rebound or guarding noted. EXTREMITIES: Negative for clubbing, cyanosis, or edema. Microbiology Date/Time Source Procedure Growth Status 04/27/20 06:20 Nasopharynx Coronavirus COVID-19 PCR ([facility]ATA) - Final Complete Laboratory Tests Test 04/28/20 23:56 04/29/20 05:33 04/29/20 06:00 POC Whole Blood Glucose 96 MG/DL (74-106) 98 MG/DL (74-106) White Blood Count 6.3 K/UL (4.8-10.8) Red Blood Count 3.19 M/UL (4.20-5.40) L Hemoglobin 9.7 G/DL (12.0-16.0) L Hematocrit 30.9 % (37.0-47.0) L Mean Corpuscular Volume 97 FL (80-99) Mean Corpuscular Hemoglobin 30.4 PG (27.0-31.0) Mean Corpuscular Hemoglobin Concent 31.4 G/DL (32.0-36.0) L Red Cell Distribution Width 14.5 % (11.6-14.8) Platelet Count 145 K/UL (150-450) L Mean Platelet Volume 7.2 FL (6.5-10.1) Neutrophils (%) (Auto) 64.9 % (45.0-75.0) Lymphocytes (%) (Auto) 21.1 % (20.0-45.0) Monocytes (%) (Auto) 9.0 % (1.0-10.0) Eosinophils (%) (Auto) 4.4 % (0.0-3.0) H Basophils (%) (Auto) 0.7 % (0.0-2.0) Sodium Level 148 MMOL/L (136-145) H Potassium Level 2.9 MMOL/L (3.5-5.1) L Chloride Level 114 MMOL/L (98-107) H Carbon Dioxide Level 26 MMOL/L (21-32) Anion Gap 8 mmol/L (5-15) Blood Urea Nitrogen 9 mg/dL (7-18) Creatinine 0.6 MG/DL (0.55-1.30) Estimat Glomerular Filtration Rate > 60 mL/min (>60) Glucose Level 112 MG/DL (74-106) #H Calcium Level 7.7 MG/DL (8.5-10.1) L Phosphorus Level 2.9 MG/DL (2.5-4.9) Magnesium Level 1.9 MG/DL (1.8-2.4) Total Bilirubin 0.1 MG/DL (0.2-1.0) L Aspartate Amino Transf (AST/SGOT) 32 U/L (15-37) Alanine Aminotransferase (ALT/SGPT) 35 U/L (12-78) Alkaline Phosphatase 139 U/L (46-116) H C-Reactive Protein, Quantitative 5.9 mg/dL (0.00-0.90) H Total Protein 7.4 G/DL (6.4-8.2) Albumin 1.8 G/DL (3.4-5.0) L Globulin 5.6 g/dL Albumin/Globulin Ratio 0.3 (1.0-2.7) L Current Medications Medications (Trade) Dose Ordered Sig/Emanuel Route PRN Reason Start Time Stop Time Status Last Admin Dose Admin Acetaminophen (Tylenol) 500 mg Q4H PRN GT Pain Scale (3-5) 04/23/20 08:45 05/23/20 01:59 Acetaminophen (Tylenol) 650 mg THREE TIMES A DAY PRN GT FHMP 04/23/20 02:00 05/23/20 01:59 04/26/20 12:54 Artificial Tears (Akwa-Tears) 1 drop BID BOTH EYES 04/23/20 09:00 05/23/20 08:59 04/29/20 17:43 Bisacodyl (Dulcolax) 10 mg DAILY PRN RECTAL Constipation 04/23/20 02:00 07/22/20 01:59 Chlorhexidine Gluconate (Mimi-Hex 2%) 1 applic DAILY@2000 TOPIC 04/26/20 20:00 07/25/20 19:59 04/28/20 20:37 Dextrose (Dextrose 50%) 25 ml Q30M PRN IV Hypoglycemia 04/23/20 08:15 07/22/20 08:14 Dextrose (Dextrose 50%) 50 ml Q30M PRN IV Hypoglycemia 04/23/20 08:15 07/22/20 08:14 Dextrose/ Electrolytes 1,000 ml @ 50 mls/hr Q20H IV 04/29/20 18:00 05/29/20 17:59 Docusate Sodium (Colace) 250 mg DAILYPRN PRN GT CONSTIPATION 04/23/20 12:50 05/23/20 12:49 Insulin Aspart (NovoLOG) Q6HR SUBQ 04/25/20 12:00 07/24/20 11:59 04/28/20 05:57 Ipratropium [place] (Atrovent) 500 mcg Q6H PRN HHN Shortness of Breath 04/27/20 08:00 05/02/20 07:59 Levetiracetam (Keppra) 1,000 mg Q12HR GT 04/23/20 21:00 05/23/20 08:59 04/29/20 08:48 Levofloxacin (Levaquin) 750 mg DAILY ORAL 04/28/20 12:00 05/05/20 11:59 04/29/20 08:49 Metoclopramide HCl (Reglan) 5 mg Q6HR GT 04/23/20 13:53 05/23/20 13:52 04/29/20 17:43 Pantoprazole (Protonix) 40 mg Q12HR IVP 04/23/20 21:00 05/23/20 08:59 04/29/20 08:51 Phenytoin (Dilantin) 150 mg Q12HR GT 04/24/20 21:00 05/23/20 08:29 04/29/20 08:48 Sodium Phosphate (Fleet's Sodium Phosl Enema) 133 ml DAILY PRN RECTAL CONSTIPATION 04/23/20 02:00 05/23/20 01:59 Sorbitol (sorbitoL) 30 ml DAILYPRN PRN GT constipation 04/23/20 08:15 05/23/20 08:14 Zinc Sulfate (Zinc Sulfate) 220 mg DAILY GT 04/23/20 09:00 07/22/20 08:59 04/29/20 08:51 Jayne Peoples M.D. Apr 29, 2020 18:21
--- NOTE | 2020-04-29 18:39 | Internal Med Progress Note ---
Subjective Date of Service: Apr 29, 2020 Physician Name Kalin Eubanks Attending Physician Jeyson Yanez MD Current Medications Medications (Trade) Dose Ordered Sig/Emanuel Route PRN Reason Start Time Stop Time Status Last Admin Dose Admin Acetaminophen (Tylenol) 500 mg Q4H PRN GT Pain Scale (3-5) 04/23/20 08:45 05/23/20 01:59 Acetaminophen (Tylenol) 650 mg THREE TIMES A DAY PRN GT FHMP 04/23/20 02:00 05/23/20 01:59 04/26/20 12:54 Artificial Tears (Akwa-Tears) 1 drop BID BOTH EYES 04/23/20 09:00 05/23/20 08:59 04/29/20 17:43 Bisacodyl (Dulcolax) 10 mg DAILY PRN RECTAL Constipation 04/23/20 02:00 07/22/20 01:59 Chlorhexidine Gluconate (Mimi-Hex 2%) 1 applic DAILY@2000 TOPIC 04/26/20 20:00 07/25/20 19:59 04/28/20 20:37 Dextrose (Dextrose 50%) 25 ml Q30M PRN IV Hypoglycemia 04/23/20 08:15 07/22/20 08:14 Dextrose (Dextrose 50%) 50 ml Q30M PRN IV Hypoglycemia 04/23/20 08:15 07/22/20 08:14 Dextrose/ Electrolytes 1,000 ml @ 50 mls/hr Q20H IV 04/29/20 18:00 05/29/20 17:59 04/29/20 18:28 Docusate Sodium (Colace) 250 mg DAILYPRN PRN GT CONSTIPATION 04/23/20 12:50 05/23/20 12:49 Insulin Aspart (NovoLOG) Q6HR SUBQ 04/25/20 12:00 07/24/20 11:59 04/28/20 05:57 Ipratropium [place] (Atrovent) 500 mcg Q6H PRN HHN Shortness of Breath 04/27/20 08:00 05/02/20 07:59 Levetiracetam (Keppra) 1,000 mg Q12HR GT 04/23/20 21:00 05/23/20 08:59 04/29/20 08:48 Levofloxacin (Levaquin) 750 mg DAILY ORAL 04/28/20 12:00 05/05/20 11:59 04/29/20 08:49 Metoclopramide HCl (Reglan) 5 mg Q6HR GT 04/23/20 13:53 05/23/20 13:52 04/29/20 17:43 Pantoprazole (Protonix) 40 mg Q12HR IVP 04/23/20 21:00 05/23/20 08:59 04/29/20 08:51 Phenytoin (Dilantin) 150 mg Q12HR GT 04/24/20 21:00 05/23/20 08:29 04/29/20 08:48 Sodium Phosphate (Fleet's Sodium Phosl Enema) 133 ml DAILY PRN RECTAL CONSTIPATION 04/23/20 02:00 05/23/20 01:59 Sorbitol (sorbitoL) 30 ml DAILYPRN PRN GT constipation 04/23/20 08:15 05/23/20 08:14 Zinc Sulfate (Zinc Sulfate) 220 mg DAILY GT 04/23/20 09:00 07/22/20 08:59 04/29/20 08:51 Allergies: Coded Allergies: No Known Allergies (Unverified , 02/08/13) ROS Limited/Unobtainable: Yes Subjective 59 YO F admitted with fever, now Sepsis and pneumonia. Cover for Int Med-Dr Yanez. Step down unit Objective Last Vital Signs Date Time Temp Pulse Resp B/P (MAP) Pulse Ox O2 Delivery O2 Flow Rate FiO2 04/29/20 16:00 84 04/29/20 16:00 40 04/29/20 16:00 Mechanical Ventilator Mechanical Ventilator 04/29/20 16:00 98.1 18 107/64 (78) 100 04/23/20 01:24 15.0 Laboratory Tests Test 04/28/20 23:56 04/29/20 05:33 04/29/20 06:00 POC Whole Blood Glucose 96 MG/DL (74-106) 98 MG/DL (74-106) White Blood Count 6.3 K/UL (4.8-10.8) Red Blood Count 3.19 M/UL (4.20-5.40) L Hemoglobin 9.7 G/DL (12.0-16.0) L Hematocrit 30.9 % (37.0-47.0) L Mean Corpuscular Volume 97 FL (80-99) Mean Corpuscular Hemoglobin 30.4 PG (27.0-31.0) Mean Corpuscular Hemoglobin Concent 31.4 G/DL (32.0-36.0) L Red Cell Distribution Width 14.5 % (11.6-14.8) Platelet Count 145 K/UL (150-450) L Mean Platelet Volume 7.2 FL (6.5-10.1) Neutrophils (%) (Auto) 64.9 % (45.0-75.0) Lymphocytes (%) (Auto) 21.1 % (20.0-45.0) Monocytes (%) (Auto) 9.0 % (1.0-10.0) Eosinophils (%) (Auto) 4.4 % (0.0-3.0) H Basophils (%) (Auto) 0.7 % (0.0-2.0) Sodium Level 148 MMOL/L (136-145) H Potassium Level 2.9 MMOL/L (3.5-5.1) L Chloride Level 114 MMOL/L (98-107) H Carbon Dioxide Level 26 MMOL/L (21-32) Anion Gap 8 mmol/L (5-15) Blood Urea Nitrogen 9 mg/dL (7-18) Creatinine 0.6 MG/DL (0.55-1.30) Estimat Glomerular Filtration Rate > 60 mL/min (>60) Glucose Level 112 MG/DL (74-106) #H Calcium Level 7.7 MG/DL (8.5-10.1) L Phosphorus Level 2.9 MG/DL (2.5-4.9) Magnesium Level 1.9 MG/DL (1.8-2.4) Total Bilirubin 0.1 MG/DL (0.2-1.0) L Aspartate Amino Transf (AST/SGOT) 32 U/L (15-37) Alanine Aminotransferase (ALT/SGPT) 35 U/L (12-78) Alkaline Phosphatase 139 U/L (46-116) H C-Reactive Protein, Quantitative 5.9 mg/dL (0.00-0.90) H Total Protein 7.4 G/DL (6.4-8.2) Albumin 1.8 G/DL (3.4-5.0) L Globulin 5.6 g/dL Albumin/Globulin Ratio 0.3 (1.0-2.7) L Microbiology Date/Time Source Procedure Growth Status 04/27/20 06:20 Nasopharynx Coronavirus COVID-19 PCR ([facility]) - Final Complete Intake and Output 04/28/20 04/29/20 19:00 07:00 Intake Total 1147.921 ml 1080 ml Output Total 750 ml 750 ml Balance 397.921 ml 330 ml Intake Free Water 200 ml IV Total 727.921 ml 550 ml Tube Feeding 240 ml 330 ml Other 180 ml Output Urine Total 0 ml 0 ml Other 750 ml 750 ml # Bowel Movements 2 Objective PHYSICAL EXAMINATION: GENERAL: Patient is a thin-appearing female, who is intubated and sedated. HEENT: Eyes, pupils are equal and responsive to light and accommodation. Extraocular movements are intact. NECK: Supple without lymphadenopathy. Tracheostomy is in place. CHEST: Mech vent; Coarse breath sounds bilateral bases otherwise without wheezes or rales. CARDIOVASCULAR: Tachycardic, regular rhythm. S1, S2 normal without murmurs, rubs, or gallops. ABDOMEN: Soft, nontender, nondistended. Positive bowel sounds. No evidence of hepatosplenomegaly. Currently, no rebound or guarding noted. EXTREMITIES: Negative for clubbing, cyanosis, or edema. RECTAL/GENITAL: Not performed. NEUROLOGIC: Cranial nerves II through XII are grossly intact without focal deficits. Assessment/Plan Assessment/Plan ASSESSMENT: This is a 59-year-old female. 1. pneumonia=acenitobacter (MDR) 2. sepsis=coag neg staph 3. Chronic respiratory failure. 4. Chronic obstructive pulmonary disease. 5. Quadriplegia. 6. History of dysphagia. 7. Diabetes type 2. 8. Seizure disorder. 9. History of gastrointestinal hemorrhage. 10. Erosive gastritis. 11. Schizophrenia. 12. Gastroesophageal reflux disease. 13. Neurogenic bladder. 14. Stage IV sacral decubitus ulcer. 15. History of deep venous thrombosis. TREATMENT: 1. Fever/sepsis. A Pulmonary Critical Care consultation has been obtained with Dr. Luis Garcia. ABX= levaquin; S/P vancomycin and cefepime. We will follow recommendations of Pulmonary. Infectious disease=Dr Peoples 2. Chronic vent dependence/chronic respiratory failure. As above, a Pulmonary consultation has been obtained with Dr. Luis Garcia. We will follow recommendations of Pulmonary. 3. Seizure disorder. Continue Keppra and Dilantin as above. 4. Diabetes type 2. NovoLog sliding scale has been instituted. 5. Chronic obstructive pulmonary disease. As above, a Pulmonary consultation has been obtained with Dr. Luis Garcia. We will follow recommendations of Pulmonary. 6. History of gastrointestinal hemorrhage/erosive gastritis. Patient has been placed on Protonix. 7. Schizophrenia, not otherwise specified. 8. Gastroesophageal reflux disease. 9. Neurogenic bladder. 10. Stage IV sacral decubitus ulcer. 11. History of deep venous thrombosis. Kalin Eubanks MD Apr 29, 2020 18:39
--- NOTE | 2020-04-29 19:09 | NUR ---
HAND-OFF: Report given to Pierre Mejia RN. Endorsed plan of care.
[2020-04-29] MEDS: Dyna-Hex 2% Top Sol 2oz TOPIC SCH (21:08)
[2020-04-30 04:00] VITALS: BP 112/56
[2020-04-30 05:02] LABS: BASOPHILS % (AUTO) 0.7 % (0.0-2.0); EOSINOPHILS % (AUTO) 3.9 % (0.0-3.0); HEMATOCRIT 30.4 % (37.0-47.0); MEAN CORPUSCULAR VOLUME 95 FL (80-99); MONOCYTES % (AUTO) 8.9 % (1.0-10.0); NEUTROPHILS % (AUTO) 61.5 % (45.0-75.0); PLATELET COUNT 195 K/UL (150-450); RED BLOOD COUNT 3.19 M/UL (4.20-5.40); RED CELL DISTRIBUTION WIDTH 14.6 % (11.6-14.8); WHITE BLOOD COUNT 7.2 K/UL (4.8-10.8)
[2020-04-30 05:24] LABS: ANION GAP 7 mmol/L (5-15); BLOOD UREA NITROGEN 7 mg/dL (7-18); CALCIUM 7.8 MG/DL (8.5-10.1); CARBON DIOXIDE 27 MMOL/L (21-32); CHLORIDE 115 MMOL/L (98-107); CREATININE 0.6 MG/DL (0.55-1.30); POTASSIUM 3.3 MMOL/L (3.5-5.1); SODIUM 149 MMOL/L (136-145)
[2020-04-30] MEDS: NovoLOG Insulin Flexpen SUBQ SCH ×3 (06:00→18:00)
--- NOTE | 2020-04-30 07:00 | NUR ---
RESPIRATORY NOTE: PT RECEIVED STABLE ON CMV WITH CURRENT SETTINGS: AC/VC: 18, 450, 40%, +5. ALARMS ARE ON AND AUDIBLE. VENT CIRCUIT IS SECURE AND OUT OF THE WAY. NO S/S OF RESPIRATORY DISTRESS NOTED AT THIS TIME. WILL CONTINUE TO MONITOR.
--- NOTE | 2020-04-30 07:10 | NUR ---
NURSE NOTES: Received report from Tami Vicente RN. Patient awake, nonverbal, unable to follow commands and make needs known. SR 77 on [address] monitor. Trach to vent with settings of AC 18, TV 450, FiO2 40%, PEEP 5, saturating at 100%. GT clamped until 11:00, no residuals noted, HoB elevated. Bilateral nephrostomy tubes and schroeder catheter patent and draining to gravity. Left upper arm PICC infusing D5W with 20 meq KCl @ 50 cc/hr. Per endorsement, purple lumen is not patent, luer lock changed and flushed, both lumens now working. Bed locked in lowest position with padded side rails up x 3. All needs attended to. Will continue to monitor.
--- NOTE | 2020-04-30 07:56 | NUR ---
HAND-OFF: Report given to LUCERO Santos. Pt is stable at this moment. Endorsed plan of care. .
[2020-04-30 08:00] VITALS: BP 107/59
[2020-04-30] MEDS: levETIRAcetam 500mg/5ml Liquid GT SCH ×2 (08:35→20:12)
[2020-04-30] MEDS: Zinc Sulfate 220mg GT SCH (08:35)
[2020-04-30] MEDS: Levofloxacin 750mg tab ORAL SCH (08:35)
[2020-04-30] MEDS: Phenytoin Susp 100mg/4ml GT SCH ×2 (08:36→20:13)
[2020-04-30] MEDS: Pantoprazole Inj IVP SCH ×2 (08:36→20:12)
--- NOTE | 2020-04-30 09:14 | NUR ---
RD ASSESSMENT & RECOMMENDATIONS SEE CARE ACTIVITY FOR COMPLETE ASSESSMENT DAILY ESTIMATED NEEDS: Needs based on Critical care, DM, sepsis, wound 66.7kg abw 25-30 kcals/kg total kcals 1.25-2 g protein/kg 83-133 g total protein 25-30 mL/kg total fluid mLs NUTRITION DIAGNOSIS: * Swallowing difficulty r/t resp status as evidenced by pt is trach and PEG dep. * Increased kcal/prot/micronutrients needs R/T wound healing as evidenced by pt admitted w/ stage 4 sacral wound. CURRENT TF: Glucerna 1.2 @30ml/hr x20 hrs ENTERAL NUTRITION RECOMMENDATIONS: Glucerna 1.2 @75ml/hr x20 hrs (on Dilantin BID) to provide 1500ml, 1800 kcal, 90g pro, 1208ml free h2o - Advance as tolerated 10ml/hr q4-6 hrs to goal. - Flush per MD/ HOB over 30 degrees. - Hold 1 hr before and after Dilantin, TF to run max 20 hrs. - TF at goal meets DRI's, no need for added MVI. ADDITIONAL RECOMMENDATIONS: 1) Obtain an accurate Height as able: 5'7" per EMR, 6'1" per SNF. April 01, 2020 wt per SNF: 182 lbs/82.73kg 2) F/up w/ WC eval-> stage 4 sacral Add CEM BID via GT, Vit C 500mg BID, con't Zn SO4 3) Increase water flushes as Na is trending up 4) Monitor lytes, replete as needed-> K low
[2020-04-30] MEDS ORDERED: Potassium Chloride 40 MEQ in D5W 275 ML IV SCH (09:30)
--- NOTE | 2020-04-30 11:22 | Nephrology Progress Note ---
Assessment/Plan Problem List: (1) Electrolyte imbalance Assessment: Hypernatremia (2) Dehydration (3) Diabetes mellitus (4) Spastic quadriplegic cerebral palsy (5) Chronic respiratory failure (6) Sepsis Assessment: UTI (7) Sacral decubitus ulcer Assessment Dehydration, prerenal azotemia, free water deficit, hypernatremia Sepsis, UTI Chronic respiratory failure, status post tracheostomy Sacral decubitus ulcer Chronic seizure disorder PEG Diabetes mellitus Spastic quadriplegic cerebral palsy Plan April 30: More potassium IV given. DC Ding catheter. Patient has functioning bilateral nephrostomy. Discussed with RN. April 29: More potassium IV chloride given. Remains stable from renal standpoint of view April 28: Stable from renal standpoint of view. Continue per consultants. April 27: IV potassium chloride ordered. IV fluid adjusted. Increase D5W to 75 cc an hour. Potassium supplement IV . Continue to monitor renal parameters and electrolytes Monitor Dilantin level, adjust the dose corrected for low albumin Monitor electrolytes and renal parameters Increase Protonix to every 12 hours Keep the blood sugar in check Per orders Patient is full code Subjective ROS Limited/Unobtainable: Yes Objective Objective Last 24 Hour Vital Signs Date Time Temp Pulse Resp B/P (MAP) Pulse Ox O2 Delivery O2 Flow Rate FiO2 04/30/20 10:31 80 18 40 04/30/20 08:00 40 04/30/20 08:00 Mechanical Ventilator Mechanical Ventilator 04/30/20 08:00 98.4 80 23 107/59 (75) 100 04/30/20 07:38 75 04/30/20 07:00 77 20 40 04/30/20 04:00 Mechanical Ventilator Mechanical Ventilator 04/30/20 04:00 98.4 79 18 112/56 (74) 100 04/30/20 04:00 91 04/30/20 04:00 40 04/30/20 03:30 78 18 40 04/30/20 00:00 40 04/30/20 00:00 Mechanical Ventilator Mechanical Ventilator 04/29/20 23:54 98.1 88 18 119/53 (75) 100 04/29/20 23:27 74 04/29/20 23:20 90 22 40 04/29/20 20:00 Mechanical Ventilator Mechanical Ventilator 04/29/20 20:00 98.2 81 18 107/63 (78) 100 04/29/20 20:00 87 04/29/20 19:20 77 19 40 04/29/20 16:00 84 04/29/20 16:00 40 04/29/20 16:00 Mechanical Ventilator Mechanical Ventilator 04/29/20 16:00 98.1 74 18 107/64 (78) 100 04/29/20 15:30 82 18 40 04/29/20 12:00 40 04/29/20 12:00 Mechanical Ventilator Mechanical Ventilator 04/29/20 12:00 78 04/29/20 12:00 97.7 75 18 113/60 (77) 100 Intake and Output 04/29/20 04/30/20 19:00 07:00 Intake Total 1605 ml 1050 ml Output Total 1070 ml 3200 ml Balance 535 ml -2150 ml Intake Free Water 100 ml IV Total 1265 ml 600 ml Tube Feeding 240 ml 450 ml Other 1070 ml 3200 ml # Bowel Movements 1 Laboratory Tests 04/30/20 03:35: White Blood Count 7.2, Red Blood Count 3.19L, Hemoglobin 10.0L, Hematocrit 30.4L , Mean Corpuscular Volume 95, Mean Corpuscular Hemoglobin 31.3H, Mean Corpuscular Hemoglobin Concent 32.8, Red Cell Distribution Width 14.6, Platelet Count 195, Mean Platelet Volume 7.2, Neutrophils (%) (Auto) 61.5, Lymphocytes (% ) (Auto) 25.0, Monocytes (%) (Auto) 8.9, Eosinophils (%) (Auto) 3.9H, Basophils (%) (Auto) 0.7, Sodium Level 149H, Potassium Level 3.3L, Chloride Level 115H, Carbon Dioxide Level 27, Anion Gap 7, Blood Urea Nitrogen 7, Creatinine 0.6, Estimat Glomerular Filtration Rate > 60, Glucose Level 114H, Calcium Level 7.8L Height (Feet): 5 Height (Inches): 7.00 Weight (Pounds): 198 General Appearance: no apparent distress EENT: other - Trach and vent Cardiovascular: tachycardia Respiratory/Chest: decreased breath sounds Abdomen: other - PEG in place Genitourinary/Rectal: other - Bilateral nephrostomy Caleb Reese MD Apr 30, 2020 11:22
--- NOTE | 2020-04-30 11:38 | Pulmonolgy Critical Care Note ---
Critical Care - Asmt/Plan Problems: (1) Sepsis (2) Chronic respiratory failure (3) Acute metabolic encephalopathy (4) Acute prerenal azotemia (5) Sacral decubitus ulcer (6) Spastic quadriplegic cerebral palsy (7) Chronic vegetative state (8) Schizophrenia (9) Chronic seizure disorder (10) Diabetes mellitus (11) Feeding by G-tube Respiratory: monitor respiratory rate, adjust FIO2, CXR Cardiac: continue pressors, continue to monitor HR/BP Renal: F/U I&O, keep IV fluid, check electrolytes Infectious Disease: check cultures Gastrointestinal: continue feedings/current rate Endocrine: monitor blood sugar Hematologic: monitor H/H, transfuse if hgb<8.5 Neurologic: PRN Ativan, keep patient comfortable Affect: PRN ativan Prophylaxis: Protonix Time Spent (Minutes): 40 Notes Reviewed: assistant paralegal Discussed with: nurses, consultants, case brieferatm manager - Objective Last 24 Hour Vital Signs Date Time Temp Pulse Resp B/P (MAP) Pulse Ox O2 Delivery O2 Flow Rate FiO2 04/30/20 10:31 80 18 40 04/30/20 08:00 40 04/30/20 08:00 Mechanical Ventilator Mechanical Ventilator 04/30/20 08:00 98.4 80 23 107/59 (75) 100 04/30/20 07:38 75 04/30/20 07:00 77 20 40 04/30/20 04:00 Mechanical Ventilator Mechanical Ventilator 04/30/20 04:00 98.4 79 18 112/56 (74) 100 04/30/20 04:00 91 04/30/20 04:00 40 04/30/20 03:30 78 18 40 04/30/20 00:00 40 04/30/20 00:00 Mechanical Ventilator Mechanical Ventilator 04/29/20 23:54 98.1 88 18 119/53 (75) 100 04/29/20 23:27 74 04/29/20 23:20 90 22 40 04/29/20 20:00 Mechanical Ventilator Mechanical Ventilator 04/29/20 20:00 98.2 81 18 107/63 (78) 100 04/29/20 20:00 87 04/29/20 19:20 77 19 40 04/29/20 16:00 84 04/29/20 16:00 40 04/29/20 16:00 Mechanical Ventilator Mechanical Ventilator 04/29/20 16:00 98.1 74 18 107/64 (78) 100 04/29/20 15:30 82 18 40 04/29/20 12:00 40 04/29/20 12:00 Mechanical Ventilator Mechanical Ventilator 04/29/20 12:00 78 04/29/20 12:00 97.7 75 18 113/60 (77) 100 Status: sedated HEENT: atraumatic Neck: trach Lungs: rales, rhonchi Heart: HR/BP stable, HR/BP unstable Abdomen: soft, non-tender Extremities: no C/C/E Decubiti: location Micro: Microbiology Date/Time Source Procedure Growth Status 04/29/20 16:00 Stool Clostridium difficile Toxin Assay - Final Complete Accucheck: 99 Critical Care - Subjective ROS Limited/Unobtainable: Yes Condition: critical EKG Rhythm: Sinus Rhythm FI02: 40 Vent Support Breath Rate: 18 Vent Support Mode: AC Vent Tidal Volume: 450 Sputum Amount: Small PEEP: 5.0 PIP: 24 Tube Feeding Amount: 30 I&O: Intake and Output 04/29/20 04/30/20 19:00 07:00 Intake Total 1605 ml 1050 ml Output Total 1070 ml 3200 ml Balance 535 ml -2150 ml Intake Free Water 100 ml IV Total 1265 ml 600 ml Tube Feeding 240 ml 450 ml Other 1070 ml 3200 ml # Bowel Movements 1 Labs: Laboratory Tests Test 04/30/20 03:35 White Blood Count 7.2 K/UL (4.8-10.8) Red Blood Count 3.19 M/UL (4.20-5.40) L Hemoglobin 10.0 G/DL (12.0-16.0) L Hematocrit 30.4 % (37.0-47.0) L Mean Corpuscular Volume 95 FL (80-99) Mean Corpuscular Hemoglobin 31.3 PG (27.0-31.0) H Mean Corpuscular Hemoglobin Concent 32.8 G/DL (32.0-36.0) Red Cell Distribution Width 14.6 % (11.6-14.8) Platelet Count 195 K/UL (150-450) Mean Platelet Volume 7.2 FL (6.5-10.1) Neutrophils (%) (Auto) 61.5 % (45.0-75.0) Lymphocytes (%) (Auto) 25.0 % (20.0-45.0) Monocytes (%) (Auto) 8.9 % (1.0-10.0) Eosinophils (%) (Auto) 3.9 % (0.0-3.0) H Basophils (%) (Auto) 0.7 % (0.0-2.0) Sodium Level 149 MMOL/L (136-145) H Potassium Level 3.3 MMOL/L (3.5-5.1) L Chloride Level 115 MMOL/L (98-107) H Carbon Dioxide Level 27 MMOL/L (21-32) Anion Gap 7 mmol/L (5-15) Blood Urea Nitrogen 7 mg/dL (7-18) Creatinine 0.6 MG/DL (0.55-1.30) Estimat Glomerular Filtration Rate > 60 mL/min (>60) Glucose Level 114 MG/DL (74-106) H Calcium Level 7.8 MG/DL (8.5-10.1) L Luis Garcia MD Apr 30, 2020 11:38
[2020-04-30 12:00] VITALS: BP 114/67
--- NOTE | 2020-04-30 12:46 | Surgery Progress Note ---
Surgery Progress Note Subjective Additional Comments c diff negative labs reviewed exam unchanged Objective Last 24 Hour Vital Signs Date Time Temp Pulse Resp B/P (MAP) Pulse Ox O2 Delivery O2 Flow Rate FiO2 04/30/20 12:00 98.1 78 20 114/67 (83) 100 04/30/20 10:31 80 18 40 04/30/20 08:00 40 04/30/20 08:00 Mechanical Ventilator Mechanical Ventilator 04/30/20 08:00 98.4 80 23 107/59 (75) 100 04/30/20 07:38 75 04/30/20 07:00 77 20 40 04/30/20 04:00 Mechanical Ventilator Mechanical Ventilator 04/30/20 04:00 98.4 79 18 112/56 (74) 100 04/30/20 04:00 91 04/30/20 04:00 40 04/30/20 03:30 78 18 40 04/30/20 00:00 40 04/30/20 00:00 Mechanical Ventilator Mechanical Ventilator 04/29/20 23:54 98.1 88 18 119/53 (75) 100 04/29/20 23:27 74 04/29/20 23:20 90 22 40 04/29/20 20:00 Mechanical Ventilator Mechanical Ventilator 04/29/20 20:00 98.2 81 18 107/63 (78) 100 04/29/20 20:00 87 04/29/20 19:20 77 19 40 04/29/20 16:00 84 04/29/20 16:00 40 04/29/20 16:00 Mechanical Ventilator Mechanical Ventilator 04/29/20 16:00 98.1 74 18 107/64 (78) 100 04/29/20 15:30 82 18 40 I&O Intake and Output 04/29/20 04/30/20 19:00 07:00 Intake Total 1605 ml 1050 ml Output Total 1070 ml 3200 ml Balance 535 ml -2150 ml Intake Free Water 100 ml IV Total 1265 ml 600 ml Tube Feeding 240 ml 450 ml Other 1070 ml 3200 ml # Bowel Movements 1 Dressing: other Wound: other Drains: other Cardiovascular: RSR Respiratory: decreased breath sounds Abdomen: soft, present bowel sounds Extremities: no cyanosis Laboratory Tests Test 04/30/20 03:35 04/30/20 12:09 White Blood Count 7.2 K/UL (4.8-10.8) Red Blood Count 3.19 M/UL (4.20-5.40) L Hemoglobin 10.0 G/DL (12.0-16.0) L Hematocrit 30.4 % (37.0-47.0) L Mean Corpuscular Volume 95 FL (80-99) Mean Corpuscular Hemoglobin 31.3 PG (27.0-31.0) H Mean Corpuscular Hemoglobin Concent 32.8 G/DL (32.0-36.0) Red Cell Distribution Width 14.6 % (11.6-14.8) Platelet Count 195 K/UL (150-450) Mean Platelet Volume 7.2 FL (6.5-10.1) Neutrophils (%) (Auto) 61.5 % (45.0-75.0) Lymphocytes (%) (Auto) 25.0 % (20.0-45.0) Monocytes (%) (Auto) 8.9 % (1.0-10.0) Eosinophils (%) (Auto) 3.9 % (0.0-3.0) H Basophils (%) (Auto) 0.7 % (0.0-2.0) Sodium Level 149 MMOL/L (136-145) H Potassium Level 3.3 MMOL/L (3.5-5.1) L Chloride Level 115 MMOL/L (98-107) H Carbon Dioxide Level 27 MMOL/L (21-32) Anion Gap 7 mmol/L (5-15) Blood Urea Nitrogen 7 mg/dL (7-18) Creatinine 0.6 MG/DL (0.55-1.30) Estimat Glomerular Filtration Rate > 60 mL/min (>60) Glucose Level 114 MG/DL (74-106) H Calcium Level 7.8 MG/DL (8.5-10.1) L POC Whole Blood Glucose 88 MG/DL (74-106) Plan Problems: (1) Feeding by G-tube Assessment & Plan: DAILY ESTIMATED NEEDS: Needs based on Critical care, DM, sepsis 66.7kg abw 22-30 kcals/kg 6587-1998 total kcals 1.25-2 g protein/kg 83-133 g total protein 25-30 mL/kg 6867-2224 total fluid mLs NUTRITION DIAGNOSIS: Swallowing difficulty r/t resp status as evidenced by pt is trach and PEG dep. CURRENT TF: Glucerna 1.5 @60ml/hr x20 hrs ENTERAL NUTRITION RECOMMENDATIONS: Glucerna 1.2 @75ml/hr x20 hrs (on Dilantin BID) to provide 1500ml, 1800 kcal, 90g pro, 1208ml free h2o Glucerna 1.5 OOS-> Rec Glucerna 1.2 for carb control + increased free H2O - Start @low rate, 15ml/hr for 6 hrs. Advance as tolerated 10ml/hr q4-6 hrs to goal. - Flush per MD/ HOB over 30 degrees. ---- ADDITIONAL RECOMMENDATIONS: 1) Obtain an accurate Height as able: 5'7" per EMR vs 6'1" per SNF. April 01, 2020 wt per SNF: 182 lbs/82.73kg 2) F/up w/ WC eval 3) Increase water flushes as Na is trending up 4) Replete lytes-> Mg, Phos, and K all low (2) Sepsis Assessment & Plan: Patient with leukocytosis, anemia, lactic acidosis. COVID rapid exam negative Urine noted On antibiotics Care plan as below We will follow with recommendations slowly improving Nutritional optimization Thank you for let me participate in patient's care (3) Sacral decubitus ulcer Assessment & Plan: Pt presented on admission with Tracheostomy, Gastrostomy, Bilat nephrostomies, Pressure injury.Skin assessed under tracheal collar and no evidence of skin breakdown noted. L nephrostomy migrating -suture noted to be loose. No peristomal erythema or skin erosion noted. R nephrostomy is intact without evidence of peristomal skin erosion noted.Scaly dark brown plaques noted to back and both upper thighs Full thickness Pressure Injury sacrococcygeal area(L)3.6cm x (W)1.3cm x (D)1.9cm ,Undermining clockwise at 6o'clock by 0.3cm,12-1 by 0.2cm.@1o'clock. Base of wound is pale pink and moist. Bone is palpable at the base of wound. Epibole along edges along with maceration to borders and periwound.Small amt serous exudate noted. No odor noted. Hyperpigmentation with historical scar noted to sacrum, R and L gluteal cheeks. R and L heels are both boggy with non-Blanching erythema. Bilat foot drop noted. Tx.Plan: Cleanse Sacral wound with Saline. Apply Therahoney. Apply Moisture Barrier paste periwound. Cover with Optifoam drsg Daily and prn Apply Cavilon Skin Barrier to malleoli and each heel. Cover each site with Optifoam drsg.Change every 7 days and PRN. Reposition at least every 2hours or as tolerated. Off-load heels with pillow. APM/ADELIA Mattress overlay. Delon Murray Apr 30, 2020 12:46
--- NOTE | 2020-04-30 13:11 | NUR ---
CASE MANAGEMENT: REVIEW SI: INTESTINAL OBSTRUCTION T 98.1 HR 78 RR 18 BP 107/59 SAT 100% MECH VENT FIO2 40 H/H 10.0/30.4 NA 149 K 3.3 CO2 115 IS: KCl 40MEQ IVF X1 D5W w/KCl 20MEQ @ 50ML/HR DILANTIN GT Q12HR KEPPRA GT Q12HR LEVAQUIN GT QD NOVOLOG SUBQ Q6HR GT FEEDING STEP DOWN UNIT DCP: PATIENT IS FROM [place]
--- NOTE | 2020-04-30 13:11 | Infectious Diseases Prog Note ---
Assessment/Plan Assessment: Severe sepsis- ?source- ?early pNA vs tracheitis Cons bacteremia- suspect contaminant -04/22 Bcx 1/ CONS; 04/24, Bcx NTD Hyperthermia (up to 105 upon admission); SP - COVID19 neg x3 Leukocytosis, SP -04/29 CXR: no acute process -04/27 CXR: Mild central vascular congestion. SARS-COV2 PCR neg -04/26 sp cx MDR ABC (s levaquin), PsA (R Levaquin; otherwise S), P.stuarti ( I Levaquin; R ancef, AMp, Gentamycin) -04/25 CXR: no acute diseae -04/23 SARS-COV2 PCR neg -04/22 CXR: no acute disease -u/a wbc 20-30, nit neg, leuk +3; ucx 30-40k mixed gram positive organisms -rapid COVID test neg -V. duplex no DVT Lactic acidosis, SP GABRIELLE, SP Elevated LFTs; SP -HIV ab sc neg, Acute hep panel neg -Abd US: GALLSTONE. MILDLY PROMINENT CBD BUT MAY BE NORMAL FOR AGE. BILATERAL URETERAL STENTS. NO HYDRONEPHROSIS. POSSIBLE SMALL BILATERAL RENAL STONES. MIDLINE STRUCTURES INCLUDING PANCREAS, AORTA AND CAVA NOT OPTIMALLY VISUALIZED DUE TO BOWEL GAS. GERD DM2 COPD GIB neurogenic bladder stage IV sacral decubitus ulcer paranoid schizoaffective disorder suicide attempt in 2003 progressing to coma and requiring [facility]cf ventilator support spatic quadriplegia obesity b/l nephrostomy tubes 2018 seizure disorder chronic resp failure s/p trach dependent dysphagia s/p GT NH resident ([facility]) Plan: -Cont PO Levaquin #3/7 for MDR ABC in sputum -04/28 SP IV Vancomycin #6, Cefepime #6 -04/23 SP Ertapenem x1 -f/u cx -Monitor CBC/CMP, temperatures -f/u BCx x2, sp cx -COVID19 neg x3 (1 rapid, 2 NAAT);ok to dc isolation; afebrile >72hrs -PEG/trach care -aspiration precautions -wound care per hospital protocol Thank you for consulting [facility]. Will continue to follow along with you. Discussed maxwell RN. Subjective Allergies: Coded Allergies: No Known Allergies (Unverified , 02/08/13) afebrile repeat Bcx NTD no leukocytosis Objective Last 24 Hour Vital Signs Date Time Temp Pulse Resp B/P (MAP) Pulse Ox O2 Delivery O2 Flow Rate FiO2 04/30/20 12:00 98.1 78 20 114/67 (83) 100 04/30/20 10:31 80 18 40 04/30/20 08:00 40 04/30/20 08:00 Mechanical Ventilator Mechanical Ventilator 04/30/20 08:00 98.4 80 23 107/59 (75) 100 04/30/20 07:38 75 04/30/20 07:00 77 20 40 04/30/20 04:00 Mechanical Ventilator Mechanical Ventilator 04/30/20 04:00 98.4 79 18 112/56 (74) 100 04/30/20 04:00 91 04/30/20 04:00 40 04/30/20 03:30 78 18 40 04/30/20 00:00 40 04/30/20 00:00 Mechanical Ventilator Mechanical Ventilator 04/29/20 23:54 98.1 88 18 119/53 (75) 100 04/29/20 23:27 74 04/29/20 23:20 90 22 40 04/29/20 20:00 Mechanical Ventilator Mechanical Ventilator 04/29/20 20:00 98.2 81 18 107/63 (78) 100 04/29/20 20:00 87 04/29/20 19:20 77 19 40 04/29/20 16:00 84 04/29/20 16:00 40 04/29/20 16:00 Mechanical Ventilator Mechanical Ventilator 04/29/20 16:00 98.1 74 18 107/64 (78) 100 04/29/20 15:30 82 18 40 Height (Feet): 5 Height (Inches): 7.00 Weight (Pounds): 198 GENERAL: Patient is a thin-appearing female, who is intubated and sedated. HEENT: Eyes, pupils are equal and responsive to light and accommodation. Extraocular movements are intact. NECK: Supple without lymphadenopathy. Tracheostomy is in place. CHEST: Coarse breath sounds bilateral bases otherwise without wheezes or rales. CARDIOVASCULAR: Tachycardic, regular rhythm. S1, S2 normal without murmurs, rubs, or gallops. ABDOMEN: Soft, nontender, nondistended. Positive bowel sounds. No evidence of hepatosplenomegaly. Currently, no rebound or guarding noted. EXTREMITIES: Negative for clubbing, cyanosis, or edema. Microbiology Date/Time Source Procedure Growth Status 04/29/20 16:00 Stool Clostridium difficile Toxin Assay - Final Complete Laboratory Tests Test 04/30/20 03:35 04/30/20 12:09 White Blood Count 7.2 K/UL (4.8-10.8) Red Blood Count 3.19 M/UL (4.20-5.40) L Hemoglobin 10.0 G/DL (12.0-16.0) L Hematocrit 30.4 % (37.0-47.0) L Mean Corpuscular Volume 95 FL (80-99) Mean Corpuscular Hemoglobin 31.3 PG (27.0-31.0) H Mean Corpuscular Hemoglobin Concent 32.8 G/DL (32.0-36.0) Red Cell Distribution Width 14.6 % (11.6-14.8) Platelet Count 195 K/UL (150-450) Mean Platelet Volume 7.2 FL (6.5-10.1) Neutrophils (%) (Auto) 61.5 % (45.0-75.0) Lymphocytes (%) (Auto) 25.0 % (20.0-45.0) Monocytes (%) (Auto) 8.9 % (1.0-10.0) Eosinophils (%) (Auto) 3.9 % (0.0-3.0) H Basophils (%) (Auto) 0.7 % (0.0-2.0) Sodium Level 149 MMOL/L (136-145) H Potassium Level 3.3 MMOL/L (3.5-5.1) L Chloride Level 115 MMOL/L (98-107) H Carbon Dioxide Level 27 MMOL/L (21-32) Anion Gap 7 mmol/L (5-15) Blood Urea Nitrogen 7 mg/dL (7-18) Creatinine 0.6 MG/DL (0.55-1.30) Estimat Glomerular Filtration Rate > 60 mL/min (>60) Glucose Level 114 MG/DL (74-106) H Calcium Level 7.8 MG/DL (8.5-10.1) L POC Whole Blood Glucose 88 MG/DL (74-106) Current Medications Medications (Trade) Dose Ordered Sig/Emanuel Route PRN Reason Start Time Stop Time Status Last Admin Dose Admin Acetaminophen (Tylenol) 500 mg Q4H PRN GT Pain Scale (3-5) 04/23/20 08:45 05/23/20 01:59 Acetaminophen (Tylenol) 650 mg THREE TIMES A DAY PRN GT FHMP 04/23/20 02:00 05/23/20 01:59 04/26/20 12:54 Artificial Tears (Akwa-Tears) 1 drop BID BOTH EYES 04/23/20 09:00 05/23/20 08:59 04/30/20 08:36 Bisacodyl (Dulcolax) 10 mg DAILY PRN RECTAL Constipation 04/23/20 02:00 07/22/20 01:59 Chlorhexidine Gluconate (Mimi-Hex 2%) 1 applic DAILY@2000 TOPIC 04/26/20 20:00 07/25/20 19:59 04/29/20 21:08 Dextrose (Dextrose 50%) 25 ml Q30M PRN IV Hypoglycemia 04/23/20 08:15 07/22/20 08:14 Dextrose (Dextrose 50%) 50 ml Q30M PRN IV Hypoglycemia 04/23/20 08:15 07/22/20 08:14 Dextrose/ Electrolytes 1,000 ml @ 50 mls/hr Q20H IV 04/29/20 18:00 05/29/20 17:59 04/29/20 18:28 Docusate Sodium (Colace) 250 mg DAILYPRN PRN GT CONSTIPATION 04/23/20 12:50 05/23/20 12:49 Insulin Aspart (NovoLOG) Q6HR SUBQ 04/25/20 12:00 07/24/20 11:59 04/28/20 05:57 Ipratropium [place] (Atrovent) 500 mcg Q6H PRN HHN Shortness of Breath 04/27/20 08:00 05/02/20 07:59 Levetiracetam (Keppra) 1,000 mg Q12HR GT 04/23/20 21:00 05/23/20 08:59 04/30/20 08:35 Levofloxacin (Levaquin) 750 mg DAILY ORAL 04/28/20 12:00 05/05/20 11:59 04/30/20 08:35 Metoclopramide HCl (Reglan) 5 mg Q6HR GT 04/23/20 13:53 05/23/20 13:52 04/30/20 12:11 Pantoprazole (Protonix) 40 mg Q12HR IVP 04/23/20 21:00 05/23/20 08:59 04/30/20 08:36 Phenytoin (Dilantin) 150 mg Q12HR GT 04/24/20 21:00 05/23/20 08:29 04/30/20 08:36 Potassium Chloride 40 meq/ Dextrose 295 ml @ 73.75 mls/ hr ONCE IV 04/30/20 09:30 04/30/20 13:29 04/30/20 10:07 Sodium Phosphate (Fleet's Sodium Phosl Enema) 133 ml DAILY PRN RECTAL CONSTIPATION 04/23/20 02:00 05/23/20 01:59 Sorbitol (sorbitoL) 30 ml DAILYPRN PRN GT constipation 04/23/20 08:15 05/23/20 08:14 Zinc Sulfate (Zinc Sulfate) 220 mg DAILY GT 04/23/20 09:00 07/22/20 08:59 04/30/20 08:35 Jayne Peoples M.D. Apr 30, 2020 13:11
[2020-04-30] MEDS ORDERED: Tubing IV Blood Pump IV ONE (13:43)
[2020-04-30] MEDS ORDERED: NS 275ml ONE (13:43)
[2020-04-30] MEDS: D5W w/KCl 20mEq 1,000 ML IV SCH (14:02)
--- NOTE | 2020-04-30 14:44 | NUR ---
*-* INSURANCE *-* UPDATED CLINICALS AND REVIEWS HAVE BEEN FAXED TO: [facility] Auth# [id number] Work [phone] FAX [phone] FAX [facility] [phone]
--- NOTE | 2020-04-30 15:25 | NUR ---
CASE MANAGEMENT: DCP PENDING MEDICAL STABILIZATION PATIENT WILL TRANSFER BACK TO PREVIOUS FACILITY REFERRAL SENT TO [facility] [phone] PH / FAX [phone] PENDING DISCHARGE ORDER Addendum: 04/30/20 at 1540 by VANESSA MILTON CM PATIENT WILL RETURN TO ROOM# [id number] Addendum: 05/01/20 at 1402 by VANESSA MILTON CM PATIENT ACCEPT BACK TO ROOM# [id number]
[2020-04-30 16:00] VITALS: BP 115/60
--- NOTE | 2020-04-30 17:45 | Internal Med Progress Note ---
Subjective Date of Service: Apr 30, 2020 Physician Name Kalin Eubanks Attending Physician Jeyson Yanez MD Current Medications Medications (Trade) Dose Ordered Sig/Emanuel Route PRN Reason Start Time Stop Time Status Last Admin Dose Admin Acetaminophen (Tylenol) 500 mg Q4H PRN GT Pain Scale (3-5) 04/23/20 08:45 05/23/20 01:59 Acetaminophen (Tylenol) 650 mg THREE TIMES A DAY PRN GT FHMP 04/23/20 02:00 05/23/20 01:59 04/26/20 12:54 Artificial Tears (Akwa-Tears) 1 drop BID BOTH EYES 04/23/20 09:00 05/23/20 08:59 04/30/20 08:36 Bisacodyl (Dulcolax) 10 mg DAILY PRN RECTAL Constipation 04/23/20 02:00 07/22/20 01:59 Chlorhexidine Gluconate (Mimi-Hex 2%) 1 applic DAILY@2000 TOPIC 04/26/20 20:00 07/25/20 19:59 04/29/20 21:08 Dextrose (Dextrose 50%) 25 ml Q30M PRN IV Hypoglycemia 04/23/20 08:15 07/22/20 08:14 Dextrose (Dextrose 50%) 50 ml Q30M PRN IV Hypoglycemia 04/23/20 08:15 07/22/20 08:14 Dextrose/ Electrolytes 1,000 ml @ 50 mls/hr Q20H IV 04/29/20 18:00 05/29/20 17:59 04/30/20 14:02 Docusate Sodium (Colace) 250 mg DAILYPRN PRN GT CONSTIPATION 04/23/20 12:50 05/23/20 12:49 Insulin Aspart (NovoLOG) Q6HR SUBQ 04/25/20 12:00 07/24/20 11:59 04/28/20 05:57 Ipratropium [place] (Atrovent) 500 mcg Q6H PRN HHN Shortness of Breath 04/27/20 08:00 05/02/20 07:59 Levetiracetam (Keppra) 1,000 mg Q12HR GT 04/23/20 21:00 05/23/20 08:59 04/30/20 08:35 Levofloxacin (Levaquin) 750 mg DAILY ORAL 04/28/20 12:00 05/05/20 11:59 04/30/20 08:35 Metoclopramide HCl (Reglan) 5 mg Q6HR GT 04/23/20 13:53 05/23/20 13:52 04/30/20 12:11 Pantoprazole (Protonix) 40 mg Q12HR IVP 04/23/20 21:00 05/23/20 08:59 04/30/20 08:36 Phenytoin (Dilantin) 150 mg Q12HR GT 04/24/20 21:00 05/23/20 08:29 04/30/20 08:36 Sodium Phosphate (Fleet's Sodium Phosl Enema) 133 ml DAILY PRN RECTAL CONSTIPATION 04/23/20 02:00 05/23/20 01:59 Sorbitol (sorbitoL) 30 ml DAILYPRN PRN GT constipation 04/23/20 08:15 05/23/20 08:14 Zinc Sulfate (Zinc Sulfate) 220 mg DAILY GT 04/23/20 09:00 07/22/20 08:59 04/30/20 08:35 Allergies: Coded Allergies: No Known Allergies (Unverified , 02/08/13) Subjective 59 YO F admitted with fever, now Sepsis and pneumonia. Cover for Int Med-Dr Yanez. Step down unit. [facility] Vent Objective Last Vital Signs Date Time Temp Pulse Resp B/P (MAP) Pulse Ox O2 Delivery O2 Flow Rate FiO2 04/30/20 16:00 Mechanical Ventilator Mechanical Ventilator 04/30/20 16:00 98.2 80 19 115/60 (78) 100 04/30/20 16:00 40 04/23/20 01:24 15.0 Laboratory Tests Test 04/30/20 03:35 04/30/20 12:09 White Blood Count 7.2 K/UL (4.8-10.8) Red Blood Count 3.19 M/UL (4.20-5.40) L Hemoglobin 10.0 G/DL (12.0-16.0) L Hematocrit 30.4 % (37.0-47.0) L Mean Corpuscular Volume 95 FL (80-99) Mean Corpuscular Hemoglobin 31.3 PG (27.0-31.0) H Mean Corpuscular Hemoglobin Concent 32.8 G/DL (32.0-36.0) Red Cell Distribution Width 14.6 % (11.6-14.8) Platelet Count 195 K/UL (150-450) Mean Platelet Volume 7.2 FL (6.5-10.1) Neutrophils (%) (Auto) 61.5 % (45.0-75.0) Lymphocytes (%) (Auto) 25.0 % (20.0-45.0) Monocytes (%) (Auto) 8.9 % (1.0-10.0) Eosinophils (%) (Auto) 3.9 % (0.0-3.0) H Basophils (%) (Auto) 0.7 % (0.0-2.0) Sodium Level 149 MMOL/L (136-145) H Potassium Level 3.3 MMOL/L (3.5-5.1) L Chloride Level 115 MMOL/L (98-107) H Carbon Dioxide Level 27 MMOL/L (21-32) Anion Gap 7 mmol/L (5-15) Blood Urea Nitrogen 7 mg/dL (7-18) Creatinine 0.6 MG/DL (0.55-1.30) Estimat Glomerular Filtration Rate > 60 mL/min (>60) Glucose Level 114 MG/DL (74-106) H Calcium Level 7.8 MG/DL (8.5-10.1) L POC Whole Blood Glucose 88 MG/DL (74-106) Microbiology Date/Time Source Procedure Growth Status 04/29/20 16:00 Stool Clostridium difficile Toxin Assay - Final Complete Intake and Output 04/29/20 04/30/20 18:59 06:59 Intake Total 1630 ml 995 ml Output Total 1070 ml 3200 ml Balance 560 ml -2205 ml Intake Free Water 100 ml IV Total 1290 ml 575 ml Tube Feeding 240 ml 420 ml Other 1070 ml 3200 ml # Bowel Movements 1 Objective PHYSICAL EXAMINATION: GENERAL: Patient is a thin-appearing female, who is intubated and sedated. HEENT: Eyes, pupils are equal and responsive to light and accommodation. Extraocular movements are intact. NECK: Supple without lymphadenopathy. Tracheostomy is in place. CHEST: Mech vent; Coarse breath sounds bilateral bases otherwise without wheezes or rales. CARDIOVASCULAR: Tachycardic, regular rhythm. S1, S2 normal without murmurs, rubs, or gallops. ABDOMEN: Soft, nontender, nondistended. Positive bowel sounds. No evidence of hepatosplenomegaly. Currently, no rebound or guarding noted. EXTREMITIES: Negative for clubbing, cyanosis, or edema. RECTAL/GENITAL: Not performed. NEUROLOGIC: Cranial nerves II through XII are grossly intact without focal deficits. Assessment/Plan Assessment/Plan ASSESSMENT: This is a 59-year-old female. 1. pneumonia=acenitobacter (MDR), pseudamonas and providencia 2. sepsis=coag neg staph 3. Chronic respiratory failure. 4. Chronic obstructive pulmonary disease. 5. Quadriplegia. 6. History of dysphagia. 7. Diabetes type 2. 8. Seizure disorder. 9. History of gastrointestinal hemorrhage. 10. Erosive gastritis. 11. Schizophrenia. 12. Gastroesophageal reflux disease. 13. Neurogenic bladder. 14. Stage IV sacral decubitus ulcer. 15. History of deep venous thrombosis. TREATMENT: 1. Fever/sepsis. A Pulmonary Critical Care consultation has been obtained with Dr. Luis Garcia. ABX= levaquin; S/P vancomycin and cefepime. We will follow recommendations of Pulmonary. Infectious disease=Dr Peoples 2. Chronic vent dependence/chronic respiratory failure. As above, a Pulmonary consultation has been obtained with Dr. Luis Garcia. We will follow recommendations of Pulmonary. 3. Seizure disorder. Continue Keppra and Dilantin as above. 4. Diabetes type 2. NovoLog sliding scale has been instituted. 5. Chronic obstructive pulmonary disease. As above, a Pulmonary consultation has been obtained with Dr. Luis Garcia. We will follow recommendations of Pulmonary. 6. History of gastrointestinal hemorrhage/erosive gastritis. Patient has been placed on Protonix. 7. Schizophrenia, not otherwise specified. 8. Gastroesophageal reflux disease. 9. Neurogenic bladder. 10. Stage IV sacral decubitus ulcer. 11. History of deep venous thrombosis. Kalin Eubanks MD Apr 30, 2020 17:45
--- NOTE | 2020-04-30 19:01 | NUR ---
HAND-OFF: Report given to Marvel Wyatt RN, using SBAR.
--- NOTE | 2020-04-30 19:15 | NUR ---
NURSE NOTES: Received pt from LUCERO Santos. pt is observed in bed, eyes closed, nonverbal and unable to make needs known, no s/sx of pain noted at this time. trach to vent settings are as follows: Portex: 7, AC: 18, VT: 450, FiO2: 40%, PEEP: 5. tolerating current settings well, saturation: 100%, no s/sx of respiratory distress noted. equipment monitor phototypesetting shows SR with HR of 76. no acute cardiac distress noted. G-tube site is patent and intact, running Glucerna 1.2 at 60 cc/hr with goal of 75 cc/hr. HOB elevated to 30 degrees, no residual noted. Bilateral nephrostomy tubes noted, draining well to gravity. skin alterations noted. ARMAND PICC line noted, patent and intact, running D5W with 20 meq KCl at 50 cc/hr. dressing dry and intact. bed in lowest postion and locked, padded siderails up X3, all needs attended to. will continue to monitor.
[2020-04-30 20:00] VITALS: BP 104/63
[2020-04-30] MEDS: Dyna-Hex 2% Top Sol 2oz TOPIC SCH (20:12)
[2020-05-01] VITALS: BP 100/58
[2020-05-01 04:00] VITALS: BP 100/62
[2020-05-01] MEDS: NovoLOG Insulin Flexpen SUBQ SCH ×4 (06:00→18:00)
[2020-05-01 06:32] LABS: BASOPHILS % (AUTO) 0.6 % (0.0-2.0); HEMATOCRIT 31.4 % (37.0-47.0); HEMOGLOBIN 10.1 G/DL (12.0-16.0); MEAN CORPUSCULAR VOLUME 97 FL (80-99); MONOCYTES % (AUTO) 9.6 % (1.0-10.0); NEUTROPHILS % (AUTO) 63.8 % (45.0-75.0); PLATELET COUNT 216 K/UL (150-450); RED BLOOD COUNT 3.23 M/UL (4.20-5.40); RED CELL DISTRIBUTION WIDTH 15.1 % (11.6-14.8); WHITE BLOOD COUNT 7.9 K/UL (4.8-10.8)
[2020-05-01 06:53] LABS: ALANINE AMINOTRANSFERASE 15 U/L (12-78); ALBUMIN/GLOBULIN RATIO 0.4 (1.0-2.7); ALKALINE PHOSPHATASE 166 U/L (46-116); ANION GAP 6 mmol/L (5-15); ASPARTATE AMINO TRANSFERASE 27 U/L (15-37); BILIRUBIN,TOTAL 0.1 MG/DL (0.2-1.0); BLOOD UREA NITROGEN 19 mg/dL (7-18); CALCIUM 7.9 MG/DL (8.5-10.1); CARBON DIOXIDE 29 MMOL/L (21-32); CHLORIDE 113 MMOL/L (98-107); CREATININE 0.5 MG/DL (0.55-1.30); PHOSPHORUS 2.9 MG/DL (2.5-4.9); POTASSIUM 3.6 MMOL/L (3.5-5.1); SODIUM 148 MMOL/L (136-145)
--- NOTE | 2020-05-01 07:30 | NUR ---
HAND-OFF: Report given to LUCERO Suresh. endorsed plan of care.
--- NOTE | 2020-05-01 07:30 | NUR ---
NURSE NOTES: Received report from LUCERO Navarro. The patient is resting on the bed and opening eyes with verbal stimuli. The patient is trached, and communication made by facial expression and body movement. The patient is trached on following ventilator setting as ordered and oxygen saturation is 100%: Portex 7, AC 18, TV 450, FiO2 40%, and PEEP 5. The patient has G-tube that is intact and patent and on hold from 7-11am per order but has been on tube feeding Glucerna 1.2 @60mL/hr with goal of 75mL/hr. Abdominal distention noted and notified to Dr. Murray for further order. The patient has bilateral nephrostomy tube that is intact and patent and urine draining by gravity. Skin issue noted and dressing intact. ARMAND double lumen PICC line that is intact and patent and running D5W w/ 20mEq KCL @ 50mL/hr as ordered. The patient's bed in the lowest position, call light in reach, and fall and aspiration precaution reinforced. Will follow up the lab and order. Will closely monitor the patient. Will continue plan of care.
[2020-05-01 08:00] VITALS: BP_SYST 111; BP_DIAS 65; BP_DIAS 68
--- NOTE | 2020-05-01 08:00 | NUR ---
NURSE NOTES: Stable vital signs noted. Abdominal distension noted but no further order from Dr. Murray yet. Will closely monitor the patient. Will continue plan of care.
--- NOTE | 2020-05-01 09:10 | NUR ---
NURSE NOTES: Received report from LUCERO Suresh. Pt in bed awake and obtunded, not able to follow the direction. IV site in left upper arm PICC patent and intact. Bed in lowest position and locked. Side railsx3 up for safety. On ADELIA mattress. Call light within easy reach. Noted abdomen distended and bloated. KUB ordered from Dr. Murray. 30ml of gastric contents noted from residual check. Feeding off as ordered. Trach portex 7, connected to vent setting with AV 18, tv 450, Fio2 40% peep of 5. Sating 100%. Bilateral nephrostomy noted patent and intact. Will continue to plan of care.
--- NOTE | 2020-05-01 09:15 | NUR ---
HAND-OFF: Report given to LUCERO Rangel. The patient is stable at this time. Endorsed plan of care.
[2020-05-01] MEDS: Pantoprazole Inj IVP SCH ×2 (09:25→21:21)
[2020-05-01] MEDS: Zinc Sulfate 220mg GT SCH (09:26)
[2020-05-01] MEDS: Levofloxacin 750mg tab ORAL SCH (09:26)
[2020-05-01] MEDS: Phenytoin Susp 100mg/4ml GT SCH ×2 (09:26→21:20)
[2020-05-01] MEDS: levETIRAcetam 500mg/5ml Liquid GT SCH ×2 (09:26→21:21)
--- NOTE | 2020-05-01 09:30 | NUR ---
NURSE NOTES: Dr. Murray ordered KUB for abdominal distention. Endorsed to LUCERO Rangel.
[2020-05-01] MEDS: D5W w/KCl 20mEq 1,000 ML IV SCH (10:05)
--- NOTE | 2020-05-01 10:18 | Internal Med Progress Note ---
Subjective Date of Service: May 01, 2020 Physician Name Kalin Eubanks Attending Physician Jeyson Yanez MD Current Medications Medications (Trade) Dose Ordered Sig/Emanuel Route PRN Reason Start Time Stop Time Status Last Admin Dose Admin Acetaminophen (Tylenol) 500 mg Q4H PRN GT Pain Scale (3-5) 04/23/20 08:45 05/23/20 01:59 Acetaminophen (Tylenol) 650 mg THREE TIMES A DAY PRN GT FHMP 04/23/20 02:00 05/23/20 01:59 04/26/20 12:54 Artificial Tears (Akwa-Tears) 1 drop BID BOTH EYES 04/23/20 09:00 05/23/20 08:59 05/01/20 09:26 Bisacodyl (Dulcolax) 10 mg DAILY PRN RECTAL Constipation 04/23/20 02:00 07/22/20 01:59 Chlorhexidine Gluconate (Mimi-Hex 2%) 1 applic DAILY@2000 TOPIC 04/26/20 20:00 07/25/20 19:59 04/30/20 20:12 Dextrose (Dextrose 50%) 25 ml Q30M PRN IV Hypoglycemia 04/23/20 08:15 07/22/20 08:14 Dextrose (Dextrose 50%) 50 ml Q30M PRN IV Hypoglycemia 04/23/20 08:15 07/22/20 08:14 Dextrose/ Electrolytes 1,000 ml @ 50 mls/hr Q20H IV 04/29/20 18:00 05/29/20 17:59 05/01/20 10:05 Docusate Sodium (Colace) 250 mg DAILYPRN PRN GT CONSTIPATION 04/23/20 12:50 05/23/20 12:49 Insulin Aspart (NovoLOG) Q6HR SUBQ 04/25/20 12:00 07/24/20 11:59 04/28/20 05:57 Ipratropium [place] (Atrovent) 500 mcg Q6H PRN HHN Shortness of Breath 04/27/20 08:00 05/02/20 07:59 Levetiracetam (Keppra) 1,000 mg Q12HR GT 04/23/20 21:00 05/23/20 08:59 05/01/20 09:26 Levofloxacin (Levaquin) 750 mg DAILY ORAL 04/28/20 12:00 05/05/20 11:59 05/01/20 09:26 Metoclopramide HCl (Reglan) 5 mg Q6HR GT 04/23/20 13:53 05/23/20 13:52 05/01/20 06:16 Pantoprazole (Protonix) 40 mg Q12HR IVP 04/23/20 21:00 05/23/20 08:59 05/01/20 09:25 Phenytoin (Dilantin) 150 mg Q12HR GT 04/24/20 21:00 05/23/20 08:29 05/01/20 09:26 Sodium Phosphate (Fleet's Sodium Phosl Enema) 133 ml DAILY PRN RECTAL CONSTIPATION 04/23/20 02:00 05/23/20 01:59 Sorbitol (sorbitoL) 30 ml DAILYPRN PRN GT constipation 04/23/20 08:15 05/23/20 08:14 Zinc Sulfate (Zinc Sulfate) 220 mg DAILY GT 04/23/20 09:00 07/22/20 08:59 05/01/20 09:26 Allergies: Coded Allergies: No Known Allergies (Unverified , 02/08/13) ROS Limited/Unobtainable: Yes Subjective 59 YO F admitted with fever, now Sepsis and pneumonia. Cover for Int Med-Dr Yanez. Step down unit. [facility] Vent Objective Last Vital Signs Date Time Temp Pulse Resp B/P (MAP) Pulse Ox O2 Delivery O2 Flow Rate FiO2 05/01/20 08:00 98.2 91 18 111/65 (80) 100 05/01/20 07:26 40 05/01/20 04:00 Mechanical Ventilator Mechanical Ventilator 04/23/20 01:24 15.0 Laboratory Tests Test 04/30/20 12:09 04/30/20 18:08 05/01/20 01:11 05/01/20 04:00 POC Whole Blood Glucose 88 MG/DL (74-106) 92 MG/DL (74-106) 94 MG/DL (74-106) White Blood Count 7.9 K/UL (4.8-10.8) Red Blood Count 3.23 M/UL (4.20-5.40) L Hemoglobin 10.1 G/DL (12.0-16.0) L Hematocrit 31.4 % (37.0-47.0) L Mean Corpuscular Volume 97 FL (80-99) Mean Corpuscular Hemoglobin 31.2 PG (27.0-31.0) H Mean Corpuscular Hemoglobin Concent 32.1 G/DL (32.0-36.0) Red Cell Distribution Width 15.1 % (11.6-14.8) H Platelet Count 216 K/UL (150-450) Mean Platelet Volume 6.8 FL (6.5-10.1) Neutrophils (%) (Auto) 63.8 % (45.0-75.0) Lymphocytes (%) (Auto) 23.0 % (20.0-45.0) Monocytes (%) (Auto) 9.6 % (1.0-10.0) Eosinophils (%) (Auto) 3.0 % (0.0-3.0) Basophils (%) (Auto) 0.6 % (0.0-2.0) Erythrocyte Sedimentation Rate 74 MM/HR (0-30) H Sodium Level 148 MMOL/L (136-145) H Potassium Level 3.6 MMOL/L (3.5-5.1) Chloride Level 113 MMOL/L (98-107) H Carbon Dioxide Level 29 MMOL/L (21-32) Anion Gap 6 mmol/L (5-15) Blood Urea Nitrogen 19 mg/dL (7-18) H Creatinine 0.5 MG/DL (0.55-1.30) L Estimat Glomerular Filtration Rate > 60 mL/min (>60) Glucose Level 108 MG/DL (74-106) H Calcium Level 7.9 MG/DL (8.5-10.1) L Phosphorus Level 2.9 MG/DL (2.5-4.9) Magnesium Level 1.9 MG/DL (1.8-2.4) Total Bilirubin 0.1 MG/DL (0.2-1.0) L Aspartate Amino Transf (AST/SGOT) 27 U/L (15-37) Alanine Aminotransferase (ALT/SGPT) 15 U/L (12-78) Alkaline Phosphatase 166 U/L (46-116) H C-Reactive Protein, Quantitative 4.3 mg/dL (0.00-0.90) H Total Protein 7.4 G/DL (6.4-8.2) Albumin 2.0 G/DL (3.4-5.0) L Globulin 5.4 g/dL Albumin/Globulin Ratio 0.4 (1.0-2.7) L Test 05/01/20 06:18 POC Whole Blood Glucose 98 MG/DL (74-106) Microbiology Date/Time Source Procedure Growth Status 04/29/20 16:00 Stool Clostridium difficile Toxin Assay - Final Complete Intake and Output 04/30/20 05/01/20 19:00 07:00 Intake Total 1654.166 ml 1525 ml Output Total 800 ml 900 ml Balance 854.166 ml 625 ml Intake Free Water 100 ml IV Total 894.166 ml 600 ml Tube Feeding 360 ml 825 ml Other 400 ml Other 800 ml 900 ml # Bowel Movements 4 2 Objective PHYSICAL EXAMINATION: GENERAL: Patient is a thin-appearing female, who is intubated and sedated. HEENT: Eyes, pupils are equal and responsive to light and accommodation. Extraocular movements are intact. NECK: Supple without lymphadenopathy. Tracheostomy is in place. CHEST: Mech vent; Coarse breath sounds bilateral bases otherwise without wheezes or rales. CARDIOVASCULAR: Tachycardic, regular rhythm. S1, S2 normal without murmurs, rubs, or gallops. ABDOMEN: Soft, nontender, nondistended. Positive bowel sounds. No evidence of hepatosplenomegaly. Currently, no rebound or guarding noted. EXTREMITIES: Negative for clubbing, cyanosis, or edema. RECTAL/GENITAL: Not performed. NEUROLOGIC: Cranial nerves II through XII are grossly intact without focal deficits. Assessment/Plan Assessment/Plan ASSESSMENT: This is a 59-year-old female. 1. pneumonia=acenitobacter (MDR), pseudamonas and providencia 2. sepsis=coag neg staph 3. Chronic respiratory failure. 4. Chronic obstructive pulmonary disease. 5. Quadriplegia. 6. History of dysphagia. 7. Diabetes type 2. 8. Seizure disorder. 9. History of gastrointestinal hemorrhage. 10. Erosive gastritis. 11. Schizophrenia. 12. Gastroesophageal reflux disease. 13. Neurogenic bladder. 14. Stage IV sacral decubitus ulcer. 15. History of deep venous thrombosis. TREATMENT: 1. Fever/sepsis. A Pulmonary Critical Care consultation has been obtained with Dr. Luis Garcia. ABX= levaquin; S/P vancomycin and cefepime. We will follow recommendations of Pulmonary. Infectious disease=Dr Peoples 2. Chronic vent dependence/chronic respiratory failure. As above, a Pulmonary consultation has been obtained with Dr. Luis Garcia. We will follow recommendations of Pulmonary. 3. Seizure disorder. Continue Keppra and Dilantin as above. 4. Diabetes type 2. NovoLog sliding scale has been instituted. 5. Chronic obstructive pulmonary disease. As above, a Pulmonary consultation has been obtained with Dr. Luis Garcia. We will follow recommendations of Pulmonary. 6. History of gastrointestinal hemorrhage/erosive gastritis. Patient has been placed on Protonix. 7. Schizophrenia, not otherwise specified. 8. Gastroesophageal reflux disease. 9. Neurogenic bladder. 10. Stage IV sacral decubitus ulcer. 11. History of deep venous thrombosis. 12. Discharge planning: [facility] Kalin Ebuanks MD May 01, 2020 10:18
--- NOTE | 2020-05-01 10:44 | NUR ---
*-* INSURANCE *-* UPDATED CLINICALS AND REVIEWS HAVE BEEN FAXED TO: [facility] Auth# [id number] Work [phone] FAX [phone] FAX [facility] [phone]
--- NOTE | 2020-05-01 11:18 | NUR ---
RADIOLOGY DEPT., ABDOMEN X-RAY COMPLETED.-P.DYE
[2020-05-01 12:00] VITALS: BP 116/65
[2020-05-01] MEDS ORDERED: LEVAQUIN750 MG ORAL (13:16)
--- NOTE | 2020-05-01 13:45 | Nephrology Progress Note ---
Assessment/Plan Problem List: (1) Electrolyte imbalance Assessment: Hypernatremia (2) Dehydration (3) Diabetes mellitus (4) Spastic quadriplegic cerebral palsy (5) Chronic respiratory failure (6) Sepsis Assessment: UTI (7) Sacral decubitus ulcer Assessment Dehydration, prerenal azotemia, free water deficit, hypernatremia Sepsis, UTI Chronic respiratory failure, status post tracheostomy Sacral decubitus ulcer Chronic seizure disorder PEG Diabetes mellitus Spastic quadriplegic cerebral palsy Plan May 01: Status quo. Stable from renal standpoint of view. April 30: More potassium IV given. DC Ding catheter. Patient has functioning bilateral nephrostomy. Discussed with RN. April 29: More potassium IV chloride given. Remains stable from renal standpoint of view April 28: Stable from renal standpoint of view. Continue per consultants. April 27: IV potassium chloride ordered. IV fluid adjusted. Increase D5W to 75 cc an hour. Potassium supplement IV . Continue to monitor renal parameters and electrolytes Monitor Dilantin level, adjust the dose corrected for low albumin Monitor electrolytes and renal parameters Increase Protonix to every 12 hours Keep the blood sugar in check Per orders Patient is full code Subjective ROS Limited/Unobtainable: Yes Objective Objective Last 24 Hour Vital Signs Date Time Temp Pulse Resp B/P (MAP) Pulse Ox O2 Delivery O2 Flow Rate FiO2 05/01/20 12:00 40 05/01/20 12:00 90 05/01/20 12:00 Mechanical Ventilator Mechanical Ventilator 05/01/20 12:00 98.0 95 18 116/65 (82) 100 05/01/20 11:30 92 18 40 05/01/20 09:10 40 05/01/20 09:10 Mechanical Ventilator Mechanical Ventilator 05/01/20 08:30 91 05/01/20 08:00 98.2 91 18 111/65 (80) 100 05/01/20 07:26 81 19 40 05/01/20 04:00 84 05/01/20 04:00 Mechanical Ventilator Mechanical Ventilator 05/01/20 04:00 98.8 88 18 100/62 (75) 100 05/01/20 04:00 40 05/01/20 02:52 89 19 40 05/01/20 00:00 98.4 83 18 100/58 (72) 100 05/01/20 00:00 84 05/01/20 00:00 40 05/01/20 00:00 Mechanical Ventilator Mechanical Ventilator 04/30/20 22:57 86 18 40 04/30/20 20:00 98.2 83 18 104/63 (77) 100 04/30/20 20:00 76 04/30/20 20:00 40 04/30/20 20:00 Mechanical Ventilator Mechanical Ventilator 04/30/20 19:45 67 20 40 04/30/20 16:00 Mechanical Ventilator Mechanical Ventilator 04/30/20 16:00 98.2 80 19 115/60 (78) 100 04/30/20 16:00 40 04/30/20 15:26 76 04/30/20 15:20 86 18 40 Intake and Output 04/30/20 05/01/20 19:00 07:00 Intake Total 1654.166 ml 1525 ml Output Total 800 ml 900 ml Balance 854.166 ml 625 ml Intake Free Water 100 ml IV Total 894.166 ml 600 ml Tube Feeding 360 ml 825 ml Other 400 ml Other 800 ml 900 ml # Bowel Movements 4 2 Laboratory Tests 04/30/20 18:08: POC Whole Blood Glucose 92 05/01/20 01:11: POC Whole Blood Glucose 94 05/01/20 04:00: White Blood Count 7.9, Red Blood Count 3.23L, Hemoglobin 10.1L, Hematocrit 31.4L , Mean Corpuscular Volume 97, Mean Corpuscular Hemoglobin 31.2H, Mean Corpuscular Hemoglobin Concent 32.1, Red Cell Distribution Width 15.1H, Platelet Count 216, Mean Platelet Volume 6.8, Neutrophils (%) (Auto) 63.8, Lymphocytes (%) (Auto) 23.0, Monocytes (%) (Auto) 9.6, Eosinophils (%) (Auto) 3.0, Basophils (%) (Auto) 0.6, Erythrocyte Sedimentation Rate 74H, Sodium Level 148H, Potassium Level 3.6, Chloride Level 113H, Carbon Dioxide Level 29, Anion Gap 6, Blood Urea Nitrogen 19H, Creatinine 0.5L, Estimat Glomerular Filtration Rate > 60, Glucose Level 108H, Calcium Level 7.9L, Phosphorus Level 2.9, Magnesium Level 1.9, Total Bilirubin 0.1L, Aspartate Amino Transf (AST/SGOT) 27 , Alanine Aminotransferase (ALT/SGPT) 15, Alkaline Phosphatase 166H, C-Reactive Protein, Quantitative 4.3H, Total Protein 7.4, Albumin 2.0L, Globulin 5.4, Albumin/Globulin Ratio 0.4L 05/01/20 06:18: POC Whole Blood Glucose 98 Height (Feet): 5 Height (Inches): 7.00 Weight (Pounds): 195 General Appearance: no apparent distress EENT: other - Trach and vent Cardiovascular: tachycardia Respiratory/Chest: decreased breath sounds Abdomen: distended Objective No change Caleb Reese MD May 01, 2020 13:45
--- NOTE | 2020-05-01 14:02 | NUR ---
CASE MANAGEMENT: REVIEW SI: INTESTINAL OBSTRUCTION . DEHYDRATION T 98.0 HR 95 RR 18 BP 116/65 SAT 100% MECH VENT FIO2 40 H/H 10.1/31.4 NA 148 BUN 19 CR 0.5 IS: D5W w/KCl 20MEQ @ 50ML/HR DILANTIN GT Q12HR KEPPRA GT Q12HR LEVAQUIN GT QD NOVOLOG SUBQ Q6HR GT FEEDING STEP DOWN UNIT DCP: PATIENT IS FROM [facility]
--- NOTE | 2020-05-01 14:15 | Diagnostic Imaging Report ---
Indication: Reason For Exam: ABD DIST Technique: Supine view of the abdomen Comparison: none Findings: The distal colon is massively dilated, measuring up to 14 cm in diameter. The proximal colon is stool-filled and nondilated. There are bilateral nephrostomies. No masses. No definite small bowel distention. Impression: Massively dilated sigmoid colon. Could be functional, the possibility of distal colonic obstruction or sigmoid volvulus should also be considered Critical value findings phoned to Dr. Murray at the time of interpretation
--- NOTE | 2020-05-01 14:18 | NUR ---
Case Management Discharge Planning Review: 05/01/2020 Disposition: SUBACUTE Facility: [facility]# [id number] [phone] Discharge Plan and IM form Discussed with: BROTHER MR. AGUILAR [phone] Discharge Plan accepted by: DR Skye SPIVEY Services at Discharge: [facility] Contact Information: [facility] [id number] Reason for Home Health Services: N/A Follow Up Appointments/Referrals: N/A F/U Appointment: FOLLOW UP WITH PCP Office Number: [phone] Special Discharge Instructions: N/A Addendum: 05/01/20 at 1428 by VANESSA MILTON CM PATIENT IS UNDER [facility] PLUMBER MAINTENANCE TIME 16:00
--- NOTE | 2020-05-01 14:44 | Infectious Diseases Prog Note ---
Assessment/Plan Assessment: Severe sepsis- ?source- ?early pNA vs tracheitis Cons bacteremia- suspect contaminant -04/22 Bcx 1/ CONS; 04/24, Bcx Neg Hyperthermia (up to 105 upon admission); SP - COVID19 neg x3 Leukocytosis, SP -04/29 CXR: no acute process -04/27 CXR: Mild central vascular congestion. SARS-COV2 PCR neg -04/26 sp cx MDR ABC (s levaquin), PsA (R Levaquin; otherwise S), P.stuarti ( I Levaquin; R ancef, AMp, Gentamycin) -04/25 CXR: no acute diseae -04/23 SARS-COV2 PCR neg -04/22 CXR: no acute disease -u/a wbc 20-30, nit neg, leuk +3; ucx 30-40k mixed gram positive organisms -rapid COVID test neg -V. duplex no DVT Lactic acidosis, SP GABRIELLE, SP Elevated LFTs; SP -HIV ab sc neg, Acute hep panel neg -Abd US: GALLSTONE. MILDLY PROMINENT CBD BUT MAY BE NORMAL FOR AGE. BILATERAL URETERAL STENTS. NO HYDRONEPHROSIS. POSSIBLE SMALL BILATERAL RENAL STONES. MIDLINE STRUCTURES INCLUDING PANCREAS, AORTA AND CAVA NOT OPTIMALLY VISUALIZED DUE TO BOWEL GAS. GERD DM2 COPD GIB neurogenic bladder stage IV sacral decubitus ulcer paranoid schizoaffective disorder suicide attempt in 2003 progressing to coma and requiring intermediate ventilator support spatic quadriplegia obesity b/l nephrostomy tubes 2018 seizure disorder chronic resp failure s/p trach dependent dysphagia s/p GT NH resident ([facility]) Plan: -Cont PO Levaquin #4/7 for MDR ABC in sputum -04/28 SP IV Vancomycin #6, Cefepime #6 -04/23 SP Ertapenem x1 -f/u cx -Monitor CBC/CMP, temperatures -f/u BCx x2, sp cx -COVID19 neg x3 (1 rapid, 2 NAAT);ok to dc isolation; afebrile >72hrs -PEG/trach care -aspiration precautions -wound care per hospital protocol Thank you for consulting [facility]. Will continue to follow along with you. Discussed maxwell RN. Subjective Allergies: Coded Allergies: No Known Allergies (Unverified , 02/08/13) afebrile repeat Bcx Neg no leukocytosis Objective Last 24 Hour Vital Signs Date Time Temp Pulse Resp B/P (MAP) Pulse Ox O2 Delivery O2 Flow Rate FiO2 05/01/20 12:00 40 05/01/20 12:00 90 05/01/20 12:00 Mechanical Ventilator Mechanical Ventilator 05/01/20 12:00 98.0 95 18 116/65 (82) 100 05/01/20 11:30 92 18 40 05/01/20 09:10 40 05/01/20 09:10 Mechanical Ventilator Mechanical Ventilator 05/01/20 09:00 40 05/01/20 08:30 91 05/01/20 08:00 98.2 91 18 111/68 (82) 100 05/01/20 08:00 98.2 91 18 111/65 (80) 100 05/01/20 08:00 Mechanical Ventilator Mechanical Ventilator 05/01/20 07:26 81 19 40 05/01/20 04:00 84 05/01/20 04:00 Mechanical Ventilator Mechanical Ventilator 05/01/20 04:00 98.8 88 18 100/62 (75) 100 05/01/20 04:00 40 05/01/20 02:52 89 19 40 05/01/20 00:00 98.4 83 18 100/58 (72) 100 05/01/20 00:00 84 05/01/20 00:00 40 05/01/20 00:00 Mechanical Ventilator Mechanical Ventilator 04/30/20 22:57 86 18 40 04/30/20 20:00 98.2 83 18 104/63 (77) 100 04/30/20 20:00 76 04/30/20 20:00 40 04/30/20 20:00 Mechanical Ventilator Mechanical Ventilator 04/30/20 19:45 67 20 40 04/30/20 16:00 Mechanical Ventilator Mechanical Ventilator 04/30/20 16:00 98.2 80 19 115/60 (78) 100 04/30/20 16:00 40 04/30/20 15:26 76 04/30/20 15:20 86 18 40 Height (Feet): 5 Height (Inches): 7.00 Weight (Pounds): 195 GENERAL: Patient is a thin-appearing female, who is intubated and sedated. HEENT: Eyes, pupils are equal and responsive to light and accommodation. Extraocular movements are intact. NECK: Supple without lymphadenopathy. Tracheostomy is in place. CHEST: Coarse breath sounds bilateral bases otherwise without wheezes or rales. CARDIOVASCULAR: Tachycardic, regular rhythm. S1, S2 normal without murmurs, rubs, or gallops. ABDOMEN: Soft, nontender, nondistended. Positive bowel sounds. No evidence of hepatosplenomegaly. Currently, no rebound or guarding noted. EXTREMITIES: Negative for clubbing, cyanosis, or edema. Microbiology Date/Time Source Procedure Growth Status 04/29/20 16:00 Stool Clostridium difficile Toxin Assay - Final Complete Laboratory Tests Test 04/30/20 18:08 05/01/20 01:11 05/01/20 04:00 05/01/20 06:18 POC Whole Blood Glucose 92 MG/DL (74-106) 94 MG/DL (74-106) 98 MG/DL (74-106) White Blood Count 7.9 K/UL (4.8-10.8) Red Blood Count 3.23 M/UL (4.20-5.40) L Hemoglobin 10.1 G/DL (12.0-16.0) L Hematocrit 31.4 % (37.0-47.0) L Mean Corpuscular Volume 97 FL (80-99) Mean Corpuscular Hemoglobin 31.2 PG (27.0-31.0) H Mean Corpuscular Hemoglobin Concent 32.1 G/DL (32.0-36.0) Red Cell Distribution Width 15.1 % (11.6-14.8) H Platelet Count 216 K/UL (150-450) Mean Platelet Volume 6.8 FL (6.5-10.1) Neutrophils (%) (Auto) 63.8 % (45.0-75.0) Lymphocytes (%) (Auto) 23.0 % (20.0-45.0) Monocytes (%) (Auto) 9.6 % (1.0-10.0) Eosinophils (%) (Auto) 3.0 % (0.0-3.0) Basophils (%) (Auto) 0.6 % (0.0-2.0) Erythrocyte Sedimentation Rate 74 MM/HR (0-30) H Sodium Level 148 MMOL/L (136-145) H Potassium Level 3.6 MMOL/L (3.5-5.1) Chloride Level 113 MMOL/L (98-107) H Carbon Dioxide Level 29 MMOL/L (21-32) Anion Gap 6 mmol/L (5-15) Blood Urea Nitrogen 19 mg/dL (7-18) H Creatinine 0.5 MG/DL (0.55-1.30) L Estimat Glomerular Filtration Rate > 60 mL/min (>60) Glucose Level 108 MG/DL (74-106) H Calcium Level 7.9 MG/DL (8.5-10.1) L Phosphorus Level 2.9 MG/DL (2.5-4.9) Magnesium Level 1.9 MG/DL (1.8-2.4) Total Bilirubin 0.1 MG/DL (0.2-1.0) L Aspartate Amino Transf (AST/SGOT) 27 U/L (15-37) Alanine Aminotransferase (ALT/SGPT) 15 U/L (12-78) Alkaline Phosphatase 166 U/L (46-116) H C-Reactive Protein, Quantitative 4.3 mg/dL (0.00-0.90) H Total Protein 7.4 G/DL (6.4-8.2) Albumin 2.0 G/DL (3.4-5.0) L Globulin 5.4 g/dL Albumin/Globulin Ratio 0.4 (1.0-2.7) L Current Medications Medications (Trade) Dose Ordered Sig/Emanuel Route PRN Reason Start Time Stop Time Status Last Admin Dose Admin Acetaminophen (Tylenol) 500 mg Q4H PRN GT Pain Scale (3-5) 04/23/20 08:45 05/23/20 01:59 Acetaminophen (Tylenol) 650 mg THREE TIMES A DAY PRN GT FHMP 04/23/20 02:00 05/23/20 01:59 04/26/20 12:54 Artificial Tears (Akwa-Tears) 1 drop BID BOTH EYES 04/23/20 09:00 05/23/20 08:59 05/01/20 09:26 Bisacodyl (Dulcolax) 10 mg DAILY PRN RECTAL Constipation 04/23/20 02:00 07/22/20 01:59 Chlorhexidine Gluconate (Mimi-Hex 2%) 1 applic DAILY@2000 TOPIC 04/26/20 20:00 07/25/20 19:59 04/30/20 20:12 Dextrose (Dextrose 50%) 25 ml Q30M PRN IV Hypoglycemia 04/23/20 08:15 07/22/20 08:14 Dextrose (Dextrose 50%) 50 ml Q30M PRN IV Hypoglycemia 04/23/20 08:15 07/22/20 08:14 Dextrose/ Electrolytes 1,000 ml @ 50 mls/hr Q20H IV 04/29/20 18:00 05/29/20 17:59 05/01/20 10:05 Docusate Sodium (Colace) 250 mg DAILYPRN PRN GT CONSTIPATION 04/23/20 12:50 05/23/20 12:49 Insulin Aspart (NovoLOG) Q6HR SUBQ 04/25/20 12:00 07/24/20 11:59 04/28/20 05:57 Ipratropium [place] (Atrovent) 500 mcg Q6H PRN HHN Shortness of Breath 04/27/20 08:00 05/02/20 07:59 Levetiracetam (Keppra) 1,000 mg Q12HR GT 04/23/20 21:00 05/23/20 08:59 05/01/20 09:26 Levofloxacin (Levaquin) 750 mg DAILY ORAL 04/28/20 12:00 05/05/20 11:59 05/01/20 09:26 Metoclopramide HCl (Reglan) 5 mg Q6HR GT 04/23/20 13:53 05/23/20 13:52 05/01/20 12:10 Pantoprazole (Protonix) 40 mg Q12HR IVP 04/23/20 21:00 05/23/20 08:59 05/01/20 09:25 Phenytoin (Dilantin) 150 mg Q12HR GT 04/24/20 21:00 05/23/20 08:29 05/01/20 09:26 Sodium Phosphate (Fleet's Sodium Phosl Enema) 133 ml DAILY PRN RECTAL CONSTIPATION 04/23/20 02:00 05/23/20 01:59 Sorbitol (sorbitoL) 30 ml DAILYPRN PRN GT constipation 04/23/20 08:15 05/23/20 08:14 Zinc Sulfate (Zinc Sulfate) 220 mg DAILY GT 04/23/20 09:00 07/22/20 08:59 05/01/20 09:26 Jayne Peoples M.D. May 01, 2020 14:44
[2020-05-01] MEDS ORDERED: Omnipaque-300 100ml vial INJ PRN (15:45)
[2020-05-01 16:00] VITALS: BP_SYST 114; BP_SYST 117; BP_DIAS 49; BP_DIAS 67
--- NOTE | 2020-05-01 16:39 | Surgery Progress Note ---
Surgery Progress Note Subjective Additional Comments noted to be distended KUB ordered reviewed held d/c discussed with pcp Objective Last 24 Hour Vital Signs Date Time Temp Pulse Resp B/P (MAP) Pulse Ox O2 Delivery O2 Flow Rate FiO2 05/01/20 16:00 40 05/01/20 16:00 98.7 73 18 114/49 (70) 99 05/01/20 16:00 Mechanical Ventilator Mechanical Ventilator 05/01/20 15:30 87 18 40 05/01/20 12:00 40 05/01/20 12:00 90 05/01/20 12:00 Mechanical Ventilator Mechanical Ventilator 05/01/20 12:00 98.0 95 18 116/65 (82) 100 05/01/20 11:30 92 18 40 05/01/20 09:10 40 05/01/20 09:10 Mechanical Ventilator Mechanical Ventilator 05/01/20 09:00 40 05/01/20 08:30 91 05/01/20 08:00 98.2 91 18 111/68 (82) 100 05/01/20 08:00 98.2 91 18 111/65 (80) 100 05/01/20 08:00 Mechanical Ventilator Mechanical Ventilator 05/01/20 07:26 81 19 40 05/01/20 04:00 84 05/01/20 04:00 Mechanical Ventilator Mechanical Ventilator 05/01/20 04:00 98.8 88 18 100/62 (75) 100 05/01/20 04:00 40 05/01/20 02:52 89 19 40 05/01/20 00:00 98.4 83 18 100/58 (72) 100 05/01/20 00:00 84 05/01/20 00:00 40 05/01/20 00:00 Mechanical Ventilator Mechanical Ventilator 04/30/20 22:57 86 18 40 04/30/20 20:00 98.2 83 18 104/63 (77) 100 04/30/20 20:00 76 04/30/20 20:00 40 04/30/20 20:00 Mechanical Ventilator Mechanical Ventilator 04/30/20 19:45 67 20 40 I&O Intake and Output 04/30/20 05/01/20 19:00 07:00 Intake Total 1654.166 ml 1525 ml Output Total 800 ml 900 ml Balance 854.166 ml 625 ml Intake Free Water 100 ml IV Total 894.166 ml 600 ml Tube Feeding 360 ml 825 ml Other 400 ml Other 800 ml 900 ml # Bowel Movements 4 2 Dressing: other Wound: other Drains: other Cardiovascular: RSR Respiratory: decreased breath sounds Abdomen: soft, distended, non-tender, present bowel sounds Extremities: edema, no tenderness, no cyanosis Laboratory Tests Test 04/30/20 18:08 05/01/20 01:11 05/01/20 04:00 05/01/20 06:18 POC Whole Blood Glucose 92 MG/DL (74-106) 94 MG/DL (74-106) 98 MG/DL (74-106) White Blood Count 7.9 K/UL (4.8-10.8) Red Blood Count 3.23 M/UL (4.20-5.40) L Hemoglobin 10.1 G/DL (12.0-16.0) L Hematocrit 31.4 % (37.0-47.0) L Mean Corpuscular Volume 97 FL (80-99) Mean Corpuscular Hemoglobin 31.2 PG (27.0-31.0) H Mean Corpuscular Hemoglobin Concent 32.1 G/DL (32.0-36.0) Red Cell Distribution Width 15.1 % (11.6-14.8) H Platelet Count 216 K/UL (150-450) Mean Platelet Volume 6.8 FL (6.5-10.1) Neutrophils (%) (Auto) 63.8 % (45.0-75.0) Lymphocytes (%) (Auto) 23.0 % (20.0-45.0) Monocytes (%) (Auto) 9.6 % (1.0-10.0) Eosinophils (%) (Auto) 3.0 % (0.0-3.0) Basophils (%) (Auto) 0.6 % (0.0-2.0) Erythrocyte Sedimentation Rate 74 MM/HR (0-30) H Sodium Level 148 MMOL/L (136-145) H Potassium Level 3.6 MMOL/L (3.5-5.1) Chloride Level 113 MMOL/L (98-107) H Carbon Dioxide Level 29 MMOL/L (21-32) Anion Gap 6 mmol/L (5-15) Blood Urea Nitrogen 19 mg/dL (7-18) H Creatinine 0.5 MG/DL (0.55-1.30) L Estimat Glomerular Filtration Rate > 60 mL/min (>60) Glucose Level 108 MG/DL (74-106) H Calcium Level 7.9 MG/DL (8.5-10.1) L Phosphorus Level 2.9 MG/DL (2.5-4.9) Magnesium Level 1.9 MG/DL (1.8-2.4) Total Bilirubin 0.1 MG/DL (0.2-1.0) L Aspartate Amino Transf (AST/SGOT) 27 U/L (15-37) Alanine Aminotransferase (ALT/SGPT) 15 U/L (12-78) Alkaline Phosphatase 166 U/L (46-116) H C-Reactive Protein, Quantitative 4.3 mg/dL (0.00-0.90) H Total Protein 7.4 G/DL (6.4-8.2) Albumin 2.0 G/DL (3.4-5.0) L Globulin 5.4 g/dL Albumin/Globulin Ratio 0.4 (1.0-2.7) L Plan Problems: (1) Feeding by G-tube Assessment & Plan: DAILY ESTIMATED NEEDS: Needs based on Critical care, DM, sepsis 66.7kg abw 22-30 kcals/kg 5114-9017 total kcals 1.25-2 g protein/kg 83-133 g total protein 25-30 mL/kg 7869-8588 total fluid mLs NUTRITION DIAGNOSIS: Swallowing difficulty r/t resp status as evidenced by pt is trach and PEG dep. CURRENT TF: Glucerna 1.5 @60ml/hr x20 hrs ENTERAL NUTRITION RECOMMENDATIONS: Glucerna 1.2 @75ml/hr x20 hrs (on Dilantin BID) to provide 1500ml, 1800 kcal, 90g pro, 1208ml free h2o Glucerna 1.5 OOS-> Rec Glucerna 1.2 for carb control + increased free H2O - Start @low rate, 15ml/hr for 6 hrs. Advance as tolerated 10ml/hr q4-6 hrs to goal. - Flush per MD/ HOB over 30 degrees. ---- ADDITIONAL RECOMMENDATIONS: 1) Obtain an accurate Height as able: 5'7" per EMR vs 6'1" per SNF. April 01, 2020 wt per SNF: 182 lbs/82.73kg 2) F/up w/ WC eval 3) Increase water flushes as Na is trending up 4) Replete lytes-> Mg, Phos, and K all low (2) Sepsis Assessment & Plan: Patient with leukocytosis, anemia, lactic acidosis. COVID rapid exam negative Urine noted On antibiotics Care plan as below We will follow with recommendations slowly improving Nutritional optimization Thank you for let me participate in patient's care Massively dilated sigmoid colon. Could be functional, the possibility of distal colonic obstruction or sigmoid volvulus should also be considered CT A/P ordered (3) Sacral decubitus ulcer Assessment & Plan: Pt presented on admission with Tracheostomy, Gastrostomy, Bilat nephrostomies, Pressure injury.Skin assessed under tracheal collar and no evidence of skin breakdown noted. L nephrostomy migrating -suture noted to be loose. No peristomal erythema or skin erosion noted. R nephrostomy is intact without evidence of peristomal skin erosion noted.Scaly dark brown plaques noted to back and both upper thighs Full thickness Pressure Injury sacrococcygeal area(L)3.6cm x (W)1.3cm x (D)1.9cm ,Undermining clockwise at 6o'clock by 0.3cm,12-1 by 0.2cm.@1o'clock. Base of wound is pale pink and moist. Bone is palpable at the base of wound. Epibole along edges along with maceration to borders and periwound.Small amt serous exudate noted. No odor noted. Hyperpigmentation with historical scar noted to sacrum, R and L gluteal cheeks. R and L heels are both boggy with non-Blanching erythema. Bilat foot drop noted. Tx.Plan: Cleanse Sacral wound with Saline. Apply Therahoney. Apply Moisture Barrier paste periwound. Cover with Optifoam drsg Daily and prn Apply Cavilon Skin Barrier to malleoli and each heel. Cover each site with Optifoam drsg.Change every 7 days and PRN. Reposition at least every 2hours or as tolerated. Off-load heels with pillow. APM/ADELIA Mattress overlay. Delon Murray May 01, 2020 16:38
--- NOTE | 2020-05-01 17:30 | NUR ---
NURSE NOTES: Noted swelling to left upper arm where PICC site is placed. Left upper arm is 2 times bigger than right arm and skin warm to touch. No redness or drainage from PICC site noted. Made Dr. Garcia aware of swelling in left upper arm. Venous duplex of left arm obtained and order carried out
--- NOTE | 2020-05-01 19:30 | NUR ---
NURSE NOTES: Received pt and report from LUCERO Robles. Observed pt resting in bed with both eyes open. Pt is A/Ox0, obtunded. cardiac monitor is in placed, pt is NSR. PICC line on ARMAND with double lumens; intact and patent. Pt's ARMAND is noted to be bigger compared to KHRIS; Dr. Garcia made aware. Venous Duplex is scheduled for tomorrow for ARMAND. Pt has trach Protex 7, connected to ventilator with setting of AC 18, TV 450, FiO2 40%, peep of 5. Sating at 100%. Pt has a G-tube in placed; feeding on hold at the moment per Dr. Murray; no residual noted. Aspiration precaution noted. HOB elevated at 30 degree. Pt has bilateral nephrotomy tubes; patent and daring well. Bed is in the lowest position, locked with 3 side rails up. Call light and bedside table is within reach. No signs/symptoms of acute distress noted. Will continue plan of care.
--- NOTE | 2020-05-01 19:34 | NUR ---
HAND-OFF: Report given to LUCERO Briggs. Pt remains stable.
[2020-05-01 20:00] VITALS: BP 100/56
[2020-05-01] MEDS: Dyna-Hex 2% Top Sol 2oz TOPIC SCH (20:32)
[2020-05-02] VITALS: BP 101/59
--- NOTE | 2020-05-02 03:10 | NUR ---
NURSE NOTES: Changed PICC line dressing. Intact and patent. Will continue to monitor.
[2020-05-02 04:00] VITALS: BP 100/58
[2020-05-02 04:47] LABS: BASOPHILS % (AUTO) 0.7 % (0.0-2.0); EOSINOPHILS % (AUTO) 2.7 % (0.0-3.0); HEMATOCRIT 31.5 % (37.0-47.0); HEMOGLOBIN 9.9 G/DL (12.0-16.0); LYMPHOCYTES % (AUTO) 24.8 % (20.0-45.0); MEAN CORPUSCULAR VOLUME 98 FL (80-99); MONOCYTES % (AUTO) 9.1 % (1.0-10.0); NEUTROPHILS % (AUTO) 62.7 % (45.0-75.0); PLATELET COUNT 244 K/UL (150-450); RED BLOOD COUNT 3.23 M/UL (4.20-5.40); RED CELL DISTRIBUTION WIDTH 14.9 % (11.6-14.8); WHITE BLOOD COUNT 7.5 K/UL (4.8-10.8)
[2020-05-02] MEDS: NovoLOG Insulin Flexpen SUBQ SCH ×4 (05:09→18:00)
[2020-05-02] MEDS: D5W w/KCl 20mEq 1,000 ML IV SCH (05:09)
[2020-05-02 05:21] LABS: ANION GAP 7 mmol/L (5-15); BLOOD UREA NITROGEN 10 mg/dL (7-18); CALCIUM 7.8 MG/DL (8.5-10.1); CARBON DIOXIDE 30 MMOL/L (21-32); CHLORIDE 111 MMOL/L (98-107); CREATININE 0.6 MG/DL (0.55-1.30); POTASSIUM 3.5 MMOL/L (3.5-5.1); SODIUM 147 MMOL/L (136-145)
--- NOTE | 2020-05-02 07:14 | NUR ---
HAND-OFF: Report given to LUCERO Suresh. Plan of care endorsed.
--- NOTE | 2020-05-02 07:15 | NUR ---
NURSE NOTES: Received report from LUCERO Briggs. The patient is resting on the bed without acute distress or shortness of breath. The patient is trach'ed and is on ventilator and communication made by facial expression and body movement. The patient is able to be wake up by verbal stimuli. SR of 70s on the financial reserve clerk. The patient is trached and ventilator on following setting: Porte x7, AC 18, TV 450, FiO2 40%, and PEEP 5 and oxygen saturation is 100%. The patient has G tube that is intact and patent but connected to Ding for draining per Dr. Murray's order due to abnormal KUB result and severe degree of abdominal distension. NPO except medication as ordered for now. The patient's ARMAND double lumen PICC line that is intact and patent but extreme swelling noted and scheduled for venous duplex of left upper extremities per Dr. Garcia's order, and charge nurse communicated with computer repair technician for the schedule today. New peripheral line inserted on R hand 22G that is intact and patent. The patient has bilateral nephrostomy that is intact and patent and draining urine by gravity. Skin issue noted and dressing intact. The patient's bed in the lowest position, call light in reach, and fall, aspiration, and seizure precation reinforced. Will follow up the lab and order. Will closely monitor the patient. Will continue plan of care.
[2020-05-02 08:00] VITALS: BP 93/59
--- NOTE | 2020-05-02 08:00 | NUR ---
NURSE NOTES: Initial vital signs taken. Hypotension noted with systolic blood pressure of 93. Notified to Dr. Garcia. Awaiting for order. Will continue plan of care.
--- NOTE | 2020-05-02 08:30 | NUR ---
NURSE NOTES: Dr. Garcia ordered 1L NS bolus for hypotension. Will administer as ordered. Will recheck blood pressure after bolus. Will continue plan of care.
--- NOTE | 2020-05-02 08:55 | Surgery Progress Note ---
Surgery Progress Note Subjective Additional Comments abdomen still distended no n/v/f/c pending CT A/P which will be done this AM pre report Objective Last 24 Hour Vital Signs Date Time Temp Pulse Resp B/P (MAP) Pulse Ox O2 Delivery O2 Flow Rate FiO2 05/02/20 07:22 77 18 40 05/02/20 04:00 75 05/02/20 04:00 Mechanical Ventilator Mechanical Ventilator 05/02/20 04:00 98.4 77 18 100/58 (72) 100 05/02/20 04:00 40 05/02/20 03:30 73 18 40 05/02/20 00:00 Mechanical Ventilator Mechanical Ventilator 05/02/20 00:00 72 05/02/20 00:00 98.2 72 19 101/59 (73) 100 05/01/20 23:30 71 19 40 05/01/20 20:00 40 05/01/20 20:00 Mechanical Ventilator Mechanical Ventilator 05/01/20 20:00 85 05/01/20 20:00 99.3 80 17 100/56 (71) 100 05/01/20 19:30 81 18 40 05/01/20 16:00 40 05/01/20 16:00 90 05/01/20 16:00 98.7 73 18 114/49 (70) 99 05/01/20 16:00 Mechanical Ventilator Mechanical Ventilator 05/01/20 15:30 87 18 40 05/01/20 12:00 40 05/01/20 12:00 90 05/01/20 12:00 Mechanical Ventilator Mechanical Ventilator 05/01/20 12:00 98.0 95 18 116/65 (82) 100 05/01/20 11:30 92 18 40 05/01/20 09:10 40 05/01/20 09:10 Mechanical Ventilator Mechanical Ventilator 05/01/20 09:00 40 I&O Intake and Output 05/01/20 05/02/20 19:00 07:00 Intake Total 770 ml 450 ml Output Total 900 ml Balance -130 ml 450 ml IV Total 600 ml 450 ml Tube Feeding 120 ml Other 50 ml Other 900 ml Dressing: other Wound: other Cardiovascular: RSR Respiratory: decreased breath sounds Abdomen: soft, present bowel sounds Extremities: no tenderness, no cyanosis Laboratory Tests Test 05/02/20 04:20 05/02/20 05:02 White Blood Count 7.5 K/UL (4.8-10.8) Red Blood Count 3.23 M/UL (4.20-5.40) L Hemoglobin 9.9 G/DL (12.0-16.0) L Hematocrit 31.5 % (37.0-47.0) L Mean Corpuscular Volume 98 FL (80-99) Mean Corpuscular Hemoglobin 30.6 PG (27.0-31.0) Mean Corpuscular Hemoglobin Concent 31.4 G/DL (32.0-36.0) L Red Cell Distribution Width 14.9 % (11.6-14.8) H Platelet Count 244 K/UL (150-450) Mean Platelet Volume 7.0 FL (6.5-10.1) Neutrophils (%) (Auto) 62.7 % (45.0-75.0) Lymphocytes (%) (Auto) 24.8 % (20.0-45.0) Monocytes (%) (Auto) 9.1 % (1.0-10.0) Eosinophils (%) (Auto) 2.7 % (0.0-3.0) Basophils (%) (Auto) 0.7 % (0.0-2.0) Sodium Level 147 MMOL/L (136-145) H Potassium Level 3.5 MMOL/L (3.5-5.1) Chloride Level 111 MMOL/L (98-107) H Carbon Dioxide Level 30 MMOL/L (21-32) Anion Gap 7 mmol/L (5-15) Blood Urea Nitrogen 10 mg/dL (7-18) Creatinine 0.6 MG/DL (0.55-1.30) Estimat Glomerular Filtration Rate > 60 mL/min (>60) Glucose Level 97 MG/DL (74-106) Calcium Level 7.8 MG/DL (8.5-10.1) L POC Whole Blood Glucose 84 MG/DL (74-106) Plan Problems: (1) Feeding by G-tube Assessment & Plan: DAILY ESTIMATED NEEDS: Needs based on Critical care, DM, sepsis 66.7kg abw 22-30 kcals/kg 4314-4912 total kcals 1.25-2 g protein/kg 83-133 g total protein 25-30 mL/kg 0592-7992 total fluid mLs NUTRITION DIAGNOSIS: Swallowing difficulty r/t resp status as evidenced by pt is trach and PEG dep. CURRENT TF: Glucerna 1.5 @60ml/hr x20 hrs ENTERAL NUTRITION RECOMMENDATIONS: Glucerna 1.2 @75ml/hr x20 hrs (on Dilantin BID) to provide 1500ml, 1800 kcal, 90g pro, 1208ml free h2o Glucerna 1.5 OOS-> Rec Glucerna 1.2 for carb control + increased free H2O - Start @low rate, 15ml/hr for 6 hrs. Advance as tolerated 10ml/hr q4-6 hrs to goal. - Flush per MD/ HOB over 30 degrees. ---- ADDITIONAL RECOMMENDATIONS: 1) Obtain an accurate Height as able: 5'7" per EMR vs 6'1" per SNF. April 01, 2020 wt per SNF: 182 lbs/82.73kg 2) F/up w/ WC eval 3) Increase water flushes as Na is trending up 4) Replete lytes-> Mg, Phos, and K all low (2) Sepsis Assessment & Plan: Patient with leukocytosis, anemia, lactic acidosis. COVID rapid exam negative Urine noted On antibiotics Care plan as below We will follow with recommendations slowly improving Nutritional optimization Thank you for let me participate in patient's care Massively dilated sigmoid colon. Could be functional, the possibility of distal colonic obstruction or sigmoid volvulus should also be considered CT A/P ordered (3) Sacral decubitus ulcer Assessment & Plan: Pt presented on admission with Tracheostomy, Gastrostomy, Bilat nephrostomies, Pressure injury.Skin assessed under tracheal collar and no evidence of skin breakdown noted. L nephrostomy migrating -suture noted to be loose. No peristomal erythema or skin erosion noted. R nephrostomy is intact without evidence of peristomal skin erosion noted.Scaly dark brown plaques noted to back and both upper thighs Full thickness Pressure Injury sacrococcygeal area(L)3.6cm x (W)1.3cm x (D)1.9cm ,Undermining clockwise at 6o'clock by 0.3cm,12-1 by 0.2cm.@1o'clock. Base of wound is pale pink and moist. Bone is palpable at the base of wound. Epibole along edges along with maceration to borders and periwound.Small amt serous exudate noted. No odor noted. Hyperpigmentation with historical scar noted to sacrum, R and L gluteal cheeks. R and L heels are both boggy with non-Blanching erythema. Bilat foot drop noted. Tx.Plan: Cleanse Sacral wound with Saline. Apply Therahoney. Apply Moisture Barrier paste periwound. Cover with Optifoam drsg Daily and prn Apply Cavilon Skin Barrier to malleoli and each heel. Cover each site with Optifoam drsg.Change every 7 days and PRN. Reposition at least every 2hours or as tolerated. Off-load heels with pillow. APM/ADELIA Mattress overlay. Delon Murray May 02, 2020 08:54
--- NOTE | 2020-05-02 09:00 | NUR ---
NURSE NOTES: Notified Dr. Garcia regarding abnormal lab including Hgb, Na, and potassium. Dr. Garcia ordered KCL [id number]. Administer as ordered. Will continue plan of care.
[2020-05-02] MEDS: Phenytoin Susp 100mg/4ml GT SCH ×2 (09:03→21:28)
[2020-05-02] MEDS: Levofloxacin 750mg tab ORAL SCH (09:03)
[2020-05-02] MEDS: Zinc Sulfate 220mg GT SCH (09:03)
[2020-05-02] MEDS: levETIRAcetam 500mg/5ml Liquid GT SCH ×2 (09:03→21:28)
[2020-05-02] MEDS: Pantoprazole Inj IVP SCH ×2 (09:03→21:28)
--- NOTE | 2020-05-02 10:00 | NUR ---
NURSE NOTES: Administered morning medication as ordered. The patient's systolic blood pressure went upto 100s. Will closely monitor the patient. Will continue plan of care.
--- NOTE | 2020-05-02 11:25 | NUR ---
RADIOLOGY DEPT., CHEST AND ABDOMEN X-RAY REPEATED. -P.DYE
--- NOTE | 2020-05-02 11:27 | Pulmonolgy Critical Care Note ---
Critical Care - Asmt/Plan Problems: (1) Sepsis (2) Chronic respiratory failure (3) Acute metabolic encephalopathy (4) Acute prerenal azotemia (5) Sacral decubitus ulcer (6) Spastic quadriplegic cerebral palsy (7) Chronic vegetative state (8) Schizophrenia (9) Chronic seizure disorder (10) Diabetes mellitus (11) Feeding by G-tube Respiratory: monitor respiratory rate, adjust FIO2, CXR Cardiac: continue pressors, continue to monitor HR/BP Renal: F/U I&O, keep IV fluid, check electrolytes Infectious Disease: check cultures Gastrointestinal: continue feedings/current rate Endocrine: monitor blood sugar Hematologic: transfuse if hgb<8.5 Neurologic: PRN Ativan, keep patient comfortable Prophylaxis: Protonix Notes Reviewed: laborer/key man Discussed with: nurses, business case analystregional maintenance manager - Objective Last 24 Hour Vital Signs Date Time Temp Pulse Resp B/P (MAP) Pulse Ox O2 Delivery O2 Flow Rate FiO2 05/02/20 10:43 75 18 40 05/02/20 07:35 79 05/02/20 07:22 77 18 40 05/02/20 04:00 75 05/02/20 04:00 Mechanical Ventilator Mechanical Ventilator 05/02/20 04:00 98.4 77 18 100/58 (72) 100 05/02/20 04:00 40 05/02/20 03:30 73 18 40 05/02/20 00:00 Mechanical Ventilator Mechanical Ventilator 05/02/20 00:00 72 05/02/20 00:00 98.2 72 19 101/59 (73) 100 05/01/20 23:30 71 19 40 05/01/20 20:00 40 05/01/20 20:00 Mechanical Ventilator Mechanical Ventilator 05/01/20 20:00 85 05/01/20 20:00 99.3 80 17 100/56 (71) 100 05/01/20 19:30 81 18 40 05/01/20 16:00 40 05/01/20 16:00 90 05/01/20 16:00 98.7 73 18 114/49 (70) 99 05/01/20 16:00 Mechanical Ventilator Mechanical Ventilator 05/01/20 15:30 87 18 40 05/01/20 12:00 40 05/01/20 12:00 90 05/01/20 12:00 Mechanical Ventilator Mechanical Ventilator 05/01/20 12:00 98.0 95 18 116/65 (82) 100 05/01/20 11:30 92 18 40 Status: obtunded Condition: critical HEENT: atraumatic Neck: full ROM, trach Heart: HR/BP stable Abdomen: soft, non-tender Extremities: no C/C/E, edema Micro: Microbiology Date/Time Source Procedure Growth Status 04/29/20 16:00 Stool Clostridium difficile Toxin Assay - Final Complete Accucheck: 84 Critical Care - Subjective ROS Limited/Unobtainable: Yes FI02: 40 Vent Support Breath Rate: 18 Vent Support Mode: AC Vent Tidal Volume: 450 Sputum Amount: Small PEEP: 5.0 PIP: 28 Tube Feeding Amount: 60 I&O: Intake and Output 05/01/20 05/02/20 19:00 07:00 Intake Total 770 ml 450 ml Output Total 900 ml Balance -130 ml 450 ml IV Total 600 ml 450 ml Tube Feeding 120 ml Other 50 ml Other 900 ml Labs: Laboratory Tests Test 05/02/20 04:20 05/02/20 05:02 White Blood Count 7.5 K/UL (4.8-10.8) Red Blood Count 3.23 M/UL (4.20-5.40) L Hemoglobin 9.9 G/DL (12.0-16.0) L Hematocrit 31.5 % (37.0-47.0) L Mean Corpuscular Volume 98 FL (80-99) Mean Corpuscular Hemoglobin 30.6 PG (27.0-31.0) Mean Corpuscular Hemoglobin Concent 31.4 G/DL (32.0-36.0) L Red Cell Distribution Width 14.9 % (11.6-14.8) H Platelet Count 244 K/UL (150-450) Mean Platelet Volume 7.0 FL (6.5-10.1) Neutrophils (%) (Auto) 62.7 % (45.0-75.0) Lymphocytes (%) (Auto) 24.8 % (20.0-45.0) Monocytes (%) (Auto) 9.1 % (1.0-10.0) Eosinophils (%) (Auto) 2.7 % (0.0-3.0) Basophils (%) (Auto) 0.7 % (0.0-2.0) Sodium Level 147 MMOL/L (136-145) H Potassium Level 3.5 MMOL/L (3.5-5.1) Chloride Level 111 MMOL/L (98-107) H Carbon Dioxide Level 30 MMOL/L (21-32) Anion Gap 7 mmol/L (5-15) Blood Urea Nitrogen 10 mg/dL (7-18) Creatinine 0.6 MG/DL (0.55-1.30) Estimat Glomerular Filtration Rate > 60 mL/min (>60) Glucose Level 97 MG/DL (74-106) Calcium Level 7.8 MG/DL (8.5-10.1) L POC Whole Blood Glucose 84 MG/DL (74-106) Luis Garcia MD May 02, 2020 11:26
[2020-05-02 12:00] VITALS: BP 128/91
--- NOTE | 2020-05-02 12:00 | NUR ---
NURSE NOTES: Stable vital signs noted. Will closely monitor the patient. Will continue plan of care.
--- NOTE | 2020-05-02 12:49 | Diagnostic Imaging Report ---
Indication: Shortness of breath Technique: One view of the chest Comparison: 04/29/2020 Findings: Tracheostomy remains. Lungs and pleural spaces are clear. The heart size is normal Impression: No acute process
--- NOTE | 2020-05-02 12:49 | Nephrology Progress Note ---
Assessment/Plan Problem List: (1) Electrolyte imbalance Assessment: Hypernatremia (2) Dehydration (3) Diabetes mellitus (4) Spastic quadriplegic cerebral palsy (5) Chronic respiratory failure (6) Sepsis Assessment: UTI (7) Sacral decubitus ulcer Assessment Dehydration, prerenal azotemia, free water deficit, hypernatremia Sepsis, UTI Chronic respiratory failure, status post tracheostomy Sacral decubitus ulcer Chronic seizure disorder PEG Diabetes mellitus Spastic quadriplegic cerebral palsy Plan May 02: Stable from renal standpoint to view. Continue per consultants. May 01: Status quo. Stable from renal standpoint of view. April 30: More potassium IV given. DC Ding catheter. Patient has functioning bilateral nephrostomy. Discussed with RN. April 29: More potassium IV chloride given. Remains stable from renal standpoint of view April 28: Stable from renal standpoint of view. Continue per consultants. April 27: IV potassium chloride ordered. IV fluid adjusted. Increase D5W to 75 cc an hour. Potassium supplement IV . Continue to monitor renal parameters and electrolytes Monitor Dilantin level, adjust the dose corrected for low albumin Monitor electrolytes and renal parameters Increase Protonix to every 12 hours Keep the blood sugar in check Per orders Patient is full code Subjective ROS Limited/Unobtainable: Yes Objective Objective Last 24 Hour Vital Signs Date Time Temp Pulse Resp B/P (MAP) Pulse Ox O2 Delivery O2 Flow Rate FiO2 05/02/20 10:43 75 18 40 05/02/20 08:00 40 05/02/20 08:00 98.2 78 18 93/59 (70) 100 05/02/20 07:35 79 05/02/20 07:22 77 18 40 05/02/20 04:00 75 05/02/20 04:00 Mechanical Ventilator Mechanical Ventilator 05/02/20 04:00 98.4 77 18 100/58 (72) 100 05/02/20 04:00 40 05/02/20 03:30 73 18 40 05/02/20 00:00 Mechanical Ventilator Mechanical Ventilator 05/02/20 00:00 72 05/02/20 00:00 98.2 72 19 101/59 (73) 100 05/01/20 23:30 71 19 40 05/01/20 20:00 40 05/01/20 20:00 Mechanical Ventilator Mechanical Ventilator 05/01/20 20:00 85 05/01/20 20:00 99.3 80 17 100/56 (71) 100 05/01/20 19:30 81 18 40 05/01/20 16:00 40 05/01/20 16:00 90 05/01/20 16:00 98.7 73 18 114/49 (70) 99 05/01/20 16:00 Mechanical Ventilator Mechanical Ventilator 05/01/20 15:30 87 18 40 Intake and Output 05/01/20 05/02/20 19:00 07:00 Intake Total 770 ml 450 ml Output Total 900 ml Balance -130 ml 450 ml IV Total 600 ml 450 ml Tube Feeding 120 ml Other 50 ml Other 900 ml Laboratory Tests 05/01/20 17:48: POC Whole Blood Glucose 84 05/01/20 20:25: POC Whole Blood Glucose 83 05/02/20 00:01: POC Whole Blood Glucose 83 05/02/20 04:20: White Blood Count 7.5, Red Blood Count 3.23L, Hemoglobin 9.9L, Hematocrit 31.5L , Mean Corpuscular Volume 98, Mean Corpuscular Hemoglobin 30.6, Mean Corpuscular Hemoglobin Concent 31.4L, Red Cell Distribution Width 14.9H, Platelet Count 244, Mean Platelet Volume 7.0, Neutrophils (%) (Auto) 62.7, Lymphocytes (%) (Auto) 24.8, Monocytes (%) (Auto) 9.1, Eosinophils (%) (Auto) 2.7, Basophils (%) (Auto) 0.7, Sodium Level 147H, Potassium Level 3.5, Chloride Level 111H, Carbon Dioxide Level 30, Anion Gap 7, Blood Urea Nitrogen 10, Creatinine 0.6, Estimat Glomerular Filtration Rate > 60, Glucose Level 97, Calcium Level 7.8L 05/02/20 05:02: POC Whole Blood Glucose 84 Height (Feet): 5 Height (Inches): 7.00 Weight (Pounds): 195 General Appearance: no apparent distress EENT: other - Trach and vent Cardiovascular: normal rate Respiratory/Chest: decreased breath sounds Objective No change Caleb Reese MD May 02, 2020 12:49
--- NOTE | 2020-05-02 13:00 | NUR ---
NURSE NOTES: Notified Dr. Murray regarding CT abdomen order. The patient's blood pressure was systolic 80s in the morning and reported that it might be not safe to go CT scan. Per Dr. Murray, stabilize the patient first. Will continue plan of care.
--- NOTE | 2020-05-02 13:02 | Diagnostic Imaging Report ---
Indication: Pain, distention Technique: Supine view of the abdomen Comparison: 05/01/2020 Findings: Again demonstrated is a massively dilated loop of what is presumably sigmoid colon. Considerable proximal colonic stool is again demonstrated. Bilateral nephrostomy tubes are again demonstrated. The bones demonstrate osteoporotic changes as well as extensive chronic appearing abnormality of both hips with heterotopic ossification. Impression: Unchanged massive sigmoid colonic distention. Suspect functional but sigmoid volvulus also possible. Correlate with clinical findings. Other findings as noted
--- NOTE | 2020-05-02 14:00 | NUR ---
NURSE NOTES: Notified Dr. Garcia regarding abnormal left upper arm venous duplex result. Per emergency technician, the patient has DVT on PICC line and left auxillary area. No new order from Dr. Garcia yet. Will not use PICC line but will only use peripheral line until clarification. Will continue plan of care.
--- NOTE | 2020-05-02 14:20 | NUR ---
NURSE NOTES: Per Dr. Garcia remove PICC line either by nurse or radiology. Informed the charge nurse regarding the order. Will continue plan of care.
--- NOTE | 2020-05-02 14:23 | Infectious Diseases Prog Note ---
Assessment/Plan Assessment: Severe sepsis- ?source- ?early pNA vs tracheitis Cons bacteremia- suspect contaminant -04/22 Bcx 1/ CONS; 04/24, Bcx Neg Hyperthermia (up to 105 upon admission); SP - COVID19 neg x3 Leukocytosis, SP -04/29 CXR: no acute process -04/27 CXR: Mild central vascular congestion. SARS-COV2 PCR neg -04/26 sp cx MDR ABC (s levaquin), PsA (R Levaquin; otherwise S), P.stuarti ( I Levaquin; R ancef, AMp, Gentamycin) -04/25 CXR: no acute diseae -04/23 SARS-COV2 PCR neg -04/22 CXR: no acute disease -u/a wbc 20-30, nit neg, leuk +3; ucx 30-40k mixed gram positive organisms -rapid COVID test neg -V. duplex no DVT Lactic acidosis, SP GABRIELLE, SP Elevated LFTs; SP -HIV ab sc neg, Acute hep panel neg -Abd US: GALLSTONE. MILDLY PROMINENT CBD BUT MAY BE NORMAL FOR AGE. BILATERAL URETERAL STENTS. NO HYDRONEPHROSIS. POSSIBLE SMALL BILATERAL RENAL STONES. MIDLINE STRUCTURES INCLUDING PANCREAS, AORTA AND CAVA NOT OPTIMALLY VISUALIZED DUE TO BOWEL GAS. GERD DM2 COPD GIB neurogenic bladder stage IV sacral decubitus ulcer paranoid schizoaffective disorder suicide attempt in 2003 progressing to coma and requiring skilled nursing ventilator support spatic quadriplegia obesity b/l nephrostomy tubes 2018 seizure disorder chronic resp failure s/p trach dependent dysphagia s/p GT NH resident ([facility]) Plan: -Cont PO Levaquin #5/7 for MDR ABC in sputum -04/28 SP IV Vancomycin #6, Cefepime #6 -04/23 SP Ertapenem x1 -f/u cx -Monitor CBC/CMP, temperatures -f/u BCx x2, sp cx -COVID19 neg x3 (1 rapid, 2 NAAT);ok to dc isolation; afebrile >72hrs -PEG/trach care -aspiration precautions -wound care per hospital protocol Thank you for consulting [facility]. Will continue to follow along with you. Discussed maxwell RN. Subjective Allergies: Coded Allergies: No Known Allergies (Unverified , 02/08/13) afebrile no leukocytosis Objective Last 24 Hour Vital Signs Date Time Temp Pulse Resp B/P (MAP) Pulse Ox O2 Delivery O2 Flow Rate FiO2 05/02/20 12:00 97.9 79 18 128/91 (103) 100 05/02/20 12:00 78 05/02/20 12:00 Mechanical Ventilator Mechanical Ventilator 05/02/20 12:00 40 05/02/20 10:43 75 18 40 05/02/20 08:00 40 05/02/20 08:00 Mechanical Ventilator Mechanical Ventilator 05/02/20 08:00 98.2 78 18 93/59 (70) 100 05/02/20 07:35 79 05/02/20 07:22 77 18 40 05/02/20 04:00 75 05/02/20 04:00 Mechanical Ventilator Mechanical Ventilator 05/02/20 04:00 98.4 77 18 100/58 (72) 100 05/02/20 04:00 40 05/02/20 03:30 73 18 40 05/02/20 00:00 Mechanical Ventilator Mechanical Ventilator 05/02/20 00:00 72 05/02/20 00:00 98.2 72 19 101/59 (73) 100 05/01/20 23:30 71 19 40 05/01/20 20:00 40 05/01/20 20:00 Mechanical Ventilator Mechanical Ventilator 05/01/20 20:00 85 05/01/20 20:00 99.3 80 17 100/56 (71) 100 05/01/20 19:30 81 18 40 05/01/20 16:00 40 05/01/20 16:00 90 05/01/20 16:00 98.7 73 18 114/49 (70) 99 05/01/20 16:00 Mechanical Ventilator Mechanical Ventilator 05/01/20 15:30 87 18 40 Height (Feet): 5 Height (Inches): 7.00 Weight (Pounds): 195 GENERAL: Patient is a thin-appearing female, who is intubated and sedated. HEENT: Eyes, pupils are equal and responsive to light and accommodation. Extraocular movements are intact. NECK: Supple without lymphadenopathy. Tracheostomy is in place. CHEST: Coarse breath sounds bilateral bases otherwise without wheezes or rales. CARDIOVASCULAR: Tachycardic, regular rhythm. S1, S2 normal without murmurs, rubs, or gallops. ABDOMEN: Soft, nontender, nondistended. Positive bowel sounds. No evidence of hepatosplenomegaly. Currently, no rebound or guarding noted. EXTREMITIES: Negative for clubbing, cyanosis, or edema. Microbiology Date/Time Source Procedure Growth Status 04/29/20 16:00 Stool Clostridium difficile Toxin Assay - Final Complete Laboratory Tests Test 05/01/20 17:48 05/01/20 20:25 05/02/20 00:01 05/02/20 04:20 POC Whole Blood Glucose 84 MG/DL (74-106) 83 MG/DL (74-106) 83 MG/DL (74-106) White Blood Count 7.5 K/UL (4.8-10.8) Red Blood Count 3.23 M/UL (4.20-5.40) L Hemoglobin 9.9 G/DL (12.0-16.0) L Hematocrit 31.5 % (37.0-47.0) L Mean Corpuscular Volume 98 FL (80-99) Mean Corpuscular Hemoglobin 30.6 PG (27.0-31.0) Mean Corpuscular Hemoglobin Concent 31.4 G/DL (32.0-36.0) L Red Cell Distribution Width 14.9 % (11.6-14.8) H Platelet Count 244 K/UL (150-450) Mean Platelet Volume 7.0 FL (6.5-10.1) Neutrophils (%) (Auto) 62.7 % (45.0-75.0) Lymphocytes (%) (Auto) 24.8 % (20.0-45.0) Monocytes (%) (Auto) 9.1 % (1.0-10.0) Eosinophils (%) (Auto) 2.7 % (0.0-3.0) Basophils (%) (Auto) 0.7 % (0.0-2.0) Sodium Level 147 MMOL/L (136-145) H Potassium Level 3.5 MMOL/L (3.5-5.1) Chloride Level 111 MMOL/L (98-107) H Carbon Dioxide Level 30 MMOL/L (21-32) Anion Gap 7 mmol/L (5-15) Blood Urea Nitrogen 10 mg/dL (7-18) Creatinine 0.6 MG/DL (0.55-1.30) Estimat Glomerular Filtration Rate > 60 mL/min (>60) Glucose Level 97 MG/DL (74-106) Calcium Level 7.8 MG/DL (8.5-10.1) L Test 05/02/20 05:02 05/02/20 12:37 POC Whole Blood Glucose 84 MG/DL (74-106) Pending Current Medications Medications (Trade) Dose Ordered Sig/Emanuel Route PRN Reason Start Time Stop Time Status Last Admin Dose Admin Acetaminophen (Tylenol) 500 mg Q4H PRN GT Pain Scale (3-5) 04/23/20 08:45 05/23/20 01:59 Acetaminophen (Tylenol) 650 mg THREE TIMES A DAY PRN GT FHMP 04/23/20 02:00 05/23/20 01:59 04/26/20 12:54 Artificial Tears (Akwa-Tears) 1 drop BID BOTH EYES 04/23/20 09:00 05/23/20 08:59 05/02/20 09:02 Barium Sulfate (Readi-Cat 2) 450 ml NOW PRN ORAL Radiology Procedure 05/01/20 15:45 05/03/20 15:38 Bisacodyl (Dulcolax) 10 mg DAILY PRN RECTAL Constipation 04/23/20 02:00 07/22/20 01:59 Chlorhexidine Gluconate (Mimi-Hex 2%) 1 applic DAILY@2000 TOPIC 04/26/20 20:00 07/25/20 19:59 05/01/20 20:32 Dextrose (Dextrose 50%) 25 ml Q30M PRN IV Hypoglycemia 04/23/20 08:15 07/22/20 08:14 Dextrose (Dextrose 50%) 50 ml Q30M PRN IV Hypoglycemia 04/23/20 08:15 07/22/20 08:14 Dextrose/ Electrolytes 1,000 ml @ 50 mls/hr Q20H IV 04/29/20 18:00 05/29/20 17:59 05/02/20 05:09 Docusate Sodium (Colace) 250 mg DAILYPRN PRN GT CONSTIPATION 04/23/20 12:50 05/23/20 12:49 Insulin Aspart (NovoLOG) Q6HR SUBQ 04/25/20 12:00 07/24/20 11:59 04/28/20 05:57 Iohexol (OMNIPAQUE-300 100ml) 100 ml NOW PRN INJ Radiology Procedure 05/01/20 15:45 05/03/20 15:38 Levetiracetam (Keppra) 1,000 mg Q12HR GT 04/23/20 21:00 05/23/20 08:59 05/02/20 09:03 Levofloxacin (Levaquin) 750 mg DAILY ORAL 04/28/20 12:00 05/05/20 11:59 05/02/20 09:03 Metoclopramide HCl (Reglan) 5 mg Q6HR GT 04/23/20 13:53 05/23/20 13:52 05/02/20 12:38 Pantoprazole (Protonix) 40 mg Q12HR IVP 04/23/20 21:00 05/23/20 08:59 05/02/20 09:03 Phenytoin (Dilantin) 150 mg Q12HR GT 04/24/20 21:00 05/23/20 08:29 05/02/20 09:03 Sodium Phosphate (Fleet's Sodium Phosl Enema) 133 ml DAILY PRN RECTAL CONSTIPATION 04/23/20 02:00 05/23/20 01:59 Sorbitol (sorbitoL) 30 ml DAILYPRN PRN GT constipation 04/23/20 08:15 05/23/20 08:14 Zinc Sulfate (Zinc Sulfate) 220 mg DAILY GT 04/23/20 09:00 07/22/20 08:59 05/02/20 09:03 Jayne Peoples M.D. May 02, 2020 14:23
--- NOTE | 2020-05-02 14:30 | NUR ---
NURSE NOTES: Communicated with KATYA and Horace (radiology) regarding removal of PICC line. PICC line removal to be done by radiology due to multiple DVTs. PICC line will not be used until removal.
[2020-05-02 16:00] VITALS: BP 121/60
--- NOTE | 2020-05-02 16:00 | NUR ---
NURSE NOTES: Bed bath given to the patient. Tolerated well. Tolerating vent setting well. Will closely monitor the patient. Will continue plan of care.
--- NOTE | 2020-05-02 16:05 | Diagnostic Imaging Report ---
Indication: Left arm edema and pain, history of central line Technique: Grayscale and duplex images of the left upper extremity veins Comparison: none Findings: On the left, grayscale and duplex images demonstrate a left basilic PICC. The left basilic vein is occluded, with absence of flow, as is the axillary vein into which the PICC extends. The internal jugular and subclavian veins are patent. The cephalic and brachial veins are patent.. Impression: Positive for thrombosed left upper extremity basilic vein, which contains a PICC. Patient's nurse notified at the time of interpretation
--- NOTE | 2020-05-02 17:00 | NUR ---
NURSE NOTES: Radiology at the bedside for removal of PICC line per Dr. Garcia's order. Swelling noted on ARMAND and no use of ARMAND for BP and IV sign noted. Will closely monitor the patient. Will continue plan of care.
--- NOTE | 2020-05-02 18:00 | NUR ---
NURSE NOTES: BS of 76 noted. No coverage. The patient is resting comfortably at this time. Will continue plan of care.
--- NOTE | 2020-05-02 18:44 | Internal Med Progress Note ---
Subjective Date of Service: May 02, 2020 Physician Name Kalin Eubanks Attending Physician Jeyson Yanez MD Current Medications Medications (Trade) Dose Ordered Sig/Emanuel Route PRN Reason Start Time Stop Time Status Last Admin Dose Admin Acetaminophen (Tylenol) 500 mg Q4H PRN GT Pain Scale (3-5) 04/23/20 08:45 05/23/20 01:59 Acetaminophen (Tylenol) 650 mg THREE TIMES A DAY PRN GT FHMP 04/23/20 02:00 05/23/20 01:59 04/26/20 12:54 Artificial Tears (Akwa-Tears) 1 drop BID BOTH EYES 04/23/20 09:00 05/23/20 08:59 05/02/20 18:10 Barium Sulfate (Readi-Cat 2) 450 ml NOW PRN ORAL Radiology Procedure 05/01/20 15:45 05/03/20 15:38 Bisacodyl (Dulcolax) 10 mg DAILY PRN RECTAL Constipation 04/23/20 02:00 07/22/20 01:59 Chlorhexidine Gluconate (Mimi-Hex 2%) 1 applic DAILY@2000 TOPIC 04/26/20 20:00 07/25/20 19:59 05/01/20 20:32 Dextrose (Dextrose 50%) 25 ml Q30M PRN IV Hypoglycemia 04/23/20 08:15 07/22/20 08:14 Dextrose (Dextrose 50%) 50 ml Q30M PRN IV Hypoglycemia 04/23/20 08:15 07/22/20 08:14 Dextrose/ Electrolytes 1,000 ml @ 50 mls/hr Q20H IV 04/29/20 18:00 05/29/20 17:59 05/02/20 05:09 Docusate Sodium (Colace) 250 mg DAILYPRN PRN GT CONSTIPATION 04/23/20 12:50 05/23/20 12:49 Insulin Aspart (NovoLOG) Q6HR SUBQ 04/25/20 12:00 07/24/20 11:59 04/28/20 05:57 Iohexol (OMNIPAQUE-300 100ml) 100 ml NOW PRN INJ Radiology Procedure 05/01/20 15:45 05/03/20 15:38 Levetiracetam (Keppra) 1,000 mg Q12HR GT 04/23/20 21:00 05/23/20 08:59 05/02/20 09:03 Levofloxacin (Levaquin) 750 mg DAILY ORAL 04/28/20 12:00 05/05/20 11:59 05/02/20 09:03 Metoclopramide HCl (Reglan) 5 mg Q6HR GT 04/23/20 13:53 05/23/20 13:52 05/02/20 18:11 Pantoprazole (Protonix) 40 mg Q12HR IVP 04/23/20 21:00 05/23/20 08:59 05/02/20 09:03 Phenytoin (Dilantin) 150 mg Q12HR GT 04/24/20 21:00 05/23/20 08:29 05/02/20 09:03 Sodium Phosphate (Fleet's Sodium Phosl Enema) 133 ml DAILY PRN RECTAL CONSTIPATION 04/23/20 02:00 05/23/20 01:59 Sorbitol (sorbitoL) 30 ml DAILYPRN PRN GT constipation 04/23/20 08:15 05/23/20 08:14 Zinc Sulfate (Zinc Sulfate) 220 mg DAILY GT 04/23/20 09:00 07/22/20 08:59 05/02/20 09:03 Allergies: Coded Allergies: No Known Allergies (Unverified , 02/08/13) ROS Limited/Unobtainable: Yes Subjective 59 YO F admitted with fever, now Sepsis and pneumonia. Cover for Int Benny-Dr Yanez. Step down unit. [facility] Vent Objective Last Vital Signs Date Time Temp Pulse Resp B/P (MAP) Pulse Ox O2 Delivery O2 Flow Rate FiO2 05/02/20 16:00 40 05/02/20 16:00 Mechanical Ventilator Mechanical Ventilator 05/02/20 16:00 68 05/02/20 16:00 98.1 18 121/60 (80) 100 Laboratory Tests Test 05/01/20 20:25 05/02/20 00:01 05/02/20 04:20 05/02/20 05:02 POC Whole Blood Glucose 83 MG/DL (74-106) 83 MG/DL (74-106) 84 MG/DL (74-106) White Blood Count 7.5 K/UL (4.8-10.8) Red Blood Count 3.23 M/UL (4.20-5.40) L Hemoglobin 9.9 G/DL (12.0-16.0) L Hematocrit 31.5 % (37.0-47.0) L Mean Corpuscular Volume 98 FL (80-99) Mean Corpuscular Hemoglobin 30.6 PG (27.0-31.0) Mean Corpuscular Hemoglobin Concent 31.4 G/DL (32.0-36.0) L Red Cell Distribution Width 14.9 % (11.6-14.8) H Platelet Count 244 K/UL (150-450) Mean Platelet Volume 7.0 FL (6.5-10.1) Neutrophils (%) (Auto) 62.7 % (45.0-75.0) Lymphocytes (%) (Auto) 24.8 % (20.0-45.0) Monocytes (%) (Auto) 9.1 % (1.0-10.0) Eosinophils (%) (Auto) 2.7 % (0.0-3.0) Basophils (%) (Auto) 0.7 % (0.0-2.0) Sodium Level 147 MMOL/L (136-145) H Potassium Level 3.5 MMOL/L (3.5-5.1) Chloride Level 111 MMOL/L (98-107) H Carbon Dioxide Level 30 MMOL/L (21-32) Anion Gap 7 mmol/L (5-15) Blood Urea Nitrogen 10 mg/dL (7-18) Creatinine 0.6 MG/DL (0.55-1.30) Estimat Glomerular Filtration Rate > 60 mL/min (>60) Glucose Level 97 MG/DL (74-106) Calcium Level 7.8 MG/DL (8.5-10.1) L Test 05/02/20 12:37 05/02/20 18:09 POC Whole Blood Glucose Pending Pending Intake and Output 05/01/20 05/02/20 19:00 07:00 Intake Total 770 ml 450 ml Output Total 900 ml Balance -130 ml 450 ml IV Total 600 ml 450 ml Tube Feeding 120 ml Other 50 ml Other 900 ml Objective PHYSICAL EXAMINATION: GENERAL: Patient is a thin-appearing female, who is intubated and sedated. HEENT: Eyes, pupils are equal and responsive to light and accommodation. Extraocular movements are intact. NECK: Supple without lymphadenopathy. Tracheostomy is in place. CHEST: Mech vent; Coarse breath sounds bilateral bases otherwise without wheezes or rales. CARDIOVASCULAR: Tachycardic, regular rhythm. S1, S2 normal without murmurs, rubs, or gallops. ABDOMEN: Soft, nontender, nondistended. Positive bowel sounds. No evidence of hepatosplenomegaly. Currently, no rebound or guarding noted. EXTREMITIES: Negative for clubbing, cyanosis, or edema. RECTAL/GENITAL: Not performed. NEUROLOGIC: Cranial nerves II through XII are grossly intact without focal deficits. Assessment/Plan Assessment/Plan ASSESSMENT: This is a 59-year-old female. 1. pneumonia=acenitobacter (MDR), pseudamonas and providencia 2. sepsis=coag neg staph 3. Chronic respiratory failure. 4. Chronic obstructive pulmonary disease. 5. Quadriplegia. 6. History of dysphagia. 7. Diabetes type 2. 8. Seizure disorder. 9. History of gastrointestinal hemorrhage. 10. Erosive gastritis. 11. Schizophrenia. 12. Gastroesophageal reflux disease. 13. Neurogenic bladder. 14. Stage IV sacral decubitus ulcer. 15. New venous thrombosis left basilic vein secondary to PICC TREATMENT: 1. Fever/sepsis. A Pulmonary Critical Care consultation has been obtained with Dr. Luis Garcia. ABX= levaquin; S/P vancomycin and cefepime. We will follow recommendations of Pulmonary. Infectious disease=Dr Peoples 2. Chronic vent dependence/chronic respiratory failure. As above, a Pulmonary consultation has been obtained with Dr. Luis Garcia. We will follow recommendations of Pulmonary. 3. Seizure disorder. Continue Keppra and Dilantin as above. 4. Diabetes type 2. NovoLog sliding scale has been instituted. 5. Chronic obstructive pulmonary disease. As above, a Pulmonary consultation has been obtained with Dr. Luis Garcia. We will follow recommendations of Pulmonary. 6. History of gastrointestinal hemorrhage/erosive gastritis. Patient has been placed on Protonix. 7. Schizophrenia, not otherwise specified. 8. Gastroesophageal reflux disease. 9. Neurogenic bladder. 10. Stage IV sacral decubitus ulcer. 11. History of deep venous thrombosis. 12. Discharge planning: [facility] 13. D/C PICC Kalin Eubanks MD May 02, 2020 18:44
--- NOTE | 2020-05-02 18:45 | NUR ---
RESPIRATORY NOTE: Received pt on AC 18, 450VT, 40%, PEEP +5. Pt is trach-dependent w/ a cuffed, Portex 7 tube. Pt awake/disoriented. B/S ryne. rhonchi, sxn small to moderate amounts of thick/thin, white to pale-yellow secretions. Vent plugged into red outlet, ambubag at bedside. Pt in no apparent distress at this time. Will continue plan of care.
--- NOTE | 2020-05-02 19:30 | NUR ---
HAND-OFF: Report given to LUCERO Lamb. The patient is stable at this time. Endorsed plan of care.
[2020-05-02 20:00] VITALS: BP 114/65
[2020-05-02] MEDS: Dyna-Hex 2% Top Sol 2oz TOPIC SCH (20:00)
--- NOTE | 2020-05-02 20:06 | NUR ---
NURSE NOTES: Received pt's report from LUCERO Suresh. Pt is on bed, open eyes but no response to any questions. Pt is on vent per prescribed setting. No s/s of respiratory distress notified. SpO2 100%, RR 18 at this moment. IV right hand 22 gauge clean, intact and patent, flushed well. D5W w/KCL 20meq at 50 ml/hr running. Nephrostomy bags are on both sides, drain well, yellow color notified. Pt is on semi dailey position, bed is on low and locked. 3 rails are up. Call-light within reach. Will continue to monitor following plan of care.
[2020-05-03] VITALS: BP 119/64
[2020-05-03] MEDS: D5W w/KCl 20mEq 1,000 ML IV SCH ×2 (01:56→21:32)
[2020-05-03 04:00] VITALS: BP 119/58
[2020-05-03] MEDS: NovoLOG Insulin Flexpen SUBQ SCH ×4 (05:39→17:11)
--- NOTE | 2020-05-03 06:00 | NUR ---
NURSE NOTES: Pt's G-tube drainage is collected. Amount is about 200 mL, and greenish color.
[2020-05-03 06:10] LABS: BASOPHILS % (AUTO) 2.3 % (0.0-2.0); EOSINOPHILS % (AUTO) 2.4 % (0.0-3.0); HEMATOCRIT 30.8 % (37.0-47.0); LYMPHOCYTES % (AUTO) 18.6 % (20.0-45.0); MEAN CORPUSCULAR VOLUME 97 FL (80-99); MONOCYTES % (AUTO) 10.7 % (1.0-10.0); PLATELET COUNT 209 K/UL (150-450); RED BLOOD COUNT 3.17 M/UL (4.20-5.40); WHITE BLOOD COUNT 7.1 K/UL (4.8-10.8)
[2020-05-03 06:15] LABS: ANION GAP 8 mmol/L (5-15); BLOOD UREA NITROGEN 11 mg/dL (7-18); CALCIUM 7.7 MG/DL (8.5-10.1); CARBON DIOXIDE 28 MMOL/L (21-32); CHLORIDE 110 MMOL/L (98-107); CREATININE 0.6 MG/DL (0.55-1.30); POTASSIUM 3.6 MMOL/L (3.5-5.1); SODIUM 146 MMOL/L (136-145)
--- NOTE | 2020-05-03 07:35 | NUR ---
HAND-OFF: Report given to LUCERO Salvador. Patient is stable at this moment. Endorsed plan of care.
--- NOTE | 2020-05-03 07:36 | NUR ---
NURSE NOTES: Received patient in bed. Vent dependent. No respiratory distress noted. Kept NPO for CT abdomen today. Bilateral nephrostomy tube noted. Bed in lowest position. Seizure precaution observed. Contact isolation observed. Will continue plan of care.
[2020-05-03 08:00] VITALS: BP 132/68
[2020-05-03] MEDS: Zinc Sulfate 220mg GT SCH (08:26)
[2020-05-03] MEDS: Phenytoin Susp 100mg/4ml GT SCH ×2 (08:26→21:24)
[2020-05-03] MEDS: Pantoprazole Inj IVP SCH ×2 (08:26→21:24)
[2020-05-03] MEDS: levETIRAcetam 500mg/5ml Liquid GT SCH ×2 (08:26→21:24)
[2020-05-03] MEDS: Levofloxacin 750mg tab ORAL SCH (08:27)
--- NOTE | 2020-05-03 08:30 | Infectious Diseases Prog Note ---
Assessment/Plan Assessment: Severe sepsis- ?source- ?early pNA vs tracheitis Cons bacteremia- suspect contaminant -04/22 Bcx 1/4 CONS; 04/24, Bcx Neg Hyperthermia (up to 105 upon admission); SP - COVID19 neg x3 Leukocytosis, SP -05/02 CXR: No acute process -04/29 CXR: no acute process -04/27 CXR: Mild central vascular congestion. SARS-COV2 PCR neg -04/26 sp cx MDR ABC (s levaquin), PsA (R Levaquin; otherwise S), P.stuarti ( I Levaquin; R ancef, AMp, Gentamycin) -04/25 CXR: no acute diseae -04/23 SARS-COV2 PCR neg -04/22 CXR: no acute disease -u/a wbc 20-30, nit neg, leuk +3; ucx 30-40k mixed gram positive organisms -rapid COVID test neg -V. duplex no DVT Lactic acidosis, SP GABRIELLE, SP Elevated LFTs; SP -HIV ab sc neg, Acute hep panel neg -Abd US: GALLSTONE. MILDLY PROMINENT CBD BUT MAY BE NORMAL FOR AGE. BILATERAL URETERAL STENTS. NO HYDRONEPHROSIS. POSSIBLE SMALL BILATERAL RENAL STONES. MIDLINE STRUCTURES INCLUDING PANCREAS, AORTA AND CAVA NOT OPTIMALLY VISUALIZED DUE TO BOWEL GAS. GERD DM2 COPD GIB neurogenic bladder stage IV sacral decubitus ulcer paranoid schizoaffective disorder suicide attempt in 2003 progressing to coma and requiring senior living ventilator support spatic quadriplegia obesity b/l nephrostomy tubes 2018 seizure disorder chronic resp failure s/p trach dependent dysphagia s/p GT NH resident ([facility]) Plan: -Cont PO Levaquin #6/7 for MDR ABC in sputum -04/28 SP IV Vancomycin #6, Cefepime #6 -04/23 SP Ertapenem x1 -f/u cx -Monitor CBC/CMP, temperatures -f/u BCx x2, sp cx -COVID19 neg x3 (1 rapid, 2 NAAT);ok to dc isolation; afebrile >72hrs -PEG/trach care -aspiration precautions -wound care per hospital protocol f/u CT abd for distended abd DW RN Thank you for consulting [facility]. Will continue to follow along with you. Subjective Allergies: Coded Allergies: No Known Allergies (Unverified , 02/08/13) Afebrile. FiO2 40% abd distended Objective Last 24 Hour Vital Signs Date Time Temp Pulse Resp B/P (MAP) Pulse Ox O2 Delivery O2 Flow Rate FiO2 05/03/20 08:00 98.3 100 18 132/68 (89) 100 05/03/20 08:00 Mechanical Ventilator Mechanical Ventilator 05/03/20 04:00 98.1 88 18 119/58 (78) 100 05/03/20 04:00 Mechanical Ventilator Mechanical Ventilator 05/03/20 04:00 40 05/03/20 03:30 65 05/03/20 02:59 70 18 100 Mechanical Ventilator 40 05/03/20 02:56 70 18 40 05/03/20 00:00 74 05/03/20 00:00 98.0 75 18 119/64 (82) 100 05/03/20 00:00 Mechanical Ventilator Mechanical Ventilator 05/02/20 22:55 78 18 40 05/02/20 20:00 Mechanical Ventilator Mechanical Ventilator 05/02/20 20:00 79 05/02/20 20:00 40 05/02/20 20:00 97.9 76 18 114/65 (81) 100 05/02/20 18:42 77 18 40 05/02/20 16:00 40 05/02/20 16:00 Mechanical Ventilator Mechanical Ventilator 05/02/20 16:00 68 05/02/20 16:00 98.1 69 18 121/60 (80) 100 05/02/20 15:24 70 18 40 05/02/20 12:00 97.9 79 18 128/91 (103) 100 05/02/20 12:00 78 05/02/20 12:00 Mechanical Ventilator Mechanical Ventilator 05/02/20 12:00 40 05/02/20 10:43 75 18 40 Height (Feet): 5 Height (Inches): 7.00 Weight (Pounds): 195 Gen: NAD HEENT: trach Abd: distended. soft. Resp: RRR. coarse Neuro: not following commands Laboratory Tests Test 05/02/20 12:37 05/02/20 18:09 05/03/20 04:55 POC Whole Blood Glucose Pending Pending White Blood Count 7.1 K/UL (4.8-10.8) Red Blood Count 3.17 M/UL (4.20-5.40) L Hemoglobin 10.0 G/DL (12.0-16.0) L Hematocrit 30.8 % (37.0-47.0) L Mean Corpuscular Volume 97 FL (80-99) Mean Corpuscular Hemoglobin 31.4 PG (27.0-31.0) H Mean Corpuscular Hemoglobin Concent 32.3 G/DL (32.0-36.0) Red Cell Distribution Width 15.0 % (11.6-14.8) H Platelet Count 209 K/UL (150-450) Mean Platelet Volume 5.6 FL (6.5-10.1) L Neutrophils (%) (Auto) 66.0 % (45.0-75.0) Lymphocytes (%) (Auto) 18.6 % (20.0-45.0) L Monocytes (%) (Auto) 10.7 % (1.0-10.0) H Eosinophils (%) (Auto) 2.4 % (0.0-3.0) Basophils (%) (Auto) 2.3 % (0.0-2.0) H Sodium Level 146 MMOL/L (136-145) H Potassium Level 3.6 MMOL/L (3.5-5.1) Chloride Level 110 MMOL/L (98-107) H Carbon Dioxide Level 28 MMOL/L (21-32) Anion Gap 8 mmol/L (5-15) Blood Urea Nitrogen 11 mg/dL (7-18) Creatinine 0.6 MG/DL (0.55-1.30) Estimat Glomerular Filtration Rate > 60 mL/min (>60) Glucose Level 77 MG/DL (74-106) Calcium Level 7.7 MG/DL (8.5-10.1) L Current Medications Medications (Trade) Dose Ordered Sig/Emanuel Route PRN Reason Start Time Stop Time Status Last Admin Dose Admin Acetaminophen (Tylenol) 500 mg Q4H PRN GT Pain Scale (3-5) 04/23/20 08:45 05/23/20 01:59 Acetaminophen (Tylenol) 650 mg THREE TIMES A DAY PRN GT FHMP 04/23/20 02:00 05/23/20 01:59 04/26/20 12:54 Artificial Tears (Akwa-Tears) 1 drop BID BOTH EYES 04/23/20 09:00 05/23/20 08:59 05/02/20 18:10 Barium Sulfate (Readi-Cat 2) 450 ml NOW PRN ORAL Radiology Procedure 05/01/20 15:45 05/03/20 15:38 Bisacodyl (Dulcolax) 10 mg DAILY PRN RECTAL Constipation 04/23/20 02:00 07/22/20 01:59 Dextrose (Dextrose 50%) 25 ml Q30M PRN IV Hypoglycemia 04/23/20 08:15 07/22/20 08:14 Dextrose (Dextrose 50%) 50 ml Q30M PRN IV Hypoglycemia 04/23/20 08:15 07/22/20 08:14 Dextrose/ Electrolytes 1,000 ml @ 50 mls/hr Q20H IV 04/29/20 18:00 05/29/20 17:59 05/03/20 01:56 Docusate Sodium (Colace) 250 mg DAILYPRN PRN GT CONSTIPATION 04/23/20 12:50 05/23/20 12:49 Insulin Aspart (NovoLOG) Q6HR SUBQ 04/25/20 12:00 07/24/20 11:59 04/28/20 05:57 Iohexol (OMNIPAQUE-300 100ml) 100 ml NOW PRN INJ Radiology Procedure 05/01/20 15:45 05/03/20 15:38 Levetiracetam (Keppra) 1,000 mg Q12HR GT 04/23/20 21:00 05/23/20 08:59 05/02/20 21:28 Levofloxacin (Levaquin) 750 mg DAILY ORAL 04/28/20 12:00 05/05/20 11:59 05/02/20 09:03 Metoclopramide HCl (Reglan) 5 mg Q6HR GT 04/23/20 13:53 05/23/20 13:52 05/03/20 05:39 Pantoprazole (Protonix) 40 mg Q12HR IVP 04/23/20 21:00 05/23/20 08:59 05/02/20 21:28 Phenytoin (Dilantin) 150 mg Q12HR GT 04/24/20 21:00 05/23/20 08:29 05/02/20 21:28 Sodium Phosphate (Fleet's Sodium Phosl Enema) 133 ml DAILY PRN RECTAL CONSTIPATION 04/23/20 02:00 05/23/20 01:59 Sorbitol (sorbitoL) 30 ml DAILYPRN PRN GT constipation 04/23/20 08:15 05/23/20 08:14 Zinc Sulfate (Zinc Sulfate) 220 mg DAILY GT 04/23/20 09:00 07/22/20 08:59 05/02/20 09:03 Jaymie Rivero MD May 03, 2020 08:30
--- NOTE | 2020-05-03 08:40 | NUR ---
RD ASSESSMENT & RECOMMENDATIONS SEE CARE ACTIVITY FOR COMPLETE ASSESSMENT DAILY ESTIMATED NEEDS: Needs based on Critical care, DM, sepsis, wound 66.7kg abw 25-30 kcals/kg total kcals 1.25-2 g protein/kg 83-133 g total protein 25-30 mL/kg total fluid mLs NUTRITION DIAGNOSIS: * Swallowing difficulty r/t resp status as evidenced by pt is trach and PEG dep. * Increased kcal/prot/micronutrients needs R/T wound healing as evidenced by pt admitted w/ stage 4 sacral wound. CURRENT TF: Glucerna 1.2 @75ml/hr x20 hrs - HELD for CT abdomen ENTERAL NUTRITION RECOMMENDATIONS: Glucerna 1.2 @75ml/hr x20 hrs (on Dilantin BID) to provide 1500ml, 1800 kcal, 90g pro, 1208ml free h2o - Advance as tolerated 10ml/hr q4-6 hrs to goal. - Flush per MD/ HOB over 30 degrees. - Hold 1 hr before and after Dilantin, TF to run max 20 hrs. - TF at goal meets DRI's, no need for added MVI. ADDITIONAL RECOMMENDATIONS: 1) Obtain an accurate Height as able: 5'7" per EMR, 6'1" per SNF. April 01, 2020 wt per SNF: 182 lbs/82.73kg 2) F/up w/ WC eval-> stage 4 sacral Add CEM BID via GT, Vit C 500mg BID, con't Zn SO4 3) Increase water flushes as Na is trending up 4) Monitor lytes, replete as needed-> K low
--- NOTE | 2020-05-03 11:19 | NUR ---
*-* INSURANCE *-* UPDATED CLINICALS AND REVIEWS HAVE BEEN FAXED TO: [facility] Auth# [id number] Work [phone] FAX [phone] FAX [facility] [phone]
--- NOTE | 2020-05-03 11:21 | Pulmonolgy Critical Care Note ---
Critical Care - Asmt/Plan Problems: (1) Sepsis (2) Ileus (3) Acute metabolic encephalopathy (4) Chronic respiratory failure (5) Acute prerenal azotemia (6) Sacral decubitus ulcer (7) Spastic quadriplegic cerebral palsy (8) Chronic vegetative state (9) Schizophrenia (10) Chronic seizure disorder (11) Diabetes mellitus (12) Feeding by G-tube Respiratory: monitor respiratory rate, adjust FIO2, CXR Cardiac: continue to monitor HR/BP Renal: F/U I&O, keep IV fluid Infectious Disease: check cultures Gastrointestinal: hold feedings Endocrine: monitor blood sugar Hematologic: monitor H/H, transfuse if hgb<8.5 Neurologic: PRN Ativan Prophylaxis: Protonix, Heparin Time Spent (Minutes): 40 Notes Reviewed: floor nurse, cardio, renal, ID, GI Discussed with: nurses, spring encasercertified orthotist practice manager - Objective Last 24 Hour Vital Signs Date Time Temp Pulse Resp B/P (MAP) Pulse Ox O2 Delivery O2 Flow Rate FiO2 05/03/20 08:00 98.3 100 18 132/68 (89) 100 05/03/20 08:00 40 05/03/20 08:00 Mechanical Ventilator Mechanical Ventilator 05/03/20 07:34 65 05/03/20 04:00 98.1 88 18 119/58 (78) 100 05/03/20 04:00 Mechanical Ventilator Mechanical Ventilator 05/03/20 04:00 40 05/03/20 03:30 65 05/03/20 02:59 70 18 100 Mechanical Ventilator 40 05/03/20 02:56 70 18 40 05/03/20 00:00 74 05/03/20 00:00 98.0 75 18 119/64 (82) 100 05/03/20 00:00 Mechanical Ventilator Mechanical Ventilator 05/02/20 22:55 78 18 40 05/02/20 20:00 Mechanical Ventilator Mechanical Ventilator 05/02/20 20:00 79 05/02/20 20:00 40 05/02/20 20:00 97.9 76 18 114/65 (81) 100 05/02/20 18:42 77 18 40 05/02/20 16:00 40 05/02/20 16:00 Mechanical Ventilator Mechanical Ventilator 05/02/20 16:00 68 05/02/20 16:00 98.1 69 18 121/60 (80) 100 05/02/20 15:24 70 18 40 05/02/20 12:00 97.9 79 18 128/91 (103) 100 05/02/20 12:00 78 05/02/20 12:00 Mechanical Ventilator Mechanical Ventilator 05/02/20 12:00 40 Status: awake Condition: critical HEENT: atraumatic, normocephalic Neck: full ROM Lungs: rales, rhonchi Heart: HR/BP stable Abdomen: soft, non-tender Extremities: no C/C/E Accucheck: 85 Critical Care - Subjective ROS Limited/Unobtainable: Yes Interval Events: late note for 05/01/ Condition: critical FI02: 40 Vent Support Breath Rate: 18 Vent Support Mode: AC Vent Tidal Volume: 450 Sputum Amount: Small PEEP: 5.0 PIP: 34 Tube Feeding Amount: 60 I&O: Intake and Output 05/02/20 05/03/20 19:00 07:00 Intake Total 590 ml Output Total 800 ml 950 ml Balance -800 ml -360 ml IV Total 500 ml Other 90 ml Gastric Drainage Total 200 ml Other 800 ml 750 ml # Bowel Movements 1 2 CXR: no change Luis Garcia MD May 03, 2020 11:21
--- NOTE | 2020-05-03 11:22 | Pulmonolgy Critical Care Note ---
Critical Care - Asmt/Plan Problems: (1) Sepsis (2) Ileus (3) Acute metabolic encephalopathy (4) Chronic respiratory failure (5) Acute prerenal azotemia (6) Sacral decubitus ulcer (7) Spastic quadriplegic cerebral palsy (8) Chronic vegetative state (9) Schizophrenia (10) Chronic seizure disorder (11) Diabetes mellitus (12) Feeding by G-tube Respiratory: adjust tidal volume, monitor respiratory rate, adjust FIO2, CXR Cardiac: continue to monitor HR/BP Renal: F/U I&O, keep IV fluid, check electrolytes Infectious Disease: check cultures Gastrointestinal: hold feedings Endocrine: monitor blood sugar Hematologic: monitor H/H Neurologic: PRN Ativan Affect: PRN ativan Prophylaxis: Protonix, Heparin Notes Reviewed: financial data analyst, cardio, renal Discussed with: nurses, consultants, rifle case repairermanager intranet - Objective Last 24 Hour Vital Signs Date Time Temp Pulse Resp B/P (MAP) Pulse Ox O2 Delivery O2 Flow Rate FiO2 05/03/20 08:00 98.3 100 18 132/68 (89) 100 05/03/20 08:00 40 05/03/20 08:00 Mechanical Ventilator Mechanical Ventilator 05/03/20 07:34 65 05/03/20 04:00 98.1 88 18 119/58 (78) 100 05/03/20 04:00 Mechanical Ventilator Mechanical Ventilator 05/03/20 04:00 40 05/03/20 03:30 65 05/03/20 02:59 70 18 100 Mechanical Ventilator 40 05/03/20 02:56 70 18 40 05/03/20 00:00 74 05/03/20 00:00 98.0 75 18 119/64 (82) 100 05/03/20 00:00 Mechanical Ventilator Mechanical Ventilator 05/02/20 22:55 78 18 40 05/02/20 20:00 Mechanical Ventilator Mechanical Ventilator 05/02/20 20:00 79 05/02/20 20:00 40 05/02/20 20:00 97.9 76 18 114/65 (81) 100 05/02/20 18:42 77 18 40 05/02/20 16:00 40 05/02/20 16:00 Mechanical Ventilator Mechanical Ventilator 05/02/20 16:00 68 05/02/20 16:00 98.1 69 18 121/60 (80) 100 05/02/20 15:24 70 18 40 05/02/20 12:00 97.9 79 18 128/91 (103) 100 05/02/20 12:00 78 05/02/20 12:00 Mechanical Ventilator Mechanical Ventilator 05/02/20 12:00 40 Status: obtunded Condition: critical Neck: full ROM Heart: HR/BP stable Abdomen: non-tender, feeding tube Extremities: no C/C/E, edema Decubiti: location Accucheck: 85 Critical Care - Subjective ROS Limited/Unobtainable: Yes Condition: critical FI02: 40 Vent Support Breath Rate: 18 Vent Support Mode: AC Vent Tidal Volume: 450 Sputum Amount: Small PEEP: 5.0 PIP: 34 Tube Feeding Amount: 60 I&O: Intake and Output 05/02/20 05/03/20 19:00 07:00 Intake Total 590 ml Output Total 800 ml 950 ml Balance -800 ml -360 ml IV Total 500 ml Other 90 ml Gastric Drainage Total 200 ml Other 800 ml 750 ml # Bowel Movements 1 2 CXR: DVT in Left upper extremity Labs: Laboratory Tests Test 05/02/20 12:37 05/02/20 18:09 05/03/20 04:55 POC Whole Blood Glucose Pending Pending White Blood Count 7.1 K/UL (4.8-10.8) Red Blood Count 3.17 M/UL (4.20-5.40) L Hemoglobin 10.0 G/DL (12.0-16.0) L Hematocrit 30.8 % (37.0-47.0) L Mean Corpuscular Volume 97 FL (80-99) Mean Corpuscular Hemoglobin 31.4 PG (27.0-31.0) H Mean Corpuscular Hemoglobin Concent 32.3 G/DL (32.0-36.0) Red Cell Distribution Width 15.0 % (11.6-14.8) H Platelet Count 209 K/UL (150-450) Mean Platelet Volume 5.6 FL (6.5-10.1) L Neutrophils (%) (Auto) 66.0 % (45.0-75.0) Lymphocytes (%) (Auto) 18.6 % (20.0-45.0) L Monocytes (%) (Auto) 10.7 % (1.0-10.0) H Eosinophils (%) (Auto) 2.4 % (0.0-3.0) Basophils (%) (Auto) 2.3 % (0.0-2.0) H Sodium Level 146 MMOL/L (136-145) H Potassium Level 3.6 MMOL/L (3.5-5.1) Chloride Level 110 MMOL/L (98-107) H Carbon Dioxide Level 28 MMOL/L (21-32) Anion Gap 8 mmol/L (5-15) Blood Urea Nitrogen 11 mg/dL (7-18) Creatinine 0.6 MG/DL (0.55-1.30) Estimat Glomerular Filtration Rate > 60 mL/min (>60) Glucose Level 77 MG/DL (74-106) Calcium Level 7.7 MG/DL (8.5-10.1) Luis Darden MD May 03, 2020 11:22
[2020-05-03 12:00] VITALS: BP 112/57
--- NOTE | 2020-05-03 13:58 | Nephrology Progress Note ---
Assessment/Plan Problem List: (1) Electrolyte imbalance Assessment: Hypernatremia (2) Dehydration (3) Diabetes mellitus (4) Spastic quadriplegic cerebral palsy (5) Chronic respiratory failure (6) Sepsis Assessment: UTI (7) Sacral decubitus ulcer Assessment Dehydration, prerenal azotemia, free water deficit, hypernatremia Sepsis, UTI Chronic respiratory failure, status post tracheostomy Sacral decubitus ulcer Chronic seizure disorder PEG Diabetes mellitus Spastic quadriplegic cerebral palsy Plan May 03: Labs reviewed. Stable from renal standpoint of view. Continue per consultants. May 02: Stable from renal standpoint to view. Continue per consultants. May 01: Status quo. Stable from renal standpoint of view. April 30: More potassium IV given. DC Ding catheter. Patient has functioning bilateral nephrostomy. Discussed with RN. April 29: More potassium IV chloride given. Remains stable from renal standpoint of view April 28: Stable from renal standpoint of view. Continue per consultants. April 27: IV potassium chloride ordered. IV fluid adjusted. Increase D5W to 75 cc an hour. Potassium supplement IV . Continue to monitor renal parameters and electrolytes Monitor Dilantin level, adjust the dose corrected for low albumin Monitor electrolytes and renal parameters Increase Protonix to every 12 hours Keep the blood sugar in check Per orders Patient is full code Subjective ROS Limited/Unobtainable: Yes Objective Objective Last 24 Hour Vital Signs Date Time Temp Pulse Resp B/P (MAP) Pulse Ox O2 Delivery O2 Flow Rate FiO2 05/03/20 12:00 40 05/03/20 12:00 97.9 70 19 112/57 (75) 100 05/03/20 12:00 Mechanical Ventilator Mechanical Ventilator 05/03/20 11:57 77 18 40 05/03/20 11:41 65 05/03/20 08:00 98.3 71 18 132/68 (89) 100 05/03/20 08:00 40 05/03/20 08:00 Mechanical Ventilator Mechanical Ventilator 05/03/20 07:45 74 18 40 05/03/20 07:34 65 05/03/20 04:00 98.1 88 18 119/58 (78) 100 05/03/20 04:00 Mechanical Ventilator Mechanical Ventilator 05/03/20 04:00 40 05/03/20 03:30 65 05/03/20 02:59 70 18 100 Mechanical Ventilator 40 05/03/20 02:56 70 18 40 05/03/20 00:00 74 05/03/20 00:00 98.0 75 18 119/64 (82) 100 05/03/20 00:00 Mechanical Ventilator Mechanical Ventilator 05/02/20 22:55 78 18 40 05/02/20 20:00 Mechanical Ventilator Mechanical Ventilator 05/02/20 20:00 79 05/02/20 20:00 40 05/02/20 20:00 97.9 76 18 114/65 (81) 100 05/02/20 18:42 77 18 40 05/02/20 16:00 40 05/02/20 16:00 Mechanical Ventilator Mechanical Ventilator 05/02/20 16:00 68 05/02/20 16:00 98.1 69 18 121/60 (80) 100 05/02/20 15:24 70 18 40 Intake and Output 05/02/20 05/03/20 19:00 07:00 Intake Total 640 ml Output Total 800 ml 950 ml Balance -800 ml -310 ml IV Total 550 ml Other 90 ml Gastric Drainage Total 200 ml Other 800 ml 750 ml # Bowel Movements 1 2 Laboratory Tests 05/02/20 18:09: POC Whole Blood Glucose [Pending] 05/03/20 04:55: White Blood Count 7.1, Red Blood Count 3.17L, Hemoglobin 10.0L, Hematocrit 30.8L , Mean Corpuscular Volume 97, Mean Corpuscular Hemoglobin 31.4H, Mean Corpuscular Hemoglobin Concent 32.3, Red Cell Distribution Width 15.0H, Platelet Count 209, Mean Platelet Volume 5.6L, Neutrophils (%) (Auto) 66.0, Lymphocytes (%) (Auto) 18.6L, Monocytes (%) (Auto) 10.7H, Eosinophils (%) (Auto ) 2.4, Basophils (%) (Auto) 2.3H, Sodium Level 146H, Potassium Level 3.6, Chloride Level 110H, Carbon Dioxide Level 28, Anion Gap 8, Blood Urea Nitrogen 11, Creatinine 0.6, Estimat Glomerular Filtration Rate > 60, Glucose Level 77, Calcium Level 7.7L Height (Feet): 5 Height (Inches): 7.00 Weight (Pounds): 195 General Appearance: no apparent distress EENT: other - Trach and vent Cardiovascular: normal rate Respiratory/Chest: decreased breath sounds Abdomen: other - PEG in place Objective No change Caleb Reese MD May 03, 2020 13:58
--- NOTE | 2020-05-03 14:03 | Internal Med Progress Note ---
Subjective Physician Name Jeyson Yanez Attending Physician Jeyson Yanez MD Current Medications Medications (Trade) Dose Ordered Sig/Emanuel Route PRN Reason Start Time Stop Time Status Last Admin Dose Admin Acetaminophen (Tylenol) 500 mg Q4H PRN GT Pain Scale (3-5) 04/23/20 08:45 05/23/20 01:59 Acetaminophen (Tylenol) 650 mg THREE TIMES A DAY PRN GT FHMP 04/23/20 02:00 05/23/20 01:59 04/26/20 12:54 Artificial Tears (Akwa-Tears) 1 drop EVERY 12 HOURS BOTH EYES 05/03/20 21:00 05/23/20 08:59 Barium Sulfate (Readi-Cat 2) 450 ml NOW PRN ORAL Radiology Procedure 05/01/20 15:45 05/03/20 15:38 Bisacodyl (Dulcolax) 10 mg DAILY PRN RECTAL Constipation 04/23/20 02:00 07/22/20 01:59 Dextrose (Dextrose 50%) 25 ml Q30M PRN IV Hypoglycemia 04/23/20 08:15 07/22/20 08:14 Dextrose (Dextrose 50%) 50 ml Q30M PRN IV Hypoglycemia 04/23/20 08:15 07/22/20 08:14 Dextrose/ Electrolytes 1,000 ml @ 50 mls/hr Q20H IV 04/29/20 18:00 05/29/20 17:59 05/03/20 01:56 Docusate Sodium (Colace) 250 mg DAILYPRN PRN GT CONSTIPATION 04/23/20 12:50 05/23/20 12:49 Insulin Aspart (NovoLOG) Q6HR SUBQ 04/25/20 12:00 07/24/20 11:59 04/28/20 05:57 Iohexol (OMNIPAQUE-300 100ml) 100 ml NOW PRN INJ Radiology Procedure 05/01/20 15:45 05/03/20 15:38 Levetiracetam (Keppra) 1,000 mg Q12HR GT 04/23/20 21:00 05/23/20 08:59 05/03/20 08:26 Levofloxacin (Levaquin) 750 mg DAILY ORAL 04/28/20 12:00 05/05/20 11:59 05/03/20 08:27 Metoclopramide HCl (Reglan) 5 mg Q6HR GT 04/23/20 13:53 05/23/20 13:52 05/03/20 13:03 Pantoprazole (Protonix) 40 mg Q12HR IVP 04/23/20 21:00 05/23/20 08:59 05/03/20 08:26 Phenytoin (Dilantin) 150 mg Q12HR GT 04/24/20 21:00 05/23/20 08:29 05/03/20 08:26 Sodium Phosphate (Fleet's Sodium Phosl Enema) 133 ml DAILY PRN RECTAL CONSTIPATION 04/23/20 02:00 05/23/20 01:59 Sorbitol (sorbitoL) 30 ml DAILYPRN PRN GT constipation 04/23/20 08:15 05/23/20 08:14 Zinc Sulfate (Zinc Sulfate) 220 mg DAILY GT 04/23/20 09:00 07/22/20 08:59 05/03/20 08:26 Allergies: Coded Allergies: No Known Allergies (Unverified , 02/08/13) Subjective open eyes, not verbal , on Vent, unable F/U with Commands. Objective Last Vital Signs Date Time Temp Pulse Resp B/P (MAP) Pulse Ox O2 Delivery O2 Flow Rate FiO2 05/03/20 12:00 40 05/03/20 12:00 97.9 70 19 112/57 (75) 100 05/03/20 12:00 Mechanical Ventilator Mechanical Ventilator Laboratory Tests Test 05/02/20 18:09 05/03/20 04:55 POC Whole Blood Glucose Pending White Blood Count 7.1 K/UL (4.8-10.8) Red Blood Count 3.17 M/UL (4.20-5.40) L Hemoglobin 10.0 G/DL (12.0-16.0) L Hematocrit 30.8 % (37.0-47.0) L Mean Corpuscular Volume 97 FL (80-99) Mean Corpuscular Hemoglobin 31.4 PG (27.0-31.0) H Mean Corpuscular Hemoglobin Concent 32.3 G/DL (32.0-36.0) Red Cell Distribution Width 15.0 % (11.6-14.8) H Platelet Count 209 K/UL (150-450) Mean Platelet Volume 5.6 FL (6.5-10.1) L Neutrophils (%) (Auto) 66.0 % (45.0-75.0) Lymphocytes (%) (Auto) 18.6 % (20.0-45.0) L Monocytes (%) (Auto) 10.7 % (1.0-10.0) H Eosinophils (%) (Auto) 2.4 % (0.0-3.0) Basophils (%) (Auto) 2.3 % (0.0-2.0) H Sodium Level 146 MMOL/L (136-145) H Potassium Level 3.6 MMOL/L (3.5-5.1) Chloride Level 110 MMOL/L (98-107) H Carbon Dioxide Level 28 MMOL/L (21-32) Anion Gap 8 mmol/L (5-15) Blood Urea Nitrogen 11 mg/dL (7-18) Creatinine 0.6 MG/DL (0.55-1.30) Estimat Glomerular Filtration Rate > 60 mL/min (>60) Glucose Level 77 MG/DL (74-106) Calcium Level 7.7 MG/DL (8.5-10.1) L Intake and Output 05/02/20 05/03/20 19:00 07:00 Intake Total 640 ml Output Total 800 ml 950 ml Balance -800 ml -310 ml IV Total 550 ml Other 90 ml Gastric Drainage Total 200 ml Other 800 ml 750 ml # Bowel Movements 1 2 Objective General: No acute distress, On Vent, open eyes. HEENT: NCAT, sclera anicteric, PERRL, Neck: Supple, Trach site intact. Lungs: Mechanical breath sound, no Wheeze or Rales. Heart: Regular rate and rhythm, normal S1/S2, no murmurs Abdomen: soft, nontender, nondistended. + BS, morbid obesity, PEG site intact. Extremities: No Cyanosis , clubbing or edema. Neuro: Limited, Contacted upper extremities. Skin: warm, no rash, Sacral ulcer Assessment/Plan Assessment/Plan ASSESSMENT: This is a 59-year-old female. 1. Sepsis. 2. Hypokalemia 3. Chronic respiratory failure. 4. Chronic obstructive pulmonary disease. 5. Chronic Spastic Quadriplegia. 6. History of dysphagia s/p PEG. 7. Diabetes type 2. 8. Seizure disorder. 9. History of gastrointestinal hemorrhage. 10. Erosive gastritis. 11. paranoid schizoaffective disorder 12. Gastroesophageal reflux disease. 13. Neurogenic bladder. 14. Stage IV sacral decubitus ulcer. 15. History of deep venous thrombosis. TREATMENT: 1. Fever/sepsis. A Pulmonary Critical Care consultation has been obtained with Dr. Luis Garcia. 2. Chronic vent dependence/chronic respiratory failure. As above, a Pulmonary consultation has been obtained with Dr. Luis Garcia. We will follow recommendations of Pulmonary. 3. Seizure disorder. Continue Keppra and Dilantin as above. 4. Diabetes type 2. NovoLog sliding scale has been instituted. 5. Chronic obstructive pulmonary disease. As above, a Pulmonary consultation has been obtained with Dr. Luis Garcia. We will follow recommendations of Pulmonary. 6. History of gastrointestinal hemorrhage/erosive gastritis. Patient has been placed on Protonix. 7. Schizophrenia, not otherwise specified. 8. Gastroesophageal reflux disease. 9. Neurogenic bladder. 10. Stage IV sacral decubitus ulcer. 11. History of deep venous thrombosis. Wound care. Tolerated tube feeding. Abx: Jeyson Garcia MD May 03, 2020 14:03
--- NOTE | 2020-05-03 14:27 | NUR ---
CASE MANAGEMENT: REVIEW 05/03/2020 SI:SEPSIS. VS: T 97.9 HR 70 R 19 B/P 112/57 SATS 100% ON MECH VENT FIO2 40 LABS: NA 146 CL 110 CA 7.7 IS:DEXTROSE IV @ 50 ML/HR LEVAQUIN PO QD KEPPRA GT Q12H DILANTIN GT Q12H INSULIN ASPART SUBQ Q6H SDU
--- NOTE | 2020-05-03 14:30 | Surgery Progress Note ---
Surgery Progress Note Subjective Additional Comments spoke with patients brother who knows her well. states few years ago she had sigmoid volvulus which required decompression colonoscopy. was told it may happen again and at that time surgery was not considered. kub noted discussed with medical teams GI eval Objective Last 24 Hour Vital Signs Date Time Temp Pulse Resp B/P (MAP) Pulse Ox O2 Delivery O2 Flow Rate FiO2 05/03/20 12:00 40 05/03/20 12:00 97.9 70 19 112/57 (75) 100 05/03/20 12:00 Mechanical Ventilator Mechanical Ventilator 05/03/20 11:57 77 18 40 05/03/20 11:41 65 05/03/20 08:00 98.3 71 18 132/68 (89) 100 05/03/20 08:00 40 05/03/20 08:00 Mechanical Ventilator Mechanical Ventilator 05/03/20 07:45 74 18 40 05/03/20 07:34 65 05/03/20 04:00 98.1 88 18 119/58 (78) 100 05/03/20 04:00 Mechanical Ventilator Mechanical Ventilator 05/03/20 04:00 40 05/03/20 03:30 65 05/03/20 02:59 70 18 100 Mechanical Ventilator 40 05/03/20 02:56 70 18 40 05/03/20 00:00 74 05/03/20 00:00 98.0 75 18 119/64 (82) 100 05/03/20 00:00 Mechanical Ventilator Mechanical Ventilator 05/02/20 22:55 78 18 40 05/02/20 20:00 Mechanical Ventilator Mechanical Ventilator 05/02/20 20:00 79 05/02/20 20:00 40 05/02/20 20:00 97.9 76 18 114/65 (81) 100 05/02/20 18:42 77 18 40 05/02/20 16:00 40 05/02/20 16:00 Mechanical Ventilator Mechanical Ventilator 05/02/20 16:00 68 05/02/20 16:00 98.1 69 18 121/60 (80) 100 05/02/20 15:24 70 18 40 I&O Intake and Output 05/02/20 05/03/20 19:00 07:00 Intake Total 640 ml Output Total 800 ml 950 ml Balance -800 ml -310 ml IV Total 550 ml Other 90 ml Gastric Drainage Total 200 ml Other 800 ml 750 ml # Bowel Movements 1 2 Dressing: other Wound: other Drains: other Cardiovascular: RSR Respiratory: decreased breath sounds Abdomen: soft, distended, non-tender, decreased bowel sounds Extremities: no cyanosis Laboratory Tests Test 05/02/20 18:09 05/03/20 04:55 POC Whole Blood Glucose Pending White Blood Count 7.1 K/UL (4.8-10.8) Red Blood Count 3.17 M/UL (4.20-5.40) L Hemoglobin 10.0 G/DL (12.0-16.0) L Hematocrit 30.8 % (37.0-47.0) L Mean Corpuscular Volume 97 FL (80-99) Mean Corpuscular Hemoglobin 31.4 PG (27.0-31.0) H Mean Corpuscular Hemoglobin Concent 32.3 G/DL (32.0-36.0) Red Cell Distribution Width 15.0 % (11.6-14.8) H Platelet Count 209 K/UL (150-450) Mean Platelet Volume 5.6 FL (6.5-10.1) L Neutrophils (%) (Auto) 66.0 % (45.0-75.0) Lymphocytes (%) (Auto) 18.6 % (20.0-45.0) L Monocytes (%) (Auto) 10.7 % (1.0-10.0) H Eosinophils (%) (Auto) 2.4 % (0.0-3.0) Basophils (%) (Auto) 2.3 % (0.0-2.0) H Sodium Level 146 MMOL/L (136-145) H Potassium Level 3.6 MMOL/L (3.5-5.1) Chloride Level 110 MMOL/L (98-107) H Carbon Dioxide Level 28 MMOL/L (21-32) Anion Gap 8 mmol/L (5-15) Blood Urea Nitrogen 11 mg/dL (7-18) Creatinine 0.6 MG/DL (0.55-1.30) Estimat Glomerular Filtration Rate > 60 mL/min (>60) Glucose Level 77 MG/DL (74-106) Calcium Level 7.7 MG/DL (8.5-10.1) L Plan Problems: (1) Feeding by G-tube Assessment & Plan: DAILY ESTIMATED NEEDS: Needs based on Critical care, DM, sepsis 66.7kg abw 22-30 kcals/kg 8038-8269 total kcals 1.25-2 g protein/kg 83-133 g total protein 25-30 mL/kg 2996-1481 total fluid mLs NUTRITION DIAGNOSIS: Swallowing difficulty r/t resp status as evidenced by pt is trach and PEG dep. CURRENT TF: Glucerna 1.5 @60ml/hr x20 hrs ENTERAL NUTRITION RECOMMENDATIONS: Glucerna 1.2 @75ml/hr x20 hrs (on Dilantin BID) to provide 1500ml, 1800 kcal, 90g pro, 1208ml free h2o Glucerna 1.5 OOS-> Rec Glucerna 1.2 for carb control + increased free H2O - Start @low rate, 15ml/hr for 6 hrs. Advance as tolerated 10ml/hr q4-6 hrs to goal. - Flush per MD/ HOB over 30 degrees. ---- ADDITIONAL RECOMMENDATIONS: 1) Obtain an accurate Height as able: 5'7" per EMR vs 6'1" per SNF. April 01, 2020 wt per SNF: 182 lbs/82.73kg 2) F/up w/ WC eval 3) Increase water flushes as Na is trending up 4) Replete lytes-> Mg, Phos, and K all low (2) Sepsis Assessment & Plan: Patient with leukocytosis, anemia, lactic acidosis. COVID rapid exam negative Urine noted On antibiotics Care plan as below We will follow with recommendations slowly improving Nutritional optimization Thank you for let me participate in patient's care Massively dilated sigmoid colon. Could be functional, the possibility of distal colonic obstruction or sigmoid volvulus should also be considered CT A/P ordered (3) Sacral decubitus ulcer Assessment & Plan: Pt presented on admission with Tracheostomy, Gastrostomy, Bilat nephrostomies, Pressure injury.Skin assessed under tracheal collar and no evidence of skin breakdown noted. L nephrostomy migrating -suture noted to be loose. No peristomal erythema or skin erosion noted. R nephrostomy is intact without evidence of peristomal skin erosion noted.Scaly dark brown plaques noted to back and both upper thighs Full thickness Pressure Injury sacrococcygeal area(L)3.6cm x (W)1.3cm x (D)1.9cm ,Undermining clockwise at 6o'clock by 0.3cm,12-1 by 0.2cm.@1o'clock. Base of wound is pale pink and moist. Bone is palpable at the base of wound. Epibole along edges along with maceration to borders and periwound.Small amt serous exudate noted. No odor noted. Hyperpigmentation with historical scar noted to sacrum, R and L gluteal cheeks. R and L heels are both boggy with non-Blanching erythema. Bilat foot drop noted. Tx.Plan: Cleanse Sacral wound with Saline. Apply Therahoney. Apply Moisture Barrier paste periwound. Cover with Optifoam drsg Daily and prn Apply Cavilon Skin Barrier to malleoli and each heel. Cover each site with Optifoam drsg.Change every 7 days and PRN. Reposition at least every 2hours or as tolerated. Off-load heels with pillow. APM/ADELIA Mattress overlay. (4) Ileus Assessment & Plan: spoke with patients brother who knows her well. states few years ago she had sigmoid volvulus which required decompression colonoscopy. was told it may happen again and at that time surgery was not considered. gi eval pending CT TerriDelon May 03, 2020 14:30
[2020-05-03 16:00] VITALS: BP 125/67
--- NOTE | 2020-05-03 19:15 | NUR ---
HAND-OFF: Report given to Pratima Jacinto RN.
--- NOTE | 2020-05-03 19:16 | NUR ---
NURSE NOTES: received pt from Madeleine BARKER., pt is awake, resting on the bed, opens eye, and obtunded. pt has trach vent, O2sat is at 99%. no SOB noted. Gtube site is connected with drainage back to gravity. bilateral nephrostomy bag noted. right hand 24G IV site intact, clean, and patent. side rails are padded. D5@ 20KCL is running at 50ml/hr. bed at the lowest position, alarmed, and lock. call light within reach. will continue to monitor pt with plan of care.
[2020-05-03 20:00] VITALS: BP 108/50
--- NOTE | 2020-05-03 23:21 | NUR ---
NURSE NOTES: radiologist will contact us to pick and shovel worker the pt for the CT scan. will wait for call
--- NOTE | 2020-05-03 23:35 | NUR ---
NURSE NOTES: transport pt to CT scan (radiology) at this moment VS: BP 115/66 O2sat 100% HR 80. RT Nahid Garcias RN, and Pratima Shoemaker RN., will go along with Rdiologist to CT scan. portable parking meter collector is on. will continue to monitor pt.
[2020-05-04] VITALS (7 sets, daily range): BP systolic 105–132; BP diastolic 60–77
--- NOTE | 2020-05-04 | NUR ---
NURSE NOTES: came back from CT scan (ABD), pt VS stable, RT and Nahid vamsi RN., was at the bed side. O2 sat 100%, BP 110/67, T 98.4 no s/s of respiratory distress. pt tolerated well CT scan without difficulties. will continue to monitor pt with plan of care. call light within reach.
--- NOTE | 2020-05-04 00:32 | NUR ---
NURSE NOTES: spoke with Marilia radiologist that once the result is ready to read she will call us back, or endorse in the morning. noted and will endorsed to morning RN.
--- NOTE | 2020-05-04 02:35 | NUR ---
NURSE NOTES: cleaned pt, 3 BM noted, no active bleeding noted. provided new gown, new blanket, dressing changed. oral care given. no respiratory distress, O2sat is at 100%. call light within reach. will continue to monitor pt.
[2020-05-04] MEDS: NovoLOG Insulin Flexpen SUBQ SCH ×4 (05:32→17:33)
[2020-05-04 05:55] LABS: BASOPHILS % (AUTO) 1.1 % (0.0-2.0); EOSINOPHILS % (AUTO) 3.4 % (0.0-3.0); HEMATOCRIT 29.2 % (37.0-47.0); HEMOGLOBIN 8.2 G/DL (12.0-16.0); LYMPHOCYTES % (AUTO) 27.7 % (20.0-45.0); MEAN CORPUSCULAR VOLUME 109 FL (80-99); MONOCYTES % (AUTO) 6.4 % (1.0-10.0); NEUTROPHILS % (AUTO) 61.3 % (45.0-75.0); PLATELET COUNT 181 K/UL (150-450); RED BLOOD COUNT 2.68 M/UL (4.20-5.40); RED CELL DISTRIBUTION WIDTH 16.1 % (11.6-14.8); WHITE BLOOD COUNT 4.9 K/UL (4.8-10.8)
--- NOTE | 2020-05-04 07:18 | NUR ---
HAND-OFF: Report given to Madeleine BARKER., pt is in stable condition, endorsed plan of care.
--- NOTE | 2020-05-04 07:22 | NUR ---
NURSE NOTES: Luis electronics maintenance technician will figure out CBC, CMP result. they will call us if they are going to redraw the blood or not. will wait for call.
--- NOTE | 2020-05-04 07:31 | Diagnostic Imaging Report ---
EXAM: CT Abdomen Without Intravenous Contrast CLINICAL HISTORY: ABD DIST TECHNIQUE: Axial computed tomography images of the abdomen without intravenous contrast. CTDI is 13 mGy and DLP is 718 mGy-cm. One or more of the following dose reduction techniques were used: automated exposure control, adjustment of the mA and/or kV according to patient size, use of iterative reconstruction technique. COMPARISON: No relevant prior studies available. FINDINGS: Lung bases: See below. Pleural space: There is mild bilateral pleural effusions with bibasilar atelectasis. Liver: Unremarkable. Gallbladder and bile ducts: Cholelithiasis without acute cholecystitis. No ductal dilation. Pancreas: Unremarkable. No ductal dilation. Spleen: Unremarkable. No splenomegaly. Adrenals: Unremarkable. No mass. Kidneys and ureters: Bilateral percutaneous nephrostomy tubes with multiple, nonobstructing bilateral renal stones. There is mild inflammatory change about the collecting systems bilaterally with mild hydronephrosis. The findings may be secondary to tube malfunction bilaterally however pyelonephritis can give a similar appearance. Stomach and bowel: There is mild constipation the distal: Moderate gaseous distention of the sigmoid colon suggesting: Acute ileus. No obstructive pattern is identified. No mucosal thickening. Intraperitoneal space: Unremarkable. No free air. No significant fluid collection. Bones/joints: There is arthrodesis of both hips No acute fracture. No dislocation. Soft tissues: Unremarkable. Vasculature: Unremarkable. No abdominal aortic aneurysm. Lymph nodes: Unremarkable. No enlarged lymph nodes. IMPRESSION: 1. Nonobstructing renal stones both kidneys with bilateral hydronephrosis and fat stranding about the renal collecting systems with bilateral percutaneous nephrostomy tubes in place. Correlation is recommended to ensure tube patency. Pyelonephritis can produce a similar appearance. 2. Mild constipation with mild colonic ileus.
--- NOTE | 2020-05-04 08:59 | Pulmonology Progress Note ---
Subjective ROS Limited/Unobtainable: Yes Allergies: Coded Allergies: No Known Allergies (Unverified , 02/08/13) Subjective no signs of resp distress on current settings no fevers , no leukocytosis Hgb down to 8.2 from 10 this am 05/03 KUB with massive colonic distention 05/03 CT A/P noted, surgery follows Objective Last 24 Hour Vital Signs Date Time Temp Pulse Resp B/P (MAP) Pulse Ox O2 Delivery O2 Flow Rate FiO2 05/04/20 08:47 76 05/04/20 04:10 76 05/04/20 04:00 40 05/04/20 04:00 98.1 78 17 105/70 (82) 100 05/04/20 04:00 Mechanical Ventilator Mechanical Ventilator 05/04/20 03:41 76 18 40 05/04/20 00:00 95 05/04/20 00:00 Mechanical Ventilator Mechanical Ventilator 05/04/20 00:00 97.8 89 19 123/66 (85) 100 05/03/20 23:33 85 18 40 05/03/20 20:00 98.1 88 19 108/50 (69) 100 05/03/20 20:00 40 05/03/20 20:00 Mechanical Ventilator Mechanical Ventilator 05/03/20 19:44 73 18 40 05/03/20 19:25 74 05/03/20 16:00 40 05/03/20 16:00 Mechanical Ventilator Mechanical Ventilator 05/03/20 16:00 98.3 79 19 125/67 (86) 100 05/03/20 15:28 79 05/03/20 15:15 76 18 40 05/03/20 12:00 40 05/03/20 12:00 97.9 70 19 112/57 (75) 100 05/03/20 12:00 Mechanical Ventilator Mechanical Ventilator 05/03/20 11:57 77 18 40 05/03/20 11:41 65 Intake and Output 05/03/20 05/04/20 19:00 07:00 Intake Total 630 ml 605 ml Output Total 700 ml 650 ml Balance -70 ml -45 ml IV Total 600 ml 575 ml Other 30 ml 30 ml Gastric Drainage Total 150 ml 150 ml Other 550 ml 500 ml # Bowel Movements 2 6 General Appearance: no acute distress, other - bedridden vent dependent femle Vent AC 450-40%-18-PEEP5 HEENT: normocephalic, atraumatic, status post trach - Portex#7, seceretions white color, thin consistency, large amount Respiratory: lungs clear, no respiratory distress Cardiovascular: normal rate, regular rhythm, other - LUE PICC intact Abdomen: soft, non tender - distended , hypoactive bowel sounds, other - G tube Extremities: other - trace edema BLE Neurologic: abnormal gait - bedridden , other - quadriplegic Laboratory Tests 05/04/20 04:52: White Blood Count 4.9, Red Blood Count 2.68L, Hemoglobin 8.2L, Hematocrit 29.2L , Mean Corpuscular Volume 109#H, Mean Corpuscular Hemoglobin 30.7, Mean Corpuscular Hemoglobin Concent 28.1L, Red Cell Distribution Width 16.1H, Platelet Count 181, Mean Platelet Volume 6.1L, Neutrophils (%) (Auto) 61.3, Lymphocytes (%) (Auto) 27.7, Monocytes (%) (Auto) 6.4, Eosinophils (%) (Auto) 3.4H, Basophils (%) (Auto) 1.1, Erythrocyte Sedimentation Rate 30 05/04/20 08:00: Sodium Level [Pending], Potassium Level [Pending], Chloride Level [Pending], Carbon Dioxide Level [Pending], Blood Urea Nitrogen [Pending], Creatinine [ Pending], Estimat Glomerular Filtration Rate [Pending], Glucose Level [Pending] , Calcium Level [Pending], Phosphorus Level [Pending], Magnesium Level [Pending] , Total Bilirubin [Pending], Aspartate Amino Transf (AST/SGOT) [Pending], Alanine Aminotransferase (ALT/SGPT) [Pending], Alkaline Phosphatase [Pending], C -Reactive Protein, Quantitative [Pending], Total Protein [Pending], Albumin [ Pending], Globulin [Pending] Current Medications Medications (Trade) Dose Ordered Sig/Emanuel Route PRN Reason Start Time Stop Time Status Last Admin Dose Admin Acetaminophen (Tylenol) 500 mg Q4H PRN GT Pain Scale (3-5) 04/23/20 08:45 05/23/20 01:59 Acetaminophen (Tylenol) 650 mg THREE TIMES A DAY PRN GT FHMP 04/23/20 02:00 05/23/20 01:59 04/26/20 12:54 Artificial Tears (Akwa-Tears) 1 drop EVERY 12 HOURS BOTH EYES 05/03/20 21:00 05/23/20 08:59 05/03/20 21:55 Barium Sulfate (Readi-Cat 2) 450 ml NOW PRN ORAL Radiology Procedure 05/03/20 15:00 05/05/20 14:55 Bisacodyl (Dulcolax) 10 mg DAILY PRN RECTAL Constipation 04/23/20 02:00 07/22/20 01:59 Dextrose (Dextrose 50%) 25 ml Q30M PRN IV Hypoglycemia 04/23/20 08:15 07/22/20 08:14 Dextrose (Dextrose 50%) 50 ml Q30M PRN IV Hypoglycemia 04/23/20 08:15 07/22/20 08:14 Dextrose/ Electrolytes 1,000 ml @ 50 mls/hr Q20H IV 04/29/20 18:00 05/29/20 17:59 05/03/20 21:32 Docusate Sodium (Colace) 250 mg DAILYPRN PRN GT CONSTIPATION 04/23/20 12:50 05/23/20 12:49 Insulin Aspart (NovoLOG) Q6HR SUBQ 04/25/20 12:00 07/24/20 11:59 04/28/20 05:57 Levetiracetam (Keppra) 1,000 mg Q12HR GT 04/23/20 21:00 05/23/20 08:59 05/03/20 21:24 Levofloxacin (Levaquin) 750 mg DAILY ORAL 04/28/20 12:00 05/05/20 11:59 05/03/20 08:27 Metoclopramide HCl (Reglan) 5 mg Q6HR GT 04/23/20 13:53 05/23/20 13:52 05/04/20 05:33 Pantoprazole (Protonix) 40 mg Q12HR IVP 04/23/20 21:00 05/23/20 08:59 05/03/20 21:24 Phenytoin (Dilantin) 150 mg Q12HR GT 04/24/20 21:00 05/23/20 08:29 05/03/20 21:24 Sodium Phosphate (Fleet's Sodium Phosl Enema) 133 ml DAILY PRN RECTAL CONSTIPATION 04/23/20 02:00 05/23/20 01:59 Sorbitol (sorbitoL) 30 ml DAILYPRN PRN GT constipation 04/23/20 08:15 05/23/20 08:14 Zinc Sulfate (Zinc Sulfate) 220 mg DAILY GT 04/23/20 09:00 07/22/20 08:59 05/03/20 08:26 Assessment/Plan Assessment/Plan ASSESSMENT Severe sepsis Chronic respiratory failure, ventilator dependent , with tracheostomy status COPD Lactic acidosis- resolved Suspected COVID-19 -ruled out GABRIELLE - resolved Hypernatremia- resolved Colonic ileus Constipation Hx of sigmoid volvulus Dysphagia, feeding by G-tube Sacral decubitus ulcer stage IV-POA Transaminitis- improving Anemia of chronic disease History of GI bleeding History of DVT Seizure disorder Spastic quadriplegia Paranoid schizophrenia PLAN OF CARE FRANCK vent support, trach care, pulmonary toilet baseline ABG stable on current settings, keep as is and titrate as needed CXR initial and f/up no evidence of pneumonia abx as per ID SCX + Acinetobacter, Pseudomonas, Providencia BCX NGT UCX mixed steffi stool C dif NGT completing abx as per ID recs CXR 04/27 Mild central vascular congestion CXR 05/02 no acute process leukocytosis resolved, lactic acidosis resolved initial bacteremia likely contaminant; repeated BCX 04/21 , 04/24, 04/25 NGTD Venous Duplex BLE NGT , on SCD COVID rapid and by PCR x2 NGT, gentle IVF GABRIELLE resolved , likely due to dehydration f/up with further nephro recs KUB 05/02 with massive sigmoid colonic distention 05/03 CT A/P ->mild ileus, mild constipation, nonobstructive nephrolithiasis with bilat hydronephrosis hx of sigmoid volvulus in the past ( as per family), requiring colonic decompression, NPO GI eval pending LFT trending down hep panel NGT, HIV nonreactive abd US noted seizure precautions, continue Keppra and Dilantin monitor H&H with goal to keep hemoglobin above 7 ; prior history of GI bleeding , GI prophylaxis BS management with SSI, stable supportive care case discussed and evaluated by supervising physician Liberty Mills TEMPERATURE CONTROL INSPECTOR May 04, 2020 08:59
[2020-05-04] MEDS: levETIRAcetam 500mg/5ml Liquid GT SCH ×2 (09:06→21:23)
[2020-05-04] MEDS: Phenytoin Susp 100mg/4ml GT SCH ×2 (09:06→21:23)
[2020-05-04] MEDS: Pantoprazole Inj IVP SCH ×2 (09:06→21:22)
[2020-05-04] MEDS: Zinc Sulfate 220mg GT SCH (09:06)
[2020-05-04] MEDS: Levofloxacin 750mg tab ORAL SCH (09:06)
--- NOTE | 2020-05-04 09:25 | NUR ---
NURSE NOTES: Liberty Mills NP at bedside.
--- NOTE | 2020-05-04 10:23 | Nephrology Progress Note ---
Assessment/Plan Problem List: (1) Electrolyte imbalance Assessment: Hypernatremia (2) Dehydration (3) Diabetes mellitus (4) Spastic quadriplegic cerebral palsy (5) Chronic respiratory failure (6) Sepsis Assessment: UTI (7) Sacral decubitus ulcer Assessment Dehydration, prerenal azotemia, free water deficit, hypernatremia Sepsis, UTI Chronic respiratory failure, status post tracheostomy Sacral decubitus ulcer Chronic seizure disorder PEG Diabetes mellitus Spastic quadriplegic cerebral palsy Plan May 04: Today's labs still pending. Continue to monitor renal parameters. Continue per consultants. May 03: Labs reviewed. Stable from renal standpoint of view. Continue per consultants. May 02: Stable from renal standpoint to view. Continue per consultants. May 01: Status quo. Stable from renal standpoint of view. April 30: More potassium IV given. DC Ding catheter. Patient has functioning bilateral nephrostomy. Discussed with RN. April 29: More potassium IV chloride given. Remains stable from renal standpoint of view April 28: Stable from renal standpoint of view. Continue per consultants. April 27: IV potassium chloride ordered. IV fluid adjusted. Increase D5W to 75 cc an hour. Potassium supplement IV . Continue to monitor renal parameters and electrolytes Monitor Dilantin level, adjust the dose corrected for low albumin Monitor electrolytes and renal parameters Increase Protonix to every 12 hours Keep the blood sugar in check Per orders Patient is full code Subjective ROS Limited/Unobtainable: Yes Objective Objective Last 24 Hour Vital Signs Date Time Temp Pulse Resp B/P (MAP) Pulse Ox O2 Delivery O2 Flow Rate FiO2 05/04/20 08:47 76 05/04/20 08:00 Mechanical Ventilator Mechanical Ventilator 05/04/20 08:00 40 05/04/20 08:00 99.0 75 23 120/66 (84) 99 05/04/20 04:10 76 05/04/20 04:00 40 05/04/20 04:00 98.1 78 17 105/70 (82) 100 05/04/20 04:00 Mechanical Ventilator Mechanical Ventilator 05/04/20 03:41 76 18 40 05/04/20 00:00 95 05/04/20 00:00 Mechanical Ventilator Mechanical Ventilator 05/04/20 00:00 97.8 89 19 123/66 (85) 100 05/03/20 23:33 85 18 40 05/03/20 20:00 98.1 88 19 108/50 (69) 100 05/03/20 20:00 40 05/03/20 20:00 Mechanical Ventilator Mechanical Ventilator 05/03/20 19:44 73 18 40 05/03/20 19:25 74 05/03/20 16:00 40 05/03/20 16:00 Mechanical Ventilator Mechanical Ventilator 05/03/20 16:00 98.3 79 19 125/67 (86) 100 05/03/20 15:28 79 05/03/20 15:15 76 18 40 05/03/20 12:00 40 05/03/20 12:00 97.9 70 19 112/57 (75) 100 05/03/20 12:00 Mechanical Ventilator Mechanical Ventilator 05/03/20 11:57 77 18 40 05/03/20 11:41 65 Intake and Output 05/03/20 05/04/20 19:00 07:00 Intake Total 630 ml 605 ml Output Total 700 ml 650 ml Balance -70 ml -45 ml IV Total 600 ml 575 ml Other 30 ml 30 ml Gastric Drainage Total 150 ml 150 ml Other 550 ml 500 ml # Bowel Movements 2 6 Laboratory Tests 05/04/20 04:52: White Blood Count 4.9, Red Blood Count 2.68L, Hemoglobin 8.2L, Hematocrit 29.2L , Mean Corpuscular Volume 109#H, Mean Corpuscular Hemoglobin 30.7, Mean Corpuscular Hemoglobin Concent 28.1L, Red Cell Distribution Width 16.1H, Platelet Count 181, Mean Platelet Volume 6.1L, Neutrophils (%) (Auto) 61.3, Lymphocytes (%) (Auto) 27.7, Monocytes (%) (Auto) 6.4, Eosinophils (%) (Auto) 3.4H, Basophils (%) (Auto) 1.1, Erythrocyte Sedimentation Rate 30 05/04/20 08:00: Sodium Level [Pending], Potassium Level [Pending], Chloride Level [Pending], Carbon Dioxide Level [Pending], Blood Urea Nitrogen [Pending], Creatinine [ Pending], Estimat Glomerular Filtration Rate [Pending], Glucose Level [Pending] , Calcium Level [Pending], Phosphorus Level [Pending], Magnesium Level [Pending] , Total Bilirubin [Pending], Aspartate Amino Transf (AST/SGOT) [Pending], Alanine Aminotransferase (ALT/SGPT) [Pending], Alkaline Phosphatase [Pending], C -Reactive Protein, Quantitative [Pending], Total Protein [Pending], Albumin [ Pending], Globulin [Pending] Height (Feet): 5 Height (Inches): 7.00 Weight (Pounds): 195 General Appearance: no apparent distress EENT: other - Trach and vent Cardiovascular: tachycardia Respiratory/Chest: decreased breath sounds Abdomen: distended Objective No change Caleb Reese MD May 04, 2020 10:23
--- NOTE | 2020-05-04 10:45 | NUR ---
NURSE NOTES: Assisted Dr. Stevenson at bedside. Dr. Stevenson inserted 30F Rectal tube.
[2020-05-04 11:28] LABS: ALANINE AMINOTRANSFERASE 25 U/L (12-78); ALBUMIN 2.4 G/DL (3.4-5.0); ALBUMIN/GLOBULIN RATIO 0.4 (1.0-2.7); ALKALINE PHOSPHATASE 210 U/L (46-116); ANION GAP 10 mmol/L (5-15); ASPARTATE AMINO TRANSFERASE 56 U/L (15-37); BILIRUBIN,TOTAL 0.4 MG/DL (0.2-1.0); BLOOD UREA NITROGEN 7 mg/dL (7-18); CALCIUM 8.3 MG/DL (8.5-10.1); CARBON DIOXIDE 24 MMOL/L (21-32); CHLORIDE 107 MMOL/L (98-107); CREATININE 0.4 MG/DL (0.55-1.30); PHOSPHORUS 4.1 MG/DL (2.5-4.9); POTASSIUM 4.6 MMOL/L (3.5-5.1); SODIUM 141 MMOL/L (136-145)
--- NOTE | 2020-05-04 11:50 | NUR ---
CASE MANAGEMENT: REVIEW 05/04/2020 SI:SEPSIS. VS: T 99 HR 75 RR 23 B/P 120/66 SATS 99% ON MECH VENT FIO2 40 LABS: CR 0.4 CA 8.3 AST 56 ALP 210 CRP 2.8 IS:DEXTROSE IV @ 50 ML/HR LEVAQUIN PO QD KEPPRA GT Q12H DILANTIN GT Q12H INSULIN ASPART SUBQ Q6H SDU
--- NOTE | 2020-05-04 15:02 | General Progress Note ---
Assessment/Plan Assessment/Plan: GI CONSULT Assessment - Colonic dysmotility/Ogilve's syndrome - good response to rectal decompression - Resp failure / trach - dysphagia / GT - COPD - Sz disorder - encephalopathy - GERD - decubitus ulcer - nephrolithiasis Recommendations - continue rectal decompression - TF - follow labs and exam - roll side to side - bowel regimen Thank you Elizabeth Stevenson MD Subjective Allergies: Coded Allergies: No Known Allergies (Unverified , 02/08/13) Objective Last 24 Hour Vital Signs Date Time Temp Pulse Resp B/P (MAP) Pulse Ox O2 Delivery O2 Flow Rate FiO2 05/04/20 12:00 40 05/04/20 12:00 99.4 79 22 116/60 (78) 98 05/04/20 12:00 77 05/04/20 12:00 Mechanical Ventilator Mechanical Ventilator 05/04/20 11:28 99 18 40 05/04/20 08:47 76 05/04/20 08:00 Mechanical Ventilator Mechanical Ventilator 05/04/20 08:00 40 05/04/20 08:00 99.0 75 23 120/66 (84) 99 05/04/20 07:45 79 18 40 05/04/20 04:10 76 05/04/20 04:00 40 05/04/20 04:00 98.1 78 17 105/70 (82) 100 05/04/20 04:00 Mechanical Ventilator Mechanical Ventilator 05/04/20 03:41 76 18 40 05/04/20 00:00 95 05/04/20 00:00 Mechanical Ventilator Mechanical Ventilator 05/04/20 00:00 97.8 89 19 123/66 (85) 100 05/03/20 23:33 85 18 40 05/03/20 20:00 98.1 88 19 108/50 (69) 100 05/03/20 20:00 40 05/03/20 20:00 Mechanical Ventilator Mechanical Ventilator 05/03/20 19:44 73 18 40 05/03/20 19:25 74 05/03/20 16:00 40 05/03/20 16:00 Mechanical Ventilator Mechanical Ventilator 05/03/20 16:00 98.3 79 19 125/67 (86) 100 05/03/20 15:28 79 05/03/20 15:15 76 18 40 Intake and Output 05/03/20 05/04/20 19:00 07:00 Intake Total 630 ml 605 ml Output Total 700 ml 650 ml Balance -70 ml -45 ml IV Total 600 ml 575 ml Other 30 ml 30 ml Gastric Drainage Total 150 ml 150 ml Other 550 ml 500 ml # Bowel Movements 2 6 Laboratory Tests 05/04/20 04:52: White Blood Count 4.9, Red Blood Count 2.68L, Hemoglobin 8.2L, Hematocrit 29.2L , Mean Corpuscular Volume 109#H, Mean Corpuscular Hemoglobin 30.7, Mean Corpuscular Hemoglobin Concent 28.1L, Red Cell Distribution Width 16.1H, Platelet Count 181, Mean Platelet Volume 6.1L, Neutrophils (%) (Auto) 61.3, Lymphocytes (%) (Auto) 27.7, Monocytes (%) (Auto) 6.4, Eosinophils (%) (Auto) 3.4H, Basophils (%) (Auto) 1.1, Erythrocyte Sedimentation Rate 30 05/04/20 11:00: Sodium Level 141, Potassium Level 4.6, Chloride Level 107, Carbon Dioxide Level 24, Anion Gap 10, Blood Urea Nitrogen 7, Creatinine 0.4L, Estimat Glomerular Filtration Rate > 60, Glucose Level 98, Calcium Level 8.3L, Phosphorus Level 4.1 , Magnesium Level 1.9, Total Bilirubin 0.4, Aspartate Amino Transf (AST/SGOT) 56H, Alanine Aminotransferase (ALT/SGPT) 25, Alkaline Phosphatase 210H, C- Reactive Protein, Quantitative 2.8H, Total Protein 8.4H, Albumin 2.4L, Globulin 6.0, Albumin/Globulin Ratio 0.4L Height (Feet): 5 Height (Inches): 7.00 Weight (Pounds): 195 Elizabeth Stevenson MD May 04, 2020 15:02
--- NOTE | 2020-05-04 15:52 | Internal Med Progress Note ---
Subjective Date of Service: May 04, 2020 Physician Name ChaKalin Attending Physician Jeyson Yanez MD Current Medications Medications (Trade) Dose Ordered Sig/Emanuel Route PRN Reason Start Time Stop Time Status Last Admin Dose Admin Acetaminophen (Tylenol) 500 mg Q4H PRN GT Pain Scale (3-5) 04/23/20 08:45 05/23/20 01:59 Acetaminophen (Tylenol) 650 mg THREE TIMES A DAY PRN GT FHMP 04/23/20 02:00 05/23/20 01:59 04/26/20 12:54 Artificial Tears (Akwa-Tears) 1 drop EVERY 12 HOURS BOTH EYES 05/03/20 21:00 05/23/20 08:59 05/04/20 09:06 Barium Sulfate (Readi-Cat 2) 450 ml NOW PRN ORAL Radiology Procedure 05/03/20 15:00 05/05/20 14:55 Bisacodyl (Dulcolax) 10 mg DAILY PRN RECTAL Constipation 04/23/20 02:00 07/22/20 01:59 Dextrose (Dextrose 50%) 25 ml Q30M PRN IV Hypoglycemia 04/23/20 08:15 07/22/20 08:14 Dextrose (Dextrose 50%) 50 ml Q30M PRN IV Hypoglycemia 04/23/20 08:15 07/22/20 08:14 Dextrose/ Electrolytes 1,000 ml @ 50 mls/hr Q20H IV 04/29/20 18:00 05/29/20 17:59 05/03/20 21:32 Docusate Sodium (Colace) 250 mg DAILYPRN PRN GT CONSTIPATION 04/23/20 12:50 05/23/20 12:49 Insulin Aspart (NovoLOG) Q6HR SUBQ 04/25/20 12:00 07/24/20 11:59 04/28/20 05:57 Levetiracetam (Keppra) 1,000 mg Q12HR GT 04/23/20 21:00 05/23/20 08:59 05/04/20 09:06 Levofloxacin (Levaquin) 750 mg DAILY GT 05/05/20 09:00 05/05/20 11:59 Metoclopramide HCl (Reglan) 5 mg Q6HR GT 04/23/20 13:53 05/23/20 13:52 05/04/20 11:57 Pantoprazole (Protonix) 40 mg Q12HR IVP 04/23/20 21:00 05/23/20 08:59 05/04/20 09:06 Phenytoin (Dilantin) 150 mg Q12HR GT 04/24/20 21:00 05/23/20 08:29 05/04/20 09:06 Sodium Phosphate (Fleet's Sodium Phosl Enema) 133 ml DAILY PRN RECTAL CONSTIPATION 04/23/20 02:00 05/23/20 01:59 Sorbitol (sorbitoL) 30 ml DAILYPRN PRN GT constipation 04/23/20 08:15 05/23/20 08:14 Zinc Sulfate (Zinc Sulfate) 220 mg DAILY GT 04/23/20 09:00 07/22/20 08:59 05/04/20 09:06 Allergies: Coded Allergies: No Known Allergies (Unverified , 02/08/13) ROS Limited/Unobtainable: Yes Subjective 59 YO F admitted with fever, now Sepsis and pneumonia. Cover for Int Med-Dr Yanez. Step down unit. [facility] Vent Objective Last Vital Signs Date Time Temp Pulse Resp B/P (MAP) Pulse Ox O2 Delivery O2 Flow Rate FiO2 05/04/20 15:27 65 05/04/20 15:19 18 40 05/04/20 12:00 99.4 116/60 (78) 98 05/04/20 12:00 Mechanical Ventilator Mechanical Ventilator Laboratory Tests Test 05/04/20 04:52 05/04/20 11:00 White Blood Count 4.9 K/UL (4.8-10.8) Red Blood Count 2.68 M/UL (4.20-5.40) L Hemoglobin 8.2 G/DL (12.0-16.0) L Hematocrit 29.2 % (37.0-47.0) L Mean Corpuscular Volume 109 FL (80-99) #H Mean Corpuscular Hemoglobin 30.7 PG (27.0-31.0) Mean Corpuscular Hemoglobin Concent 28.1 G/DL (32.0-36.0) L Red Cell Distribution Width 16.1 % (11.6-14.8) H Platelet Count 181 K/UL (150-450) Mean Platelet Volume 6.1 FL (6.5-10.1) L Neutrophils (%) (Auto) 61.3 % (45.0-75.0) Lymphocytes (%) (Auto) 27.7 % (20.0-45.0) Monocytes (%) (Auto) 6.4 % (1.0-10.0) Eosinophils (%) (Auto) 3.4 % (0.0-3.0) H Basophils (%) (Auto) 1.1 % (0.0-2.0) Erythrocyte Sedimentation Rate 30 MM/HR (0-30) Sodium Level 141 MMOL/L (136-145) Potassium Level 4.6 MMOL/L (3.5-5.1) Chloride Level 107 MMOL/L (98-107) Carbon Dioxide Level 24 MMOL/L (21-32) Anion Gap 10 mmol/L (5-15) Blood Urea Nitrogen 7 mg/dL (7-18) Creatinine 0.4 MG/DL (0.55-1.30) L Estimat Glomerular Filtration Rate > 60 mL/min (>60) Glucose Level 98 MG/DL (74-106) Calcium Level 8.3 MG/DL (8.5-10.1) L Phosphorus Level 4.1 MG/DL (2.5-4.9) Magnesium Level 1.9 MG/DL (1.8-2.4) Total Bilirubin 0.4 MG/DL (0.2-1.0) Aspartate Amino Transf (AST/SGOT) 56 U/L (15-37) H Alanine Aminotransferase (ALT/SGPT) 25 U/L (12-78) Alkaline Phosphatase 210 U/L (46-116) H C-Reactive Protein, Quantitative 2.8 mg/dL (0.00-0.90) H Total Protein 8.4 G/DL (6.4-8.2) H Albumin 2.4 G/DL (3.4-5.0) L Globulin 6.0 g/dL Albumin/Globulin Ratio 0.4 (1.0-2.7) L Intake and Output 05/03/20 05/04/20 19:00 07:00 Intake Total 630 ml 605 ml Output Total 700 ml 650 ml Balance -70 ml -45 ml IV Total 600 ml 575 ml Other 30 ml 30 ml Gastric Drainage Total 150 ml 150 ml Other 550 ml 500 ml # Bowel Movements 2 6 Objective PHYSICAL EXAMINATION: GENERAL: Patient is a thin-appearing female, who is intubated and sedated. HEENT: Eyes, pupils are equal and responsive to light and accommodation. Extraocular movements are intact. NECK: Supple without lymphadenopathy. Tracheostomy is in place. CHEST: Mech vent; Coarse breath sounds bilateral bases otherwise without wheezes or rales. CARDIOVASCULAR: Tachycardic, regular rhythm. S1, S2 normal without murmurs, rubs, or gallops. ABDOMEN: Soft, nontender, nondistended. Positive bowel sounds. No evidence of hepatosplenomegaly. Currently, no rebound or guarding noted. EXTREMITIES: Negative for clubbing, cyanosis, or edema. RECTAL/GENITAL: Not performed. NEUROLOGIC: Cranial nerves II through XII are grossly intact without focal deficits. Assessment/Plan Assessment/Plan ASSESSMENT: This is a 59-year-old female. 1. pneumonia=acenitobacter (MDR), pseudamonas and providencia 2. sepsis=coag neg staph 3. Chronic respiratory failure. 4. Chronic obstructive pulmonary disease. 5. Quadriplegia. 6. History of dysphagia. 7. Diabetes type 2. 8. Seizure disorder. 9. History of gastrointestinal hemorrhage. 10. Erosive gastritis. 11. Schizophrenia. 12. Gastroesophageal reflux disease. 13. Neurogenic bladder. 14. Stage IV sacral decubitus ulcer. 15. New venous thrombosis left basilic vein secondary to PICC 16. Ogile's syndrome (bowel dysmotility) TREATMENT: 1. Fever/sepsis. A Pulmonary Critical Care consultation has been obtained with Dr. Luis Garcia. ABX= levaquin; S/P vancomycin and cefepime. We will follow recommendations of Pulmonary. Infectious disease=Dr Peoples 2. Chronic vent dependence/chronic respiratory failure. As above, a Pulmonary consultation has been obtained with Dr. Luis Garcia. We will follow recommendations of Pulmonary. 3. Seizure disorder. Continue Keppra and Dilantin as above. 4. Diabetes type 2. NovoLog sliding scale has been instituted. 5. Chronic obstructive pulmonary disease. As above, a Pulmonary consultation has been obtained with Dr. Luis Garcia. We will follow recommendations of Pulmonary. 6. History of gastrointestinal hemorrhage/erosive gastritis. Patient has been placed on Protonix. 7. Schizophrenia, not otherwise specified. 8. Gastroesophageal reflux disease. 9. Neurogenic bladder. 10. Stage IV sacral decubitus ulcer. 11. History of deep venous thrombosis. 12. Discharge planning: [facility] 13. D/C PICC 14. Contineu Rectal tube per GI=Kalin Rosario MD May 04, 2020 15:51
[2020-05-04] MEDS: D5W w/KCl 20mEq 1,000 ML IV SCH (17:34)
[2020-05-04] MEDS: Metoclopramide 10mg/2ml Inj IVP SCH (17:41)
--- NOTE | 2020-05-04 19:30 | NUR ---
HAND-OFF: Report given to Gavin Aparicio RN.
--- NOTE | 2020-05-04 19:30 | NUR ---
NURSE NOTES: PATIENT IS BEDRIDDEN,WITH TRACH TO VENT AT ORDERED SETTINGS,WELL TOLERATED.VITALS STABLE BP131/69 HR 82 ;AFEBRILE 98.2.GT TO GRAVITY WITH NO RESIDUE NOTED,ABDOMEN SOFT AND DISTENDED.RECTAL TUBE FR.[address] WITH SMALL AMOUNT OF SOFT -LIQUID BROWN STOOL DRAINING FLUSHED WITH 30 ML WATER ORDERED.BILATERAL NEPHROSTOMY INTACT AND PATENT WITH YELLOW URINE DRAINING .IVF OF N2UWRGI +20KCL AT 50 CC/HR RUNNING TO LEFT THUMB G24,PATENT NO INFILTRATION NOTED.ORAL CARE WITH CHLORHEXIDINE ,TRACHEAL SUCTIONING DONE.TURNED AND REPOSITIONED PATIENT FOR COMFORT,WOUND DRESSING DRY AND INTACT.WILL CONTINUE PLAN OF CARE.
[2020-05-05 04:00] VITALS: BP 111/70
[2020-05-05 05:39] LABS: BASOPHILS % (AUTO) 0.8 % (0.0-2.0); EOSINOPHILS % (AUTO) 3.4 % (0.0-3.0); HEMATOCRIT 35.3 % (37.0-47.0); LYMPHOCYTES % (AUTO) 31.4 % (20.0-45.0); MEAN CORPUSCULAR VOLUME 98 FL (80-99); NEUTROPHILS % (AUTO) 59.5 % (45.0-75.0); PLATELET COUNT 210 K/UL (150-450); RED CELL DISTRIBUTION WIDTH 14.9 % (11.6-14.8); WHITE BLOOD COUNT 6.6 K/UL (4.8-10.8)
[2020-05-05 06:00] LABS: ANION GAP 7 mmol/L (5-15); BLOOD UREA NITROGEN 6 mg/dL (7-18); CALCIUM 8.1 MG/DL (8.5-10.1); CARBON DIOXIDE 27 MMOL/L (21-32); CHLORIDE 107 MMOL/L (98-107); CREATININE 0.5 MG/DL (0.55-1.30); POTASSIUM 3.1 MMOL/L (3.5-5.1); SODIUM 141 MMOL/L (136-145)
[2020-05-05] MEDS: NovoLOG Insulin Flexpen SUBQ SCH ×4 (06:00→17:01)
[2020-05-05] MEDS: Metoclopramide 10mg/2ml Inj IVP SCH ×4 (06:02→17:05)
--- NOTE | 2020-05-05 07:00 | NUR ---
HAND-OFF: Report given to Dinesh Avila RN.
--- NOTE | 2020-05-05 07:15 | NUR ---
NURSE NOTES: Received report from LUCERO Alonso. Patient is resting in bed, in stable condition. No s/sx of SOB, breathing is even and unlabored, on vent with vent settings as ordered. Patient is nonverbal, observed no presence of pain or discomfort at this time. Patient on SCD left leg. Patient with bilateral nephrostomy patent and draining, rectal tube. Bed is in lowest position, call light is kept within easy reach, brakes engaged. Will continue to monitor patient.
[2020-05-05 07:46] VITALS: BP 137/78
--- NOTE | 2020-05-05 07:49 | Pulmonology Progress Note ---
Subjective ROS Limited/Unobtainable: Yes Allergies: Coded Allergies: No Known Allergies (Unverified , 02/08/13) Subjective no signs of resp distress on current settings no fevers , no leukocytosis 05/03 KUB with massive colonic distention 05/03 CT A/P noted, GI follows K-3.1 Objective Last 24 Hour Vital Signs Date Time Temp Pulse Resp B/P (MAP) Pulse Ox O2 Delivery O2 Flow Rate FiO2 05/05/20 04:00 99.5 76 18 111/70 (84) 99 05/05/20 04:00 Mechanical Ventilator Mechanical Ventilator 05/05/20 04:00 81 05/05/20 03:56 40 05/05/20 03:04 72 18 40 05/05/20 00:00 Mechanical Ventilator Mechanical Ventilator 05/05/20 00:00 40 05/04/20 23:59 71 05/04/20 23:39 99.7 74 18 132/77 (95) 99 05/04/20 23:30 77 18 40 05/04/20 20:23 98.2 82 18 131/69 (89) 99 05/04/20 20:05 Mechanical Ventilator Mechanical Ventilator 05/04/20 20:00 40 05/04/20 20:00 71 05/04/20 19:50 79 18 40 05/04/20 16:00 99.1 79 18 127/67 (87) 99 05/04/20 16:00 40 05/04/20 16:00 Mechanical Ventilator Mechanical Ventilator 05/04/20 15:27 65 05/04/20 15:19 72 18 40 05/04/20 12:00 40 05/04/20 12:00 99.4 79 22 116/60 (78) 98 05/04/20 12:00 77 05/04/20 12:00 Mechanical Ventilator Mechanical Ventilator 05/04/20 11:28 99 18 40 05/04/20 08:47 76 05/04/20 08:00 Mechanical Ventilator Mechanical Ventilator 05/04/20 08:00 40 05/04/20 08:00 99.0 75 23 120/66 (84) 99 Intake and Output 05/04/20 05/05/20 19:00 07:00 Intake Total 635 ml 720 ml Output Total 510 ml 830 ml Balance 125 ml -110 ml IV Total 575 ml 600 ml Other 60 ml 120 ml Stool Total 20 ml 130 ml Gastric Drainage Total 120 ml Other 370 ml 700 ml # Bowel Movements 2 3 General Appearance: no acute distress, other - bedridden vent dependent femle Vent AC 450-40%-[id number] HEENT: normocephalic, atraumatic, status post trach - Portex#7, seceretions white color, thin consistency, large amount Respiratory: lungs clear, no respiratory distress Cardiovascular: normal rate, regular rhythm, other - LUE PICC intact Abdomen: soft, non tender - distended , hypoactive bowel sounds, other - G tube , rectal tube Genitourinary: other - bilat nephrostomy tubes, Ding Extremities: other - trace edema BLE , Neurologic: abnormal gait - bedridden , other - quadriplegic Musculoskeletal: other - contracted Laboratory Tests 05/04/20 11:00: Sodium Level 141, Potassium Level 4.6, Chloride Level 107, Carbon Dioxide Level 24, Anion Gap 10, Blood Urea Nitrogen 7, Creatinine 0.4L, Estimat Glomerular Filtration Rate > 60, Glucose Level 98, Calcium Level 8.3L, Phosphorus Level 4.1 , Magnesium Level 1.9, Total Bilirubin 0.4, Aspartate Amino Transf (AST/SGOT) 56H, Alanine Aminotransferase (ALT/SGPT) 25, Alkaline Phosphatase 210H, C- Reactive Protein, Quantitative 2.8H, Total Protein 8.4H, Albumin 2.4L, Globulin 6.0, Albumin/Globulin Ratio 0.4L 05/05/20 03:40: Sodium Level 141, Potassium Level 3.1L, Chloride Level 107, Carbon Dioxide Level 27, Anion Gap 7, Blood Urea Nitrogen 6L, Creatinine 0.5L, Estimat Glomerular Filtration Rate > 60, Glucose Level 87, Calcium Level 8.1L, White Blood Count 6.6, Red Blood Count 3.60L, Hemoglobin 11.0#L, Hematocrit 35.3L, Mean Corpuscular Volume 98#, Mean Corpuscular Hemoglobin 30.6, Mean Corpuscular Hemoglobin Concent 31.2L, Red Cell Distribution Width 14.9H, Platelet Count 210 , Mean Platelet Volume 6.3L, Neutrophils (%) (Auto) 59.5, Lymphocytes (%) (Auto ) 31.4, Monocytes (%) (Auto) 5.0, Eosinophils (%) (Auto) 3.4H, Basophils (%) ( Auto) 0.8 Current Medications Medications (Trade) Dose Ordered Sig/Emanuel Route PRN Reason Start Time Stop Time Status Last Admin Dose Admin Acetaminophen (Tylenol) 500 mg Q4H PRN GT Pain Scale (3-5) 04/23/20 08:45 05/23/20 01:59 Acetaminophen (Tylenol) 650 mg THREE TIMES A DAY PRN GT FHMP 04/23/20 02:00 05/23/20 01:59 04/26/20 12:54 Artificial Tears (Akwa-Tears) 1 drop EVERY 12 HOURS BOTH EYES 05/03/20 21:00 05/23/20 08:59 05/04/20 21:57 Barium Sulfate (Readi-Cat 2) 450 ml NOW PRN ORAL Radiology Procedure 05/03/20 15:00 05/05/20 14:55 Bisacodyl (Dulcolax) 10 mg DAILY PRN RECTAL Constipation 04/23/20 02:00 07/22/20 01:59 Dextrose (Dextrose 50%) 25 ml Q30M PRN IV Hypoglycemia 04/23/20 08:15 07/22/20 08:14 Dextrose (Dextrose 50%) 50 ml Q30M PRN IV Hypoglycemia 04/23/20 08:15 07/22/20 08:14 Dextrose/ Electrolytes 1,000 ml @ 50 mls/hr Q20H IV 04/29/20 18:00 05/29/20 17:59 05/04/20 17:34 Docusate Sodium (Colace) 250 mg DAILYPRN PRN GT CONSTIPATION 04/23/20 12:50 05/23/20 12:49 Insulin Aspart (NovoLOG) Q6HR SUBQ 04/25/20 12:00 07/24/20 11:59 04/28/20 05:57 Levetiracetam (Keppra) 1,000 mg Q12HR GT 04/23/20 21:00 05/23/20 08:59 05/04/20 21:23 Levofloxacin (Levaquin) 750 mg DAILY GT 05/05/20 09:00 05/05/20 11:59 Metoclopramide HCl (Reglan) 5 mg Q6HR IVP 05/04/20 18:00 06/03/20 17:59 05/05/20 06:02 Pantoprazole (Protonix) 40 mg Q12HR IVP 04/23/20 21:00 05/23/20 08:59 05/04/20 21:22 Phenytoin (Dilantin) 150 mg Q12HR GT 04/24/20 21:00 05/23/20 08:29 05/04/20 21:23 Potassium Chloride 100 ml @ 100 mls/hr Q1HR IVPB 05/05/20 08:00 05/05/20 11:59 05/05/20 07:42 Sodium Phosphate (Fleet's Sodium Phosl Enema) 133 ml DAILY PRN RECTAL CONSTIPATION 04/23/20 02:00 05/23/20 01:59 Sorbitol (sorbitoL) 30 ml DAILYPRN PRN GT constipation 04/23/20 08:15 05/23/20 08:14 Zinc Sulfate (Zinc Sulfate) 220 mg DAILY GT 04/23/20 09:00 07/22/20 08:59 05/04/20 09:06 Assessment/Plan Assessment/Plan ASSESSMENT Severe sepsis Chronic respiratory failure, ventilator dependent , with tracheostomy status COPD Lactic acidosis- resolved Suspected COVID-19 -ruled out GABRIELLE - resolved Dehydration Bilateral hydronephrosis with bilateral nephrostomy tubes Hypernatremia- resolved Colonic ileus Constipation Hx of sigmoid volvulus Dysphagia, feeding by G-tube Sacral decubitus ulcer stage IV-POA Transaminitis- improving Anemia of chronic disease History of GI bleeding History of DVT Seizure disorder Spastic quadriplegia Paranoid schizophrenia PLAN OF CARE FRANCK vent support, trach care, pulmonary toilet baseline ABG stable on current settings, keep as is and titrate as needed CXR initial and f/up no evidence of pneumonia abx as per ID SCX + Acinetobacter, Pseudomonas, Providencia BCX NGT UCX mixed steffi stool C dif NGT completed abx as per ID recs CXR 04/27 Mild central vascular congestion CXR 05/02 no acute process leukocytosis resolved, lactic acidosis resolved initial bacteremia likely contaminant; repeated BCX 04/21 , 04/24, 04/25 NGTD Venous Duplex BLE NGT , on SCD COVID rapid and by PCR x2 NGT, gentle IVF GABRIELLE resolved , likely due to dehydration K replaced by nephro this am f/up with further nephro recs KUB 05/02 with massive sigmoid colonic distention 05/03 CT A/P ->mild ileus, mild constipation, nonobstructive nephrolithiasis with bilat hydronephrosis hx of sigmoid volvulus in the past ( as per family), requiring colonic decompression, NPO GI eval appreciated rectal decompression bowel regimen LFT trending down hep panel NGT, HIV nonreactive abd US noted seizure precautions, continue Keppra and Dilantin monitor H&H with goal to keep hemoglobin above 7 ; prior history of GI bleeding , GI prophylaxis BS management with SSI, stable supportive care case discussed and evaluated by supervising physician Liberty Mills NP May 05, 2020 07:49
[2020-05-05] MEDS ORDERED: NS 275ml ONE (08:32)
[2020-05-05] MEDS ORDERED: Levofloxacin 750mg tab GT SCH (09:00)
[2020-05-05] MEDS: levETIRAcetam 500mg/5ml Liquid GT SCH ×2 (09:04→21:06)
[2020-05-05] MEDS: Pantoprazole Inj IVP SCH ×2 (09:04→21:05)
[2020-05-05] MEDS: Phenytoin Susp 100mg/4ml GT SCH ×2 (09:04→21:05)
[2020-05-05] MEDS: Zinc Sulfate 220mg GT SCH (09:04)
--- NOTE | 2020-05-05 09:44 | Infectious Diseases Prog Note ---
Assessment/Plan Assessment: Severe sepsis- ?source- ?early pNA vs tracheitis Cons bacteremia- suspect contaminant -04/22 Bcx 1/ CONS; 04/24, Bcx Neg Hyperthermia (up to 105 upon admission); SP - COVID19 neg x3 Leukocytosis, SP -05/02 CXR: No acute process -04/29 CXR: no acute process -04/27 CXR: Mild central vascular congestion. SARS-COV2 PCR neg -04/26 sp cx MDR ABC (s levaquin), PsA (R Levaquin; otherwise S), P.stuarti ( I Levaquin; R ancef, AMp, Gentamycin) -04/25 CXR: no acute diseae -04/23 SARS-COV2 PCR neg -04/22 CXR: no acute disease -u/a wbc 20-30, nit neg, leuk +3; ucx 30-40k mixed gram positive organisms -rapid COVID test neg -V. duplex no DVT Lactic acidosis, SP GABRIELLE, SP Elevated LFTs; SP -HIV ab sc neg, Acute hep panel neg -Abd US: GALLSTONE. MILDLY PROMINENT CBD BUT MAY BE NORMAL FOR AGE. BILATERAL URETERAL STENTS. NO HYDRONEPHROSIS. POSSIBLE SMALL BILATERAL RENAL STONES. MIDLINE STRUCTURES INCLUDING PANCREAS, AORTA AND CAVA NOT OPTIMALLY VISUALIZED DUE TO BOWEL GAS. - CT Abd: Nonobstructing renal stones both kidneys with bilateral hydronephrosis and fat stranding about the renal collecting systems with bilateral percutaneous nephrostomy tubes in place. Correlation is recommended to ensure tube patency. Pyelonephritis can produce a similar appearance. Mild constipation with mild colonic ileus. GERD DM2 COPD GIB neurogenic bladder stage IV sacral decubitus ulcer paranoid schizoaffective disorder suicide attempt in 2003 progressing to coma and requiring rn long term care ventilator support spatic quadriplegia obesity b/l nephrostomy tubes 2018 seizure disorder chronic resp failure s/p trach dependent dysphagia s/p GT NH resident ([facility]) Plan: monitor off abx -05/04 SP PO Levaquin #7/7 for MDR ABC in sputum -04/28 SP IV Vancomycin #6, Cefepime #6 -04/23 SP Ertapenem x1 -f/u cx -Monitor CBC/CMP, temperatures -f/u BCx x2, sp cx -COVID19 neg x3 (1 rapid, 2 NAAT);ok to dc isolation; afebrile >72hrs -PEG/trach care -aspiration precautions -wound care per hospital protocol DW RN Thank you for consulting [facility]. Will continue to follow along with you. Subjective Allergies: Coded Allergies: No Known Allergies (Unverified , 02/08/13) Afebrile. FiO2 40% stable less abd distension lots of passing gas Objective Last 24 Hour Vital Signs Date Time Temp Pulse Resp B/P (MAP) Pulse Ox O2 Delivery O2 Flow Rate FiO2 05/05/20 08:00 65 05/05/20 07:46 99.1 73 18 137/78 (97) 100 05/05/20 07:34 75 19 40 05/05/20 04:00 99.5 76 18 111/70 (84) 99 05/05/20 04:00 Mechanical Ventilator Mechanical Ventilator 05/05/20 04:00 81 05/05/20 03:56 40 05/05/20 03:04 72 18 40 05/05/20 00:00 Mechanical Ventilator Mechanical Ventilator 05/05/20 00:00 40 05/04/20 23:59 71 05/04/20 23:39 99.7 74 18 132/77 (95) 99 05/04/20 23:30 77 18 40 05/04/20 20:23 98.2 82 18 131/69 (89) 99 05/04/20 20:05 Mechanical Ventilator Mechanical Ventilator 05/04/20 20:00 40 05/04/20 20:00 71 05/04/20 19:50 79 18 40 05/04/20 16:00 99.1 79 18 127/67 (87) 99 05/04/20 16:00 40 05/04/20 16:00 Mechanical Ventilator Mechanical Ventilator 05/04/20 15:27 65 05/04/20 15:19 72 18 40 05/04/20 12:00 40 05/04/20 12:00 99.4 79 22 116/60 (78) 98 05/04/20 12:00 77 05/04/20 12:00 Mechanical Ventilator Mechanical Ventilator 05/04/20 11:28 99 18 40 Height (Feet): 5 Height (Inches): 7.00 Weight (Pounds): 195 Gen: NAD HEENT: trach Abd: distended. soft. Resp: RRR. coarse Neuro: not following commands Laboratory Tests Test 05/04/20 11:00 05/05/20 03:40 Sodium Level 141 MMOL/L (136-145) 141 MMOL/L (136-145) Potassium Level 4.6 MMOL/L (3.5-5.1) 3.1 MMOL/L (3.5-5.1) L Chloride Level 107 MMOL/L (98-107) 107 MMOL/L (98-107) Carbon Dioxide Level 24 MMOL/L (21-32) 27 MMOL/L (21-32) Anion Gap 10 mmol/L (5-15) 7 mmol/L (5-15) Blood Urea Nitrogen 7 mg/dL (7-18) 6 mg/dL (7-18) L Creatinine 0.4 MG/DL (0.55-1.30) L 0.5 MG/DL (0.55-1.30) L Estimat Glomerular Filtration Rate > 60 mL/min (>60) > 60 mL/min (>60) Glucose Level 98 MG/DL (74-106) 87 MG/DL (74-106) Calcium Level 8.3 MG/DL (8.5-10.1) L 8.1 MG/DL (8.5-10.1) L Phosphorus Level 4.1 MG/DL (2.5-4.9) Magnesium Level 1.9 MG/DL (1.8-2.4) Total Bilirubin 0.4 MG/DL (0.2-1.0) Aspartate Amino Transf (AST/SGOT) 56 U/L (15-37) H Alanine Aminotransferase (ALT/SGPT) 25 U/L (12-78) Alkaline Phosphatase 210 U/L (46-116) H C-Reactive Protein, Quantitative 2.8 mg/dL (0.00-0.90) H Total Protein 8.4 G/DL (6.4-8.2) H Albumin 2.4 G/DL (3.4-5.0) L Globulin 6.0 g/dL Albumin/Globulin Ratio 0.4 (1.0-2.7) L White Blood Count 6.6 K/UL (4.8-10.8) Red Blood Count 3.60 M/UL (4.20-5.40) L Hemoglobin 11.0 G/DL (12.0-16.0) #L Hematocrit 35.3 % (37.0-47.0) L Mean Corpuscular Volume 98 FL (80-99) # Mean Corpuscular Hemoglobin 30.6 PG (27.0-31.0) Mean Corpuscular Hemoglobin Concent 31.2 G/DL (32.0-36.0) L Red Cell Distribution Width 14.9 % (11.6-14.8) H Platelet Count 210 K/UL (150-450) Mean Platelet Volume 6.3 FL (6.5-10.1) L Neutrophils (%) (Auto) 59.5 % (45.0-75.0) Lymphocytes (%) (Auto) 31.4 % (20.0-45.0) Monocytes (%) (Auto) 5.0 % (1.0-10.0) Eosinophils (%) (Auto) 3.4 % (0.0-3.0) H Basophils (%) (Auto) 0.8 % (0.0-2.0) Current Medications Medications (Trade) Dose Ordered Sig/Emanuel Route PRN Reason Start Time Stop Time Status Last Admin Dose Admin Acetaminophen (Tylenol) 500 mg Q4H PRN GT Pain Scale (3-5) 04/23/20 08:45 05/23/20 01:59 Acetaminophen (Tylenol) 650 mg THREE TIMES A DAY PRN GT FHMP 04/23/20 02:00 05/23/20 01:59 04/26/20 12:54 Artificial Tears (Akwa-Tears) 1 drop EVERY 12 HOURS BOTH EYES 05/03/20 21:00 05/23/20 08:59 05/05/20 09:08 Barium Sulfate (Readi-Cat 2) 450 ml NOW PRN ORAL Radiology Procedure 05/03/20 15:00 05/05/20 14:55 Bisacodyl (Dulcolax) 10 mg DAILY PRN RECTAL Constipation 04/23/20 02:00 07/22/20 01:59 Dextrose (Dextrose 50%) 25 ml Q30M PRN IV Hypoglycemia 04/23/20 08:15 07/22/20 08:14 Dextrose (Dextrose 50%) 50 ml Q30M PRN IV Hypoglycemia 04/23/20 08:15 07/22/20 08:14 Dextrose/ Electrolytes 1,000 ml @ 50 mls/hr Q20H IV 04/29/20 18:00 05/29/20 17:59 05/04/20 17:34 Docusate Sodium (Colace) 250 mg DAILYPRN PRN GT CONSTIPATION 04/23/20 12:50 05/23/20 12:49 Insulin Aspart (NovoLOG) Q6HR SUBQ 04/25/20 12:00 07/24/20 11:59 04/28/20 05:57 Levetiracetam (Keppra) 1,000 mg Q12HR GT 04/23/20 21:00 05/23/20 08:59 05/05/20 09:04 Levofloxacin (Levaquin) 750 mg DAILY GT 05/05/20 09:00 05/05/20 11:59 05/05/20 09:04 Metoclopramide HCl (Reglan) 5 mg Q6HR IVP 05/04/20 18:00 06/03/20 17:59 05/05/20 06:02 Pantoprazole (Protonix) 40 mg Q12HR IVP 04/23/20 21:00 05/23/20 08:59 05/05/20 09:04 Phenytoin (Dilantin) 150 mg Q12HR GT 04/24/20 21:00 05/23/20 08:29 05/05/20 09:04 Potassium Chloride 100 ml @ 100 mls/hr Q1HR IVPB 05/05/20 08:00 05/05/20 11:59 05/05/20 09:04 Sodium Phosphate (Fleet's Sodium Phosl Enema) 133 ml DAILY PRN RECTAL CONSTIPATION 04/23/20 02:00 05/23/20 01:59 Sorbitol (sorbitoL) 30 ml DAILYPRN PRN GT constipation 04/23/20 08:15 05/23/20 08:14 Zinc Sulfate (Zinc Sulfate) 220 mg DAILY GT 04/23/20 09:00 07/22/20 08:59 05/05/20 09:04 Jaymie Rivero MD May 05, 2020 09:44
[2020-05-05 12:00] VITALS: BP 128/74
--- NOTE | 2020-05-05 12:41 | General Progress Note ---
Assessment/Plan Assessment/Plan: Assessment - Colonic dysmotility/Ogilve's syndrome - good response to rectal decompression - Abnormal LFT, ? etiology -- likely due to dilantin - Resp failure / trach - dysphagia / GT - COPD - Sz disorder - encephalopathy - GERD - decubitus ulcer - nephrolithiasis Recommendations - continue rectal decompression - TF - follow labs and exam - roll side to side - bowel regimen Subjective Allergies: Coded Allergies: No Known Allergies (Unverified , 02/08/13) Subjective Above noted calm, NAD some liquid stool in rectal tube abd not distended Objective Last 24 Hour Vital Signs Date Time Temp Pulse Resp B/P (MAP) Pulse Ox O2 Delivery O2 Flow Rate FiO2 05/05/20 08:00 Mechanical Ventilator Mechanical Ventilator 05/05/20 08:00 40 05/05/20 08:00 65 05/05/20 07:46 99.1 73 18 137/78 (97) 100 05/05/20 07:34 75 19 40 05/05/20 04:00 99.5 76 18 111/70 (84) 99 05/05/20 04:00 Mechanical Ventilator Mechanical Ventilator 05/05/20 04:00 81 05/05/20 03:56 40 05/05/20 03:04 72 18 40 05/05/20 00:00 Mechanical Ventilator Mechanical Ventilator 05/05/20 00:00 40 05/04/20 23:59 71 05/04/20 23:39 99.7 74 18 132/77 (95) 99 05/04/20 23:30 77 18 40 05/04/20 20:23 98.2 82 18 131/69 (89) 99 05/04/20 20:05 Mechanical Ventilator Mechanical Ventilator 05/04/20 20:00 40 05/04/20 20:00 71 05/04/20 19:50 79 18 40 05/04/20 16:00 99.1 79 18 127/67 (87) 99 05/04/20 16:00 40 05/04/20 16:00 Mechanical Ventilator Mechanical Ventilator 05/04/20 15:27 65 05/04/20 15:19 72 18 40 Intake and Output 05/04/20 05/05/20 19:00 07:00 Intake Total 635 ml 720 ml Output Total 510 ml 830 ml Balance 125 ml -110 ml IV Total 575 ml 600 ml Other 60 ml 120 ml Stool Total 20 ml 130 ml Gastric Drainage Total 120 ml Other 370 ml 700 ml # Bowel Movements 2 3 Laboratory Tests 05/05/20 03:40: White Blood Count 6.6, Red Blood Count 3.60L, Hemoglobin 11.0#L, Hematocrit 35.3L, Mean Corpuscular Volume 98#, Mean Corpuscular Hemoglobin 30.6, Mean Corpuscular Hemoglobin Concent 31.2L, Red Cell Distribution Width 14.9H, Platelet Count 210, Mean Platelet Volume 6.3L, Neutrophils (%) (Auto) 59.5, Lymphocytes (%) (Auto) 31.4, Monocytes (%) (Auto) 5.0, Eosinophils (%) (Auto) 3.4H, Basophils (%) (Auto) 0.8, Sodium Level 141, Potassium Level 3.1L, Chloride Level 107, Carbon Dioxide Level 27, Anion Gap 7, Blood Urea Nitrogen 6L , Creatinine 0.5L, Estimat Glomerular Filtration Rate > 60, Glucose Level 87, Calcium Level 8.1L 05/05/20 11:39: POC Whole Blood Glucose [Pending] Height (Feet): 5 Height (Inches): 7.00 Weight (Pounds): 195 Objective Debilitated AA woman NCAT (+) Trach coarse BS RR abd soft, ND no edema OBS Elizabeth Stevenson MD May 05, 2020 12:41
[2020-05-05] MEDS: D5W w/KCl 20mEq 1,000 ML IV SCH (13:05)
--- NOTE | 2020-05-05 15:39 | Internal Med Progress Note ---
Subjective Date of Service: May 05, 2020 Physician Name ChaKalin Attending Physician Jeyson Yanez MD Current Medications Medications (Trade) Dose Ordered Sig/Emanuel Route PRN Reason Start Time Stop Time Status Last Admin Dose Admin Acetaminophen (Tylenol) 500 mg Q4H PRN GT Pain Scale (3-5) 04/23/20 08:45 05/23/20 01:59 Acetaminophen (Tylenol) 650 mg THREE TIMES A DAY PRN GT FHMP 04/23/20 02:00 05/23/20 01:59 04/26/20 12:54 Artificial Tears (Akwa-Tears) 1 drop EVERY 12 HOURS BOTH EYES 05/03/20 21:00 05/23/20 08:59 05/05/20 09:08 Bisacodyl (Dulcolax) 10 mg DAILY PRN RECTAL Constipation 04/23/20 02:00 07/22/20 01:59 Dextrose (Dextrose 50%) 25 ml Q30M PRN IV Hypoglycemia 04/23/20 08:15 07/22/20 08:14 Dextrose (Dextrose 50%) 50 ml Q30M PRN IV Hypoglycemia 04/23/20 08:15 07/22/20 08:14 Dextrose/ Electrolytes 1,000 ml @ 50 mls/hr Q20H IV 04/29/20 18:00 05/29/20 17:59 05/05/20 13:05 Docusate Sodium (Colace) 250 mg DAILYPRN PRN GT CONSTIPATION 04/23/20 12:50 05/23/20 12:49 Insulin Aspart (NovoLOG) Q6HR SUBQ 04/25/20 12:00 07/24/20 11:59 04/28/20 05:57 Levetiracetam (Keppra) 1,000 mg Q12HR GT 04/23/20 21:00 05/23/20 08:59 05/05/20 09:04 Metoclopramide HCl (Reglan) 5 mg Q6HR IVP 05/04/20 18:00 06/03/20 17:59 05/05/20 11:55 Pantoprazole (Protonix) 40 mg Q12HR IVP 04/23/20 21:00 05/23/20 08:59 05/05/20 09:04 Phenytoin (Dilantin) 150 mg Q12HR GT 04/24/20 21:00 05/23/20 08:29 05/05/20 09:04 Sodium Phosphate (Fleet's Sodium Phosl Enema) 133 ml DAILY PRN RECTAL CONSTIPATION 04/23/20 02:00 05/23/20 01:59 Sorbitol (sorbitoL) 30 ml DAILYPRN PRN GT constipation 04/23/20 08:15 05/23/20 08:14 Zinc Sulfate (Zinc Sulfate) 220 mg DAILY GT 04/23/20 09:00 07/22/20 08:59 05/05/20 09:04 Allergies: Coded Allergies: No Known Allergies (Unverified , 02/08/13) ROS Limited/Unobtainable: Yes Subjective 59 YO F admitted with fever, now Sepsis and pneumonia. Cover for Int Benny-Dr Yanez. Step down unit. [facility] Vent Objective Last Vital Signs Date Time Temp Pulse Resp B/P (MAP) Pulse Ox O2 Delivery O2 Flow Rate FiO2 05/05/20 14:29 77 20 40 05/05/20 12:00 99.3 128/74 (92) 99 05/05/20 12:00 Mechanical Ventilator Mechanical Ventilator Laboratory Tests Test 05/05/20 03:40 05/05/20 11:39 White Blood Count 6.6 K/UL (4.8-10.8) Red Blood Count 3.60 M/UL (4.20-5.40) L Hemoglobin 11.0 G/DL (12.0-16.0) #L Hematocrit 35.3 % (37.0-47.0) L Mean Corpuscular Volume 98 FL (80-99) # Mean Corpuscular Hemoglobin 30.6 PG (27.0-31.0) Mean Corpuscular Hemoglobin Concent 31.2 G/DL (32.0-36.0) L Red Cell Distribution Width 14.9 % (11.6-14.8) H Platelet Count 210 K/UL (150-450) Mean Platelet Volume 6.3 FL (6.5-10.1) L Neutrophils (%) (Auto) 59.5 % (45.0-75.0) Lymphocytes (%) (Auto) 31.4 % (20.0-45.0) Monocytes (%) (Auto) 5.0 % (1.0-10.0) Eosinophils (%) (Auto) 3.4 % (0.0-3.0) H Basophils (%) (Auto) 0.8 % (0.0-2.0) Sodium Level 141 MMOL/L (136-145) Potassium Level 3.1 MMOL/L (3.5-5.1) L Chloride Level 107 MMOL/L (98-107) Carbon Dioxide Level 27 MMOL/L (21-32) Anion Gap 7 mmol/L (5-15) Blood Urea Nitrogen 6 mg/dL (7-18) L Creatinine 0.5 MG/DL (0.55-1.30) L Estimat Glomerular Filtration Rate > 60 mL/min (>60) Glucose Level 87 MG/DL (74-106) Calcium Level 8.1 MG/DL (8.5-10.1) L POC Whole Blood Glucose Pending Intake and Output 05/04/20 05/05/20 19:00 07:00 Intake Total 635 ml 720 ml Output Total 510 ml 830 ml Balance 125 ml -110 ml IV Total 575 ml 600 ml Other 60 ml 120 ml Stool Total 20 ml 130 ml Gastric Drainage Total 120 ml Other 370 ml 700 ml # Bowel Movements 2 3 Objective PHYSICAL EXAMINATION: GENERAL: Patient is a thin-appearing female, who is intubated and sedated. HEENT: Eyes, pupils are equal and responsive to light and accommodation. Extraocular movements are intact. NECK: Supple without lymphadenopathy. Tracheostomy is in place. CHEST: Mech vent; Coarse breath sounds bilateral bases otherwise without wheezes or rales. CARDIOVASCULAR: Tachycardic, regular rhythm. S1, S2 normal without murmurs, rubs, or gallops. ABDOMEN: Soft, nontender, nondistended. Positive bowel sounds. No evidence of hepatosplenomegaly. Currently, no rebound or guarding noted. EXTREMITIES: Negative for clubbing, cyanosis, or edema. RECTAL/GENITAL: Not performed. NEUROLOGIC: Cranial nerves II through XII are grossly intact without focal deficits. Assessment/Plan Assessment/Plan ASSESSMENT: This is a 59-year-old female. 1. pneumonia=acenitobacter (MDR), pseudamonas and providencia 2. sepsis=coag neg staph 3. Chronic respiratory failure. 4. Chronic obstructive pulmonary disease. 5. Quadriplegia. 6. History of dysphagia. 7. Diabetes type 2. 8. Seizure disorder. 9. History of gastrointestinal hemorrhage. 10. Erosive gastritis. 11. Schizophrenia. 12. Gastroesophageal reflux disease. 13. Neurogenic bladder. 14. Stage IV sacral decubitus ulcer. 15. New venous thrombosis left basilic vein secondary to PICC 16. Ogile's syndrome (bowel dysmotility) TREATMENT: 1. Fever/sepsis. A Pulmonary Critical Care consultation has been obtained with Dr. Luis Garcia. ABX= levaquin; S/P vancomycin and cefepime. We will follow recommendations of Pulmonary. Infectious disease=Dr Peoples 2. Chronic vent dependence/chronic respiratory failure. As above, a Pulmonary consultation has been obtained with Dr. Luis Garcia. We will follow recommendations of Pulmonary. 3. Seizure disorder. Continue Keppra and Dilantin as above. 4. Diabetes type 2. NovoLog sliding scale has been instituted. 5. Chronic obstructive pulmonary disease. As above, a Pulmonary consultation has been obtained with Dr. Luis Garcia. We will follow recommendations of Pulmonary. 6. History of gastrointestinal hemorrhage/erosive gastritis. Patient has been placed on Protonix. 7. Schizophrenia, not otherwise specified. 8. Gastroesophageal reflux disease. 9. Neurogenic bladder. 10. Stage IV sacral decubitus ulcer. 11. History of deep venous thrombosis. 12. Discharge planning: [facility] 13. D/C PICC 14. Contineu Rectal tube per GI=Kalin Rosario MD May 05, 2020 15:39
[2020-05-05 16:00] VITALS: BP 134/87
--- NOTE | 2020-05-05 17:10 | Nephrology Progress Note ---
Assessment/Plan Problem List: (1) Electrolyte imbalance Assessment: Hypernatremia (2) Dehydration (3) Diabetes mellitus (4) Spastic quadriplegic cerebral palsy (5) Chronic respiratory failure (6) Sepsis Assessment: UTI (7) Sacral decubitus ulcer Assessment Dehydration, prerenal azotemia, free water deficit, hypernatremia Sepsis, UTI Chronic respiratory failure, status post tracheostomy Sacral decubitus ulcer Chronic seizure disorder PEG Diabetes mellitus Spastic quadriplegic cerebral palsy Plan May 05: Today's labs reviewed. Potassium supplement IV given. Continue per consultants. May 04: Today's labs still pending. Continue to monitor renal parameters. Continue per consultants. May 03: Labs reviewed. Stable from renal standpoint of view. Continue per consultants. May 02: Stable from renal standpoint to view. Continue per consultants. May 01: Status quo. Stable from renal standpoint of view. April 30: More potassium IV given. DC Ding catheter. Patient has functioning bilateral nephrostomy. Discussed with RN. April 29: More potassium IV chloride given. Remains stable from renal standpoint of view April 28: Stable from renal standpoint of view. Continue per consultants. April 27: IV potassium chloride ordered. IV fluid adjusted. Increase D5W to 75 cc an hour. Potassium supplement IV . Continue to monitor renal parameters and electrolytes Monitor Dilantin level, adjust the dose corrected for low albumin Monitor electrolytes and renal parameters Increase Protonix to every 12 hours Keep the blood sugar in check Per orders Patient is full code Subjective ROS Limited/Unobtainable: Yes Objective Objective Last 24 Hour Vital Signs Date Time Temp Pulse Resp B/P (MAP) Pulse Ox O2 Delivery O2 Flow Rate FiO2 05/05/20 16:00 Mechanical Ventilator Mechanical Ventilator 05/05/20 16:00 99.3 75 18 134/87 (103) 99 05/05/20 16:00 40 05/05/20 16:00 66 05/05/20 14:29 77 20 40 05/05/20 12:00 40 05/05/20 12:00 99.3 76 18 128/74 (92) 99 05/05/20 12:00 75 05/05/20 12:00 Mechanical Ventilator Mechanical Ventilator 05/05/20 11:42 72 18 40 05/05/20 08:00 Mechanical Ventilator Mechanical Ventilator 05/05/20 08:00 40 05/05/20 08:00 65 05/05/20 07:46 99.1 73 18 137/78 (97) 100 05/05/20 07:34 75 19 40 05/05/20 04:00 99.5 76 18 111/70 (84) 99 05/05/20 04:00 Mechanical Ventilator Mechanical Ventilator 05/05/20 04:00 81 05/05/20 03:56 40 05/05/20 03:04 72 18 40 05/05/20 00:00 Mechanical Ventilator Mechanical Ventilator 05/05/20 00:00 40 05/04/20 23:59 71 05/04/20 23:39 99.7 74 18 132/77 (95) 99 05/04/20 23:30 77 18 40 05/04/20 20:23 98.2 82 18 131/69 (89) 99 05/04/20 20:05 Mechanical Ventilator Mechanical Ventilator 05/04/20 20:00 40 05/04/20 20:00 71 05/04/20 19:50 79 18 40 Intake and Output 05/04/20 05/05/20 19:00 07:00 Intake Total 635 ml 720 ml Output Total 510 ml 830 ml Balance 125 ml -110 ml IV Total 575 ml 600 ml Other 60 ml 120 ml Stool Total 20 ml 130 ml Gastric Drainage Total 120 ml Other 370 ml 700 ml # Bowel Movements 2 3 Laboratory Tests 05/05/20 03:40: White Blood Count 6.6, Red Blood Count 3.60L, Hemoglobin 11.0#L, Hematocrit 35.3L, Mean Corpuscular Volume 98#, Mean Corpuscular Hemoglobin 30.6, Mean Corpuscular Hemoglobin Concent 31.2L, Red Cell Distribution Width 14.9H, Platelet Count 210, Mean Platelet Volume 6.3L, Neutrophils (%) (Auto) 59.5, Lymphocytes (%) (Auto) 31.4, Monocytes (%) (Auto) 5.0, Eosinophils (%) (Auto) 3.4H, Basophils (%) (Auto) 0.8, Sodium Level 141, Potassium Level 3.1L, Chloride Level 107, Carbon Dioxide Level 27, Anion Gap 7, Blood Urea Nitrogen 6L , Creatinine 0.5L, Estimat Glomerular Filtration Rate > 60, Glucose Level 87, Calcium Level 8.1L 05/05/20 11:39: POC Whole Blood Glucose [Pending] 05/05/20 16:39: POC Whole Blood Glucose 83 Height (Feet): 5 Height (Inches): 7.00 Weight (Pounds): 195 General Appearance: no apparent distress EENT: other - Trach and vent Cardiovascular: normal rate Respiratory/Chest: decreased breath sounds Abdomen: distended Objective No change Caleb Reese MD May 05, 2020 17:10
--- NOTE | 2020-05-05 18:51 | NUR ---
NURSE NOTES: Called and spoke with Dr. Eubanks via telephone regarding treatment clarification for positive thrombosed left upper extremity per extremity venous study done on 05/02/2020, study report reviewed with Dr. Eubanks. Patient currently not on any anticoagulant therapy at this time. Dr. Eubanks acknowledged and ordered Heparin 5,000 units SQ BID. Noted, Dr. Eubanks aware of patient history of gastrointestinal hemorrhage. Acknowledged. Order entered, noted, and carried out. Charge nurse aware. Endorsed accordingly. Will continue to monitor patient. Addendum: 05/05/20 at 1949 by NAVI HIDALGO RN NURSE NOTES: Addendum: No active bleeding noted at this time. Will continue to monitor patient.
--- NOTE | 2020-05-05 19:28 | NUR ---
HAND-OFF: Report given to Pratima Shoemaker RN.
--- NOTE | 2020-05-05 19:29 | NUR ---
NURSE NOTES: received pt from Erick BARKER., pt is awake, resting on the bed, opens eye, and obtunded. pt has trach vent, O2sat is at 100%. no SOB noted. Gtube site is connected with drainage back to gravity. bilateral nephrostomy bag noted. right hand 24G IV site intact, clean, and patent. side rails are padded. D5@ 20KCL is running at 50ml/hr. bed at the lowest position, alarmed, and lock. call light within reach. will continue to monitor pt with plan of care.
[2020-05-05 20:00] VITALS: BP 125/77
[2020-05-05] MEDS: Heparin 5000 units/ml inj SUBQ SCH (21:06)
--- NOTE | 2020-05-05 22:59 | NUR ---
HAND-OFF: Report given to Erick Mayer RN., pt is stable condition, endorsed plan of care.no active bleeding noted.
--- NOTE | 2020-05-05 23:00 | NUR ---
NURSE NOTES: Pt report received from So RI RN. pt remains stable. pt is is obtunded neuro porras, however, no acute abnormalities neuro porras. pt is trach vented, sating at 99% O2 no acute resp distress noted. pt is on ampoule examiner, showing NSR, no acute cardiac distress noted. pt bed is low, locked, armed, call light within reach, bed rails up times 3. will follow plan of care.
[2020-05-06] VITALS: BP 119/75
[2020-05-06] MEDS: Metoclopramide 10mg/2ml Inj IVP SCH ×3 (00:29→13:12)
[2020-05-06 04:00] VITALS: BP 127/79
[2020-05-06] MEDS: NovoLOG Insulin Flexpen SUBQ SCH ×4 (05:50→17:50)
[2020-05-06 06:18] LABS: BASOPHILS % (AUTO) 0.8 % (0.0-2.0); HEMATOCRIT 32.4 % (37.0-47.0); HEMOGLOBIN 10.1 G/DL (12.0-16.0); LYMPHOCYTES % (AUTO) 35.1 % (20.0-45.0); MEAN CORPUSCULAR VOLUME 97 FL (80-99); MONOCYTES % (AUTO) 7.5 % (1.0-10.0); NEUTROPHILS % (AUTO) 51.6 % (45.0-75.0); PLATELET COUNT 186 K/UL (150-450); RED BLOOD COUNT 3.34 M/UL (4.20-5.40); RED CELL DISTRIBUTION WIDTH 14.8 % (11.6-14.8); WHITE BLOOD COUNT 5.3 K/UL (4.8-10.8)
[2020-05-06 06:22] LABS: ANION GAP 7 mmol/L (5-15); BLOOD UREA NITROGEN 5 mg/dL (7-18); CALCIUM 7.8 MG/DL (8.5-10.1); CARBON DIOXIDE 26 MMOL/L (21-32); CHLORIDE 104 MMOL/L (98-107); CREATININE 0.6 MG/DL (0.55-1.30); POTASSIUM 4.6 MMOL/L (3.5-5.1); SODIUM 137 MMOL/L (136-145)
--- NOTE | 2020-05-06 07:10 | NUR ---
HAND-OFF: Report given to JAZIEL BARKER. Pt remains stable.
--- NOTE | 2020-05-06 07:25 | NUR ---
NURSE NOTES: Received report from LUCERO Suarez. Patient SR with HR 78, obtundent, open eyes spontaneously. Patient on Trach to Vent Portex 7 AC 18, TV 450, Fio2 40%, PEEP 5 O2 sat 100%. Endorsed NPO status, IV on right hand 20G, asymptomatic, patent, intact. IVF D5W 20mEq KCl running at prescribed rate 50ml/h. Bilateral nephrostomy draining well to gravity, rectal tube draining well to gravity. Bed in lowest position, side rails upx3, call light within reach, bed alarm on. Contact isolation observed. Will continue to monitor.
--- NOTE | 2020-05-06 07:44 | Consultation ---
DATE OF CONSULTATION: 05/04/2020 CHIEF COMPLAINT: I was asked to see this patient by Dr. Jeyson Yanez for evaluation of abdominal distention. HISTORY OF PRESENT ILLNESS: The patient is an unfortunate 59-year-old woman with multiple medical problems including history of coma, resulting in long-term ventilator support with spastic quadriplegia, tracheostomy, and gastrostomy tube placement, who was in the hospital due to fever and shortness of breath and tachycardia. During the course of admission, the patient's abdominal exam has been noticed to be distended, and a CT scan was done showing colonic dilation. There was a concern about a possible volvulus on initial KUB films, but this was not definitively seen on the x-rays. The patient herself is unable to provide any history and most of the information is, therefore, only available from the chart. The patient has an extensive past medical history, which is summarized below. PAST MEDICAL HISTORY: History of gastroesophageal reflux disease, type 2 diabetes, COPD, gastrointestinal bleeding, neurogenic bladder, stage IV sacral decubitus ulcers, schizoaffective disorder, history of suicide attempt resulting in brain injury and coma, status post tracheostomy, status post gastrostomy, spastic quadriplegia, obesity, bilateral nephrostomy tubes, seizure disorder, bedbound state. FAMILY HISTORY: Unavailable. SOCIAL HISTORY: The patient is a long-term [facility] resident for years. REVIEW OF SYSTEMS: Unobtainable. PHYSICAL EXAMINATION: GENERAL: A debilitated, unresponsive woman seen in her room. HEENT: Normocephalic, atraumatic. NECK: Tracheostomy. CHEST: Coarse breath sounds. CARDIAC: Regular rate. ABDOMEN: Distended but soft and without masses. EXTREMITIES: Contracture deformities. RECTAL: Empty rectal vault. A 7-Occitan Ding catheter was used as a rectal decompression tube and was placed with a nursing home director and taped in place with resultant air into the drainage bag. 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 This could be due to her quadriplegia, now worsened with her acute illness. The colonic decompression tube can be left for the time being to gravity with water flushes. Once overall health improves, it can be removed and a general bowel regimen on a long-term basis can be instituted. I do not see a volvulus in this scenario as the belly is soft and the CT scan is also not suggestive. RECOMMENDATIONS: 1. Rectal tube to gravity. 2. Flush rectal tube around the clock. 3. We will monitor abdominal exam. 4. Long-term bowel regimen. Thank you for asking me to participate in the care of this patient. Elizabeth Stevenson M.D. DR: STEF JOB#: [id number] CC: ANTONIO
[2020-05-06 08:00] VITALS: BP 138/66
--- NOTE | 2020-05-06 08:03 | Nephrology Progress Note ---
Assessment/Plan Problem List: (1) Electrolyte imbalance Assessment: Hypernatremia (2) Dehydration (3) Diabetes mellitus (4) Spastic quadriplegic cerebral palsy (5) Chronic respiratory failure (6) Sepsis Assessment: UTI (7) Sacral decubitus ulcer Assessment Dehydration, prerenal azotemia, free water deficit, hypernatremia Sepsis, UTI Chronic respiratory failure, status post tracheostomy Sacral decubitus ulcer Chronic seizure disorder PEG Diabetes mellitus Spastic quadriplegic cerebral palsy Plan May 06: Today's labs reviewed. Stable from renal standpoint of view. May 05: Today's labs reviewed. Potassium supplement IV given. Continue per consultants. May 04: Today's labs still pending. Continue to monitor renal parameters. Continue per consultants. May 03: Labs reviewed. Stable from renal standpoint of view. Continue per consultants. May 02: Stable from renal standpoint to view. Continue per consultants. May 01: Status quo. Stable from renal standpoint of view. April 30: More potassium IV given. DC Ding catheter. Patient has functioning bilateral nephrostomy. Discussed with RN. April 29: More potassium IV chloride given. Remains stable from renal standpoint of view April 28: Stable from renal standpoint of view. Continue per consultants. April 27: IV potassium chloride ordered. IV fluid adjusted. Increase D5W to 75 cc an hour. Potassium supplement IV . Continue to monitor renal parameters and electrolytes Monitor Dilantin level, adjust the dose corrected for low albumin Monitor electrolytes and renal parameters Increase Protonix to every 12 hours Keep the blood sugar in check Per orders Patient is full code Subjective ROS Limited/Unobtainable: Yes Objective Objective Last 24 Hour Vital Signs Date Time Temp Pulse Resp B/P (MAP) Pulse Ox O2 Delivery O2 Flow Rate FiO2 05/06/20 07:05 69 18 40 05/06/20 04:00 Mechanical Ventilator Mechanical Ventilator 05/06/20 04:00 40 05/06/20 04:00 99.4 78 18 127/79 (95) 100 05/06/20 03:39 71 18 40 05/06/20 03:34 69 05/06/20 00:00 40 05/06/20 00:00 99.7 81 18 119/75 (90) 100 05/06/20 00:00 Mechanical Ventilator Mechanical Ventilator 05/06/20 00:00 72 05/05/20 23:05 71 18 40 05/05/20 20:00 40 05/05/20 20:00 99.5 77 18 125/77 (93) 100 05/05/20 20:00 Mechanical Ventilator Mechanical Ventilator 05/05/20 19:21 71 05/05/20 19:13 70 18 40 05/05/20 16:00 Mechanical Ventilator Mechanical Ventilator 05/05/20 16:00 99.3 75 18 134/87 (103) 99 05/05/20 16:00 40 05/05/20 16:00 66 05/05/20 14:29 77 20 40 05/05/20 12:00 40 05/05/20 12:00 99.3 76 18 128/74 (92) 99 05/05/20 12:00 75 05/05/20 12:00 Mechanical Ventilator Mechanical Ventilator 05/05/20 11:42 72 18 40 Intake and Output 05/05/20 05/06/20 19:00 07:00 Intake Total 650 ml 650 ml Output Total 950 ml 1090 ml Balance -300 ml -440 ml IV Total 550 ml 550 ml Other 100 ml 100 ml Stool Total 100 ml 110 ml Gastric Drainage Total 250 ml 280 ml Other 600 ml 700 ml # Bowel Movements 3 Laboratory Tests 05/05/20 11:39: POC Whole Blood Glucose [Pending] 05/05/20 16:39: POC Whole Blood Glucose 83 05/06/20 03:32: White Blood Count 5.3, Red Blood Count 3.34L, Hemoglobin 10.1L, Hematocrit 32.4L , Mean Corpuscular Volume 97, Mean Corpuscular Hemoglobin 30.1, Mean Corpuscular Hemoglobin Concent 31.0L, Red Cell Distribution Width 14.8, Platelet Count 186, Mean Platelet Volume 7.2, Neutrophils (%) (Auto) 51.6, Lymphocytes (%) (Auto) 35.1, Monocytes (%) (Auto) 7.5, Eosinophils (%) (Auto) 5.0H, Basophils (%) (Auto) 0.8, Sodium Level 137, Potassium Level 4.6, Chloride Level 104, Carbon Dioxide Level 26, Anion Gap 7, Blood Urea Nitrogen 5L, Creatinine 0.6, Estimat Glomerular Filtration Rate > 60, Glucose Level 331#H, Calcium Level 7.8L 05/06/20 05:27: POC Whole Blood Glucose 85 Height (Feet): 5 Height (Inches): 7.00 Weight (Pounds): 195 General Appearance: no apparent distress EENT: other - Trach and vent Cardiovascular: tachycardia Respiratory/Chest: decreased breath sounds Abdomen: distended Objective No change Caleb Reese MD May 06, 2020 08:03
--- NOTE | 2020-05-06 08:41 | NUR ---
RD ASSESSMENT & RECOMMENDATIONS SEE CARE ACTIVITY FOR COMPLETE ASSESSMENT DAILY ESTIMATED NEEDS: Needs based on Critical care, DM, sepsis, wound 66.7kg abw 25-30 kcals/kg total kcals 1.25-2 g protein/kg 83-133 g total protein 25-30 mL/kg total fluid mLs NUTRITION DIAGNOSIS: * Swallowing difficulty r/t resp status as evidenced by pt is trach and PEG dep. * Increased kcal/prot/micronutrients needs R/T wound healing as evidenced by pt admitted w/ stage 4 sacral wound. CURRENT TF: NPO ENTERAL NUTRITION RECOMMENDATIONS: Glucerna 1.2 @75ml/hr x20 hrs (on Dilantin BID) to provide 1500ml, 1800 kcal, 90g pro, 1208ml free h2o - As medically able, start TF @25ml/hr for 6 hrs, advance as tolerated 10ml/hr q4-6 hrs to goal. - Flush per MD/ HOB over 30 degrees. - Hold 1 hr before and after Dilantin, TF to run max 20 hrs. - TF at goal meets DRI's, no need for added MVI when TF is at goal. ADDITIONAL RECOMMENDATIONS: 1) Obtain an accurate Height as able: 5'7" per EMR, 6'1" per SNF. April 01, 2020 wt per SNF: 182 lbs/82.73kg 2) F/up w/ WC eval-> stage 4 sacral Add CEM BID via GT, Vit C 500mg BID, con't Zn SO4 3) Increase water flushes as Na is trending up-> now wnl 4) Monitor lytes, replete as needed.
[2020-05-06] MEDS: Pantoprazole Inj IVP SCH (08:47)
[2020-05-06] MEDS: levETIRAcetam 500mg/5ml Liquid GT SCH (08:47)
[2020-05-06] MEDS: Phenytoin Susp 100mg/4ml GT SCH (08:47)
[2020-05-06] MEDS: Zinc Sulfate 220mg GT SCH (08:48)
[2020-05-06] MEDS: Acetaminophen 650mg/20.3ml GT PRN ×2 (08:48→13:12)
[2020-05-06] MEDS: Heparin 5000 units/ml inj SUBQ SCH (08:50)
[2020-05-06] MEDS: D5W w/KCl 20mEq 1,000 ML IV SCH (09:01)
[2020-05-06 09:17] LABS: ALANINE AMINOTRANSFERASE 20 U/L (12-78); ALBUMIN 2.2 G/DL (3.4-5.0); ALKALINE PHOSPHATASE 181 U/L (46-116); ASPARTATE AMINO TRANSFERASE 43 U/L (15-37); BILIRUBIN,DIRECT < 0.1 MG/DL (0.0-0.3); BILIRUBIN,TOTAL 0.2 MG/DL (0.2-1.0); PHOSPHORUS 2.6 MG/DL (2.5-4.9)
--- NOTE | 2020-05-06 09:24 | NUR ---
RADIOLOGY DEPT., CHEST X-RAY DONE.-P.DYE
--- NOTE | 2020-05-06 10:20 | NUR ---
NURSE NOTES: Per Dr. Stevenson, start tube feeding Glucerna 1.2 from 30ml/h, titrate up to 75ml/h if tolerated, Continue IVF at this time.
--- NOTE | 2020-05-06 10:54 | Infectious Diseases Prog Note ---
Assessment/Plan Assessment: Severe sepsis- ?source- ?early pNA vs tracheitis Cons bacteremia- suspect contaminant -04/22 Bcx 1/ CONS; 04/24, Bcx Neg Hyperthermia (up to 105 upon admission); SP - COVID19 neg x3 Leukocytosis, SP -05/02 CXR: No acute process -04/29 CXR: no acute process -04/27 CXR: Mild central vascular congestion. SARS-COV2 PCR neg -04/26 sp cx MDR ABC (s levaquin), PsA (R Levaquin; otherwise S), P.stuarti ( I Levaquin; R ancef, AMp, Gentamycin) -04/25 CXR: no acute diseae -04/23 SARS-COV2 PCR neg -04/22 CXR: no acute disease -u/a wbc 20-30, nit neg, leuk +3; ucx 30-40k mixed gram positive organisms -rapid COVID test neg -V. duplex no DVT Lactic acidosis, SP GABRIELLE, SP Elevated LFTs; SP -HIV ab sc neg, Acute hep panel neg -Abd US: GALLSTONE. MILDLY PROMINENT CBD BUT MAY BE NORMAL FOR AGE. BILATERAL URETERAL STENTS. NO HYDRONEPHROSIS. POSSIBLE SMALL BILATERAL RENAL STONES. MIDLINE STRUCTURES INCLUDING PANCREAS, AORTA AND CAVA NOT OPTIMALLY VISUALIZED DUE TO BOWEL GAS. -05/02 CT Abd: Nonobstructing renal stones both kidneys with bilateral hydronephrosis and fat stranding about the renal collecting systems with bilateral percutaneous nephrostomy tubes in place. Correlation is recommended to ensure tube patency. Pyelonephritis can produce a similar appearance. Mild constipation with mild colonic ileus. L UE PICC line associated thrombosis -v. duplex: Positive for thrombosed left upper extremity basilic vein, which contains a PICC. -05/02 SP PICC Line removal GERD DM2 COPD GIB neurogenic bladder stage IV sacral decubitus ulcer paranoid schizoaffective disorder suicide attempt in 2003 progressing to coma and requiring [facility] ventilator support spatic quadriplegia obesity b/l nephrostomy tubes 2018 seizure disorder chronic resp failure s/p trach dependent dysphagia s/p GT HI resident ([facility]) Plan: monitor off abx -05/04 SP PO Levaquin #7/ for MDR ABC in sputum -04/28 SP IV Vancomycin #6, Cefepime #6 -04/23 SP Ertapenem x1 -f/u cx -Monitor CBC/CMP, temperatures -f/u BCx x2, sp cx -COVID19 neg x3 (1 rapid, 2 NAAT);ok to dc isolation; afebrile >72hrs -PEG/trach care -aspiration precautions -wound care per hospital protocol NOEL RN Thank you for consulting [facility]. Will continue to follow along with you. Subjective Allergies: Coded Allergies: No Known Allergies (Unverified , 02/08/13) afebrile no leukocytosis now off abx thrombosis where patient has PICC Line Objective Last 24 Hour Vital Signs Date Time Temp Pulse Resp B/P (MAP) Pulse Ox O2 Delivery O2 Flow Rate FiO2 05/06/20 09:18 99.1 05/06/20 08:00 99.5 77 18 138/66 (90) 100 05/06/20 08:00 Mechanical Ventilator Mechanical Ventilator 05/06/20 08:00 40 05/06/20 08:00 59 05/06/20 07:05 69 18 40 05/06/20 04:00 Mechanical Ventilator Mechanical Ventilator 05/06/20 04:00 40 05/06/20 04:00 99.4 78 18 127/79 (95) 100 05/06/20 03:39 71 18 40 05/06/20 03:34 69 05/06/20 00:00 40 05/06/20 00:00 99.7 81 18 119/75 (90) 100 05/06/20 00:00 Mechanical Ventilator Mechanical Ventilator 05/06/20 00:00 72 05/05/20 23:05 71 18 40 05/05/20 20:00 40 05/05/20 20:00 99.5 77 18 125/77 (93) 100 05/05/20 20:00 Mechanical Ventilator Mechanical Ventilator 05/05/20 19:21 71 05/05/20 19:13 70 18 40 05/05/20 16:00 Mechanical Ventilator Mechanical Ventilator 05/05/20 16:00 99.3 75 18 134/87 (103) 99 05/05/20 16:00 40 05/05/20 16:00 66 05/05/20 14:29 77 20 40 05/05/20 12:00 40 05/05/20 12:00 99.3 76 18 128/74 (92) 99 05/05/20 12:00 75 05/05/20 12:00 Mechanical Ventilator Mechanical Ventilator 05/05/20 11:42 72 18 40 Height (Feet): 5 Height (Inches): 7.00 Weight (Pounds): 195 GENERAL: Patient is a thin-appearing female, who is intubated and sedated. HEENT: Eyes, pupils are equal and responsive to light and accommodation. Extraocular movements are intact. NECK: Supple without lymphadenopathy. Tracheostomy is in place. CHEST: Coarse breath sounds bilateral bases otherwise without wheezes or rales. CARDIOVASCULAR: Tachycardic, regular rhythm. S1, S2 normal without murmurs, rubs, or gallops. ABDOMEN: Soft, nontender, nondistended. Positive bowel sounds. No evidence of hepatosplenomegaly. Currently, no rebound or guarding noted. EXTREMITIES: Negative for clubbing, cyanosis, or edema. Laboratory Tests Test 05/05/20 11:39 05/05/20 16:39 05/06/20 03:32 05/06/20 05:27 POC Whole Blood Glucose Pending 83 MG/DL (74-106) 85 MG/DL (74-106) White Blood Count 5.3 K/UL (4.8-10.8) Red Blood Count 3.34 M/UL (4.20-5.40) L Hemoglobin 10.1 G/DL (12.0-16.0) L Hematocrit 32.4 % (37.0-47.0) L Mean Corpuscular Volume 97 FL (80-99) Mean Corpuscular Hemoglobin 30.1 PG (27.0-31.0) Mean Corpuscular Hemoglobin Concent 31.0 G/DL (32.0-36.0) L Red Cell Distribution Width 14.8 % (11.6-14.8) Platelet Count 186 K/UL (150-450) Mean Platelet Volume 7.2 FL (6.5-10.1) Neutrophils (%) (Auto) 51.6 % (45.0-75.0) Lymphocytes (%) (Auto) 35.1 % (20.0-45.0) Monocytes (%) (Auto) 7.5 % (1.0-10.0) Eosinophils (%) (Auto) 5.0 % (0.0-3.0) H Basophils (%) (Auto) 0.8 % (0.0-2.0) Sodium Level 137 MMOL/L (136-145) Potassium Level 4.6 MMOL/L (3.5-5.1) Chloride Level 104 MMOL/L (98-107) Carbon Dioxide Level 26 MMOL/L (21-32) Anion Gap 7 mmol/L (5-15) Blood Urea Nitrogen 5 mg/dL (7-18) L Creatinine 0.6 MG/DL (0.55-1.30) Estimat Glomerular Filtration Rate > 60 mL/min (>60) Glucose Level 331 MG/DL (74-106) #H Calcium Level 7.8 MG/DL (8.5-10.1) L Phosphorus Level 2.6 MG/DL (2.5-4.9) Magnesium Level 1.7 MG/DL (1.8-2.4) L Total Bilirubin 0.2 MG/DL (0.2-1.0) Direct Bilirubin < 0.1 MG/DL (0.0-0.3) Aspartate Amino Transf (AST/SGOT) 43 U/L (15-37) H Alanine Aminotransferase (ALT/SGPT) 20 U/L (12-78) Alkaline Phosphatase 181 U/L (46-116) H Total Protein 7.8 G/DL (6.4-8.2) Albumin 2.2 G/DL (3.4-5.0) L Current Medications Medications (Trade) Dose Ordered Sig/Emanuel Route PRN Reason Start Time Stop Time Status Last Admin Dose Admin Acetaminophen (Tylenol) 500 mg Q4H PRN GT Pain Scale (3-5) 04/23/20 08:45 05/23/20 01:59 Acetaminophen (Tylenol) 650 mg THREE TIMES A DAY PRN GT FHMP 04/23/20 02:00 05/23/20 01:59 05/06/20 08:48 Artificial Tears (Akwa-Tears) 1 drop EVERY 12 HOURS BOTH EYES 05/03/20 21:00 05/23/20 08:59 05/06/20 08:50 Bisacodyl (Dulcolax) 10 mg DAILY PRN RECTAL Constipation 04/23/20 02:00 07/22/20 01:59 Dextrose (Dextrose 50%) 25 ml Q30M PRN IV Hypoglycemia 04/23/20 08:15 07/22/20 08:14 Dextrose (Dextrose 50%) 50 ml Q30M PRN IV Hypoglycemia 04/23/20 08:15 07/22/20 08:14 Dextrose/ Electrolytes 1,000 ml @ 50 mls/hr Q20H IV 04/29/20 18:00 05/29/20 17:59 05/06/20 09:01 Docusate Sodium (Colace) 250 mg DAILYPRN PRN GT CONSTIPATION 04/23/20 12:50 05/23/20 12:49 Heparin Sodium (Porcine) (Heparin 5000 units/ml) 5,000 units EVERY 12 HOURS SUBQ 05/05/20 21:00 06/19/20 20:59 05/06/20 08:50 Insulin Aspart (NovoLOG) Q6HR SUBQ 04/25/20 12:00 07/24/20 11:59 04/28/20 05:57 Levetiracetam (Keppra) 1,000 mg Q12HR GT 04/23/20 21:00 05/23/20 08:59 05/06/20 08:47 Metoclopramide HCl (Reglan) 5 mg Q6HR IVP 05/04/20 18:00 06/03/20 17:59 05/06/20 05:51 Pantoprazole (Protonix) 40 mg Q12HR IVP 04/23/20 21:00 05/23/20 08:59 05/06/20 08:47 Phenytoin (Dilantin) 150 mg Q12HR GT 04/24/20 21:00 05/23/20 08:29 05/06/20 08:47 Sodium Phosphate (Fleet's Sodium Phosl Enema) 133 ml DAILY PRN RECTAL CONSTIPATION 04/23/20 02:00 05/23/20 01:59 Sorbitol (sorbitoL) 30 ml DAILYPRN PRN GT constipation 04/23/20 08:15 05/23/20 08:14 Zinc Sulfate (Zinc Sulfate) 220 mg DAILY GT 04/23/20 09:00 07/22/20 08:59 05/06/20 08:48 Jayne Peoples M.D. May 06, 2020 10:54
--- NOTE | 2020-05-06 11:30 | Pulmonolgy Critical Care Note ---
Critical Care - Asmt/Plan Problems: (1) Sepsis (2) Ileus (3) Acute metabolic encephalopathy (4) Chronic respiratory failure (5) Acute prerenal azotemia (6) Sacral decubitus ulcer (7) Spastic quadriplegic cerebral palsy (8) Chronic vegetative state (9) Schizophrenia (10) Chronic seizure disorder (11) Diabetes mellitus (12) Feeding by G-tube Respiratory: monitor respiratory rate, adjust FIO2, CXR Cardiac: continue to monitor HR/BP Renal: F/U I&O, keep IV fluid, check electrolytes Infectious Disease: check cultures, continue antibiotics Gastrointestinal: continue feedings/current rate Endocrine: monitor blood sugar Hematologic: monitor H/H, transfuse if hgb<8.5 Neurologic: PRN Ativan, PRN Morphine, keep patient comfortable Affect: PRN ativan Disposition: keep in ICU Time Spent (Minutes): 40 Notes Reviewed: marketing information coordinator, cardio, renal Discussed with: nurses, consultants, correctional case records supervisorticket manager - Objective Last 24 Hour Vital Signs Date Time Temp Pulse Resp B/P (MAP) Pulse Ox O2 Delivery O2 Flow Rate FiO2 05/06/20 10:48 63 18 40 05/06/20 09:18 99.1 05/06/20 08:00 99.5 77 18 138/66 (90) 100 05/06/20 08:00 Mechanical Ventilator Mechanical Ventilator 05/06/20 08:00 40 05/06/20 08:00 59 05/06/20 07:05 69 18 40 05/06/20 04:00 Mechanical Ventilator Mechanical Ventilator 05/06/20 04:00 40 05/06/20 04:00 99.4 78 18 127/79 (95) 100 05/06/20 03:39 71 18 40 05/06/20 03:34 69 05/06/20 00:00 40 05/06/20 00:00 99.7 81 18 119/75 (90) 100 05/06/20 00:00 Mechanical Ventilator Mechanical Ventilator 05/06/20 00:00 72 05/05/20 23:05 71 18 40 05/05/20 20:00 40 05/05/20 20:00 99.5 77 18 125/77 (93) 100 05/05/20 20:00 Mechanical Ventilator Mechanical Ventilator 05/05/20 19:21 71 05/05/20 19:13 70 18 40 05/05/20 16:00 Mechanical Ventilator Mechanical Ventilator 05/05/20 16:00 99.3 75 18 134/87 (103) 99 05/05/20 16:00 40 05/05/20 16:00 66 05/05/20 14:29 77 20 40 05/05/20 12:00 40 05/05/20 12:00 99.3 76 18 128/74 (92) 99 05/05/20 12:00 75 05/05/20 12:00 Mechanical Ventilator Mechanical Ventilator 05/05/20 11:42 72 18 40 Status: awake Condition: critical HEENT: atraumatic Neck: full ROM Heart: HR/BP stable, regular Abdomen: soft, non-tender Extremities: no C/C/E Accucheck: 85 Critical Care - Subjective ROS Limited/Unobtainable: Yes Condition: critical EKG Rhythm: Sinus Rhythm FI02: 40 Vent Support Breath Rate: 18 Vent Support Mode: AC Vent Tidal Volume: 450 Sputum Amount: Scant PEEP: 5.0 PIP: 28 Tube Feeding Amount: 60 I&O: Intake and Output 05/05/20 05/06/20 19:00 07:00 Intake Total 650 ml 650 ml Output Total 950 ml 1090 ml Balance -300 ml -440 ml IV Total 550 ml 550 ml Other 100 ml 100 ml Stool Total 100 ml 110 ml Gastric Drainage Total 250 ml 280 ml Other 600 ml 700 ml # Bowel Movements 3 Labs: Laboratory Tests Test 05/05/20 11:39 05/05/20 16:39 05/06/20 03:32 05/06/20 05:27 POC Whole Blood Glucose Pending 83 MG/DL (74-106) 85 MG/DL (74-106) White Blood Count 5.3 K/UL (4.8-10.8) Red Blood Count 3.34 M/UL (4.20-5.40) L Hemoglobin 10.1 G/DL (12.0-16.0) L Hematocrit 32.4 % (37.0-47.0) L Mean Corpuscular Volume 97 FL (80-99) Mean Corpuscular Hemoglobin 30.1 PG (27.0-31.0) Mean Corpuscular Hemoglobin Concent 31.0 G/DL (32.0-36.0) L Red Cell Distribution Width 14.8 % (11.6-14.8) Platelet Count 186 K/UL (150-450) Mean Platelet Volume 7.2 FL (6.5-10.1) Neutrophils (%) (Auto) 51.6 % (45.0-75.0) Lymphocytes (%) (Auto) 35.1 % (20.0-45.0) Monocytes (%) (Auto) 7.5 % (1.0-10.0) Eosinophils (%) (Auto) 5.0 % (0.0-3.0) H Basophils (%) (Auto) 0.8 % (0.0-2.0) Sodium Level 137 MMOL/L (136-145) Potassium Level 4.6 MMOL/L (3.5-5.1) Chloride Level 104 MMOL/L (98-107) Carbon Dioxide Level 26 MMOL/L (21-32) Anion Gap 7 mmol/L (5-15) Blood Urea Nitrogen 5 mg/dL (7-18) L Creatinine 0.6 MG/DL (0.55-1.30) Estimat Glomerular Filtration Rate > 60 mL/min (>60) Glucose Level 331 MG/DL (74-106) #H Calcium Level 7.8 MG/DL (8.5-10.1) L Phosphorus Level 2.6 MG/DL (2.5-4.9) Magnesium Level 1.7 MG/DL (1.8-2.4) L Total Bilirubin 0.2 MG/DL (0.2-1.0) Direct Bilirubin < 0.1 MG/DL (0.0-0.3) Aspartate Amino Transf (AST/SGOT) 43 U/L (15-37) H Alanine Aminotransferase (ALT/SGPT) 20 U/L (12-78) Alkaline Phosphatase 181 U/L (46-116) H Total Protein 7.8 G/DL (6.4-8.2) Albumin 2.2 G/DL (3.4-5.0) Luis Darden MD May 06, 2020 11:30
--- NOTE | 2020-05-06 11:31 | General Progress Note ---
Assessment/Plan Assessment/Plan: Assessment - Colonic dysmotility/Ogilve's syndrome - good response to rectal decompression - Abnormal LFT, ? etiology -- likely due to dilantin - Resp failure / trach - dysphagia / GT - COPD - Sz disorder - encephalopathy - GERD - decubitus ulcer - nephrolithiasis Recommendations - continue rectal decompression - TF - follow labs and exam - roll side to side - bowel regimen Subjective Allergies: Coded Allergies: No Known Allergies (Unverified , 02/08/13) Subjective Above noted calm, NAD some liquid stool in rectal tube abd not distended Objective Last 24 Hour Vital Signs Date Time Temp Pulse Resp B/P (MAP) Pulse Ox O2 Delivery O2 Flow Rate FiO2 05/06/20 10:48 63 18 40 05/06/20 09:18 99.1 05/06/20 08:00 99.5 77 18 138/66 (90) 100 05/06/20 08:00 Mechanical Ventilator Mechanical Ventilator 05/06/20 08:00 40 05/06/20 08:00 59 05/06/20 07:05 69 18 40 05/06/20 04:00 Mechanical Ventilator Mechanical Ventilator 05/06/20 04:00 40 05/06/20 04:00 99.4 78 18 127/79 (95) 100 05/06/20 03:39 71 18 40 05/06/20 03:34 69 05/06/20 00:00 40 05/06/20 00:00 99.7 81 18 119/75 (90) 100 05/06/20 00:00 Mechanical Ventilator Mechanical Ventilator 05/06/20 00:00 72 05/05/20 23:05 71 18 40 05/05/20 20:00 40 05/05/20 20:00 99.5 77 18 125/77 (93) 100 05/05/20 20:00 Mechanical Ventilator Mechanical Ventilator 05/05/20 19:21 71 05/05/20 19:13 70 18 40 05/05/20 16:00 Mechanical Ventilator Mechanical Ventilator 05/05/20 16:00 99.3 75 18 134/87 (103) 99 05/05/20 16:00 40 05/05/20 16:00 66 05/05/20 14:29 77 20 40 05/05/20 12:00 40 05/05/20 12:00 99.3 76 18 128/74 (92) 99 05/05/20 12:00 75 05/05/20 12:00 Mechanical Ventilator Mechanical Ventilator 05/05/20 11:42 72 18 40 Intake and Output 05/05/20 05/06/20 19:00 07:00 Intake Total 650 ml 650 ml Output Total 950 ml 1090 ml Balance -300 ml -440 ml IV Total 550 ml 550 ml Other 100 ml 100 ml Stool Total 100 ml 110 ml Gastric Drainage Total 250 ml 280 ml Other 600 ml 700 ml # Bowel Movements 3 Laboratory Tests 05/05/20 11:39: POC Whole Blood Glucose [Pending] 05/05/20 16:39: POC Whole Blood Glucose 83 05/06/20 03:32: White Blood Count 5.3, Red Blood Count 3.34L, Hemoglobin 10.1L, Hematocrit 32.4L , Mean Corpuscular Volume 97, Mean Corpuscular Hemoglobin 30.1, Mean Corpuscular Hemoglobin Concent 31.0L, Red Cell Distribution Width 14.8, Platelet Count 186, Mean Platelet Volume 7.2, Neutrophils (%) (Auto) 51.6, Lymphocytes (%) (Auto) 35.1, Monocytes (%) (Auto) 7.5, Eosinophils (%) (Auto) 5.0H, Basophils (%) (Auto) 0.8, Sodium Level 137, Potassium Level 4.6, Chloride Level 104, Carbon Dioxide Level 26, Anion Gap 7, Blood Urea Nitrogen 5L, Creatinine 0.6, Estimat Glomerular Filtration Rate > 60, Glucose Level 331#H, Calcium Level 7.8L, Phosphorus Level 2.6, Magnesium Level 1.7L, Total Bilirubin 0.2, Direct Bilirubin < 0.1, Aspartate Amino Transf (AST/SGOT) 43H, Alanine Aminotransferase (ALT/SGPT) 20, Alkaline Phosphatase 181H, Total Protein 7.8, Albumin 2.2L 05/06/20 05:27: POC Whole Blood Glucose 85 Height (Feet): 5 Height (Inches): 7.00 Weight (Pounds): 195 Objective Debilitated AA woman NCAT (+) Trach coarse BS RR abd soft, ND no edema OBS Elizabeth Stevenson MD May 06, 2020 11:31
--- NOTE | 2020-05-06 11:53 | Surgery Progress Note ---
Surgery Progress Note Subjective Additional Comments CT noted abd exam improved no n/v/f/c Objective Last 24 Hour Vital Signs Date Time Temp Pulse Resp B/P (MAP) Pulse Ox O2 Delivery O2 Flow Rate FiO2 05/06/20 10:48 63 18 40 05/06/20 09:18 99.1 05/06/20 08:00 99.5 77 18 138/66 (90) 100 05/06/20 08:00 Mechanical Ventilator Mechanical Ventilator 05/06/20 08:00 40 05/06/20 08:00 59 05/06/20 07:05 69 18 40 05/06/20 04:00 Mechanical Ventilator Mechanical Ventilator 05/06/20 04:00 40 05/06/20 04:00 99.4 78 18 127/79 (95) 100 05/06/20 03:39 71 18 40 05/06/20 03:34 69 05/06/20 00:00 40 05/06/20 00:00 99.7 81 18 119/75 (90) 100 05/06/20 00:00 Mechanical Ventilator Mechanical Ventilator 05/06/20 00:00 72 05/05/20 23:05 71 18 40 05/05/20 20:00 40 05/05/20 20:00 99.5 77 18 125/77 (93) 100 05/05/20 20:00 Mechanical Ventilator Mechanical Ventilator 05/05/20 19:21 71 05/05/20 19:13 70 18 40 05/05/20 16:00 Mechanical Ventilator Mechanical Ventilator 05/05/20 16:00 99.3 75 18 134/87 (103) 99 05/05/20 16:00 40 05/05/20 16:00 66 05/05/20 14:29 77 20 40 05/05/20 12:00 40 05/05/20 12:00 99.3 76 18 128/74 (92) 99 05/05/20 12:00 75 05/05/20 12:00 Mechanical Ventilator Mechanical Ventilator I&O Intake and Output 05/05/20 05/06/20 19:00 07:00 Intake Total 650 ml 700 ml Output Total 950 ml 1090 ml Balance -300 ml -390 ml IV Total 550 ml 600 ml Other 100 ml 100 ml Stool Total 100 ml 110 ml Gastric Drainage Total 250 ml 280 ml Other 600 ml 700 ml # Bowel Movements 3 Dressing: other Wound: other Drains: other Cardiovascular: RSR Respiratory: decreased breath sounds Abdomen: soft, distended - improved, non-tender, present bowel sounds Extremities: no edema, no tenderness, no cyanosis Laboratory Tests Test 05/05/20 16:39 05/06/20 03:32 05/06/20 05:27 POC Whole Blood Glucose 83 MG/DL (74-106) 85 MG/DL (74-106) White Blood Count 5.3 K/UL (4.8-10.8) Red Blood Count 3.34 M/UL (4.20-5.40) L Hemoglobin 10.1 G/DL (12.0-16.0) L Hematocrit 32.4 % (37.0-47.0) L Mean Corpuscular Volume 97 FL (80-99) Mean Corpuscular Hemoglobin 30.1 PG (27.0-31.0) Mean Corpuscular Hemoglobin Concent 31.0 G/DL (32.0-36.0) L Red Cell Distribution Width 14.8 % (11.6-14.8) Platelet Count 186 K/UL (150-450) Mean Platelet Volume 7.2 FL (6.5-10.1) Neutrophils (%) (Auto) 51.6 % (45.0-75.0) Lymphocytes (%) (Auto) 35.1 % (20.0-45.0) Monocytes (%) (Auto) 7.5 % (1.0-10.0) Eosinophils (%) (Auto) 5.0 % (0.0-3.0) H Basophils (%) (Auto) 0.8 % (0.0-2.0) Sodium Level 137 MMOL/L (136-145) Potassium Level 4.6 MMOL/L (3.5-5.1) Chloride Level 104 MMOL/L (98-107) Carbon Dioxide Level 26 MMOL/L (21-32) Anion Gap 7 mmol/L (5-15) Blood Urea Nitrogen 5 mg/dL (7-18) L Creatinine 0.6 MG/DL (0.55-1.30) Estimat Glomerular Filtration Rate > 60 mL/min (>60) Glucose Level 331 MG/DL (74-106) #H Calcium Level 7.8 MG/DL (8.5-10.1) L Phosphorus Level 2.6 MG/DL (2.5-4.9) Magnesium Level 1.7 MG/DL (1.8-2.4) L Total Bilirubin 0.2 MG/DL (0.2-1.0) Direct Bilirubin < 0.1 MG/DL (0.0-0.3) Aspartate Amino Transf (AST/SGOT) 43 U/L (15-37) H Alanine Aminotransferase (ALT/SGPT) 20 U/L (12-78) Alkaline Phosphatase 181 U/L (46-116) H Total Protein 7.8 G/DL (6.4-8.2) Albumin 2.2 G/DL (3.4-5.0) L Plan Problems: (1) Feeding by G-tube Assessment & Plan: DAILY ESTIMATED NEEDS: Needs based on Critical care, DM, sepsis 66.7kg abw 22-30 kcals/kg 4637-8663 total kcals 1.25-2 g protein/kg 83-133 g total protein 25-30 mL/kg 0129-8638 total fluid mLs NUTRITION DIAGNOSIS: Swallowing difficulty r/t resp status as evidenced by pt is trach and PEG dep. CURRENT TF: Glucerna 1.5 @60ml/hr x20 hrs ENTERAL NUTRITION RECOMMENDATIONS: Glucerna 1.2 @75ml/hr x20 hrs (on Dilantin BID) to provide 1500ml, 1800 kcal, 90g pro, 1208ml free h2o Glucerna 1.5 OOS-> Rec Glucerna 1.2 for carb control + increased free H2O - Start @low rate, 15ml/hr for 6 hrs. Advance as tolerated 10ml/hr q4-6 hrs to goal. - Flush per MD/ HOB over 30 degrees. ---- ADDITIONAL RECOMMENDATIONS: 1) Obtain an accurate Height as able: 5'7" per EMR vs 6'1" per SNF. April 01, 2020 wt per SNF: 182 lbs/82.73kg 2) F/up w/ WC eval 3) Increase water flushes as Na is trending up 4) Replete lytes-> Mg, Phos, and K all low (2) Sepsis Assessment & Plan: Patient with leukocytosis, anemia, lactic acidosis. COVID rapid exam negative Urine noted On antibiotics Care plan as below We will follow with recommendations slowly improving Nutritional optimization Thank you for let me participate in patient's care Massively dilated sigmoid colon. Could be functional, the possibility of distal colonic obstruction or sigmoid volvulus should also be considered CT A/P ordered (3) Sacral decubitus ulcer Assessment & Plan: Pt presented on admission with Tracheostomy, Gastrostomy, Bilat nephrostomies, Pressure injury.Skin assessed under tracheal collar and no evidence of skin breakdown noted. L nephrostomy migrating -suture noted to be loose. No peristomal erythema or skin erosion noted. R nephrostomy is intact without evidence of peristomal skin erosion noted.Scaly dark brown plaques noted to back and both upper thighs Full thickness Pressure Injury sacrococcygeal area(L)3.6cm x (W)1.3cm x (D)1.9cm ,Undermining clockwise at 6o'clock by 0.3cm,12-1 by 0.2cm.@1o'clock. Base of wound is pale pink and moist. Bone is palpable at the base of wound. Epibole along edges along with maceration to borders and periwound.Small amt serous exudate noted. No odor noted. Hyperpigmentation with historical scar noted to sacrum, R and L gluteal cheeks. R and L heels are both boggy with non-Blanching erythema. Bilat foot drop noted. Tx.Plan: Cleanse Sacral wound with Saline. Apply Therahoney. Apply Moisture Barrier paste periwound. Cover with Optifoam drsg Daily and prn Apply Cavilon Skin Barrier to malleoli and each heel. Cover each site with Optifoam drsg.Change every 7 days and PRN. Reposition at least every 2hours or as tolerated. Off-load heels with pillow. APM/ADELIA Mattress overlay. (4) Ileus Assessment & Plan: spoke with patients brother who knows her well. states few years ago she had sigmoid volvulus which required decompression colonoscopy. was told it may happen again and at that time surgery was not considered. gi eval pending CT Lung bases: See below. Pleural space: There is mild bilateral pleural effusions with bibasilar atelectasis. Liver: Unremarkable. Gallbladder and bile ducts: Cholelithiasis without acute cholecystitis. No ductal dilation. Pancreas: Unremarkable. No ductal dilation. Spleen: Unremarkable. No splenomegaly. Adrenals: Unremarkable. No mass. Kidneys and ureters: Bilateral percutaneous nephrostomy tubes with multiple, nonobstructing bilateral renal stones. There is mild inflammatory change about the collecting systems bilaterally with mild hydronephrosis. The findings may be secondary to tube malfunction bilaterally however pyelonephritis can give a similar appearance. Stomach and bowel: There is mild constipation the distal: Moderate gaseous distention of the sigmoid colon suggesting: Acute ileus. No obstructive pattern is identified. No mucosal thickening. Intraperitoneal space: Unremarkable. No free air. No significant fluid collection. Bones/joints: There is arthrodesis of both hips No acute fracture. No dislocation. Soft tissues: Unremarkable. Vasculature: Unremarkable. No abdominal aortic aneurysm. Lymph nodes: Unremarkable. No enlarged lymph nodes. IMPRESSION: 1. Nonobstructing renal stones both kidneys with bilateral hydronephrosis and fat stranding about the renal collecting systems with bilateral percutaneous nephrostomy tubes in place. Correlation is recommended to ensure tube patency. Pyelonephritis can produce a similar appearance. 2. Mild constipation with mild colonic ileus. GI eval d/c planning Delon Murray May 06, 2020 11:53
[2020-05-06 12:00] VITALS: BP 125/55
--- NOTE | 2020-05-06 13:17 | Internal Med Progress Note ---
Subjective Date of Service: May 06, 2020 Physician Name Kalin Eubanks Attending Physician Jeyson Yanez MD Current Medications Medications (Trade) Dose Ordered Sig/Emanuel Route PRN Reason Start Time Stop Time Status Last Admin Dose Admin Acetaminophen (Tylenol) 500 mg Q4H PRN GT Pain Scale (3-5) 04/23/20 08:45 05/23/20 01:59 Acetaminophen (Tylenol) 650 mg THREE TIMES A DAY PRN GT FHMP 04/23/20 02:00 05/23/20 01:59 05/06/20 13:12 Artificial Tears (Akwa-Tears) 1 drop EVERY 12 HOURS BOTH EYES 05/03/20 21:00 05/23/20 08:59 05/06/20 08:50 Bisacodyl (Dulcolax) 10 mg DAILY PRN RECTAL Constipation 04/23/20 02:00 07/22/20 01:59 Dextrose (Dextrose 50%) 25 ml Q30M PRN IV Hypoglycemia 04/23/20 08:15 07/22/20 08:14 Dextrose (Dextrose 50%) 50 ml Q30M PRN IV Hypoglycemia 04/23/20 08:15 07/22/20 08:14 Dextrose/ Electrolytes 1,000 ml @ 50 mls/hr Q20H IV 04/29/20 18:00 05/29/20 17:59 05/06/20 09:01 Docusate Sodium (Colace) 250 mg DAILYPRN PRN GT CONSTIPATION 04/23/20 12:50 05/23/20 12:49 Heparin Sodium (Porcine) (Heparin 5000 units/ml) 5,000 units EVERY 12 HOURS SUBQ 05/05/20 21:00 06/19/20 20:59 05/06/20 08:50 Insulin Aspart (NovoLOG) Q6HR SUBQ 04/25/20 12:00 07/24/20 11:59 04/28/20 05:57 Levetiracetam (Keppra) 1,000 mg Q12HR GT 04/23/20 21:00 05/23/20 08:59 05/06/20 08:47 Metoclopramide HCl (Reglan) 5 mg Q6HR IVP 05/04/20 18:00 06/03/20 17:59 05/06/20 13:12 Pantoprazole (Protonix) 40 mg Q12HR IVP 04/23/20 21:00 05/23/20 08:59 05/06/20 08:47 Phenytoin (Dilantin) 150 mg Q12HR GT 04/24/20 21:00 05/23/20 08:29 05/06/20 08:47 Sodium Phosphate (Fleet's Sodium Phosl Enema) 133 ml DAILY PRN RECTAL CONSTIPATION 04/23/20 02:00 05/23/20 01:59 Sorbitol (sorbitoL) 30 ml DAILYPRN PRN GT constipation 04/23/20 08:15 05/23/20 08:14 Zinc Sulfate (Zinc Sulfate) 220 mg DAILY GT 04/23/20 09:00 07/22/20 08:59 05/06/20 08:48 Allergies: Coded Allergies: No Known Allergies (Unverified , 02/08/13) ROS Limited/Unobtainable: Yes Subjective 59 YO F admitted with fever, now Sepsis and pneumonia. Cover for Int Med-Dr Yanez. Step down unit. [facility] Vent Objective Last Vital Signs Date Time Temp Pulse Resp B/P (MAP) Pulse Ox O2 Delivery O2 Flow Rate FiO2 05/06/20 12:00 Mechanical Ventilator Mechanical Ventilator 05/06/20 12:00 100.4 68 18 125/55 (78) 100 05/06/20 10:48 40 Laboratory Tests Test 05/05/20 16:39 05/06/20 03:32 05/06/20 05:27 POC Whole Blood Glucose 83 MG/DL (74-106) 85 MG/DL (74-106) White Blood Count 5.3 K/UL (4.8-10.8) Red Blood Count 3.34 M/UL (4.20-5.40) L Hemoglobin 10.1 G/DL (12.0-16.0) L Hematocrit 32.4 % (37.0-47.0) L Mean Corpuscular Volume 97 FL (80-99) Mean Corpuscular Hemoglobin 30.1 PG (27.0-31.0) Mean Corpuscular Hemoglobin Concent 31.0 G/DL (32.0-36.0) L Red Cell Distribution Width 14.8 % (11.6-14.8) Platelet Count 186 K/UL (150-450) Mean Platelet Volume 7.2 FL (6.5-10.1) Neutrophils (%) (Auto) 51.6 % (45.0-75.0) Lymphocytes (%) (Auto) 35.1 % (20.0-45.0) Monocytes (%) (Auto) 7.5 % (1.0-10.0) Eosinophils (%) (Auto) 5.0 % (0.0-3.0) H Basophils (%) (Auto) 0.8 % (0.0-2.0) Sodium Level 137 MMOL/L (136-145) Potassium Level 4.6 MMOL/L (3.5-5.1) Chloride Level 104 MMOL/L (98-107) Carbon Dioxide Level 26 MMOL/L (21-32) Anion Gap 7 mmol/L (5-15) Blood Urea Nitrogen 5 mg/dL (7-18) L Creatinine 0.6 MG/DL (0.55-1.30) Estimat Glomerular Filtration Rate > 60 mL/min (>60) Glucose Level 331 MG/DL (74-106) #H Calcium Level 7.8 MG/DL (8.5-10.1) L Phosphorus Level 2.6 MG/DL (2.5-4.9) Magnesium Level 1.7 MG/DL (1.8-2.4) L Total Bilirubin 0.2 MG/DL (0.2-1.0) Direct Bilirubin < 0.1 MG/DL (0.0-0.3) Aspartate Amino Transf (AST/SGOT) 43 U/L (15-37) H Alanine Aminotransferase (ALT/SGPT) 20 U/L (12-78) Alkaline Phosphatase 181 U/L (46-116) H Total Protein 7.8 G/DL (6.4-8.2) Albumin 2.2 G/DL (3.4-5.0) L Intake and Output 05/05/20 05/06/20 19:00 07:00 Intake Total 650 ml 700 ml Output Total 950 ml 1090 ml Balance -300 ml -390 ml IV Total 550 ml 600 ml Other 100 ml 100 ml Stool Total 100 ml 110 ml Gastric Drainage Total 250 ml 280 ml Other 600 ml 700 ml # Bowel Movements 3 Objective PHYSICAL EXAMINATION: GENERAL: Patient is a thin-appearing female, who is intubated and sedated. HEENT: Eyes, pupils are equal and responsive to light and accommodation. Extraocular movements are intact. NECK: Supple without lymphadenopathy. Tracheostomy is in place. CHEST: Mech vent; Coarse breath sounds bilateral bases otherwise without wheezes or rales. CARDIOVASCULAR: Tachycardic, regular rhythm. S1, S2 normal without murmurs, rubs, or gallops. ABDOMEN: Soft, nontender, nondistended. Positive bowel sounds. No evidence of hepatosplenomegaly. Currently, no rebound or guarding noted. EXTREMITIES: Negative for clubbing, cyanosis, or edema. RECTAL/GENITAL: Not performed. NEUROLOGIC: Cranial nerves II through XII are grossly intact without focal deficits. Assessment/Plan Assessment/Plan ASSESSMENT: This is a 59-year-old female. 1. pneumonia=acenitobacter (MDR), pseudamonas and providencia 2. sepsis=coag neg staph 3. Chronic respiratory failure. 4. Chronic obstructive pulmonary disease. 5. Quadriplegia. 6. History of dysphagia. 7. Diabetes type 2. 8. Seizure disorder. 9. History of gastrointestinal hemorrhage. 10. Erosive gastritis. 11. Schizophrenia. 12. Gastroesophageal reflux disease. 13. Neurogenic bladder. 14. Stage IV sacral decubitus ulcer. 15. New venous thrombosis left basilic vein secondary to PICC 16. Ogile's syndrome (bowel dysmotility) TREATMENT: 1. Fever/sepsis. A Pulmonary Critical Care consultation has been obtained with Dr. Luis Garcia. ABX= levaquin; S/P vancomycin and cefepime. We will follow recommendations of Pulmonary. Infectious disease=Dr Peoples 2. Chronic vent dependence/chronic respiratory failure. As above, a Pulmonary consultation has been obtained with Dr. Luis Garcia. We will follow recommendations of Pulmonary. 3. Seizure disorder. Continue Keppra and Dilantin as above. 4. Diabetes type 2. NovoLog sliding scale has been instituted. 5. Chronic obstructive pulmonary disease. As above, a Pulmonary consultation has been obtained with Dr. Luis Garcia. We will follow recommendations of Pulmonary. 6. History of gastrointestinal hemorrhage/erosive gastritis. Patient has been placed on Protonix. 7. Schizophrenia, not otherwise specified. 8. Gastroesophageal reflux disease. 9. Neurogenic bladder. 10. Stage IV sacral decubitus ulcer. 11. History of deep venous thrombosis. 12. Discharge planning: [facility] 13. D/C PICC 14. Contineu Rectal tube per GI=Khorrami 15. DVT prophylaxis: Heparin subcut Kalin Eubanks MD May 06, 2020 13:17
--- NOTE | 2020-05-06 13:41 | NUR ---
CASE MANAGEMENT: REVIEW SI: INTESTINAL OBSTRUCTION . DEHYDRATION T 100.4 HR 68 RR 18 BP 125/55 SAT 100% MECH VENT FIO2 40 H/H 10.1/32.4 GLUCOSE 331 ALK PHOS 181 IS: D5W w/KCl 20MEQ @ 50ML/HR DILANTIN GT Q12HR KEPPRA GT Q12HR LEVAQUIN GT QD NOVOLOG SUBQ Q6HR GT FEEDING STEP DOWN UNIT DCP: PATIENT IS FROM [facility]
--- NOTE | 2020-05-06 13:45 | NUR ---
*-* INSURANCE *-* UPDATED CLINICALS AND REVIEWS HAVE BEEN FAXED TO: [facility] Auth# [id number] Work [phone] FAX [phone] FAX [facility] [phone]
--- NOTE | 2020-05-06 13:58 | Diagnostic Imaging Report ---
Indication: Shortness of breath Technique: One view of the chest Comparison: 05/02/2020 Findings: Tracheostomy is again demonstrated. The lungs and pleural spaces are clear. The heart size is normal. Previously demonstrated left arm PICC no longer evident. Impression: No acute process or significant interim change Interim PICC removal
--- NOTE | 2020-05-06 14:58 | NUR ---
NURSE NOTES: Per Dr. Garcia, if patient got bed at [facility], okay to discharge to [facility] with hospital medication. Order noted, entered, carried out. Monserrat rn case manager made aware.
--- NOTE | 2020-05-06 15:59 | NUR ---
NURSE NOTES: Dr. Stevenson made aware patient unable to tolerate tube feeding at this time, residual 100ml, feeding on hold. Per [place] 10mg IVP Q8HR. Order noted, entered, carried out. Will continue to monitor.
[2020-05-06 16:00] VITALS: BP 130/72
--- NOTE | 2020-05-06 16:40 | NUR ---
NURSE NOTES: Spoke with disability case manager from [facility], informed patient will be transfer for [facility] but does not have bed yet, will callback. Tele : [phone].
--- NOTE | 2020-05-06 17:14 | NUR ---
NURSE NOTES: Received phone call from [facility] regarding discharge, per Betito, patient is going to [facility] Room 5717, RN to RN report [phone], ETA 2000.
--- NOTE | 2020-05-06 18:20 | NUR ---
NURSE NOTES: Report given to LUCERO Harris tele :[phone], patient is discharging to [facility] #[id number].
--- NOTE | 2020-05-06 18:23 | NUR ---
NURSE NOTES: Called Family member, Reggie Garcia tele [phone], left message patient will be discharge today.
[2020-05-06] MEDS ORDERED: NS Irrig 1000ml ONE (19:05)
[2020-05-06] MEDS ORDERED: NS 275ml ONE (19:05)
--- NOTE | 2020-05-06 19:08 | NUR ---
HAND-OFF: Report given to LUCERO Maddox. Endorsed plan of care.
--- NOTE | 2020-05-06 19:11 | NUR ---
NURSE NOTES: Received report form LUCERO Myers, pt. in bed obtunded, spontaneously opens eyes, non-verbal- no signs or symptoms of acute cardiac or respiratory distress noted, bed alarm on, side rails up x's3 and safety brakes engaged, isolation precautions observed, side rails padded for seizure precautions- no seizure activity noted, pt. appears to be tolerating current vent settings well- AC 18, VT 450, fio2 40% and peep 5, G tube feeding Glucerna 1.2 held for high residuals, pt. has bilateral nephrostomy tube intact and patent, pt. appears clean and dry, HOB elevated, RT. hand 24G- iv intact and patent, safety precautions taken, will continue with plan of care- Per endorsement pt. is awaiting flower buncher or picker by ambulance for transfer to [facility].
--- NOTE | 2020-05-06 19:35 | NUR ---
NURSE NOTES: [facility] here [facility] pt. shredder picker - report given to Horace- pt. remains stable upon transfer.
[2020-05-06] MEDS ORDERED: Metoclopramide 10mg/2ml Inj IVP SCH (22:00)
--- NOTE | 2020-05-07 09:39 | NUR ---
*-* NO DISCHARGE SUMMARY IN THE SYSTEM UNABLE TO SEND TO [facility] *-*
--- NOTE | 2020-05-07 13:33 | Discharge Summary ---
Discharge Summary Discharge Summary _ DATE OF ADMISSION: 04/23/2020 DATE OF DISCHARGE: 05/06/2020 DISCHARGED BY: Dr. Yanez REASON FOR ADMISSION: 59 years old female, resident of detention facility, with past medical history of suicidal attempt in 2004 progressing to coma requiring long-term ventilator support and tracheostomy, bedbound with spastic quadriplegia, neutropenia, depression with paranoia, seizure disorder, dysphagia feeding by G- tube, bilateral nephrostomy tubes since 2018 was brought for evaluation with a chief complaint of fever and tachycardia Shortly after initial evaluation emergency department patient was diagnosed with sepsis UTI dehydration hyperglycemia elevated liver enzymes acute metabolic encephalopathy and sacral decubitus ulcers present on admission. Sepsis was likely due to UTI urine culture grew in the past multidrug-resistant bacteria patient received a dose of ertapenem. Patient initially was hypotensive but blood pressure responded to the IV fluids along with a heart rate. Rapid COVID testing was negative. Chest x-ray showed no infiltrate. Patient admitted for further management to do you CONSULTANTS: pulmonary Dr. Garcia ID specialist Dr. Peoples GI specialist Dr. Stevenson study specialist Dr. Reese surgery Dr. Murray [facility] COURSE: Patient admitted to [facility]. Ventilator support and pulmonary toilet provided. Baseline ABG was stable on current settings. Settings were continued as is and titrated if needed. Pulmonary toilet provided. Patient initially was on isolation. COVID-19 rapid test and by PCR x2 were negative. Isolation discontinued. Antibiotic provided as per ID recommendation . Sputum culture revealed Acinetobacter , Pseudomonas and Providencia. Urine culture revealed mixed steffi. Blood culture was negative. Stool for C. difficile was negative. Initial bacteremia with Staph coag negative was likely contaminant , as repeated blood culture 04/22 and 04/24 were negative. Initial leukocytosis resolved. Lactic acidosis resolved. Chest x-ray prior to discharge showed no acute process. Patient completed antibiotic while in the hospital . ID specialist recommended to monitor patient off antibiotics. Severe sepsis present on admission was likely due to pneumonia versus tracheitis. Venous duplex bilateral lower extremity revealed no evidence of acute DVT. Venous duplex of the left upper extremity was done due to left arm edema and revealed thrombosed left upper extremity basilic vein , containing a PICC line. Subsequently PICC line was discontinued. Patient was on gentle IV fluids. Renal parameters and electrolytes were closely monitored. Electrolytes corrected as per study specialist. Acute kidney injury resolved and likely was due to dehydration. Prior to discharge BUN 5, creatinine 0.6. Hypernatremia resolved. Prior to discharge, sodium 137. Patient noted to have distended abdomen KUB on 05/02 revealed massive sigmoid colonic distention. CT scan of the abdomen and pelvis 05/03 revealed mild ileus, mild constipation, nonobstructive nephrolithiasis with bilateral hydronephrosis. Per family, patient had a sigmoid volvulus in the past, requiring colonic decompression. Patient was made n.p.o. GI specialist seen and evaluated patient. Bowel regimen and rectal decompression were instituted. Strict aspiration precaution maintained. Tube feeding formula with goal rate provided as per registered dietitian recommendation. Per GI specialist , patient had colonic dysmotility/Staplehurst's syndrome with good response for rectal decompression. LFT trended down , etiology was most likely due to Dilantin. AST from initial 103 down to 43, and ALT from initial 127 down to 20. Hepatitis panel was negative. HIV test was nonreactive. Abdominal ultrasound revealed mildly prominent common bile duct, probably normal for her age. Gallstone. Bilateral ureteral stents. No hydronephrosis. Possible small bilateral renal stones. Midline structures, including pancreas, aorta and cava were not optimally visualized due to bowel gas. Seizure precaution maintained. Keppra and Dilantin continue. No evidence of seizure activity while in the hospital. Hemoglobin and hematocrit were closely monitored with goal to keep hemoglobin above 7. Patient had a prior history of GI bleeding. GI prophylaxis provided. Prior to discharge hemoglobin 10.1, hematocrit 32.4. Blood sugar was managed with sliding scale of insulin , remained stable. Hemoglobin A1c - 6.2 at goal. Supportive care provided. Wound care for present on admission sacral decubitus ulcer provided as per surgeon recommendation; continue wound care at the facility. Patient clinically stabilized and was ready for discharge to detention facility for continuation of care. FINAL DIAGNOSES: Severe sepsis , possibly due to pneumonia versus tracheitis Chronic respiratory failure, ventilator dependent with tracheostomy status COPD Lactic acidosis- resolved Suspected COVID-19- ruled out GABRIELLE -resolved Dehydration Bilateral hydronephrosis with bilateral nephrostomy tubes Nephrolithiasis Hypernatremia -resolved Colonic ileus /colonic dysmotility/Dipak syndrome Constipation History of sigmoid volvulus Dysphagia ,feeding by G-tube Sacral decubitus ulcer , stage IV - present on admission Transaminitis- resolved, possibly due to Dilantin Anemia of chronic disease History of GI bleeding Seizure disorder Spastic quadriplegia Paranoid schizophrenia Encephalopathy Diabetes mellitus DISCHARGE MEDICATIONS: See Medication Reconciliation list. DISCHARGE INSTRUCTIONS: Patient was discharged to the detention facility. Follow up with medical doctor at the facility. [place] NP May 07, 2020 13:33
--- NOTE | 2020-05-08 11:46 | NUR ---
*-* INSURANCE *-* DISCHARGE SUMMARY HAS BEEN FAXED: [facility] Auth# [id number] Work [phone] FAX [phone] FAX [facility] [phone]
== END 2020-05-06 20:40 | DRG 870 ==
LOC: EDBD 21:52 → EMR 22:46 → 2W 04-23 00:19 → EDBEDREQ 04-23 01:00
PROC: 5A1955Z Respiratory Ventilation, Greater than 96 Consecutive Hours (ICD-10-PCS; principal; 2020-04-23)
PROC: 02HV33Z Insertion of Infusion Device into Superior Vena Cava, Percutaneous Approach (ICD-10-PCS; 2020-04-26)
PROC: B548ZZA Ultrasonography of Superior Vena Cava, Guidance (ICD-10-PCS; 2020-04-26)
DX: A41.52 Sepsis due to Pseudomonas (principal); L89.154 Pressure ulcer of sacral region, stage 4; G93.41 Metabolic encephalopathy; G80.0 Spastic quadriplegic cerebral palsy; J96.10 Chronic respiratory failure, unspecified whether with hypoxia or hypercapnia; N39.0 Urinary tract infection, site not specified; J44.0 Chronic obstructive pulmonary disease with (acute) lower respiratory infection; R40.3 Persistent vegetative state; Z99.11 Dependence on respirator [ventilator] status; F20.0 Paranoid schizophrenia; K56.7 Ileus, unspecified; E87.0 Hyperosmolality and hypernatremia; N17.9 Acute kidney failure, unspecified; T82.868A Thrombosis due to vascular prosthetic devices, implants and grafts, initial encounter; R65.20 Severe sepsis without septic shock; G40.909 Epilepsy, unspecified, not intractable, without status epilepticus; E11.65 Type 2 diabetes mellitus with hyperglycemia; K29.70 Gastritis, unspecified, without bleeding; K21.9 Gastro-esophageal reflux disease without esophagitis; Z91.5 Personal history of self-harm; N31.9 Neuromuscular dysfunction of bladder, unspecified; Z93.0 Tracheostomy status; Z93.1 Gastrostomy status; Z86.718 Personal history of other venous thrombosis and embolism; E86.0 Dehydration; Z74.01 Bed confinement status; Z20.828 Contact with and (suspected) exposure to other viral communicable diseases; R13.10 Dysphagia, unspecified
CPT/HCPCS: 36415; 36569; 36600; 71045; 74018; 74150; 76700; 76937; 80048; 80053; 80061; 80076; 80185; 80202; 81003; 82550; 82553; 82607; 82728; 82746; 82803; 82962; 82977; 83036; 83540; 83550; 83605; 83615; 83690; 83735; 83880; 84100; 84443; 84484; 84550; 85007; 85025; 85379; 85651; 86140; 86703; 86705; 86709; 86710; 86803; 86850; 86900; 86901; 86920; 87040; 87070; 87081; 87086; 87181; 87205; 87324; 87340; 93005; 93306; 93970; 93971; 94002; 94003; 94664; 96361; 96365; 99291; J1815; J2765; J7030; S5561; U0002